=== PATIENT | female | born 1940 | race Caucasian/White ===

== ENCOUNTER → 2018-01-13 15:34 | Outpatient (CLI) | payer MEDICARE, OTHER, SELFPAY ==
[2018-01-13 17:21] LABS: AST(SGOT) 18 U/L (15-37); Alanine Aminotransfer ALT/SGPT 16 U/L (13-56); Alkaline Phosphatase 114 U/L (45-117); BUN 16 mg/dL (7-18); BUN/Creat Ratio 20.4 RATIO (10-20); Bilirubin, Direct 0.08 mg/dL (0.00-0.30); Cholesterol 132 mg/dL (200); Creatinine, Serum 0.78 mg/dL (0.55-1.02); EST Glomerular Filtration Rate 76 mL/min (>60); Est Glom Filt Rate - Afr Amer 92 mL/min (>60); Globulin 4.6 g/dL (2.2-4.2); Glucose 112 mg/dL (74-106); Protein, Total 7.6 g/dL (6.4-8.2); Triglycerides 46 mg/dL
[2018-01-13 17:22] LABS: Anion Gap 6 (5-15); Chloride 98 mmol/L (98-107); High Density Lipoprotein 87 mg/dL; Sodium Level 139 mmol/L (136-145); Very Low Density Lipoprotein 9 mg/dL (5-40)
== END ==
PROVIDERS: Family Provider Family Medicine; PCP Family Medicine; Visit Provider Physician Assistant Medical
DX: I10 Essential (primary) hypertension (principal); E78.5 Hyperlipidemia, unspecified; I48.0 Paroxysmal atrial fibrillation; I63.50 Cerebral infarction due to unspecified occlusion or stenosis of unspecified cerebral artery
CPT/HCPCS: 36415; 80048; 80061; 80076

== ENCOUNTER 2018-05-24 11:35 | Inpatient (IN) | payer MEDICARE, OTHER, SELFPAY ==
[2018-05-24] VITALS (20 sets, daily range): BP systolic 91–121; BP diastolic 56–83; PULSE 72–97; RESP 13–20; TEMP 36.2–37.2; O2SAT 88–100; BMI 25.3; BMI 25.7; BMI 25.8
--- NOTE | 2018-05-24 11:57 | EKG12_ITS ---
Test Reason : Blood Pressure : / mmHG Vent. Rate : 078 BPM Atrial Rate : 090 BPM P-R Int : 000 ms QRS Dur : 112 ms QT Int : 304 ms P-R-T Axes : 000 047 232 degrees QTc Int : 346 ms Atrial fibrillation Nonspecific ST and T wave abnormality Abnormal ECG Confirmed by ONEIL GARDUNO, JUSTUS ([id number]), video editor ANDRADE LEVY ([id number]) on 05/27/2018 2:36:35 PM Referred By: TRINI Confirmed By:JUSTUS RIGGS MD
--- NOTE | 2018-05-24 11:57 | RAD_ITS ---
STUDY: X-RAY CHEST REASON FOR EXAM: Female, 77 years old. Chest pain, confusion TECHNIQUE: Single AP portable view of the chest. COMPARISON: 06/12/2015 FINDINGS: Cardiac monitoring leads overlie the chest. There is elevation of the right hemidiaphragm. There is mild right basilar airspace disease. A small right pleural effusion is seen. There is moderate cardiac enlargement. Normal mediastinum and donna. Normal visualized pulmonary arteries. There is atherosclerotic calcification of the aortic arch with tortuosity. There are diffuse degenerative changes of the visualized thoracic spine. Normal visualized ribs, clavicles, and shoulders. There is no demonstrated abnormality of the visualized soft tissue structures of the upper abdomen. RAD/Chest 1 View (Portable) IMPRESSION: Mild right lower lobe airspace disease and small right pleural effusion. Moderate cardiomegaly. Electronically Signed: Ean Kate DO at 12:57 EDT Tel , Service support ,
--- NOTE | 2018-05-24 11:58 | CT_ITS ---
STUDY: CT BRAIN WITHOUT CONTRAST REASON FOR EXAM: Female, 77 years old. Confusion, anxiety RADIATION DOSAGE (If Supplied By Facility): CTDIvol = ( 44.99 ) mGy, DLP = ( 745.49 ) mGycm TECHNIQUE: Transaxial CT imaging of the brain was performed without administration of intravenous contrast material. Sagittal and coronal reconstructed images are provided and reviewed. Individualized dose optimization techniques were used for this CT. COMPARISON: 06/01/2015 FINDINGS: Vascular calcifications are seen. Normal calvarium. There is mild cerebral atrophy with widening of the extra-axial spaces and ventricular dilatation. There are areas of decreased attenuation within the white matter tracts of the supratentorial brain, consistent with microvascular disease changes. There is a remote infarct within the left occipital lobe. Normal basal ganglia and thalami. Normal brainstem. Normal cerebellum. There is no intracranial hemorrhage. There are no findings of an acute ischemic infarction. Normal visualized paranasal sinuses. CT/Brain/Head without Contrast IMPRESSION: Chronic involutional changes. No acute intracranial abnormality. Electronically Signed: Ean Kate DO at 12:53 EDT Tel , Service support ,
--- NOTE | 2018-05-24 11:59 | ED.VISSUMM ---
- ER Visit Summary Date of Service: 05/24/18 Chief Complaint: [] Confusion intermittently for the last few days, leg swelling for a few weeks History of Present Illness: The patient is a 77 F [] the patient has multiple medical problems including A. fib, fractured sternum, shortness of breath, transverse myelitis, leg swelling, nonspecific shaking spells, who basically is brought in by family because they report for last few day she seemed confused. She apparently recently had spilled some hot liquids to her inner thighs she was seen by her physicians on Friday for evaluation of this she was given some ointments to use the area seem to be healing but complained of bilateral increasing leg swelling from her baseline and she was started on what sounds like Spironolactone she is only taken 2 doses. She lives with family, they report she seems confused and that she cannot remember what the doctor told her about the barber, she usually puts out takes her medications and could not manage that today, in addition the family believes that her chronic shaking spells are getting worse, she seems to be swelling with fluid, and she was brought in for evaluation., The sister believes she had a stroke in the past that caused some issues with speech that has all been stable The patient's had no fever no cough normal bowel bladder habits she has had no trauma, the patient is oriented to herself her name her address her sister and family's names where she lives the [facility] and the president name and appears to be at her mental status baseline now she is moving all 4 extremities she simply complains that her memory is not as sharp as it used to be and again she denies any other symptoms no UTI symptoms no GI symptoms no cardiovascular symptoms Physical Examination: [] ENT exam is generally unremarkable her lungs are diminished her heart tones sound regular the abdomen is soft nontender the inner thighs bilaterally there is small areas of healing burn that are really now just red skin is no evidence of infection is no pain no blistering she does have nonspecific short amplitude tremors of her upper and lower extremities that been going on for over a year she does not seem be able to control these, she has no history of Parkinson's disease or other movement disorders, she does have 3+ edema to her lower extremities that are symmetric and again her feet are well-perfused no signs of ischemia she has no history of DVT or PE, she is resting in the bed basically at baseline with no complaints, neurologically she is awake and alert her mental status is as above, she is moving all 4 extremities, there is no evidence of confusion at this time, her NIH is 0 Test Results: [] Emergency Department Course and Treatment: [] Differential is rather extensive she has multiple chronic medical problems the new issue seem to be this level of intermittent confusion and leg swelling she will undergo evaluation with screening labs head CT The patient's general evaluation testing are unremarkable see those reports except her hemoglobin turns of [address] showed nothing acute, she is on Eliquis for the A. fib she has had no bleeding, rectal exam shows brown stool was sent to lab for formal guaiac but she has had no history of GI bleeding, per sister had prior colonoscopies are unremarkable, at this time she is remained hemodynamically stable given all the above we have typed and crossed her the crossmatch will be completed on inpatient service, spoke with the hospitalist and will be done to see her for admission Treatment Plan: [] Disposition: [] Admit stable Impression: [] Acute blood loss anemia, shortness of breath, A. fib on Eliquis, history of movement disorder, leg edema , CHF This note was generated with [employer] dictation software. It may contain incorrect words, spelling, and punctuation that were not noted in review of the chart prior to signing ED Disposition - Plan for ED Patient: Chief Complaint: Confusion Referrals: Fan Ruiz DO [Primary Care Provider] -
[2018-05-24 12:27] LABS: Absolute Lymphocyte Count 0.56 X10^3/ul (0.83-4.51); Absolute Neutrophil Count 2.4 X10^3/uL (2.0-7.7); Basophil# 0.05 X10^3/uL; Basophil% 1.5 % (0-1); Differential Indicated SCAN CRITERIA MET; Eosinophil# 0.04 X10^3/uL; Eosinophils% 1.2 % (0-5); Hematocrit 17.6 % (37-47); Lymphocyte # 0.56 X10^3/ul (4.0); Lymphocyte % 16.3 % (19-41); Mean Corp Hgb Conc 27.3 g/gl (32-36); Mean Corpuscular Hgb 18.2 pg (27.0-32.0); Mean Corpuscular Volume 66.7 fL (81-99); Monocyte# 0.35 X10^3/uL; Monocyte% 10.2 % (0-10); Neutrophil # 2.43 X10^3/uL (2.7-7.7); Neutrophil % 70.8 % (47-70); POSITIVE COUNT YES; POSITIVE DIFFERENTIAL YES; POSITIVE MORPHOLOGY YES; Platelet Count 109 K/mm3 (150-450); RBC Distribution Width CV 22.8 % (11.6-14.6); RBC Distribution Width SD 54.4 fl (35.1-43.9); Red Blood Count 2.64 M/mm3 (4.2-5.4); White Blood Count 3.4 K/mm3 (4.4-11.0)
[2018-05-24 12:28] LABS: Hemoglobin 4.8 g/dl (12.0-15.0)
--- NOTE | 2018-05-24 12:36 | ED.RN ---
hgb level of 4.8 md and nurse notified.
[2018-05-24 12:44] LABS: Differential Comment SCANNED
[2018-05-24 12:45] LABS: Anisocytosis 2+; Hypochromasia 2+; Microcytosis 2+; Platelet Estimate SLT DEC (ADEQ)
[2018-05-24 12:48] LABS: Anion Gap 6 (5-15); BUN 15 mg/dL (7-18); Calcium,Total 9.1 mg/dL (8.5-10.1); Chloride 99 mmol/L (98-107); Creatinine, Serum 0.83 mg/dL (0.55-1.02); EST Glomerular Filtration Rate 71 mL/min (>60); Est Glom Filt Rate - Afr Amer 86 mL/min (>60); Estimated Creatinine Clearance 44.19 ml/min; Glucose 88 mg/dL (74-106); Magnesium 1.9 mg/dL (1.6-2.6); Potassium 3.2 mmol/L (3.5-5.1); Sodium Level 139 mmol/L (136-145)
[2018-05-24 12:55] LABS: BNP,B-Type NATRIURETIC PEPTIDE 244.2 pg/mL (0-100)
[2018-05-24 13:03] LABS: Mucous, Urine 0 SEEN /hpf (<or=2+); Red Blood Cells-Urine 0 SEEN /hpf (0-5); Squamous Epithelial Cells - UA 0 SEEN /hpf (5-10)
[2018-05-24 13:09] LABS: Color, Urine Yellow (Yellow); Glucose, Dipstick Normal (Normal); Ketone-Dipstick Negative (Negative); Leukocyte Esterase-Dipstick 25 /ul (Negative); Nitrite-Dipstick Negative (Negative); Occult Blood-Urine Negative /ul (Negative); Protein-Dipstick Negative (Negative); Specific Gravity, Urine 1.015 (1.002-1.030); Urine Bilirubin Dipstick Negative (Negative); Urine Clarity Clear (Clear); Urine Urobilinogen Normal (Normal)
[2018-05-24 13:16] LABS: Bacteria 2+ /hpf (None Seen); White Blood Cells 0-5 SEEN /hpf (0-5)
[2018-05-24 15:41] LABS: Ferritin 16 ng/mL (8-252); Iron 39 ug/dL (50-170); Iron Binding Capacity,Total 405 ug/dL (250-450); LDH 233 U/L (84-246); PERCENT IRON SATURATION 9.6 % (15.0-55.0); Thyroid Stim Hormone (TSH) 1.57 uIU/mL (0.358-3.74)
[2018-05-24 15:44] LABS: Immature Platelet Fraction 11.5 % (1.0-7.9); RET-HE 22.8 pg (30-35); Reticulocyte Count 0.98 % (0.5-1.5)
[2018-05-24 15:49] LABS: Erythrocyte Sedimentation Rate 18 mm/hr (0-30)
--- NOTE | 2018-05-24 16:56 | NURSING ---
New admit from Emergency Department (ED). Arrived to floor From ED and had PRBC infusing. This nurse could not find Consent for blood. In patients TAR, it was check marked that consent was indeed signed. This nurse called and spoke with Kavitha in ED whom took care of pt. Kavitha said she had obtained consent but did not know where the paper for consent was at. This nurse waited until now when patients daughter arrived to get consent for blood product which was then placed in chart.
--- NOTE | 2018-05-24 17:54 | PCM.HP.STD ---
History of Present Illness Date of Admission: 05/24/18 Chief Complaint: weakness The patient is a 77 year old F with h/o CHF admitted to the hospital on account of increasing weakness, fatigue, malaise and cognitive decline. In the ED was found to be severely anemic with Hb of 4.8 and started on2 units of PRBCs. patient denies any hematochezia, or hematemesis, denies any melena stools. has issues with constipation because she is on opioids for chronic pain. No change in caliber of stools. 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) Other correction (current) drug therapy (Chronic) Hyperlipidemia (Chronic) Essential (primary) hypertension (Chronic) Paroxysmal atrial fibrillation (Chronic) Chronic pain syndrome (Chronic) Transverse myelitis (Chronic) History of DVT (deep vein thrombosis) (Chronic) Atrial flutter (Chronic) Medical History: Medical History (Last Reviewed 04/21/18 @ 14:36 by Kory Giraldo MD) Hyperlipidemia (Chronic) E78.5 Essential (primary) hypertension (Chronic) I10 Paroxysmal atrial fibrillation (Chronic) I48.0 Atrial flutter (Chronic) I48.92 Allergies morphine Allergy (Verified 05/24/18 11:36) Hives carbamazepine [From Tegretol] Adverse Reaction (Intermediate, Verified 05/24/18 11:36) HALLUCINATIONS procaine HCl [From Novocain] Adverse Reaction (Intermediate, Verified 05/24/18 11:36) HEART RACES,FEELS LIKE WILL PASS OUT Home Medications: Ambulatory Orders Medication Instructions Recorded Docusate Sodium [Dok] 200 mg PO BID 05/26/15 Gabapentin [Neurontin] 600 mg PO 4X/DAY 05/26/15 Methadone HCl 5 mg PO 5X/DAY 05/26/15 Oxycodone [Oxyir] 5 mg PO Q4H PRN 05/26/15 omeprazole 20 mg capsule,delayed 20 mg PO QDAY 12/25/17 release apixaban 5 mg tablet 5 mg PO BID #60 tab 03/09/18 citalopram 20 mg tablet 20 mg PO QDAY 04/21/18 atorvastatin 10 mg tablet 10 mg PO QDAY #90 tab 05/06/18 diltiazem ER (XR/XT) 120 mg 120 mg PO DAILY #90 cap 05/06/18 capsule,extended release 24 hr, controlled isosorbide mononitrate ER 30 mg 30 mg PO QDAY #90 tab 05/06/18 tablet,extended release 24 hr triamterene 37.5 1 cap PO DAILY #90 cap 05/06/18 mg-hydrochlorothiazide 25 mg capsule Apixaban [Eliquis] 5 mg PO BID 05/24/18 Rabeprazole Sodium [Aciphex] 1 tab PO DAILY 05/24/18 Spironolact/Hydrochlorothiazid 1 each PO DAILY 05/24/18 [Aldactazide 25-25 Tablet] Surgical History: Surgical History (Last Reviewed 04/21/18 @ 14:36 by Kory Giraldo MD) H/O: hysterectomy Z90.710 Surgical History: hysterectomy Psychiatric History: Anxiety 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 Smoking Status: Former smoker - *Family History Offspring Family History: Family History (Last Reviewed 04/21/18 @ 14:36 by Kory Giraldo MD) Mother Colon cancer Father Myocardial infarction History Items: - - MS Maternal Family History: Family History (Last Reviewed 04/21/18 @ 14:36 by Kory Giraldo MD) Mother Colon cancer Father Myocardial infarction History Items: No pertinent history Paternal Family History: Family History (Last Reviewed 04/21/18 @ 14:36 by Kory Giraldo MD) Mother Colon cancer Father Myocardial infarction History Items: No pertinent history Review of Systems Constitutional: Reports: Anorexia, Malaise, Weakness, Fatigue HEENT: Reports: Difficulty Hearing Cardiovascular: Reports: Edema. Denies: Chest Pain, Claudication, Chest Pressure Respiratory: Denies: Cough, Pleuritic Pain, Shortness of Breath Gastrointestinal: Reports: Constipation. Denies: Abdominal Pain, Diarrhea, Hematemesis, Hematochezia, Nausea, Melena, Vomiting Genitourinary: Denies: Dysuria Comment: rest of the ROS is negative VTE Information - Inpt Only VTE Present on Admission: No - Physical Exam General: Alert, Oriented x3, Cooperative, Disoriented, Lethargic HEENT: Atraumatic Oral: Dry Mucosa Neck: Supple Lungs: Clear to auscultation Cardiovascular: Regular rate, Regular Rhythm, Normal S1, Normal S2, No murmurs, No Ectopic Activity Abdomen: Soft, Non Tender, Non-Distended, No Hepato-splenomegaly, Obese Extremities: No clubbing Skin: - - pale +++ Musculoskeletal: No Tenderness to Palpation of Joints or Extremities Neurological: Cranial nerves II-XII grossly intact, Neuro grossly intact Psych/Mental Status: Normal Affect, Appropriate, Anxious Vital Signs Temp Pulse Resp BP Pulse Ox 97.8 F 80 16 121/65 H 100 05/24/18 16:38 05/24/18 16:49 05/24/18 16:38 05/24/18 16:38 05/24/18 16:38 Oxygen Flow Rate (L/min) 2 Oxygen Delivery Method Nasal Cannula Weight: 59.874 kg Body Mass Index (BMI) 25.7 Intake and Output for Last 24 Hours 05/22/18 05/23/18 05/24/18 23:59 23:59 23:59 Intake Total 0 / 0 Balance 0 / 0 Laboratory Tests Past 24 Hrs 05/24/18 05/24/18 05/24/18 15:10 15:10 Unknown Immature Plt Fraction 11.5 H ESR 18 Retic Count 0.98 Immature Retic Fraction 17.50 H Retic Hgb Equivalent 22.8 L Iron 39 L TIBC 405 Iron Saturation 9.6 L Ferritin 16 Lactate Dehydrogenase 233 Total Protein (PEP) Pending Albumin (PEP) Pending Globulin (PEP) Pending Albumin/Globulin (PEP) Pending [id number]-[id number] Pending Klitc-1-Jedwonucl Pending Beta Globulins Pending Gamma Globulins Pending M-Kris Pending TSH 1.57 Assessment/Plan All Active Problems (Last Reviewed 04/21/18 @ 14:36 by Kory Giraldo MD) Acute ischemic stroke (Acute) 1. Severe anemia. Appears to be chronic. iron panel suggestive of iron deficiency. Will continue work up Check FOBT. Complete blood transfusion. Consider GI consult 2. Chronic diastolic CHF. Stable 3. Atrial fibrillation. Will hold eliquis for now given possibility of occult GI bleeding 4. H/o transverse myelitis with mild paraparesis Code Visit Inpatient E&M: 33593 Init Hosp L3
[2018-05-24] MEDS: oxyCODONE 5 MG Tablet PO (17:56)
--- NOTE | 2018-05-24 17:58 | HP.PCM_ITS ---
History of Present Illness Date of Admission: 05/24/18 Chief Complaint: weakness The patient is a 77 year old F with h/o CHF admitted to the hospital on account of increasing weakness, fatigue, malaise and cognitive decline. In the ED was found to be severely anemic with Hb of 4.8 and started on2 units of PRBCs. patient denies any hematochezia, or hematemesis, denies any melena stools. has issues with constipation because she is on opioids for chronic pain. No change in caliber of stools. 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) Other chcf (current) drug therapy (Chronic) Hyperlipidemia (Chronic) Essential (primary) hypertension (Chronic) Paroxysmal atrial fibrillation (Chronic) Chronic pain syndrome (Chronic) Transverse myelitis (Chronic) History of DVT (deep vein thrombosis) (Chronic) Atrial flutter (Chronic) Medical History: Medical History (Last Reviewed 04/21/18 @ 14:36 by Kory Giraldo MD) Hyperlipidemia (Chronic) E78.5 Essential (primary) hypertension (Chronic) I10 Paroxysmal atrial fibrillation (Chronic) I48.0 Atrial flutter (Chronic) I48.92 Allergies morphine Allergy (Verified 05/24/18 11:36) Hives carbamazepine [From Tegretol] Adverse Reaction (Intermediate, Verified 05/24/18 11:36) HALLUCINATIONS procaine HCl [From Novocain] Adverse Reaction (Intermediate, Verified 05/24/18 11:36) HEART RACES,FEELS LIKE WILL PASS OUT Home Medications: Ambulatory Orders Medication Instructions Recorded Docusate Sodium [Dok] 200 mg PO BID 05/26/15 Gabapentin [Neurontin] 600 mg PO 4X/DAY 05/26/15 Methadone HCl 5 mg PO 5X/DAY 05/26/15 Oxycodone [Oxyir] 5 mg PO Q4H PRN 05/26/15 omeprazole 20 mg capsule,delayed 20 mg PO QDAY 12/25/17 release apixaban 5 mg tablet 5 mg PO BID #60 tab 03/09/18 citalopram 20 mg tablet 20 mg PO QDAY 04/21/18 atorvastatin 10 mg tablet 10 mg PO QDAY #90 tab 05/06/18 diltiazem ER (XR/XT) 120 mg 120 mg PO DAILY #90 cap 05/06/18 capsule,extended release 24 hr, controlled isosorbide mononitrate ER 30 mg 30 mg PO QDAY #90 tab 05/06/18 tablet,extended release 24 hr triamterene 37.5 1 cap PO DAILY #90 cap 05/06/18 mg-hydrochlorothiazide 25 mg capsule Apixaban [Eliquis] 5 mg PO BID 05/24/18 Rabeprazole Sodium [Aciphex] 1 tab PO DAILY 05/24/18 Spironolact/Hydrochlorothiazid 1 each PO DAILY 05/24/18 [Aldactazide 25-25 Tablet] Surgical History: Surgical History (Last Reviewed 04/21/18 @ 14:36 by Kory Giraldo MD) H/O: hysterectomy Z90.710 Surgical History: hysterectomy Psychiatric History: Anxiety 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 Smoking Status: Former smoker - *Family History Offspring Family History: Family History (Last Reviewed 04/21/18 @ 14:36 by Kory Giraldo MD) Mother Colon cancer Father Myocardial infarction History Items: - - MS Maternal Family History: Family History (Last Reviewed 04/21/18 @ 14:36 by Kory Giraldo MD) Mother Colon cancer Father Myocardial infarction History Items: No pertinent history Paternal Family History: Family History (Last Reviewed 04/21/18 @ 14:36 by Kory Giraldo MD) Mother Colon cancer Father Myocardial infarction History Items: No pertinent history Review of Systems Constitutional: Reports: Anorexia, Malaise, Weakness, Fatigue HEENT: Reports: Difficulty Hearing Cardiovascular: Reports: Edema. Denies: Chest Pain, Claudication, Chest Pressure Respiratory: Denies: Cough, Pleuritic Pain, Shortness of Breath Gastrointestinal: Reports: Constipation. Denies: Abdominal Pain, Diarrhea, Hematemesis, Hematochezia, Nausea, Melena, Vomiting Genitourinary: Denies: Dysuria Comment: rest of the ROS is negative VTE Information - Inpt Only VTE Present on Admission: No - Physical Exam General: Alert, Oriented x3, Cooperative, Disoriented, Lethargic HEENT: Atraumatic Oral: Dry Mucosa Neck: Supple Lungs: Clear to auscultation Cardiovascular: Regular rate, Regular Rhythm, Normal S1, Normal S2, No murmurs, No Ectopic Activity Abdomen: Soft, Non Tender, Non-Distended, No Hepato-splenomegaly, Obese Extremities: No clubbing Skin: - - pale +++ Musculoskeletal: No Tenderness to Palpation of Joints or Extremities Neurological: Cranial nerves II-XII grossly intact, Neuro grossly intact Psych/Mental Status: Normal Affect, Appropriate, Anxious Vital Signs Temp Pulse Resp BP Pulse Ox 97.8 F 80 16 121/65 H 100 05/24/18 16:38 05/24/18 16:49 05/24/18 16:38 05/24/18 16:38 05/24/18 16:38 Oxygen Flow Rate (L/min) 2 Oxygen Delivery Method Nasal Cannula Weight: 59.874 kg Body Mass Index (BMI) 25.7 Intake and Output for Last 24 Hours 05/22/18 05/23/18 05/24/18 23:59 23:59 23:59 Intake Total 0 / 0 Balance 0 / 0 Laboratory Tests Past 24 Hrs 05/24/18 05/24/18 05/24/18 15:10 15:10 Unknown Immature Plt Fraction 11.5 H ESR 18 Retic Count 0.98 Immature Retic Fraction 17.50 H Retic Hgb Equivalent 22.8 L Iron 39 L TIBC 405 Iron Saturation 9.6 L Ferritin 16 Lactate Dehydrogenase 233 Total Protein (PEP) Pending Albumin (PEP) Pending Globulin (PEP) Pending Albumin/Globulin (PEP) Pending Dghtj-[id number] Pending Ibobk-1-Ndsdmpxmv Pending Beta Globulins Pending Gamma Globulins Pending M-Kris Pending TSH 1.57 Assessment/Plan All Active Problems (Last Reviewed 04/21/18 @ 14:36 by Kory Giraldo MD) Acute ischemic stroke (Acute) 1. Severe anemia. Appears to be chronic. iron panel suggestive of iron deficiency. Will continue work up Check FOBT. Complete blood transfusion. Consider GI consult 2. Chronic diastolic CHF. Stable 3. Atrial fibrillation. Will hold eliquis for now given possibility of occult GI bleeding 4. H/o transverse myelitis with mild paraparesis Code Visit Inpatient E&M: 64735 Init Hosp L3
--- NOTE | 2018-05-24 20:21 | NURSING ---
Pt's daughter came out to the desk and told me her mom's IVAC was beeping. I went back to the room and noticed that the IVAC was no longer beeping. When I made a comment about it to the daughter, she said she had silenced it. I advised her not to do so, but she just replied that the alarm was bothering her mother. I asked her if she had used her call light and she said no I came and got you. I told her this was the first time we knew about the alarm and instructed her on how to use the call light. Her comment was are you guys short staffed? the care is not what it was a year ago. I told her we were not short staffed but were changing shifts and the nurses were trying to see their patients kind of all at once and then things should settle down. Lauren MARIN and Anselmo ARVIZU were made aware of the comments.
[2018-05-24] MEDS: Docusate Sodium 100 MG Capsule 200 MG PO (21:41)
[2018-05-24] MEDS: Gabapentin 300 MG Capsule 600 MG PO (22:58)
[2018-05-25] VITALS (25 sets, daily range): BP systolic 90–151; BP diastolic 55–100; PULSE 73–123; RESP 16–22; TEMP 36.4–37.1; O2SAT 89–99
--- NOTE | 2018-05-25 01:40 | NURSING ---
Addendum entered by Lauren Carver 05/25/18 01:55: blood infusion completed at 0050 Original Note: blood infusion completed. pt tolerated well no signs/symptoms of reaction. last set of vitals at 0140. BP 105/57, Pluse 90, Resp 16, SPO2 97% 2L temp 98.8 Oral.
[2018-05-25 07:12] LABS: Absolute Lymphocyte Count 0.93 X10^3/ul (0.83-4.51); Absolute Neutrophil Count 1.9 X10^3/uL (2.0-7.7); Basophil# 0.06 X10^3/uL; Basophil% 1.7 % (0-1); Differential Indicated SCAN CRITERIA MET; Eosinophil# 0.07 X10^3/uL; Hematocrit 21.5 % (37-47); Hemoglobin 6.3 g/dl (12.0-15.0); Lymphocyte # 0.93 X10^3/ul (4.0); Lymphocyte % 26.2 % (19-41); Mean Corp Hgb Conc 29.3 g/gl (32-36); Mean Corpuscular Hgb 21.4 pg (27.0-32.0); Mean Corpuscular Volume 72.9 fL (81-99); Monocyte# 0.54 X10^3/uL; Monocyte% 15.2 % (0-10); Neutrophil # 1.94 X10^3/uL (2.7-7.7); Neutrophil % 54.6 % (47-70); POSITIVE COUNT NO; POSITIVE DIFFERENTIAL NO; POSITIVE MORPHOLOGY YES; Platelet Count 80 K/mm3 (150-450); RBC Distribution Width CV 23.7 % (11.6-14.6); RBC Distribution Width SD 61.6 fl (35.1-43.9); Red Blood Count 2.95 M/mm3 (4.2-5.4); White Blood Count 3.6 K/mm3 (4.4-11.0)
[2018-05-25 07:28] LABS: ALB/GLOB Ratio 0.6 RATIO (0.9-2.4); AST(SGOT) 23 U/L (15-37); Alanine Aminotransfer ALT/SGPT 17 U/L (13-56); Albumin, Serum 2.2 g/dL (3.2-5.0); Alkaline Phosphatase 89 U/L (45-117); Anion Gap 3 (5-15); BUN 14 mg/dL (7-18); BUN/Creat Ratio 18.4 RATIO (10-20); Calcium,Total 8.7 mg/dL (8.5-10.1); Chloride 102 mmol/L (98-107); Creatinine, Serum 0.76 mg/dL (0.55-1.02); EST Glomerular Filtration Rate 79 mL/min (>60); Est Glom Filt Rate - Afr Amer 95 mL/min (>60); Estimated Creatinine Clearance 34.91 ml/min; Globulin 3.9 g/dL (2.2-4.2); Glucose 74 mg/dL (74-106); Potassium 3.9 mmol/L (3.5-5.1); Protein, Total 6.1 g/dL (6.4-8.2); Sodium Level 141 mmol/L (136-145)
[2018-05-25] MEDS: oxyCODONE 5 MG Tablet PO ×2 (08:34→20:31)
[2018-05-25] MEDS: Docusate Sodium 100 MG Capsule 200 MG PO (08:35)
[2018-05-25] MEDS: Gabapentin 300 MG Capsule 600 MG PO ×4 (08:36→20:30)
[2018-05-25] MEDS: dilTIAZem CD 120 MG Capsule PO (08:36)
[2018-05-25] MEDS: Citalopram 20 MG Tablet PO (08:37)
[2018-05-25] MEDS: Isosorbide Mononitrate 30 MG Tablet PO (08:38)
[2018-05-25 09:47] LABS: Vitamin B12 740 pg/mL (211-911)
--- NOTE | 2018-05-25 09:50 | CASEMGMT ---
TOMAS DONG Face to Face with patient for initial transition planning/care coordination assessment. RN LETITIA introduced self and role at [facility]. Patient lying in bed, alert and oriented. Patient willing to participate in assessment and is able to answer all questions appropriately. Care providers, pharmacy, and demographics verified. See link attached. Patient wishes to discharge home and is agreeable to [facility] and has had [facility] in the past. Patient states she has no further needs or concerns at this time. CM to follow for discharge planning needs that may arise. Disposition Plan: Patient to discharge home with HHC, family support, and follow-up plans in place. Will monitor for need for home oxygen with preferred company [employer]. Isabel MURRAY, RN, CM
[2018-05-25] MEDS: Triamterene 37.5MG/Hctz 25MG Capsule 1 CAP PO (10:31)
[2018-05-25] MEDS: Polyethylene Glycol 3350 17 GM PACKET PO (10:31)
--- NOTE | 2018-05-25 12:52 | CON.PCM_ITS ---
- Consult Date of Consult: 05/25/18 - Reason for Consult Chief Complaint: anemia hgb 4.8 History of Present Illness: 77 y/o WF presents with generalized weakness and dementia type symptoms. Found to have Hgb of 4.8. Had colonoscopy > 10 years ago. Mother had colon cancer dx'd in her 60s Denies abdominal pain. Denies melena Denies blood in stools Has chronic constipation, takes suppositories for this Had duodenal ulcer about 20 years ago has acid reflux and heartburn - takes both aciphex and omeprazole for this Past Medical History: transverse myelitis history of CVA hyperlipidemia hypertension chronic pain syndrome history of DVT history of episode of atrial flutter Past Surgical History: hysterectomy Medications: Docusate Sodium [Dok] 200 mg PO BID Gabapentin [Neurontin] 600 mg PO 4X/DAY Methadone HCl 5 mg PO 5X/DAY Oxycodone [Oxyir] 5 mg PO Q4H PRN omeprazole 20 mg capsule,delayed 20 mg PO QDAY apixaban 5 mg tablet 5 mg PO BID #60 tab citalopram 20 mg tablet 20 mg PO QDAY atorvastatin 10 mg tablet 10 mg PO QDAY #90 tab diltiazem ER (XR/XT) 120 mg 120 mg PO DAILY #90 cap capsule,extended release 24 hr, controlled isosorbide mononitrate ER 30 mg 30 mg PO QDAY #90 tab tablet,extended release 24 hr triamterene 37.5 1 cap PO DAILY #90 cap mg-hydrochlorothiazide 25 mg capsule Apixaban [Eliquis] 5 mg PO BID Rabeprazole Sodium [Aciphex] 1 tab PO DAILY Spironolact/Hydrochlorothiazid 1 each PO DAILY Allergies: morphine, carbamazepine, procaine Social history: TOB use denies Review of Systems: General - has increased weakness, denies fevers Cardiovascular denies chest pain Pulmonary denies coughing up blood Gastrointestinal as per HPI, denies blood in stools Neurological denies seizures Genitourinary denies blood in urine Hematological denies spontaneous/prolonged bleeding Skin has wound with dressing of right thigh area Musculoskeletal has pain all over Endocrine denies diabetes Psychological denies hallucinations Physical examination: Vital signs Temp 97.7F HR 82 BP 129/73 RR 18 General WD/WN elderly WF in no apparent distress, alert and oriented, not septic appearing HEENT Normocephalic. EOM intact with sclera clear and no icterus noted. Neck is supple with no jugular venous distention noted. Trachea is midline. Lungs clear to auscultation. normal breath sounds. No rales/rhonchi/ wheezing noted. No labored breathing noted, such as retractions. No cough heard. Heart normal S1 and S2 auscultated. No rubs/clicks/murmurs noted. . Abdomen soft and benign. Normal bowel sounds No abdominal bruits noted. No distention or tympany noted. Extremities no pitting edema noted. Genitourinary/Rectal deferred Skin normal skin integrity. Neurological non focal. Psychological normal affect, patient is calm and appropriate Impression: rule out GI bleed, profound anemia Discussion/Plan: I have discussed the above with the patient. Patient will have to be stabilized with blood transfusions. Has been on solid food diet today, there is apple sauce at her bed side. Will therefore schedule for colonoscopy and EGD for Friday. I have explained the procedure to the patient. I have counseled the patient as to the risks of the procedure, including but not limited to: infection, bleeding, injury to any intraabdominal organs such as liver/spleen, perforation of the GI tract, inability to complete the procedure, etc. - she understands. She agrees to proceed. I have answered all questions to the patient?s satisfaction and the patient has no further questions.
[2018-05-25 14:46] LABS: Pathologist Review Reviewed
[2018-05-25] MEDS: Furosemide 40 MG/4 ML Vial IV ×2 (15:14→20:29)
--- NOTE | 2018-05-25 15:52 | CHAPLAIN ---
Type of Pastoral Visit _x__ Initial Visit ___ Follow-up Visit ___ On-call Visit ___ General Patient Visit ___ Spiritual Assessment ___ Family Conference ___ Bereavement ___ Rapid Response ___ Code Blue ___ Other (describe below) Pastoral Care Referral From _x__ Patient ___ Family ___ Nurse ___ Physician ___ Director Advertising ___ Grinder Machine Knife Setter ___ Other (describe below) Sacrament/Intervention ___ Active listening ___ Anointing ___ Bahai ___ Bereavement ___ Communion ___ Evelin exploration ___ ___ Life review _x__ Prayer ___ Reconciliation ___ Sacrament of Sick _x__ Supportive presence ___ Wedding ___ Other (describe below) Pastoral Comments patient is having a difficult time staying awake so this visit is brief; RN said that pt requested assembler wet wash to pray the Lord's Prayer with her; pt did want this and was given opportunity to pray the Lord's Prayer; [id number] is with pt; pt admits to being somewhat confused and tired
--- NOTE | 2018-05-25 17:26 | PCM.PN.HOSP ---
Subjective: f/u for severe anemia Patient received 2 units of blood yesterday and is currently on 3rd unit Noted to be more dyspneic today and patient does say she is short of breath Vitals/I&O's: Vital Signs Temp Pulse Resp BP Pulse Ox 98.5 F 109 H 20 H 133/94 H 90 05/25/18 15:46 05/25/18 15:46 05/25/18 15:46 05/25/18 15:46 05/25/18 16:13 Oxygen Flow Rate (L/min) 2 Oxygen Delivery Method Nasal Cannula Weight: 62.3 kg Body Mass Index (BMI) 25.7 Intake and Output for Last 24 Hours 05/23/18 05/24/18 05/25/18 23:59 23:59 23:59 Intake Total 600 / 600 2667 / 2667 Balance 600 / 600 2667 / 2667 General: Lethargic - acutely ill looking and in some respiratory distress, restless and lethargic but oriented and cooperative Oral: Dry Mucosa Neck: Supple Lungs: - - fine crackles in the left hemithorax with reduced BS and exp wheezing noted in the right hemithorax strangely, breathing is labored Cardiovascular: Tachycardic Abdomen: Soft, Non Tender, Obese Extremities: Edema - 3+ edema in the LEs Neurological: Cranial nerves II-XII grossly intact Psych/Mental Status: Restless Microbiology Past 72 Hours 05/24/18 Unknown Urine Catheter - Catheter Urine Culture - Preliminary Culture exhibits no growth. Laboratory Results 05/24/18 : Vitamin B12 740 05/25/18 05:58: WBC 3.6 L, RBC 2.95 L, Hgb 6.3 L, Hct 21.5 L, MCV 72.9 L, MCH 21.4 L, MCHC 29.3 L, RDW 23.7 H, RDW Differential 61.6 H, Plt Count 80 L, Immature Gran % (Auto) 0.300, Neut % (Auto) 54.6, Lymph % (Auto) 26.2, [place] % (Auto) 15.2 H, Eos % (Auto) 2.0, Baso % (Auto) 1.7 H, Absolute Neuts (auto) 1.9 L, Absolute Lymphs (auto) 0.93, Total Counted Not Reportable, Differential Comment COMMENT 05/25/18 05:58: Sodium 141, Potassium 3.9, Chloride 102, Carbon Dioxide 36.0 H, Anion Gap 3 L, BUN 14, Creatinine 0.76, Estim Creat Clear Calc 34.91, Est GFR (MDRD) Af Amer 95, Est GFR (MDRD) Non-Af 79, BUN/Creatinine Ratio 18.4, Glucose 74, Calcium 8.7, Total Bilirubin 0.30, AST 23, ALT 17, Alkaline Phosphatase 89, Total Protein 6.1 L, Albumin 2.2 L, Globulin 3.9, Albumin/Globulin Ratio 0.6 L Current Medications Atorvastatin Calcium (Lipitor) 10 mg PO DAILY@2200 [facility] Citalopram Hydrobromide (Celexa) 20 mg PO DAILY [facility] Last Admin: 05/25/18 08:37 Dose: 20 mg Diltiazem HCl (Cardizem Cd) 120 mg PO DAILY [facility] Last Admin: 05/25/18 08:36 Dose: 120 mg Furosemide (Lasix) 40 mg IV Q8 [facility] Stop: 05/27/18 06:01 Last Admin: 05/25/18 15:14 Dose: 40 mg Gabapentin ([facility]urontin) [facility] Last Admin: 05/25/18 12:03 Dose: 600 mg Isosorbide Mononitrate (Imdur) 30 mg PO DAILY [facility] Last Admin: 05/25/18 08:38 Dose: 30 mg Magnesium Hydroxide (Milk Of Magnesia) 30 ml PO DAILY PRN PRN PRN Reason: Constipation Methadone HCl () 2.5 mg PO TID [facility] Nutritional Formula (Lactose Free) (Ensure Enlive) 120 ml PO 4X/DAY [facility] Last Admin: 05/25/18 13:49 Dose: 120 ml Oxycodone HCl (Oxyir) 5 mg PO Q8H PRN PRN Reason: PAIN Pantoprazole Sodium (Protonix) 40 mg PO BID [facility] Polyethylene Glycol (Miralax) 17 gm PO DAILY [facility] Last Admin: 05/25/18 10:31 Dose: 17 gm Potassium Chloride (K-Dur) 40 meq PO DAILY [facility] Stop: 05/28/18 10:01 Senna/Docusate Sodium (Senokot-S, Kellee-Colace) 2 tablet PO BID [facility] Last Admin: 05/25/18 09:53 Dose: Not Given Medical Necessity - Tobacco Use Smoking Status: Former smoker Assessment/Plan All Active Problems (Last Reviewed 04/21/18 @ 14:36 by Kory Giraldo MD) Acute ischemic stroke (Acute) 1. Severe anemia. Appears to be chronic. Iron panel suggestive of iron deficiency and IV iron has been started. Received 2 units of PRBCs yesterday and another 2 being given today. has been seen by gen surgery and input appreciated. patient planned for EGD and colonoscopy. Hopefully respiratory status would have improved significantly enough. If not then may have to be delayed. Not acutely bleeding and so can be reasonably delayed 2. Acute on chronic diastolic CHF with acute pulmonary edema at this time. Precipitated by fluid overload from blood transfusion very likely. IV Lasix 40mg Q8 ordered and will do CXR stat. 3. Acute hypoxic respiratory failure secondary to pulmonary edema from fluid overload. On O2 via NC but may have to place on NIPPV with CPAP until pulmonary edema improves so patient does not tire out. Will check ABGs and reevaluate the patient later 4. Atrial fibrillation. Holding Eliquis for now given possibility of occult GI bleeding. Patient in RVR now at this time secondary to #1, #2 and #3 5. H/o transverse myelitis with mild paraparesis. PT/OT when more stable medically 48 minutes spent in this patient's care and includes face to face bedside evaluation, meeting with family in the room to address concerns, update and answer questions and in reviewing labs and other data. Code Visit Inpatient E&M: [id number] [facility] Hosp L3
--- NOTE | 2018-05-25 17:30 | PN_ITS ---
Subjective: f/u for severe anemia Patient received 2 units of blood yesterday and is currently on 3rd unit Noted to be more dyspneic today and patient does say she is short of breath Vitals/I&O's: Vital Signs Temp Pulse Resp BP Pulse Ox 98.5 F 109 H 20 H 133/94 H 90 05/25/18 15:46 05/25/18 15:46 05/25/18 15:46 05/25/18 15:46 05/25/18 16:13 Oxygen Flow Rate (L/min) 2 Oxygen Delivery Method Nasal Cannula Weight: 62.3 kg Body Mass Index (BMI) 25.7 Intake and Output for Last 24 Hours 05/23/18 05/24/18 05/25/18 23:59 23:59 23:59 Intake Total 600 / 600 2667 / 2667 Balance 600 / 600 2667 / 2667 General: Lethargic - acutely ill looking and in some respiratory distress, restless and lethargic but oriented and cooperative Oral: Dry Mucosa Neck: Supple Lungs: - - fine crackles in the left hemithorax with reduced BS and exp wheezing noted in the right hemithorax strangely, breathing is labored Cardiovascular: Tachycardic Abdomen: Soft, Non Tender, Obese Extremities: Edema - 3+ edema in the LEs Neurological: Cranial nerves II-XII grossly intact Psych/Mental Status: Restless Microbiology Past 72 Hours 05/24/18 Unknown Urine Catheter - Catheter Urine Culture - Preliminary Culture exhibits no growth. Laboratory Results 05/24/18 : Vitamin B12 740 05/25/18 05:58: WBC 3.6 L, RBC 2.95 L, Hgb 6.3 L, Hct 21.5 L, MCV 72.9 L, MCH 21.4 L, MCHC 29.3 L, RDW 23.7 H, RDW Differential 61.6 H, Plt Count 80 L, Immature Gran % (Auto) 0.300, Neut % (Auto) 54.6, Lymph % (Auto) 26.2, [place] % ( Auto) 15.2 H, Eos % (Auto) 2.0, Baso % (Auto) 1.7 H, Absolute Neuts (auto) 1.9 L , Absolute Lymphs (auto) 0.93, Total Counted Not Reportable, Differential Comment COMMENT 05/25/18 05:58: Sodium 141, Potassium 3.9, Chloride 102, Carbon Dioxide 36.0 H, Anion Gap 3 L, BUN 14, Creatinine 0.76, Estim Creat Clear Calc 34.91, Est GFR ( MDRD) Af Amer 95, Est GFR (MDRD) Non-Af 79, BUN/Creatinine Ratio 18.4, Glucose 74, Calcium 8.7, Total Bilirubin 0.30, AST 23, ALT 17, Alkaline Phosphatase 89, Total Protein 6.1 L, Albumin 2.2 L, Globulin 3.9, Albumin/Globulin Ratio 0.6 L Current Medications Atorvastatin Calcium (Lipitor) 10 mg PO DAILY@2200 [facility] Citalopram Hydrobromide (Celexa) 20 mg PO DAILY [facility] Last Admin: 05/25/18 08:37 Dose: 20 mg Diltiazem HCl (Cardizem Cd) 120 mg PO DAILY [facility] Last Admin: 05/25/18 08:36 Dose: 120 mg Furosemide (Lasix) 40 mg IV Q8 [facility] Stop: 05/27/18 06:01 Last Admin: 05/25/18 15:14 Dose: 40 mg Gabapentin (Neurontin) [facility] Last Admin: 05/25/18 12:03 Dose: 600 mg Isosorbide Mononitrate (Imdur) 30 mg PO DAILY [facility] Last Admin: 05/25/18 08:38 Dose: 30 mg Magnesium Hydroxide (Milk Of Magnesia) 30 ml PO DAILY PRN PRN PRN Reason: Constipation Methadone HCl () 2.5 mg PO TID [facility] Nutritional Formula (Lactose Free) (Ensure Enlive) 120 ml PO 4X/DAY [facility] Last Admin: 05/25/18 13:49 Dose: 120 ml Oxycodone HCl (Oxyir) 5 mg PO Q8H PRN PRN Reason: PAIN Pantoprazole Sodium (Protonix) 40 mg PO BID [facility] Polyethylene Glycol (Miralax) 17 gm PO DAILY [facility] Last Admin: 05/25/18 10:31 Dose: 17 gm Potassium Chloride (K-Dur) 40 meq PO DAILY [facility] Stop: 05/28/18 10:01 Senna/Docusate Sodium (Senokot-S, Kellee-Colace) 2 tablet PO BID [facility] Last Admin: 05/25/18 09:53 Dose: Not Given Medical Necessity - Tobacco Use Smoking Status: Former smoker Assessment/Plan All Active Problems (Last Reviewed 04/21/18 @ 14:36 by Kory Giraldo MD) Acute ischemic stroke (Acute) 1. Severe anemia. Appears to be chronic. Iron panel suggestive of iron deficiency and IV iron has been started. Received 2 units of PRBCs yesterday and another 2 being given today. has been seen by gen surgery and input appreciated. patient planned for EGD and colonoscopy. Hopefully respiratory status would have improved significantly enough. If not then may have to be delayed. Not acutely bleeding and so can be reasonably delayed 2. Acute on chronic diastolic CHF with acute pulmonary edema at this time. Precipitated by fluid overload from blood transfusion very likely. IV Lasix 40mg Q8 ordered and will do CXR stat. 3. Acute hypoxic respiratory failure secondary to pulmonary edema from fluid overload. On O2 via NC but may have to place on NIPPV with CPAP until pulmonary edema improves so patient does not tire out. Will check ABGs and reevaluate the patient later 4. Atrial fibrillation. Holding Eliquis for now given possibility of occult GI bleeding. Patient in RVR now at this time secondary to #1, #2 and #3 5. H/o transverse myelitis with mild paraparesis. PT/OT when more stable medically 48 minutes spent in this patient's care and includes face to face bedside evaluation, meeting with family in the room to address concerns, update and answer questions and in reviewing labs and other data. Code Visit Inpatient E&M: [id number] [facility] Hosp L3
--- NOTE | 2018-05-25 17:35 | RAD_ITS ---
STUDY: X-RAY CHEST REASON FOR EXAM: Female, 77 years old. CHF TECHNIQUE: Frontal view of the chest COMPARISON: 05/24/2018 FINDINGS: The heart is enlarged, but stable. There is increasing opacity at the right lung base which likely represents a combination of effusion and infiltrate. There is no left-sided effusion. There is no pneumothorax. The visualized osseous structures are within normal limits. RAD/Chest 1 View (Portable) IMPRESSION: Increasing opacity at the right lung base which is likely due to a combination of effusion and infiltrate. Electronically Signed: Jitendra Franklin, at 18:20 EDT Tel , Service support ,
[2018-05-25 20:06] LABS: Allen Test POS; Base Excess 18 mmol/L (-2 to +2); Bicarbonate 42.4 mmol/L (22-26); Blood Gas Specimen Type ART; O2 Delivery Device Nasal Can; PO2 58 mmHG (75-100); SITE R Radial; SO2 89 % (95-99); Time Given 1950; Total Carbon Dioxide 44 mmol/L; pCO2 68.3 mmHg (35-45)
--- NOTE | 2018-05-25 20:06 | CPS ---
pt refusing cpap at current time
[2018-05-25] MEDS: Atorvastatin Calcium 10 MG Tablet PO (20:29)
[2018-05-25] MEDS: Senna/Docusate Sodium 1 Tablet 2 TABLET PO (20:30)
[2018-05-25] MEDS: Pantoprazole Sodium 40 MG Tablet PO (20:30)
[2018-05-25 22:15] LABS: Hematocrit 35.4 % (37-47); Hemoglobin 10.5 g/dl (12.0-15.0)
--- NOTE | 2018-05-25 23:05 | NURSING ---
Laura from [facility] called for status on patient. On monitor noted to be 95%. She instructed to turn O2 to 5L. I did this. About 5m later the alarm sounded for her O2 to be 87%. This held with a good waveform. I went to room, TOMAS Mancia is at bedside. I notified her of the above, she is to resolve.
[2018-05-26] VITALS (13 sets, daily range): BP systolic 101–115; BP diastolic 66–80; PULSE 78–107; RESP 16–20; TEMP 36.9–37.2; O2SAT 92–95
[2018-05-26] MEDS: Furosemide 40 MG/4 ML Vial IV (05:48)
[2018-05-26] MEDS: oxyCODONE 5 MG Tablet PO ×2 (05:48→18:05)
--- NOTE | 2018-05-26 06:51 | PCM.PN.SRG ---
Subjective: patient denies abdominal pain - Physical Exam Vital Signs Temp Pulse Resp BP Pulse Ox 98.5 F 82 20 H 113/69 92 05/26/18 01:45 05/26/18 01:45 05/26/18 01:45 05/26/18 01:45 05/26/18 01:45 Oxygen Flow Rate (L/min) 4 Oxygen Delivery Method Nasal Cannula Weight: 62.3 kg Body Mass Index (BMI) 25.7 Intake and Output for Last 24 Hours 05/24/18 05/25/18 05/26/18 23:59 23:59 23:59 Intake Total 600 / 600 3303 / 3303 220 / 220 Balance 600 / 600 3303 / 3303 220 / 220 Microbiology Past 72 Hours 05/24/18 Unknown Urine Culture - Preliminary Urine Catheter - Catheter Culture exhibits no growth. Laboratory Tests Past 24 Hrs 05/24/18 05/25/18 05/25/18 Unknown 05:58 05:58 WBC 3.6 L RBC 2.95 L Hgb 6.3 L Hct 21.5 L MCV 72.9 L MCH 21.4 L MCHC 29.3 L RDW 23.7 H RDW Differential 61.6 H Plt Count 80 L Immature Gran % (Auto) 0.300 Neut % (Auto) 54.6 Lymph % (Auto) 26.2 [place] % (Auto) 15.2 H Eos % (Auto) 2.0 Baso % (Auto) 1.7 H Absolute Neuts (auto) 1.9 L Absolute Lymphs (auto) 0.93 Total Counted Not Reportable Differential Comment COMMENT Specimen Type Sample Site pH Bicarbonate Actual POC Total CO2 Base Excess O2 Saturation ABG pCO2 ABG pO2 Shorty Test O2 Delivery Device Liter Flow Blood Gas Notified Whom Blood Gas Notified Time Sodium 141 Potassium 3.9 Chloride 102 Carbon Dioxide 36.0 H Anion Gap 3 L BUN 14 Creatinine 0.76 Estim Creat Clear Calc 34.91 Est GFR (MDRD) Af Amer 95 Est GFR (MDRD) Non-Af 79 BUN/Creatinine Ratio 18.4 Glucose 74 Calcium 8.7 Total Bilirubin 0.30 AST 23 ALT 17 Alkaline Phosphatase 89 Total Protein 6.1 L Albumin 2.2 L Globulin 3.9 Albumin/Globulin Ratio 0.6 L Vitamin B12 740 05/25/18 05/25/18 20:02 21:44 WBC RBC Hgb 10.5 L Hct 35.4 L MCV MCH MCHC RDW RDW Differential Plt Count Immature Gran % (Auto) Neut % (Auto) Lymph % (Auto) [place] % (Auto) Eos % (Auto) Baso % (Auto) Absolute Neuts (auto) Absolute Lymphs (auto) Total Counted Differential Comment Specimen Type ART Sample Site R Radial pH 7.40 Bicarbonate Actual 42.4 H POC Total CO2 44 Base Excess 18 H O2 Saturation 89 L ABG pCO2 68.3 H* ABG pO2 58 L Shorty Test POS O2 Delivery Device Nasal Can Liter Flow 4.0 Blood Gas Notified Whom HOSP Blood Gas Notified Time 1950 Sodium Potassium Chloride Carbon Dioxide Anion Gap BUN Creatinine Estim Creat Clear Calc Est GFR (MDRD) Af Amer Est GFR (MDRD) Non-Af BUN/Creatinine Ratio Glucose Calcium Total Bilirubin AST ALT Alkaline Phosphatase Total Protein Albumin Globulin Albumin/Globulin Ratio Vitamin B12 Medical Necessity - Tobacco Use Smoking Status: Former smoker Assessment/Plan All Active Problems (Last Reviewed 04/21/18 @ 14:36 by Kory Giraldo MD) Acute anemia (Acute) Congestive heart failure (CHF) (Acute) Hypoxia (Acute) Gastritis (Acute) Acute ischemic stroke (Resolved) Impression: profound anemia Plan: upper and lower endoscopy for noon tomorrow Her granddaughter is present and I have explained all of the above to her, I have asked if she has any further questions and she states that she has none plan bowel cleansing preparation today - clear liquid diet then Golytely cleanse
[2018-05-26] MEDS: Gabapentin 300 MG Capsule 600 MG PO ×4 (08:37→21:20)
[2018-05-26] MEDS: Citalopram 20 MG Tablet PO (08:37)
[2018-05-26] MEDS: Isosorbide Mononitrate 30 MG Tablet PO (08:38)
[2018-05-26] MEDS: Senna/Docusate Sodium 1 Tablet 2 TABLET PO (08:38)
[2018-05-26] MEDS: Polyethylene Glycol 3350 17 GM PACKET PO (08:38)
[2018-05-26] MEDS: Pantoprazole Sodium 40 MG Tablet PO ×2 (08:39→21:20)
[2018-05-26] MEDS: dilTIAZem CD 120 MG Capsule PO (08:40)
[2018-05-26] MEDS: Tetracaine/Benzocaine/Butamben 1 APPLIC TOPICAL (14:50)
[2018-05-26] MEDS: LORazepam 2 MG/ML Syringe 0.5 MG IV (15:07)
--- NOTE | 2018-05-26 15:40 | RAD_ITS ---
STUDY: X-RAY - ABDOMEN/PELVIS REASON FOR EXAM: Female, 77 years old. NG tube placement TECHNIQUE: Single AP view of the abdomen / pelvis. COMPARISON: None. FINDINGS: There is an enteric tube noted with its tip in the distal stomach. There is no bowel obstruction. There is air and stool to the level of the rectum. The visualized osseous structures are within normal limits. RAD/Abdomen Single View IMPRESSION: Enteric tube tip in the distal stomach. No bowel obstruction. Electronically Signed: Jitendra Franklin, at 16:14 EDT Tel , Service support ,
--- NOTE | 2018-05-26 16:03 | ECHOD_ITS ---
Reason For Study: DYSPNEA/SOB Procedure This was a 2D Doppler, Color Flow transthoracic echocardiogram. The study was technically difficult. Exam performed portable in patient room. Left Ventricle Normal size and thickness. The estimated ejection fraction is 60 %. Unable to assess diastolic dysfunction due to arrhythmia. No regional wall motion abnormalities noted. Right Ventricle Mildly dilated right ventricle. Normal systolic function. Atria The left atrium is severely enlarged. Normal right atrium. Normal atrial septum. Mitral Valve Mild diffuse mitral valve thickening. Mild-Moderate (1-2+) mitral valve insufficiency. Tricuspid Valve Normal tricuspid valve. Mild to moderate (1-2+) tricuspid valve insufficiency. Right ventricular systolic pressure estimated to be 57 mmHg. Moderate pulmonary hypertension. Aortic Valve Trisinus/trileaflet aortic valve. Mild focal aortic valve calcification. Pulmonic Valve Normal pulmonic valve. Trivial pulmonic valve insufficiency. Great Vessels Normal aortic root. Normal arch. Normal inferior vena cava. Inferior vena cava collapse with sniff. Pericardium/Pleural No pericardial effusion. MMode/2D Measurements & Calculations LVIDd: 4.3 cm IVSd: 1.1 cm Ao root diam: 3.4 cm LVIDs: 2.7 cm LVPWd: 0.94 cm LA dimension: 4.7 cm RVDd: 3.6 cm FS: 36.7 % LAV(MOD-bp): 125.5 ml LA A4 area: 34.8 cm2 RA A4 area: 17.5 cm2 LAV(MOD-bp) Indexed: 79.0 ml/m2 LAV(MOD-sp2): 106.7 ml LAV(MOD-sp4): 143.8 ml Doppler Measurements & Calculations MV E max rain: 94.5 cm/sec Ao V2 max: 117.3 cm/sec LV V1 max: 85.8 cm/sec Ao max P.5 mmHg LV V1 max P.9 mmHg MR max rain: 549.1 cm/sec PA V2 max: 93.2 cm/sec PI end-d rain: 179.4 cm/sec MR max P.8 mmHg MR mean rain: 444.2 cm/sec MR mean P.7 mmHg MR VTI: 171.0 cm TR max rain: 322.0 cm/sec TR max P.5 mmHg Interpretation Summary The estimated ejection fraction is 60 %. Unable to assess diastolic dysfunction due to arrhythmia. Mildly dilated right ventricle. The left atrium is severely enlarged. Mild-Moderate (1-2+) mitral valve insufficiency. Mild to moderate (1-2+) tricuspid valve insufficiency. Right ventricular systolic pressure estimated to be 57 mmHg. Moderate to severe pulmonary hypertension. Compared to echo report dated 05/27/2015, LV function appears the same, and RVSP has increased from 26 to 57 mm Hg. Pt appears to be in atrial fibrillation. Ordering Physician: Robles Herbert Referring Physician: Fan Ruiz M.D. Performed By: Suzanne Wells RDCS, RVT
[2018-05-26 16:09] LABS: PROEL- A/G Ratio 0.8 (0.7-1.7); PROEL- Albumin 2.6 g/dL (2.9-4.4); PROEL- Alpha-1 Globulin 0.2 g/dL (0.0-0.4); PROEL- Alpha-2 Globulin 0.5 g/dL (0.4-1.0); PROEL- Beta Globulin 0.9 g/dL (0.7-1.3); PROEL- Gamma Globulin 1.5 g/dL (0.4-1.8); PROEL- Globulin, Total 3.1 g/dL (2.2-3.9); PROEL- TOTAL PROTEIN 5.7 g/dL (6.0-8.5)
[2018-05-26 17:21] LABS: BNP,B-Type NATRIURETIC PEPTIDE 758.5 pg/mL (0-100)
[2018-05-26] MEDS: Electrolyte Solution/Peg's 4000 ML 2000 ML PO ×3 (17:36→23:13)
--- NOTE | 2018-05-26 18:16 | NURSING ---
[address] Herbert, he read the kub report and said to start the prep via the ng tube.
--- NOTE | 2018-05-26 18:19 | PN_ITS ---
Subjective: Patient was seen and examined today, she was not able to drink her scheduled gall light and I had talked with her about insertion of an NG tube which she agreed to, this was placed this afternoon and she will receive GoLYTELY via a small NG tube. Plan is for the patient have an upper and lower endoscopy tomorrow by general surgery. H&H will be repeated tomorrow - Physical Exam General: Alert, Oriented x3, Cooperative, No apparent distress, Well developed HEENT: Atraumatic, PERRLA, EOMI, Normocephalic Oral: Moist Mucosa Neck: Supple, No Nuchal Rigidity, Trachea Midline, Thyroid Normal Size and Texture Lungs: Clear to auscultation, Normal air movement, No rhonchi, No wheeze Cardiovascular: PMI Normal, Irregular Rate, No rub noted Abdomen: Bowel Sounds Present, Soft, Non Tender, Non-Distended, No hernias noted Extremities: No clubbing, No cyanosis, No edema, Capillary Refill Less than 3 Seconds Skin: No rashes, No breakdown Musculoskeletal: - - Patient has thoracic kyphosis Neurological: Cranial nerves II-XII grossly intact, Neuro grossly intact, Sensory exam intact to light touch and pain, Coordination normal Psych/Mental Status: Appropriate, Flat Affect, Alert and oriented to time, place , person, mood and affect Vital Signs Temp Pulse Resp BP Pulse Ox 99.0 F 89 18 101/69 95 05/26/18 17:29 05/26/18 17:29 05/26/18 17:29 05/26/18 17:29 05/26/18 17:29 Oxygen Flow Rate (L/min) 3 Oxygen Delivery Method Nasal Cannula Weight: 62.3 kg Body Mass Index (BMI) 25.7 Intake and Output for Last 24 Hours 05/24/18 05/25/18 05/26/18 23:59 23:59 23:59 Intake Total 600 / 600 3303 / 3303 220 / 220 Output Total Balance 600 / 600 3303 / 3303 219 / 219 Microbiology Past 72 Hours 05/24/18 Unknown Urine Culture - Final Urine Catheter - Catheter Culture exhibits no growth. Laboratory Tests Past 24 Hrs 05/25/18 05/25/18 05/26/18 20:02 21:44 16:23 Hgb 10.5 L Hct 35.4 L Specimen Type ART Sample Site R Radial pH 7.40 Bicarbonate Actual 42.4 H POC Total CO2 44 Base Excess 18 H O2 Saturation 89 L ABG pCO2 68.3 H* ABG pO2 58 L Shorty Test POS O2 Delivery Device Nasal Can Liter Flow 4.0 Blood Gas Notified Whom HOSP Blood Gas Notified Time 1949 B-Natriuretic Peptide 758.5 H Medical Necessity - Tobacco Use Smoking Status: Former smoker Assessment/Plan All Active Problems (Last Reviewed 04/21/18 @ 14:36 by Kory Giraldo MD) Acute ischemic stroke (Resolved) #1 acute on chronic iron deficiency anemia-H&H will be repeated tomorrow, etiology of the iron deficiency anemia is unknown at this time, patient will have endoscopy tomorrow #2 right lower lobe airspace disease with small right pleural effusion-I think this probably secondary to atelectasis and congestive heart failure, I will order an echocardiogram on the patient and patient's beta natruretic peptide was elevated at 244 on admission, I repeated it today and it is still elevated at 758. 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
[2018-05-26] MEDS: Atorvastatin Calcium 10 MG Tablet PO (21:20)
[2018-05-27] VITALS (13 sets, daily range): BP systolic 118–145; BP diastolic 68–96; PULSE 86–119; RESP 16–20; TEMP 36.4–36.9; O2SAT 91–95; BMI 26.8
--- NOTE | 2018-05-27 | GASB_PTH ---
PATIENT: PARISH AUGUSTINE LOC: MS3 U#:[id number] AGE/SX: 77/F ROOM: [facility] [place] RE05/24/[address]: Dr. Robles Herbert DO : 1940 BED: 1 DIS: 05/29/2018 SPEC #: [id number] RECD: 05/28/18 08:14 STATUS: TREV REQ #: [id number] FELICIA: 05/27/18 00:[address]: Yulia Stokes DEPT: SURGICAL PATHOLOGY RECD BY: Rangel Jarrell ENTERED: 05/28/18 08:14 SP TYPE: Gastric Bx OTHR DR: DO Dr. Ольга Guajardo MD Dr. Linda Wang, MD Dr. Mark Tereletsky, DO Tissues: Gastric mucous membrane Procedures: Surgery Specimen Level IV Comments: @ Ordering doctor for SUIV edited from to DR.LWANG Deleon by CORI at 05/28/18930 @ Submitting doctor edited from to DR.LWANG Deleon by CORI at 05/28/18930 HEADER OPERATION: Colonoscopy (MAC) PRE-OP DIAGNOSIS: Anemia TISSUE SUBMITTED: Antral biopsy for histo and H. pylori MICROSCOPIC DIAGNOSIS Gastric antrum, biopsy: Mild to moderate chronic gastritis. AM:manuel 05/29/18 COMMENT The results of immunohistochemistry for Helicobacter pylori will be reported separately ([id number]). MICROSCOPIC DESCRIPTION Slides are reviewed. GROSS DESCRIPTION Received in fixative is one container labeled with the patient's name and designated biopsy gastric antrum. The specimen consists of one irregular fragment of light monae soft tissue that measures 0.3 x 0.3 x 0.1 cm. The specimen is totally submitted in one cassette. / SJ:manuel 05/28/18 TC:3 CPT: 11320
--- NOTE | 2018-05-27 01:54 | NURSING ---
Patient wants NG tube taken out upon completion of bowel prep. Hospitalist aware.
[2018-05-27] MEDS: oxyCODONE 5 MG Tablet PO ×2 (01:59→17:25)
[2018-05-27] MEDS: Menthol/Lanolin/Calamine/Znox 113 GM Tube 1 APPLIC TOPICAL ×2 (05:50→21:32)
--- NOTE | 2018-05-27 05:55 | RAD_ITS ---
STUDY: X-RAY CHEST REASON FOR EXAM: Female, 77 years old. Shortness of breath. TECHNIQUE: Single AP portable view of the chest. COMPARISON: Comparison is made with prior study dated May 25, 2018. FINDINGS: EKG electrodes are seen. Persistent right pleural effusion. Residual infiltrate and/or atelectasis in the left lower lobe. This is unchanged. There is moderate cardiac enlargement. Normal mediastinum and donna. Normal visualized pulmonary arteries. There is atherosclerotic calcification of the aortic arch with tortuosity. Normal visualized thoracic spine. Normal visualized ribs, clavicles, and shoulders. There is no demonstrated abnormality of the visualized soft tissue structures of the upper abdomen. RAD/Chest 1 View (Portable) IMPRESSION: Stable right pleural effusion. Stable atelectasis and/or infiltrate in the left lower lobe with blunting of the left costophrenic angle. Electronically Signed: Alverto Jay MD at 9:57 EDT Tel [phone], Service support ,
[2018-05-27 08:42] LABS: Hematocrit 36.5 % (37-47)
--- NOTE | 2018-05-27 12:00 | IMM_PTH ---
PATIENT: PARISH AUGUSTINE LOC: MS3 U#:[id number] AGE/SX: 77/F ROOM: [facility] RE05/24/[address]: Dr. Robles Herbert DO : 1940 BED: 1 DIS: 05/29/2018 SPEC #: [id number] RECD: 05/28/18 09:28 STATUS: SOUT REQ #: [id number] FELICIA: 05/27/18 12:[address]: Yulia Stokes DEPT: IMMUNOHISTOCHEMISTRY RECD BY: Anne Bach ENTERED: 05/28/18 09:29 SP TYPE: IMMUNO OTHR DR: DO Dr. Ольга Guajardo MD Dr. Linda Wang, MD Dr. Mark Tereletsky, DO Tissues: Stomach, NOS Procedures: H Pylori (initial) Comments: @ Ordering doctor for H.PYLORI edited from to DR.LWANG Deleon by CORI at 05/28/18929 @ Submitting doctor edited from to DR.LWANG Deleon by CORI at 05/28/18929 PHYSICIAN & INSTITUTION [place] [address] SPECIMEN INFORMATION: Tissue Source: Antral biopsy Clinical Info: Dara Specimen Number: [id number] CPT code: 64951 METHODOLOGY: Deparaffinized sections of prefer/formalin-fixed tissue or PAP/DQ stained slides are incubated with monoclonal/polyclonal antibodies/oligonucleotide probes. Localization is made via biotin free immunoperoxidase method. Appropriate controls are performed and reacted as expected. Results on target cell population are indicated in the following table: RESULTS: ANTIBODY / CLONE RESULT H Pylori (polyclonal) negative These tests were developed and their performance characteristics determined by [facility]. They may not have been cleared or approved by the U.S. Food and Drug Administration. The FDA has determined that such clearance or approval is not necessary. INTERPRETATION: Antral biopsy: Negative for Helicobacter pylori organisms. AM:manuel 05/29/18
--- NOTE | 2018-05-27 12:38 | OP.ENDO_ITS ---
Patient Name: Maricarmen Chatman Procedure Date: 05/27/2018 11:56 AM Date of : 1940 Age: 77 Procedure: Upper GI endoscopy Indications: Iron deficiency anemia Patient Profile: Refer to note in patient chart for documentation of history and physical. Providers: Yulia Stokes Medicines: See the Anesthesia note for documentation of the administered medications Complications: No immediate complications. Procedure: Pre-Anesthesia Assessment: - Prior to the procedure, a History and Physical was performed, and patient medications and allergies were reviewed. The patient's tolerance of previous anesthesia was also reviewed. The risks and benefits of the procedure and the sedation options and risks were discussed with the patient. All questions were answered, and informed consent was obtained. Prior Anticoagulants: The patient has taken no previous anticoagulant or antiplatelet agents. ASA Grade Assessment: III - A patient with severe systemic disease. After reviewing the risks and benefits, the patient was deemed in satisfactory condition to undergo the procedure. After obtaining informed consent, the endoscope was passed under direct vision. Throughout the procedure, the patient's blood pressure, pulse, and oxygen saturations were monitored continuously. The gastroscope was introduced through the mouth, and advanced to the second part of duodenum. The upper GI endoscopy was accomplished without difficulty. The patient tolerated the procedure well. Scope In: 12:07:39 PM Scope Out: 12:10:43 PM Total Procedure Duration Time 0 hours 3 minutes 4 seconds Findings: The first portion of the duodenum and second portion of the duodenum were normal. Localized moderate inflammation was found in the gastric antrum. Biopsies were taken with a cold forceps for histology. Verification of patient identification for the specimen was done by the nurse. Estimated blood loss was minimal. A small hiatal hernia was present. Impression: - Normal first portion of the duodenum and second portion of the duodenum. - Gastritis. Biopsied. - Small hiatal hernia. Recommendation: - The findings and recommendations were discussed with the patient's primary physician. Procedure Code(s): --- Professional --- 56979, Esophagogastroduodenoscopy, flexible, transoral; with biopsy, single or multiple Diagnosis Code(s): --- Professional --- K29.70, Gastritis, unspecified, without bleeding K44.9, Diaphragmatic hernia without obstruction or gangrene D50.9, Iron deficiency anemia, unspecified CPT copyright 2017 [employer]. All rights reserved. The codes documented in this report are preliminary and upon research software engineer review may be revised to meet current compliance requirements. MD Yulia Carias, 05/27/2018 12:33:52 PM This report has been signed electronically. Number of Addenda: 0 Note Initiated On: 05/27/2018 11:56 AM
--- NOTE | 2018-05-27 12:38 | OP.ENDO_ITS ---
Patient Name: Maricarmen Chatman Procedure Date: 05/27/2018 12:12 PM Date of : 1940 Age: 77 Procedure: Colonoscopy Indications: Iron deficiency anemia Patient Profile: Refer to note in patient chart for documentation of history and physical. Last Colonoscopy: more than 10 years ago. Providers: Yulia Stokes Medicines: See the Anesthesia note for documentation of the administered medications Complications: No immediate complications. Procedure: Pre-Anesthesia Assessment: - Prior to the procedure, a History and Physical was performed, and patient medications and allergies were reviewed. The patient's tolerance of previous anesthesia was also reviewed. The risks and benefits of the procedure and the sedation options and risks were discussed with the patient. All questions were answered, and informed consent was obtained. Prior Anticoagulants: The patient has taken no previous anticoagulant or antiplatelet agents. ASA Grade Assessment: III - A patient with severe systemic disease. After reviewing the risks and benefits, the patient was deemed in satisfactory condition to undergo the procedure. After I obtained informed consent, the scope was passed under direct vision. Throughout the procedure, the patient's blood pressure, pulse, and oxygen saturations were monitored continuously. The adult colonoscope was introduced through the anus and advanced to the transverse colon. The colonoscopy was performed without difficulty. The patient tolerated the procedure well. The quality of the bowel preparation was poor. Scope In: 12:14:16 PM Scope Out: 12:27:52 PM Total Procedure Duration Time 0 hours 13 minutes 36 seconds Findings: The perianal and digital rectal examinations were normal. Pertinent negatives include normal sphincter tone. Non-bleeding external and internal hemorrhoids were found. Impression: - Preparation of the colon was poor. - Non-bleeding external and internal hemorrhoids. - No specimens collected. Recommendation: - The findings and recommendations were discussed with the patient's primary physician. - No recommendation at this time regarding repeat colonoscopy. Procedure Code(s): --- Professional --- 02060, 53, Colonoscopy, flexible; diagnostic, including collection of specimen(s) by brushing or washing, when performed (separate procedure) Diagnosis Code(s): --- Professional --- K64.8, Other hemorrhoids D50.9, Iron deficiency anemia, unspecified CPT copyright 2017 [employer]. All rights reserved. The codes documented in this report are preliminary and upon medical coder review may be revised to meet current compliance requirements. MD Yulia Carias, 05/27/2018 12:36:31 PM This report has been signed electronically. Number of Addenda: 0 Note Initiated On: 05/27/2018 12:12 PM
--- NOTE | 2018-05-27 14:05 | RAD_ITS ---
STUDY: BARIUM ENEMA. REASON FOR EXAM: Female, 77 years old. Incomplete barium enema. FLUOROSCOPY TIME (if supplied): (1:11) minutes/seconds. 5 images were obtained. TECHNIQUE: The executive legal secretary film was obtained. Following this, barium was introduced retrograde through the rectum. COMPARISON: None. FINDINGS: Is evidence of small bilateral pleural effusions with underlying infiltration and/or atelectasis. There is redundancy of the sigmoid colon. Scattered residual fecal material is seen throughout the colon. There is no evidence of antegrade or retrograde obstruction to the floor of contrast. RAD/Barium Enema w/Air Contrast IMPRESSION: Redundancy of the sigmoid colon. No obstruction is seen. Scattered residual fecal material limiting evaluation for small polyps. Electronically Signed: Alverto Jay MD at 15:58 EDT Tel [phone], Service support ,
--- NOTE | 2018-05-27 16:44 | OP.PCM_ITS ---
Report of Operation Date of Procedure: 05/27/18 Pre-Operative Diagnosis: profound anemia (Hgb of 4.8) of unknown etiology Post-Operative Diagnosis: same Surgery/Procedure Performed:: esophagogastroduodenoscopy with biopsies. colonoscopy - incomplete - to hepatic flexure Description of Surgical Findings:: sliding hiatal hernia, antral radial streaking, no ulcers or masses, gastric fundic polyps, colon - redundant with poor colon cleansing Type of Anesthesia:: MAC Anesthesiologist: Juaquin Nichole Specimen's removed: antral mucosal biopsies Estimated Blood Loss (mL): minimal Fluids Replaced: see anesthesia note Description of Procedure: After informed consent was given, the patient was brought to the endoscopy suite and placed in the upright sitting position. Appropriate time out protocol was followed. Appropriate cardiac, blood pressure, and pulse oximetry monitoring was placed. After stable vital signs were noted, the patient was given intravenous conscious sedation. The posterior pharynx was sprayed with lidocaine spray times two and a bite block was placed. The patient was then placed in the left lateral decubitis position. The upper endoscope was lubricated and inserted into the patient?s mouth and then carefully placed into the patient?s throat. The patient was asked to swallow and the endoscope was then easily advanced into the patient?s esophagus. The endoscope was further advanced down into the patient?s stomach, then past the pylorus, then past the duodenal bulb and then to the second portion of the duodenum. There were no lesions noted in the duodenum. The endoscope was then retracted back into the stomach. There was antral radial erythematous streaking noted, no ulcers were noted. Mucosal biopsies of the antrum of the stomach were taken with cold grasper forceps. A retroflex view of the stomach revealed no evidence of any masses. Patient was noted to have a small sliding hiatal hernia. No ulcers, no strictures, no suspicious lesions were noted. Patient had benign appearing gastric fundic polyps. The endoscope was retracted into the esophagus. Once again, sliding hiatal hernia was noted. The remainder of the esophagus was normal. The upper endoscope was removed intact. The next procedure was the colonoscopy. The colonoscope was lubricated and carefully inserted into the patient?s anus. It was then advanced into the rectum, then into the sigmoid colon, then into the left descending colon, past the splenic flexure, into the transverse colon, however, the scope could not be advanced beyond the hepatic flexure. Numerous attempts were made such as pressure applied to the patient's left lower quadrant of the abdomen, changing the patient's position, increased sedation, etc. Difficulties were due to tortuous redundant colon and also very poor colon cleansing preparation. What was seen of the colon (as above), no evidence of blood and no masses or ulcers were noted, and also no inflammatory changes. Retroflex view in the rectum revealed hemorrhoidal changes but no masses. The colonoscope was removed intact. Patient tolerated procedure well. Patient will be scheduled for ACBE today. - Complications none noted
[2018-05-27] MEDS: Citalopram 20 MG Tablet PO (17:27)
[2018-05-27] MEDS: dilTIAZem CD 120 MG Capsule PO (17:28)
[2018-05-27] MEDS: Isosorbide Mononitrate 30 MG Tablet PO (17:30)
[2018-05-27] MEDS: Gabapentin 300 MG Capsule 600 MG PO ×2 (17:30→21:32)
--- NOTE | 2018-05-27 19:00 | PCM.PROGNOTE ---
Subjective: Patient was seen and examined today, I talked at length with her sister and [id number] who is in the room. Patient's colonoscopy today was not able be completed completely, transverse colon was entered but there was too much stool to advance the scope further, a barium enema was ordered this afternoon which did not show any gross evidence of colonic narrowing or polyps. Patient's EGD showed some antral gastritis which was not severe. I related the results of the patient's sister and the patient today. I brought up the possibility of the patient going to an extended care facility for rehab to the patient and she was not objectionable to this, the patient's [id number] feels that she may need rehab due to his extreme weakness, we will try to have the patient go to TCU. - Physical Exam General: Alert, Oriented x3, Cooperative, No apparent distress, Well developed HEENT: Atraumatic, PERRLA, EOMI, Normocephalic Oral: Moist Mucosa Neck: Supple, No Nuchal Rigidity, Trachea Midline, Thyroid Normal Size and Texture Lungs: Clear to auscultation, Normal air movement, No rhonchi, No wheeze, No rales Cardiovascular: PMI Normal, Irregular Rate, No rub noted Abdomen: Bowel Sounds Present, Soft, Non Tender, Non-Distended Extremities: No edema, Capillary Refill Less than 3 Seconds Skin: No rashes, No breakdown Musculoskeletal: No Tenderness to Palpation of Joints or Extremities Neurological: Cranial nerves II-XII grossly intact, Neuro grossly intact, Sensory exam intact to light touch and pain, Coordination normal Psych/Mental Status: Normal Affect, Appropriate, Alert and oriented to time, place, person, mood and affect Vital Signs Temp Pulse Resp BP Pulse Ox 98.5 F 86 20 H 137/79 H 95 05/27/18 16:26 05/27/18 16:26 05/27/18 16:26 05/27/18 16:26 05/27/18 16:26 Oxygen Flow Rate (L/min) 2 Oxygen Delivery Method Nasal Cannula Weight: 62.3 kg Body Mass Index (BMI) 26.8 Finger Stick Blood Glucose 130 Intake and Output for Last 24 Hours 05/25/18 05/26/18 05/27/18 23:59 23:59 23:59 Intake Total 3303 / 3303 940 / 940 2800 / 2800 Output Total Balance 3303 / 3303 939 / 939 2800 / 2800 Microbiology Past 72 Hours 05/27/18 02:30 Stool Occult Blood (ELIZABETH) - Final Stool Occult Blood Positive 05/24/18 Unknown Urine Culture - Final Urine Catheter - Catheter Culture exhibits no growth. Laboratory Tests Past 24 Hrs 05/24/18 05/27/18 15:10 08:35 Hgb 11.0 L Hct 36.5 L Total Protein (PEP) 5.7 L Albumin (PEP) 2.6 L Globulin (PEP) 3.1 Albumin/Globulin (PEP) 0.8 Lxjew-1-Wicrnuiiv 0.2 Mxcnj-4-Krqixctgu 0.5 Beta Globulins 0.9 Gamma Globulins 1.5 M-Kris PEP Note Comment PEP Interpretation Comment Medical Necessity - Tobacco Use Smoking Status: Former smoker Assessment/Plan All Active Problems (Last Reviewed 04/21/18 @ 14:36 by Kory Giraldo MD) Acute ischemic stroke (Resolved) #1 acute on chronic iron deficiency anemia-H&H is stable at this time, I will give the patient IV Venofer today #2 right lower lobe airspace disease with small right pleural effusion-I think this probably secondary to atelectasis and congestive heart failure, I will order an echocardiogram tomorrow #3 congestive heart failure-type unknown at this time, patient will have an echocardiogram performed tomorrow #4 cerebrovascular disease #5 essential hypertension #6 atrial fibrillation-chronic, patient is currently off anticoagulation due to her severe anemia, I do not believe the patient should be placed back on anticoagulants at this time until we are able to monitor her blood count over the next 1-2 weeks. 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
--- NOTE | 2018-05-27 19:04 | PN_ITS ---
Subjective: Patient was seen and examined today, I talked at length with her sister and [id number] who is in the room. Patient's colonoscopy today was not able be completed completely, transverse colon was entered but there was too much stool to advance the scope further, a barium enema was ordered this afternoon which did not show any gross evidence of colonic narrowing or polyps. Patient' s EGD showed some antral gastritis which was not severe. I related the results of the patient's sister and the patient today. I brought up the possibility of the patient going to an extended care facility for rehab to the patient and she was not objectionable to this, the patient's [id number] feels that she may need rehab due to his extreme weakness, we will try to have the patient go to TCU. - Physical Exam General: Alert, Oriented x3, Cooperative, No apparent distress, Well developed HEENT: Atraumatic, PERRLA, EOMI, Normocephalic Oral: Moist Mucosa Neck: Supple, No Nuchal Rigidity, Trachea Midline, Thyroid Normal Size and Texture Lungs: Clear to auscultation, Normal air movement, No rhonchi, No wheeze, No rales Cardiovascular: PMI Normal, Irregular Rate, No rub noted Abdomen: Bowel Sounds Present, Soft, Non Tender, Non-Distended Extremities: No edema, Capillary Refill Less than 3 Seconds Skin: No rashes, No breakdown Musculoskeletal: No Tenderness to Palpation of Joints or Extremities Neurological: Cranial nerves II-XII grossly intact, Neuro grossly intact, Sensory exam intact to light touch and pain, Coordination normal Psych/Mental Status: Normal Affect, Appropriate, Alert and oriented to time, place, person, mood and affect Vital Signs Temp Pulse Resp BP Pulse Ox 98.5 F 86 20 H 137/79 H 95 05/27/18 16:26 05/27/18 16:26 05/27/18 16:26 05/27/18 16:26 05/27/18 16:26 Oxygen Flow Rate (L/min) 2 Oxygen Delivery Method Nasal Cannula Weight: 62.3 kg Body Mass Index (BMI) 26.8 Finger Stick Blood Glucose 130 Intake and Output for Last 24 Hours 05/25/18 05/26/18 05/27/18 23:59 23:59 23:59 Intake Total 3303 / 3303 940 / 940 2800 / 2800 Output Total Balance 3303 / 3303 939 / 939 2800 / 2800 Microbiology Past 72 Hours 05/27/18 02:30 Stool Occult Blood (ELIZABETH) - Final Stool Occult Blood Positive 05/24/18 Unknown Urine Culture - Final Urine Catheter - Catheter Culture exhibits no growth. Laboratory Tests Past 24 Hrs 05/24/18 05/27/18 15:10 08:35 Hgb 11.0 L Hct 36.5 L Total Protein (PEP) 5.7 L Albumin (PEP) 2.6 L Globulin (PEP) 3.1 Albumin/Globulin (PEP) 0.8 Ntnqx-2-Iqeqtwpzx 0.2 Pvozw-8-Yebuwwwqx 0.5 Beta Globulins 0.9 Gamma Globulins 1.5 M-Kris PEP Note Comment PEP Interpretation Comment Medical Necessity - Tobacco Use Smoking Status: Former smoker Assessment/Plan All Active Problems (Last Reviewed 04/21/18 @ 14:36 by Kory Giraldo MD) Acute ischemic stroke (Resolved) #1 acute on chronic iron deficiency anemia-H&H is stable at this time, I will give the patient IV Venofer today #2 right lower lobe airspace disease with small right pleural effusion-I think this probably secondary to atelectasis and congestive heart failure, I will order an echocardiogram tomorrow #3 congestive heart failure-type unknown at this time, patient will have an echocardiogram performed tomorrow #4 cerebrovascular disease #5 essential hypertension #6 atrial fibrillation-chronic, patient is currently off anticoagulation due to her severe anemia, I do not believe the patient should be placed back on anticoagulants at this time until we are able to monitor her blood count over the next 1-2 weeks. 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
[2018-05-27] MEDS: Atorvastatin Calcium 10 MG Tablet PO (21:32)
[2018-05-27] MEDS: Pantoprazole Sodium 40 MG Tablet PO (21:33)
[2018-05-28] VITALS (10 sets, daily range): BP systolic 119–137; BP diastolic 76–90; PULSE 89–124; RESP 16–20; TEMP 36.4–36.8; O2SAT 78–96
[2018-05-28] MEDS: oxyCODONE 5 MG Tablet PO ×3 (01:31→17:45)
[2018-05-28] MEDS: Menthol/Lanolin/Calamine/Znox 113 GM Tube 1 APPLIC TOPICAL ×3 (05:15→22:39)
[2018-05-28] MEDS: Acetaminophen 325 MG Tablet 650 MG PO (07:48)
[2018-05-28] MEDS: Gabapentin 300 MG Capsule 600 MG PO ×4 (07:49→22:38)
[2018-05-28] MEDS: Citalopram 20 MG Tablet PO (09:35)
[2018-05-28] MEDS: dilTIAZem CD 120 MG Capsule PO (09:36)
[2018-05-28] MEDS: Pantoprazole Sodium 40 MG Tablet PO ×2 (09:36→22:38)
[2018-05-28] MEDS: Isosorbide Mononitrate 30 MG Tablet PO (09:36)
[2018-05-28] MEDS: Polyethylene Glycol 3350 17 GM PACKET PO (09:37)
--- NOTE | 2018-05-28 13:08 | CASEMGMT ---
Addendum entered by Isabel Jasso 05/28/18 13:29: SW received call from Edelmira Lurdes, pt's daughter in law, that states she and pt's sister won't be able to visit SNF until tomorrow. SW provided verbal list of SNF in [place], [place] and per Edelmira request SNF in [place], [place]. SW explained that this worker can't recommend one [facility] over the other but encouraged Edelmira to review Medicare ratings online and to [facility]. Edelmira states understanding. SW explained that this worker hasn't heard when pt will be discharged but it is important to have a SNF in line for pt so when she is ready to d/c she has a SNF set up. Edelmira states understanding. Original Note: Social Work Note Per progress notes, pt is now agreeable to referral being sent to TCU. SW in to meet with pt to confirm discharge plans. Pt agreeable to referral being sent to TCU. SW gave this worker permission to call her daughter in law who was also present when physician was discussing SNF. SW placed a call to pt's daughter in law Edelmira who confirms that the plan is now for pt to go to TCU. SW explained referral process and this worker will need to check on bed availability. Edelmira states understanding. SW placed referral on referral line. [facility] states she has no beds available at this time. SW placed a call to pt's daughter in law Edelmira and updated her on this. Per Edelmira she will need to talk to pt's sister to discuss other [facility] options. Edelmira states she will call this worker back. SW waiting for call back. Plan: SNF pending acceptance Isabel Jasso TRUCK TECHNICIAN, FRAME STYLIST
--- NOTE | 2018-05-28 18:14 | PCA ---
Sister Mya Brown asked before she left if she isnt in there when the hospitalist rounds she would like called at . She wants to talk to the doctor that is taking care of her and hear what he has to say.
--- NOTE | 2018-05-28 18:53 | PCM.PROGNOTE ---
Subjective: Patient seen and examined today, her family was present in the room, patient inquired whether her pain medications could be increased, I told her that I would review her medications and we could probably decrease the interval for her OxyIR. I have decided to decrease it to 1 every 6 hours as needed pain, I also talked with her about her gabapentin usage but I feel uncomfortable increasing the gabapentin she is currently taking 2400 mg a day. I have decided to try a small dose of Xanax at night to see if this helps with her leg pain, I have placed her on 0.25 mg nightly starting tonight. I gave her another infusion of Venofer today for her iron deficiency anemia, I will repeat this tomorrow, we are currently awaiting approval for transfer to care home facility. - Physical Exam General: Alert, Oriented x3, Cooperative, No apparent distress, Well developed HEENT: Atraumatic, PERRLA, EOMI, Normocephalic Oral: Moist Mucosa Neck: Supple, No Nuchal Rigidity, Trachea Midline Lungs: Clear to auscultation, No rhonchi, No wheeze, No rales, Diminished Cardiovascular: No murmurs, PMI Normal, Irregular Rate, No rub noted Abdomen: Bowel Sounds Present, Soft, Non Tender, Non-Distended Extremities: No clubbing, No cyanosis, No edema, Capillary Refill Less than 3 Seconds Skin: No rashes, No breakdown Neurological: Cranial nerves II-XII grossly intact, Neuro grossly intact, Muscle tone normal, Sensory exam intact to light touch and pain Psych/Mental Status: Normal Affect, Appropriate, Alert and oriented to time, place, person, mood and affect Vital Signs Temp Pulse Resp BP Pulse Ox 97.6 F L 102 H 20 H 119/76 94 05/28/18 14:00 05/28/18 15:29 05/28/18 14:00 05/28/18 14:00 05/28/18 14:00 Oxygen Flow Rate (L/min) 2 Oxygen Delivery Method Nasal Cannula Weight: 62.3 kg Body Mass Index (BMI) 26.8 Finger Stick Blood Glucose 130 Intake and Output for Last 24 Hours 05/26/18 05/27/18 05/28/18 23:59 23:59 23:59 Intake Total 940 / 940 2800 / 2800 611 / 611 Output Total 1 / 1 Balance 939 / 939 2800 / 2800 611 / 611 Microbiology Past 72 Hours 05/27/18 02:30 Stool Occult Blood (ELIZABETH) - Final Stool Occult Blood Positive 05/24/18 Unknown Urine Culture - Final Urine Catheter - Catheter Culture exhibits no growth. Medical Necessity - Tobacco Use Smoking Status: Former smoker Assessment/Plan All Active Problems (Last Reviewed 04/21/18 @ 14:36 by Kory Giraldo MD) Acute ischemic stroke (Resolved) #1 acute on chronic iron deficiency anemia-H&H is stable at this time, I will give the patient IV Venofer today #2 right lower lobe airspace disease with small right pleural effusion-I think this probably secondary to atelectasis and congestive heart failure #3 congestive heart failure-type unknown at this time, patient will have an echocardiogram performed tomorrow #4 cerebrovascular disease #5 essential hypertension #6 atrial fibrillation-chronic, patient is currently off anticoagulation due to her severe anemia, I do not believe the patient should be placed back on anticoagulants at this time until we are able to monitor her blood count over the next 1-2 weeks. 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 I will also add Xanax 0.25 mg at at bedtime to see if this helps her rest at night. #8 debility secondary to history of transverse myelitis and old stroke-PT and OT will continue to see the patient, patient is agreed to go to a care home facility short-term for rehab #9 intermittent confusion at home-possibly secondary to pain medications and/or underlying dementia from cerebrovascular disease-continue to monitor patient, patient appears alert and appropriate today #10 moderate pulmonary hypertension-patient's echocardiogram today showed moderate pulmonary hypertension along with a preserved ejection fraction. Code Visit Inpatient E&M: 31613 Subs Hosp L2
--- NOTE | 2018-05-28 18:57 | PN_ITS ---
Subjective: Patient seen and examined today, her family was present in the room, patient inquired whether her pain medications could be increased, I told her that I would review her medications and we could probably decrease the interval for her OxyIR. I have decided to decrease it to 1 every 6 hours as needed pain, I also talked with her about her gabapentin usage but I feel uncomfortable increasing the gabapentin she is currently taking 2400 mg a day. I have decided to try a small dose of Xanax at night to see if this helps with her leg pain, I have placed her on 0.25 mg nightly starting tonight. I gave her another infusion of Venofer today for her iron deficiency anemia, I will repeat this tomorrow, we are currently awaiting approval for transfer to [facility] facility. - Physical Exam General: Alert, Oriented x3, Cooperative, No apparent distress, Well developed HEENT: Atraumatic, PERRLA, EOMI, Normocephalic Oral: Moist Mucosa Neck: Supple, No Nuchal Rigidity, Trachea Midline Lungs: Clear to auscultation, No rhonchi, No wheeze, No rales, Diminished Cardiovascular: No murmurs, PMI Normal, Irregular Rate, No rub noted Abdomen: Bowel Sounds Present, Soft, Non Tender, Non-Distended Extremities: No clubbing, No cyanosis, No edema, Capillary Refill Less than 3 Seconds Skin: No rashes, No breakdown Neurological: Cranial nerves II-XII grossly intact, Neuro grossly intact, Muscle tone normal, Sensory exam intact to light touch and pain Psych/Mental Status: Normal Affect, Appropriate, Alert and oriented to time, place, person, mood and affect Vital Signs Temp Pulse Resp BP Pulse Ox 97.6 F L 102 H 20 H 119/76 94 05/28/18 14:00 05/28/18 15:29 05/28/18 14:00 05/28/18 14:00 05/28/18 14:00 Oxygen Flow Rate (L/min) 2 Oxygen Delivery Method Nasal Cannula Weight: 62.3 kg Body Mass Index (BMI) 26.8 Finger Stick Blood Glucose 130 Intake and Output for Last 24 Hours 05/26/18 05/27/18 05/28/18 23:59 23:59 23:59 Intake Total 940 / 940 2800 / 2800 611 / 611 Output Total 1 / 1 Balance 939 / 939 2800 / 2800 611 / 611 Microbiology Past 72 Hours 05/27/18 02:30 Stool Occult Blood (ELIZABETH) - Final Stool Occult Blood Positive 05/24/18 Unknown Urine Culture - Final Urine Catheter - Catheter Culture exhibits no growth. Medical Necessity - Tobacco Use Smoking Status: Former smoker Assessment/Plan All Active Problems (Last Reviewed 04/21/18 @ 14:36 by Kory Giraldo MD) Acute ischemic stroke (Resolved) #1 acute on chronic iron deficiency anemia-H&H is stable at this time, I will give the patient IV Venofer today #2 right lower lobe airspace disease with small right pleural effusion-I think this probably secondary to atelectasis and congestive heart failure #3 congestive heart failure-type unknown at this time, patient will have an echocardiogram performed tomorrow #4 cerebrovascular disease #5 essential hypertension #6 atrial fibrillation-chronic, patient is currently off anticoagulation due to her severe anemia, I do not believe the patient should be placed back on anticoagulants at this time until we are able to monitor her blood count over the next 1-2 weeks. 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 I will also add Xanax 0.25 mg at at bedtime to see if this helps her rest at night. #8 debility secondary to history of transverse myelitis and old stroke-PT and OT will continue to see the patient, patient is agreed to go to a [facility] facility short-term for rehab #9 intermittent confusion at home-possibly secondary to pain medications and/or underlying dementia from cerebrovascular disease-continue to monitor patient, patient appears alert and appropriate today #10 moderate pulmonary hypertension-patient's echocardiogram today showed moderate pulmonary hypertension along with a preserved ejection fraction. Code Visit Inpatient E&M: 09967 Subs Hosp L2
[2018-05-28] MEDS: Atorvastatin Calcium 10 MG Tablet PO (22:38)
[2018-05-28] MEDS: ALPRAZolam 0.25 MG Tablet PO (22:38)
[2018-05-29] VITALS (8 sets, daily range): BP systolic 124–132; BP diastolic 73–82; PULSE 91–102; RESP 18–20; TEMP 36.5–36.7; O2SAT 94–96
[2018-05-29] MEDS: Acetaminophen 325 MG Tablet 650 MG PO ×2 (02:58→10:07)
[2018-05-29] MEDS: oxyCODONE 5 MG Tablet PO ×2 (04:39→10:41)
[2018-05-29] MEDS: Menthol/Lanolin/Calamine/Znox 113 GM Tube 1 APPLIC TOPICAL ×2 (06:29→13:48)
[2018-05-29] MEDS: Gabapentin 300 MG Capsule 600 MG PO ×2 (08:32→12:09)
[2018-05-29] MEDS: Senna/Docusate Sodium 1 Tablet 2 TABLET PO (08:34)
[2018-05-29] MEDS: Polyethylene Glycol 3350 17 GM PACKET PO (08:34)
[2018-05-29] MEDS: Pantoprazole Sodium 40 MG Tablet PO (08:34)
[2018-05-29] MEDS: Citalopram 20 MG Tablet PO (08:36)
[2018-05-29] MEDS: dilTIAZem CD 120 MG Capsule PO (10:08)
[2018-05-29] MEDS: Isosorbide Mononitrate 30 MG Tablet PO (10:08)
--- NOTE | 2018-05-29 15:00 | CASEMGMT ---
Social Work Note Pt's daughter in law Edelmira and daughter Edelmira requesting to speak to this worker. ROBERT met with pt, pt's daughter in law and daughter. Daughter in Law and Daughter state that would like a referral sent to [facility] as first choice and then second choice is [facility]. ROBERT explained referral process and Medicare guidelines for SNF. Pt already has three midnights and will be ready for discharge once pt is accepted into facility. Daughter in Law Edelmira and Daughter Edelmira state understanding. ROBERT faxed referral to [facility]. [facility] is able to accept pt today. ROBERT updated physician of this. ROBERT faxed completed discharge paperwork to Mya at [facility] including transfer to extended care facility, signed medication list and any scripts. Original in SNF folder and copy on pt's chart. ROBERT set up transportation through [facility] via cot for 5:00pm. ROBERT placed a call to daughter in law Edelmira and to Mya at [facility] to update on transportation time. ROBERT updated TOMAS Kay of transportation time. Transportation time on SNF folder and copy on pt's chart. HENS completed. Original in SNF folder and copy on pt's chart. Plan: Discharge to [facility] at 5:00pm with [facility] transporting via cot Isabel Jasso MSW, EVIDENCE CUSTODIAN
--- NOTE | 2018-05-29 15:15 | PCM.TXEXTCAR ---
- Diet 05/27/18 16:57 Diet: Regular Diet Is pt able to select menu?: yes - Routine Orders/Code Status O2 Liters per Minute: 2 O2 Frequency: Continuous Routine Lab Work: CBC - in one week Code Status: Full Code - Wound(s) RIGHT THIGH Wound Type: Burn Dressing Change: Adaptic LEFT THIGH Wound Type: Burn Dressing Change: Adaptic right queen Wound Type: Abrasion - Therapies Weight Bearing: Weight bearing as tolerated Physical Therapy: Eval and Treat Occupational Therapy: Eval and Treat - Problem/Diagnosis (1) Acute anemia Status: Acute Comment: acute on chronic iron def anemia Current Visit: Yes (2) Essential (primary) hypertension Status: Chronic Current Visit: No (3) Chronic pain syndrome Status: Chronic Current Visit: No (4) Transverse myelitis Status: Chronic Current Visit: No (5) Atrial flutter Status: Chronic Current Visit: No (6) Congestive heart failure (CHF) Status: Acute Comment: diastolic Current Visit: Yes (7) Hypoxia Status: Acute Comment: secondary to diastolic CHF Current Visit: Yes (8) Anxiety Status: Chronic Current Visit: Yes (9) Gastritis Status: Acute Comment: mild antral gastritis Current Visit: Yes (10) Hiatal hernia Status: Chronic Current Visit: Yes - Allergies/Procedures Done in Hospital Allergies/Adverse Reactions: Allergies morphine Allergy (Verified 05/24/18 11:36) Hives carbamazepine [From Tegretol] Adverse Reaction (Intermediate, Verified 05/24/18 11:36) HALLUCINATIONS procaine HCl [From Novocain] Adverse Reaction (Intermediate, Verified 05/24/18 11:36) HEART RACES,FEELS LIKE WILL PASS OUT Procedures: 2-D Echocardiogram, Blood transfusion, Colonoscopy, EGD, - - blood transfusion - Type of Care/Length of Stay Estimated LOS: Convalescent Care Less Than 30 days Type of Care Needed: Skilled Rehab Potential: Good Prognosis: Good - Additional Orders/Day of Discharge H&P will serve as current which was dated: 05/24/18 Day of Discharge: 05/29/18 - Follow Up Care Primary Care Physician: Fan Ruiz DO [Primary Care Provider] -
[2018-05-29] MEDS: ALPRAZolam 0.25 MG Tablet 0.125 MG PO (16:36)
--- NOTE | 2018-05-29 17:17 | NURSING ---
Report given to [facility].
--- NOTE | 2018-05-31 12:35 | PCM.DC.SUM ---
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- #8 debility secondary to history of transverse myelitis, degenerative joint disease, and old stroke #9 intermittent confusion at home-possibly secondary to pain medications #10 moderate pulmonary hypertension #11 mild antral gastritis - Secondary Discharge Diagnosis Chronic Problems (Last Reviewed 04/21/18 @ 14:36 by Kory Giraldo MD) Anxiety (Chronic) Hiatal hernia (Chronic) 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) Other long-term (current) drug therapy (Chronic) Hyperlipidemia (Chronic) Essential (primary) hypertension (Chronic) Paroxysmal atrial fibrillation (Chronic) Chronic pain syndrome (Chronic) Transverse myelitis (Chronic) History of DVT (deep vein thrombosis) (Chronic) Atrial flutter (Chronic) Hospital Course and Treatment Operations: None Procedures: 2-D Echocardiogram, Blood transfusion, Colonoscopy, EGD Summary of Care Provided: The patient is a 77 year old F who was seen in the emergency room at [facility] with confusion at home. Workup in the emergency room revealed the patient to be oriented to herself, her address, and her sister and family's names. Workup in the emergency room included labs which showed a hemoglobin of 4.8, platelet count was slightly low at 109,000, white blood cell count was slightly low at 3.4. Blood chemistry was abnormal for a potassium of 3.2, chest x-ray report showed a right lower lobe airspace disease and a small right pleural effusion with moderate cardiomegaly. Brain CT showed chronic involutional changes but no acute intracranial abnormality. Patient was admitted to [place] [id number] for severe anemia, she underwent blood transfusion, she was felt to have chronic congestive heart failure which was stable, her Eliquis was held due to her anemia and her pain medications were reduced. Patient required oxygen during her hospitalization and it was at first felt that the hypoxia was secondary to pain medication but then it appeared it could be secondary to congestive heart failure. Patient was seen by PT and OT, general surgery saw the patient for an upper and lower endoscopy. Upper endoscopy showed mild antral gastritis but no overt bleeding or ulcerations, small hiatal hernia was noted to be present. Colonoscopy was attempted and the colonoscope could not be advanced further than the transverse colon, no pathology was noted and the patient underwent a barium enema which showed no evidence of mass or obvious polyps. Iron studies showed that the patient was iron deficient. Patient was given IV Venofer during her hospitalization. Echocardiogram was obtained which showed a preserved ejection fraction and pulmonary hypertension. It was felt that the patient could benefit from short-term placement in a residential facility, on 05/29/18, patient was seen and examined, she was felt stable for discharge to a local extended care facility, she required oxygen at the time of discharge to maintain her pulse ox above 88%-she required 2 L via nasal cannula. Home Medications: Medications to take at Discharge Docusate Sodium [Dok] 200 mg PO BID 05/26/15 Gabapentin [Neurontin] 600 mg PO 4X/DAY 05/26/15 citalopram 20 mg tablet 20 mg PO QDAY 04/21/18 atorvastatin 10 mg tablet 10 mg PO QDAY #90 tab 05/06/18 diltiazem ER (XR/XT) 120 mg capsule,extended release 24 hr, controlled 120 mg PO DAILY #90 cap 05/06/18 isosorbide mononitrate ER 30 mg tablet,extended release 24 hr 30 mg PO QDAY #90 tab 05/06/18 ALPRAZolam [Xanax] 0.25 mg PO QHS #20 tab 05/29/18 Acetaminophen [Tylenol Tablet] 650 mg PO Q6H PRN PRN tablet 05/29/18 Ensure Enlive 120 ml PO 4X/DAY liquid 05/29/18 Furosemide [Lasix] 40 mg PO DAILY #1 tablet 05/29/18 Iron Polysaccharide Complex [Ferrex 150] 150 mg PO DAILYCM #1 capsule 05/29/18 Menthol/Lanolin/Calamine/Znox [Calmoseptine Ointment] 1 applic TOPICAL TID tube 05/29/18 Methadone HCl 2.5 mg PO TID 14 Days #21 tab 05/29/18 Oxycodone [Oxyir] 5 mg PO Q4H PRN 5 Days #30 tab 05/29/18 Pantoprazole Sodium [Protonix] 40 mg PO BID tablet 05/29/18 Polyethylene Glycol 3350 [Miralax] 17 gm PO DAILY packet 05/29/18 Potassium Chloride 20 meq PO DAILY #1 tablet.er 05/29/18 Following Prescrptions Were Given to Patient: ALPRAZolam [Xanax] 0.25 mg PO QHS #20 tab Furosemide [Lasix] 40 mg PO DAILY #1 tablet Iron Polysaccharide Complex [Ferrex 150] 150 mg PO DAILYCM #1 capsule Oxycodone [Oxyir] 5 mg PO Q4H PRN 5 Days #30 tab PRN Reason: Pain Potassium Chloride 20 meq PO DAILY #1 tablet.er Methadone HCl 2.5 mg PO TID 14 Days #21 tab Primary Care Physician: Fan Ruiz DO [Primary Care Provider] - Disposition: [facility] facility Minutes spent on discharge:: 32 Patient Condition:: Stable Medical Necessity - Tobacco Use Smoking Status: Former smoker Meaningful Use Info Meaningful Use Diagnoses (Choose all that apply): CHF - CHF JULIA/ARB ordered at discharge?: No Reason JULIA/ARB not ordered?: Allergy - Not indicated due to preserved ejection fraction Documented LVEF (%): 60 Code Visit Inpatient E&M: 78686 Disch Hosp
== END 2018-05-29 17:00 | disposition skilled nursing facility (03) | DRG 811 ==
LOC: ED 14:56 → MS3 15:18
PROVIDERS: Family Medicine; Internal Medicine; Surgery; Admitting Provider Internal Medicine; Emergency Provider Emergency Medicine; Family Provider Family Medicine; PCP Family Medicine; Visit Provider Internal Medicine
PROC: 0DJD8ZZ Inspection of Lower Intestinal Tract, Via Natural or Artificial Opening Endoscopic (ICD-10-PCS; CPT 45378; principal; 2018-05-27 11:55)
DX: D50.9 Iron deficiency anemia, unspecified (principal); I50.33 Acute on chronic diastolic (congestive) heart failure; G82.20 Paraplegia, unspecified; J91.8 Pleural effusion in other conditions classified elsewhere; J98.11 Atelectasis; Q43.8 Other specified congenital malformations of intestine; I11.0 Hypertensive heart disease with heart failure; I48.2 Chronic atrial fibrillation; R53.81 Other malaise; Z86.69 Personal history of other diseases of the nervous system and sense organs; K29.60 Other gastritis without bleeding; E78.5 Hyperlipidemia, unspecified; M47.896 Other spondylosis, lumbar region; R41.0 Disorientation, unspecified; T50.995A Adverse effect of other drugs, medicaments and biological substances, initial encounter; K44.9 Diaphragmatic hernia without obstruction or gangrene; I27.20 Pulmonary hypertension, unspecified; K31.7 Polyp of stomach and duodenum; Z87.891 Personal history of nicotine dependence; K64.9 Unspecified hemorrhoids
CPT/HCPCS: 36415; 36600; 70450; 71045; 74018; 74280; 80048; 80053; 81001; 82274; 82607; 82728; 82803; 83540; 83550; 83615; 83735; 83880; 84165; 84443; 84484; 85014; 85018; 85025; 85045; 85652; 86850; 86900; 86920; 86922; 87086; 88305; 88342; 93005; 93306; 97110; 97162; 97166; 97530; 97802; 99283; J1756; J7030; J7040; J7050; P9016; Q9957; A4216; J1940

== ENCOUNTER 2018-08-26 21:41 | Inpatient (IN) | payer MEDICARE, OTHER, SELFPAY ==
[2018-08-26 21:42] VITALS: BP 158/91; PULSE 94; RESP 16; TEMP 36.2; O2SAT 94; BMI 25.4
--- NOTE | 2018-08-26 21:58 | EKG12_ITS ---
Test Reason : Blood Pressure : / mmHG Vent. Rate : 099 BPM Atrial Rate : 107 BPM P-R Int : 000 ms QRS Dur : 074 ms QT Int : 376 ms P-R-T Axes : 000 031 018 degrees QTc Int : 482 ms Atrial fibrillation Abnormal ECG Confirmed by JOYCELYN KELLY MD ([id number]), newspaper photo editor ANDRADE LEVY ([id number]) on 08/28/2018 2:03:51 PM Referred By: Jenny Cuellar Confirmed By:JOYCELYN KELLY MD
--- NOTE | 2018-08-26 21:58 | RAD_ITS ---
STUDY: X-RAY CHEST REASON FOR EXAM: Female, 77 years old. Cough. Shortness of breath TECHNIQUE: Single AP portable view of the chest. COMPARISON: May 27, 2018 FINDINGS: Lower lung groundglass opacities. Small bilateral pleural effusions. There is mild cardiac enlargement. Normal mediastinum and donna. Normal visualized pulmonary arteries. There is atherosclerotic calcification of the aortic arch with tortuosity. There is demineralization of the osseous structures. Normal visualized ribs, clavicles, and shoulders. There is no demonstrated abnormality of the visualized soft tissue structures of the upper abdomen. RAD/Chest 1 View (Portable) IMPRESSION: Bilateral effusions with lower lung infiltrates or edema. Electronically Signed: Jim Phillips MD at 22:45 EST , Service support ,
[2018-08-26] MEDS: Ipratropium/Albuterol Sulfate 3 ML AMPUL.NEB INHALATION (22:22)
[2018-08-26 22:29] VITALS: PULSE 111; RESP 23; O2SAT 93
[2018-08-26 22:36] VITALS: PULSE 92; RESP 20; TEMP 36.7; O2SAT 93
[2018-08-26 22:43] VITALS: O2SAT 93
[2018-08-26 23:05] VITALS: BP 151/95; PULSE 106; RESP 18; TEMP 36.7; O2SAT 95
[2018-08-26 23:19] LABS: Absolute Lymphocyte Count 0.68 X10^3/ul (0.83-4.51); Absolute Neutrophil Count 4.3 X10^3/uL (2.0-7.7); Basophil# 0.03 X10^3/uL; Basophil% 0.5 % (0-1); Eosinophil# 0.09 X10^3/uL; Eosinophils% 1.6 % (0-5); Hematocrit 34.3 % (37-47); Hemoglobin 10.9 g/dl (12.0-15.0); Lymphocyte # 0.68 X10^3/ul (4.0); Lymphocyte % 11.9 % (19-41); Mean Corp Hgb Conc 31.8 g/gl (32-36); Mean Corpuscular Hgb 30.1 pg (27.0-32.0); Mean Corpuscular Volume 94.8 fL (81-99); Mean Platelet Vol. 9.6 fl (6.2-12.0); Monocyte# 0.64 X10^3/uL; Monocyte% 11.2 % (0-10); Neutrophil # 4.26 X10^3/uL (2.7-7.7); Neutrophil % 74.6 % (47-70); Platelet Count 179 K/mm3 (150-450); RBC Distribution Width CV 16.3 % (11.6-14.6); RBC Distribution Width SD 53.2 fl (35.1-43.9); Red Blood Count 3.62 M/mm3 (4.2-5.4); White Blood Count 5.7 K/mm3 (4.4-11.0)
[2018-08-26 23:20] LABS: POSITIVE COUNT NO; POSITIVE DIFFERENTIAL NO; POSITIVE MORPHOLOGY NO
--- NOTE | 2018-08-26 23:23 | ED.VISSUMM ---
- ER Visit Summary Date of Service: 08/26/18 Chief Complaint: [] Shortness of breath despite home oxygen use just discharged from nursing center leg edema History of Present Illness: The patient is a 77 F [] patient has history of CHF anemia unspecified she was worked up extensively at the hospital with upper GI and partial call colonoscopy that did not reveal source of anemia she was sent to rehab center where she has been and discharged yesterday per the daughter when she returned home she had marked leg edema and shortness of breath to the point that it could not be controlled with increasing use of home O2. The patient also has exertional dyspnea when she tries to ambulate no fever no cough normal bowel bladder habits no blood Physical Examination: [] 158/80 her pulse ox on 2 L is about 91% afebrile General, no distress resting comfortably there is no cardiopulmonary distress she is speaking in full sentences HEENT is generally unremarkable The neck is supple no adenopathy Cardiovascular, regular rate and rhythm Lungs, there are some rales and diffuse rhonchi throughout Abdomen, soft nontender Extremities, marked 4+ edema bilaterally the daughter states is quite unusual for the patient and only occurs when she starts to retain fluid Neurologic, awake alert answering questions appropriately moving all 4 extremities Test Results: [] Emergency Department Course and Treatment: [] EKG shows a afib rhythm nothing acute, old EKG shows same, her CBC is unremarkable, her chemistry panel is pending, her chest x-ray shows bilateral pleural effusions cannot rule out infiltrates per radiology see those reports, This time we have start IV antibiotics gentle Lasix diuresis, I spoke with the hospitalist will arrange for admission they will check the remaining screening labs she remains very stable here in the department Treatment Plan: [] Disposition: [] Admit stable Impression: [] Acute congestive heart failure, leg edema, atrial fibrillation, failed outpatient therapy This note was generated with [employer] dictation software. It may contain incorrect words, spelling, and punctuation that were not noted in review of the chart prior to signing ED Disposition - Plan for ED Patient: Chief Complaint: Shortness of Breath Referrals: Fan Ruiz DO [Primary Care Provider] -
[2018-08-26 23:35] LABS: Anion Gap 7 (5-15); BUN 17 mg/dL (7-18); Calcium,Total 9.4 mg/dL (8.5-10.1); Chloride 98 mmol/L (98-107); Creatinine, Serum 0.66 mg/dL (0.55-1.02); EST Glomerular Filtration Rate 93 mL/min (>60); Est Glom Filt Rate - Afr Amer 113 mL/min (>60); Estimated Creatinine Clearance 34.91 ml/min; Glucose 89 mg/dL (74-106); Potassium 3.6 mmol/L (3.5-5.1); Sodium Level 138 mmol/L (136-145)
[2018-08-26] MEDS: Furosemide 20 MG/2 ML VIAL IV (23:43)
[2018-08-26 23:45] LABS: BNP,B-Type NATRIURETIC PEPTIDE 591.3 pg/mL (0-100)
[2018-08-27] VITALS (15 sets, daily range): BP systolic 101–149; BP diastolic 50–91; PULSE 75–100; RESP 16–24; TEMP 36.4–37.2; O2SAT 95–100; BMI 26.9; BMI 27.0
--- NOTE | 2018-08-27 00:35 | PCM.HP.STD ---
History of Present Illness Date of Admission: 08/27/18 Chief Complaint: Shortness of breath and lower extremity swelling. The patient is a 77 year old F with past medical history as listed below including CHF and anemia. She was admitted through the ED on with a complaint of worsening shortness of breath and lower extremity swelling. She had been in a rehab facility after she was admitted in the hospital and worked up for anemia with upper and lower GI colonoscopy which did not reveal any source. She was discharged from the rehab facility yesterday. She went home and noticed that her lower extremities were very swollen and she was getting very short of breath. She had associated orthopnea and PND, as well as exertional dyspnea. She denied any fever, chills, cough, chest pain, abdominal pain, diarrhea or vomiting. Review of systems was otherwise negative. Labs showed RR of 20 and otherwise unremarkable.CBC showed no leucocytosis, with Hb of 10.9, and BMP was unremarkable. Chest x-ray showed bilateral pleural effusions. BNP was 591. She is been admitted to be managed for CHF exacerbation. 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) Other chcf (current) drug therapy (Chronic) Hyperlipidemia (Chronic) Essential (primary) hypertension (Chronic) Paroxysmal atrial fibrillation (Chronic) Chronic pain syndrome (Chronic) Transverse myelitis (Chronic) History of DVT (deep vein thrombosis) (Chronic) Atrial flutter (Chronic) Medical History: Medical History (Last Reviewed 04/21/18 @ 14:36 by Kory Giraldo MD) Hyperlipidemia (Chronic) E78.5 Essential (primary) hypertension (Chronic) I10 Paroxysmal atrial fibrillation (Chronic) I48.0 Atrial flutter (Chronic) I48.92 H/O: hysterectomy Z90.710 Allergies morphine Allergy (Verified 08/26/18 21:42) Hives carbamazepine [From Tegretol] Adverse Reaction (Intermediate, Verified 08/26/18 21:42) HALLUCINATIONS procaine HCl [From Novocain] Adverse Reaction (Intermediate, Verified 08/26/18 21:42) HEART RACES,FEELS LIKE WILL PASS OUT Home Medications: Ambulatory Orders Medication Instructions Recorded Docusate Sodium [Dok] 200 mg PO BID 05/26/15 Gabapentin [Neurontin] 600 mg PO 4X/DAY 05/26/15 citalopram 20 mg tablet 20 mg PO QDAY 04/21/18 Acetaminophen [Tylenol Tablet] 650 mg PO Q6H PRN PRN tablet 05/29/18 Oxycodone [Oxyir] 5 mg PO Q4H PRN 5 Days #30 tab 05/29/18 ALPRAZolam [Xanax] 0.25 mg PO QHS 08/27/18 Apixaban [Eliquis] 5 mg PO BID 08/27/18 Atorvastatin Calcium 10 mg PO QDAY 08/27/18 Bisacodyl 10 mg RC DAILY PRN PRN 08/27/18 Diltiazem HCl [Diltiazem ER] 120 mg PO DAILY 08/27/18 Furosemide [Lasix] 40 mg PO DAILY 08/27/18 Hydrochlorothiazide 12.5 mg PO DAILY 08/27/18 Iron Polysaccharide Complex 150 mg PO DAILYCM 08/27/18 [Ferrex 150] Isosorbide Mononitrate [Isosorbide 30 mg PO QDAY 08/27/18 Mononitrate ER] Magnesium Hydroxide [Milk Of 30 ml PO DAILY PRN PRN 08/27/18 Magnesia] Methadone HCl [(None)] 5 mg PO TID 08/27/18 Mineral Oil 1 bottle RC DAILY PRN 08/27/18 Nystatin Powder [Mycostatin Powder] 1 applic TOPICAL TID 08/27/18 Omeprazole 20 mg PO DAILY 08/27/18 Polyethylene Glycol 3350 [Miralax] 17 gm PO DAILY 08/27/18 Potassium Chloride 20 meq PO DAILY 08/27/18 Rabeprazole Sodium 20 mg PO DAILY 08/27/18 Surgical History: hysterectomy Psychiatric History: Anxiety 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 history Smoking Status: Former smoker - *Family History Offspring Family History: Family History (Last Reviewed 04/21/18 @ 14:36 by Kory Giraldo MD) Mother Colon cancer Father Myocardial infarction History Items: - - MS Maternal Family History: Family History (Last Reviewed 04/21/18 @ 14:36 by Kory Giraldo MD) Mother Colon cancer Father Myocardial infarction History Items: No pertinent history Paternal Family History: Family History (Last Reviewed 04/21/18 @ 14:36 by Kory Giraldo MD) Mother Colon cancer Father Myocardial infarction History Items: No pertinent history Review of Systems Constitutional: Denies: Chills, Fever, Weight Change HEENT: Denies: Head Aches, Sinus Congestion, Sinus Drainage Cardiovascular: Reports: Edema, Orthopnea. Denies: Chest Pain, Chest Tightness, Heaviness, Palpitations Respiratory: Reports: Shortness of Breath, Shortness of breath at rest, Shortness of breath upon exertion. Denies: Cough, Sputum production Gastrointestinal: Denies: Abdominal Pain, Nausea, Vomiting Genitourinary: Denies: Dysuria Musculoskeletal: Denies: Joint Pain, Joint Tenderness Skin: Denies: Rash, Wounds Neurological: Denies: Numbness, Tingling, Focal weakness Psychiatric: Denies: Anxiety, Depression, Homicidal Ideations, Suicidal Ideations Hematologic/ Lymphatic: Denies: Easy Bruising, Easy Bleeding VTE Information - Inpt Only VTE Present on Admission: No VTE Pharm Prophylaxis ordered?: Yes - Physical Exam General: Alert, Oriented x3, Cooperative, No apparent distress HEENT: Atraumatic, PERRLA, EOMI, Normocephalic Oral: Moist Mucosa Neck: Supple, No JVD, Negative Carotid Bruits Lungs: - - decreased breath sounds bibasally with fine crackles bibasally Cardiovascular: Regular rate, Regular Rhythm, Normal S1, Normal S2, No murmurs Abdomen: Bowel Sounds Present, Soft, Non Tender, Non-Distended, No Hepato-splenomegaly Extremities: No clubbing, No cyanosis, Capillary Refill Less than 3 Seconds, Edema - bilateral LE pitting pedal edema Skin: No rashes, No breakdown Musculoskeletal: No Tenderness to Palpation of Joints or Extremities Lymphatic: No Cervical, Supraclavicular, or Inguinal Adenopathy Neurological: Cranial nerves II-XII grossly intact, Neuro grossly intact, Motor Exam 5/5 strength throughout Psych/Mental Status: Normal Affect, Appropriate, Alert and oriented to time, place, person, mood and affect Vital Signs Temp Pulse Resp BP Pulse Ox 98.1 F 96 20 H 137/91 H 97 08/27/18 00:23 08/27/18 00:23 08/27/18 00:23 08/27/18 00:23 08/27/18 00:23 Oxygen Flow Rate (L/min) 2 Oxygen Delivery Method Room Air Weight: 130 lb Body Mass Index (BMI) 25.4 Finger Stick Blood Glucose 130 Laboratory Tests Past 24 Hrs 08/26/18 08/26/18 08/26/18 23:08 23:08 23:08 WBC 5.7 RBC 3.62 L Hgb 10.9 L Hct 34.3 L MCV 94.8 MCH 30.1 MCHC 31.8 L RDW 16.3 H RDW Differential 53.2 H Plt Count 179 MPV 9.6 Immature Gran % (Auto) 0.200 Neut % (Auto) 74.6 H Lymph % (Auto) 11.9 L [place] % (Auto) 11.2 H Eos % (Auto) 1.6 Baso % (Auto) 0.5 Absolute Neuts (auto) 4.3 Absolute Lymphs (auto) 0.68 L Total Counted Not Reportable Sodium 138 Potassium 3.6 Chloride 98 Carbon Dioxide 33.0 H Anion Gap 7 BUN 17 Creatinine 0.66 Estim Creat Clear Calc 34.91 Est GFR (MDRD) Af Amer 113 Est GFR (MDRD) Non-Af 93 BUN/Creatinine Ratio 26.0 H Glucose 89 Calcium 9.4 Troponin I < 0.015 B-Natriuretic Peptide 591.3 H Diagnostic Data Chest X-Ray 08/26/18 21:58 IMPRESSION: Bilateral effusions with lower lung infiltrates or edema. Electronically Signed: Jim Phillips MD at 22:45 EST , Service support , Assessment/Plan All Active Problems (Last Reviewed 04/21/18 @ 14:36 by Kory Giraldo MD) Acute anemia (Acute) Congestive heart failure (CHF) (Acute) Hypoxia (Acute) Gastritis (Acute) Acute ischemic stroke (Resolved) 77-year-old female presenting with a complaint of worsening shortness of breath and edema. 1. Acute diastolic CHF exacerbation BNP is 591 and CXR showed bilateral pleural effusions. Admit to PCU with telemetry. IV Lasix 40 mg twice daily. Fluid restriction to 1500 cc daily. Strict intake and output. last echo(05/26): EF of 60%, with normla LV size and thickness. RVSP of 57mmHg. Left atrium severely enlarged. 2. Afib: rate controlled. On cardizem and eliquis 3. CAD: on statin, aspirin and imdur 4. Depression and anxiety: On citalopram and Xanax. 5. History of anemia: stable. hb is 10. Will monitor DVT prophylaxis: on eliquis GI prophylaxis; on PPI CODE STATUS: Full code Patient counseled extensively about different types of CODE STATUS including full code, DNR CCA and DNR CCA. Patient elects to be full code. Total [id number] time 17 minutes. Code Visit Inpatient E&M: 48915 Init Hosp L3 Procedures: 65162 Advncd Care Plan 30 Min
--- NOTE | 2018-08-27 00:39 | HP.PCM_ITS ---
History of Present Illness Date of Admission: 08/27/18 Chief Complaint: Shortness of breath and lower extremity swelling. The patient is a 77 year old F with past medical history as listed below including CHF and anemia. She was admitted through the ED on with a complaint of worsening shortness of breath and lower extremity swelling. She had been in a rehab facility after she was admitted in the hospital and worked up for anemia with upper and lower GI colonoscopy which did not reveal any source. She was discharged from the rehab facility yesterday. She went home and noticed that her lower extremities were very swollen and she was getting very short of breath. She had associated orthopnea and PND, as well as exertional dyspnea. She denied any fever, chills, cough, chest pain, abdominal pain, diarrhea or vomiting. Review of systems was otherwise negative. Labs showed RR of 20 and otherwise unremarkable.CBC showed no leucocytosis, with Hb of 10.9, and BMP was unremarkable. Chest x-ray showed bilateral pleural effusions. BNP was 591. She is been admitted to be managed for CHF exacerbation. 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) Other custodial (current) drug therapy (Chronic) Hyperlipidemia (Chronic) Essential (primary) hypertension (Chronic) Paroxysmal atrial fibrillation (Chronic) Chronic pain syndrome (Chronic) Transverse myelitis (Chronic) History of DVT (deep vein thrombosis) (Chronic) Atrial flutter (Chronic) Medical History: Medical History (Last Reviewed 04/21/18 @ 14:36 by Kory Giraldo MD) Hyperlipidemia (Chronic) E78.5 Essential (primary) hypertension (Chronic) I10 Paroxysmal atrial fibrillation (Chronic) I48.0 Atrial flutter (Chronic) I48.92 H/O: hysterectomy Z90.710 Allergies morphine Allergy (Verified 08/26/18 21:42) Hives carbamazepine [From Tegretol] Adverse Reaction (Intermediate, Verified 08/26/18 21:42) HALLUCINATIONS procaine HCl [From Novocain] Adverse Reaction (Intermediate, Verified 08/26/18 21:42) HEART RACES,FEELS LIKE WILL PASS OUT Home Medications: Ambulatory Orders Medication Instructions Recorded Docusate Sodium [Dok] 200 mg PO BID 05/26/15 Gabapentin [Neurontin] 600 mg PO 4X/DAY 05/26/15 citalopram 20 mg tablet 20 mg PO QDAY 04/21/18 Acetaminophen [Tylenol Tablet] 650 mg PO Q6H PRN PRN tablet 05/29/18 Oxycodone [Oxyir] 5 mg PO Q4H PRN 5 Days #30 tab 05/29/18 ALPRAZolam [Xanax] 0.25 mg PO QHS 08/27/18 Apixaban [Eliquis] 5 mg PO BID 08/27/18 Atorvastatin Calcium 10 mg PO QDAY 08/27/18 Bisacodyl 10 mg RC DAILY PRN PRN 08/27/18 Diltiazem HCl [Diltiazem ER] 120 mg PO DAILY 08/27/18 Furosemide [Lasix] 40 mg PO DAILY 08/27/18 Hydrochlorothiazide 12.5 mg PO DAILY 08/27/18 Iron Polysaccharide Complex 150 mg PO DAILYCM 08/27/18 [Ferrex 150] Isosorbide Mononitrate [Isosorbide 30 mg PO QDAY 08/27/18 Mononitrate ER] Magnesium Hydroxide [Milk Of 30 ml PO DAILY PRN PRN 08/27/18 Magnesia] Methadone HCl [(None)] 5 mg PO TID 08/27/18 Mineral Oil 1 bottle RC DAILY PRN 08/27/18 Nystatin Powder [Mycostatin Powder] 1 applic TOPICAL TID 08/27/18 Omeprazole 20 mg PO DAILY 08/27/18 Polyethylene Glycol 3350 [Miralax] 17 gm PO DAILY 08/27/18 Potassium Chloride 20 meq PO DAILY 08/27/18 Rabeprazole Sodium 20 mg PO DAILY 08/27/18 Surgical History: hysterectomy Psychiatric History: Anxiety 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 Smoking Status: Former smoker - *Family History Offspring Family History: Family History (Last Reviewed 04/21/18 @ 14:36 by Kory Giraldo MD) Mother Colon cancer Father Myocardial infarction History Items: - - MS Maternal Family History: Family History (Last Reviewed 04/21/18 @ 14:36 by Kory Giraldo MD) Mother Colon cancer Father Myocardial infarction History Items: No pertinent history Paternal Family History: Family History (Last Reviewed 04/21/18 @ 14:36 by Kory Giraldo MD) Mother Colon cancer Father Myocardial infarction History Items: No pertinent history Review of Systems Constitutional: Denies: Chills, Fever, Weight Change HEENT: Denies: Head Aches, Sinus Congestion, Sinus Drainage Cardiovascular: Reports: Edema, Orthopnea. Denies: Chest Pain, Chest Tightness, Heaviness, Palpitations Respiratory: Reports: Shortness of Breath, Shortness of breath at rest, Shortness of breath upon exertion. Denies: Cough, Sputum production Gastrointestinal: Denies: Abdominal Pain, Nausea, Vomiting Genitourinary: Denies: Dysuria Musculoskeletal: Denies: Joint Pain, Joint Tenderness Skin: Denies: Rash, Wounds Neurological: Denies: Numbness, Tingling, Focal weakness Psychiatric: Denies: Anxiety, Depression, Homicidal Ideations, Suicidal Ideations Hematologic/ Lymphatic: Denies: Easy Bruising, Easy Bleeding VTE Information - Inpt Only VTE Present on Admission: No VTE Pharm Prophylaxis ordered?: Yes - Physical Exam General: Alert, Oriented x3, Cooperative, No apparent distress HEENT: Atraumatic, PERRLA, EOMI, Normocephalic Oral: Moist Mucosa Neck: Supple, No JVD, Negative Carotid Bruits Lungs: - - decreased breath sounds bibasally with fine crackles bibasally Cardiovascular: Regular rate, Regular Rhythm, Normal S1, Normal S2, No murmurs Abdomen: Bowel Sounds Present, Soft, Non Tender, Non-Distended, No Hepato- splenomegaly Extremities: No clubbing, No cyanosis, Capillary Refill Less than 3 Seconds, Edema - bilateral LE pitting pedal edema Skin: No rashes, No breakdown Musculoskeletal: No Tenderness to Palpation of Joints or Extremities Lymphatic: No Cervical, Supraclavicular, or Inguinal Adenopathy Neurological: Cranial nerves II-XII grossly intact, Neuro grossly intact, Motor Exam 5/5 strength throughout Psych/Mental Status: Normal Affect, Appropriate, Alert and oriented to time, place, person, mood and affect Vital Signs Temp Pulse Resp BP Pulse Ox 98.1 F 96 20 H 137/91 H 97 08/27/18 00:23 08/27/18 00:23 08/27/18 00:23 08/27/18 00:23 08/27/18 00:23 Oxygen Flow Rate (L/min) 2 Oxygen Delivery Method Room Air Weight: 130 lb Body Mass Index (BMI) 25.4 Finger Stick Blood Glucose 130 Laboratory Tests Past 24 Hrs 08/26/18 08/26/18 08/26/18 23:08 23:08 23:08 WBC 5.7 RBC 3.62 L Hgb 10.9 L Hct 34.3 L MCV 94.8 MCH 30.1 MCHC 31.8 L RDW 16.3 H RDW Differential 53.2 H Plt Count 179 MPV 9.6 Immature Gran % (Auto) 0.200 Neut % (Auto) 74.6 H Lymph % (Auto) 11.9 L [place] % (Auto) 11.2 H Eos % (Auto) 1.6 Baso % (Auto) 0.5 Absolute Neuts (auto) 4.3 Absolute Lymphs (auto) 0.68 L Total Counted Not Reportable Sodium 138 Potassium 3.6 Chloride 98 Carbon Dioxide 33.0 H Anion Gap 7 BUN 17 Creatinine 0.66 Estim Creat Clear Calc 34.91 Est GFR (MDRD) Af Amer 113 Est GFR (MDRD) Non-Af 93 BUN/Creatinine Ratio 26.0 H Glucose 89 Calcium 9.4 Troponin I < 0.015 B-Natriuretic Peptide 591.3 H Diagnostic Data Chest X-Ray 08/26/18 21:58 IMPRESSION: Bilateral effusions with lower lung infiltrates or edema. Electronically Signed: Jim Phillips MD at 22:45 EST , Service support , Assessment/Plan All Active Problems (Last Reviewed 04/21/18 @ 14:36 by Kory Giraldo MD) Acute anemia (Acute) Congestive heart failure (CHF) (Acute) Hypoxia (Acute) Gastritis (Acute) Acute ischemic stroke (Resolved) 77-year-old female presenting with a complaint of worsening shortness of breath and edema. 1. Acute diastolic CHF exacerbation * BNP is 591 and CXR showed bilateral pleural effusions. * Admit to PCU with telemetry. * IV Lasix 40 mg twice daily. * Fluid restriction to 1500 cc daily. Strict intake and output. * last echo(05/26): EF of 60%, with normla LV size and thickness. RVSP of 57mmHg. Left atrium severely enlarged. * * 2. Afib: rate controlled. On cardizem and eliquis 3. CAD: on statin, aspirin and imdur 4. Depression and anxiety: On citalopram and Xanax. 5. History of anemia: stable. hb is 10. Will monitor DVT prophylaxis: on eliquis GI prophylaxis; on PPI CODE STATUS: Full code * Patient counseled extensively about different types of CODE STATUS including full code, DNR CCA and DNR CCA. Patient elects to be full code. Total [id number] time 17 minutes. Code Visit Inpatient E&M: 63616 Init Hosp L3 Procedures: 24113 Advncd Care Plan 30 Min
[2018-08-27] MEDS: Gabapentin 300 MG Capsule 600 MG PO ×5 (03:26→21:04)
[2018-08-27] MEDS: ALPRAZolam 0.25 MG Tablet PO ×2 (04:15→21:08)
[2018-08-27 06:54] LABS: Anion Gap 6 (5-15); BUN 15 mg/dL (7-18); BUN/Creat Ratio 21.5 RATIO (10-20); Chloride 97 mmol/L (98-107); EST Glomerular Filtration Rate 87 mL/min (>60); Est Glom Filt Rate - Afr Amer 105 mL/min (>60); Estimated Creatinine Clearance 34.91 ml/min; Glucose 79 mg/dL (74-106); Potassium 3.1 mmol/L (3.5-5.1); Sodium Level 139 mmol/L (136-145)
[2018-08-27 06:57] LABS: Absolute Lymphocyte Count 0.55 X10^3/ul (0.83-4.51); Basophil# 0.02 X10^3/uL; Basophil% 0.5 % (0-1); Eosinophil# 0.04 X10^3/uL; Hematocrit 31.2 % (37-47); Hemoglobin 9.7 g/dl (12.0-15.0); Lymphocyte # 0.55 X10^3/ul (4.0); Lymphocyte % 13.4 % (19-41); Mean Corp Hgb Conc 31.1 g/gl (32-36); Mean Corpuscular Volume 96.6 fL (81-99); Mean Platelet Vol. 10.5 fl (6.2-12.0); Monocyte# 0.53 X10^3/uL; Monocyte% 12.9 % (0-10); Neutrophil # 2.96 X10^3/uL (2.7-7.7); Neutrophil % 72.2 % (47-70); Platelet Count 173 K/mm3 (150-450); RBC Distribution Width CV 16.4 % (11.6-14.6); RBC Distribution Width SD 51.7 fl (35.1-43.9); Red Blood Count 3.23 M/mm3 (4.2-5.4); White Blood Count 4.1 K/mm3 (4.4-11.0)
[2018-08-27 06:59] LABS: Differential Indicated SCAN CRITERIA MET; POSITIVE COUNT NO; POSITIVE DIFFERENTIAL YES; POSITIVE MORPHOLOGY NO
[2018-08-27] MEDS: Iron Polysaccharide Complex 150 MG CAPSULE PO (08:48)
--- NOTE | 2018-08-27 09:07 | PCM.PN.HOSP ---
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 She was discharged from [facility] over posterior a day before yesterday. Bilateral lower extremities are swollen although she claims her legs were Pawan wrapped in a custodial. BNP 591. Chest x-ray shows bilateral pleural effusion and underlying atelectasis. Vitals/I&O's: Vital Signs Temp Pulse Resp BP Pulse Ox 97.9 F 88 19 H 149/81 H 100 08/27/18 08:42 08/27/18 08:42 08/27/18 08:42 08/27/18 08:42 08/27/18 08:42 Oxygen Flow Rate (L/min) 3 Oxygen Delivery Method Nasal Cannula Weight: 138 lb 0.15 oz Body Mass Index (BMI) 26.9 Finger Stick Blood Glucose 130 Intake and Output for Last 24 Hours 08/25/18 08/26/18 08/27/18 23:59 23:59 23:59 Output Total 850 / 850 Balance -850 / -850 General: Alert, Oriented x3, Cooperative HEENT: Atraumatic, PERRLA, EOMI, Normocephalic Neck: Supple, No JVD, Negative Carotid Bruits Lungs: Diminished, Rhonchi, Short of Breath, Wheezes Cardiovascular: Normal S1, Normal S2, Irregular Rate, Murmur - Systolic murmur present Over left sternal border. Abdomen: Bowel Sounds Present, Soft, Non Tender, Non-Distended Extremities: Capillary Refill Less than 3 Seconds, Edema - 3+ lower extremity bilateral edema Skin: No rashes, No breakdown Musculoskeletal: No Tenderness to Palpation of Joints or Extremities, Arthritic Changes, Muscle Wasting Lymphatic: No Cervical, Supraclavicular, or Inguinal Adenopathy Neurological: Cranial nerves II-XII grossly intact, Deep Tendon Reflexes 2+/4 and Symmetrical, Neuro grossly intact Psych/Mental Status: Normal Affect, Appropriate Laboratory Results 08/26/18 23:08: WBC 5.7, RBC 3.62 L, Hgb 10.9 L, Hct 34.3 L, MCV 94.8, MCH 30.1, MCHC 31.8 L, RDW 16.3 H, RDW Differential 53.2 H, Plt Count 179, MPV 9.6, Immature Gran % (Auto) 0.200, Neut % (Auto) 74.6 H, Lymph % (Auto) 11.9 L, [place] % (Auto) 11.2 H, Eos % (Auto) 1.6, Baso % (Auto) 0.5, Absolute Neuts (auto) 4.3, Absolute Lymphs (auto) 0.68 L, Total Counted Not Reportable 08/26/18 23:08: Sodium 138, Potassium 3.6, Chloride 98, Carbon Dioxide 33.0 H, Anion Gap 7, BUN 17, Creatinine 0.66, Estim Creat Clear Calc 34.91, Est GFR (MDRD) Af Amer 113, Est GFR (MDRD) Non-Af 93, BUN/Creatinine Ratio 26.0 H, Glucose 89, Calcium 9.4, Troponin I < 0.015 08/26/18 23:08: B-Natriuretic Peptide 591.3 H 08/27/18 06:00: WBC 4.1 L, RBC 3.23 L, Hgb 9.7 L, Hct 31.2 L, MCV 96.6, MCH 30.0, MCHC 31.1 L, RDW 16.4 H, RDW Differential 51.7 H, Plt Count 173, MPV 10.5, Immature Gran % (Auto) 0.000, Neut % (Auto) 72.2 H, Lymph % (Auto) 13.4 L, [place] % (Auto) 12.9 H, Eos % (Auto) 1.0, Baso % (Auto) 0.5, Absolute Neuts (auto) 3.0, Absolute Lymphs (auto) 0.55 L, Total Counted Not Reportable 08/27/18 06:00: Sodium 139, Potassium 3.1 L, Chloride 97 L, Carbon Dioxide 36.0 H, Anion Gap 6, BUN 15, Creatinine 0.70, Estim Creat Clear Calc 34.91, Est GFR (MDRD) Af Amer 105, Est GFR (MDRD) Non-Af 87, BUN/Creatinine Ratio 21.5 H, Glucose 79, Calcium 9.0 Current Medications Acetaminophen (Tylenol) 650 mg PO Q6H PRN PRN PRN Reason: PAIN Alprazolam (Xanax) 0.25 mg PO QHS [facility] Last Admin: 08/27/18 04:15 Dose: 0.25 mg Atorvastatin Calcium (Lipitor) 10 mg PO QHS [facility] Bisacodyl (Dulcolax) 10 mg RECTAL DAILY PRN PRN PRN Reason: Constipation Calamine/Phenol (Calmoseptine Ointment) 1 applic TOPICAL BID [facility]; Protocol Citalopram Hydrobromide (Celexa) 20 mg PO DAILY [facility] Diltiazem HCl (Cardizem Cd) 120 mg PO DAILY [facility] Docusate Sodium (Colace) 200 mg PO BID [facility] Enoxaparin Sodium (Lovenox) 40 mg SC DAILY@1000 [facility] Furosemide (Lasix) 40 mg IV BID@1000,1800 [facility] Gabapentin (Neurontin) 600 mg PO 4X/DAY [facility] Last Admin: 08/27/18 03:26 Dose: 600 mg Sodium Chloride () 250 mls @ 15 mls/hr IV .[id number] PRN PRN Reason: SALINE FLUSH Isosorbide Mononitrate (Imdur) 30 mg PO DAILY [facility] Magnesium Hydroxide (Milk Of Magnesia) 30 ml PO DAILY PRN PRN PRN Reason: Constipation Magnesium Hydroxide (Milk Of Magnesia) 30 ml PO DAILY PRN PRN PRN Reason: Constipation Methadone HCl () 5 mg PO TID [facility] Last Admin: 08/27/18 03:26 Dose: 5 mg Mineral Oil (Mineral Oil) 1 bottle RECTAL DAILY PRN PRN PRN Reason: Constipation Oxycodone HCl (Oxyir) 5 mg PO Q4H PRN PRN Reason: PAIN Pantoprazole Sodium (Protonix) 20 mg PO DAILY [facility] Polyethylene Glycol (Miralax) 17 gm PO DAILY [facility] Polysaccharide Iron Complex (Ferrex 150) [facility] Last Admin: 08/27/18 08:48 Dose: 150 mg Potassium Chloride (K-Dur) [facility]q [facility] Last Admin: 08/27/18 08:49 Dose: 40 meq Sodium Chloride () 5 - 15 ml IV UD PRN PRN Reason: SALINE FLUSH Medical Necessity - Tobacco Use Smoking Status: Former smoker Assessment/Plan All Active Problems (Last Reviewed 04/21/18 @ 14:36 by Kory Giraldo MD) Acute anemia (Acute) Congestive heart failure (CHF) (Acute) Hypoxia (Acute) Gastritis (Acute) Acute ischemic stroke (Resolved) This is a 77-year-old female with history of CHF, chronic anemia with recent upper and lower endoscopy was negative for source of anemia was admitted with a complaint of worsening shortness of breath and edema, orthopnea, exertional dyspnea and PND consistent with CHF exacerbation. Patient was tachypneic. 1. Acute diastolic CHF exacerbation Patient was admitted in PCU. BNP is 591 and CXR showed bilateral pleural effusions. IV Lasix 40 mg twice daily. Fluid restriction to 1500 cc daily. Strict intake and output. last echo(05/2018): EF of 60%, with normal LV size and thickness. Mild to moderate TR, RVSP of 57mmHg, moderate pulmonary hypertension. Left atrium severely enlarged. 2. Afib: rate controlled. On cardizem and eliquis 3. CAD: on statin, aspirin and imdur 4. Depression and anxiety: On citalopram and Xanax. 5. History of anemia: stable. hb is 10. Monitor CBC daily DVT prophylaxis: on eliquis GI prophylaxis; on PPI
--- NOTE | 2018-08-27 09:12 | PN_ITS ---
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 She was discharged from [place] over posterior a day before yesterday. Bilateral lower extremities are swollen although she claims her legs were [place]awan wrapped in a penitentiary. BNP 591. Chest x-ray shows bilateral pleural effusion and underlying atelectasis. Vitals/I&O's: Vital Signs Temp Pulse Resp BP Pulse Ox 97.9 F 88 19 H 149/81 H 100 08/27/18 08:42 08/27/18 08:42 08/27/18 08:42 08/27/18 08:42 08/27/18 08:42 Oxygen Flow Rate (L/min) 3 Oxygen Delivery Method Nasal Cannula Weight: 138 lb 0.15 oz Body Mass Index (BMI) 26.9 Finger Stick Blood Glucose 130 Intake and Output for Last 24 Hours 08/25/18 08/26/18 08/27/18 23:59 23:59 23:59 Output Total 850 / 850 Balance -850 / -850 General: Alert, Oriented x3, Cooperative HEENT: Atraumatic, PERRLA, EOMI, Normocephalic Neck: Supple, No JVD, Negative Carotid Bruits Lungs: Diminished, Rhonchi, Short of Breath, Wheezes Cardiovascular: Normal S1, Normal S2, Irregular Rate, Murmur - Systolic murmur present Over left sternal border. Abdomen: Bowel Sounds Present, Soft, Non Tender, Non-Distended Extremities: Capillary Refill Less than 3 Seconds, Edema - 3+ lower extremity bilateral edema Skin: No rashes, No breakdown Musculoskeletal: No Tenderness to Palpation of Joints or Extremities, Arthritic Changes, Muscle Wasting Lymphatic: No Cervical, Supraclavicular, or Inguinal Adenopathy Neurological: Cranial nerves II-XII grossly intact, Deep Tendon Reflexes 2+/4 and Symmetrical, Neuro grossly intact Psych/Mental Status: Normal Affect, Appropriate Laboratory Results 08/26/18 23:08: WBC 5.7, RBC 3.62 L, Hgb 10.9 L, Hct 34.3 L, MCV 94.8, MCH 30.1, MCHC 31.8 L, RDW 16.3 H, RDW Differential 53.2 H, Plt Count 179, MPV 9.6, Immature Gran % (Auto) 0.200, Neut % (Auto) 74.6 H, Lymph % (Auto) 11.9 L, [place] % (Auto) 11.2 H, Eos % (Auto) 1.6, Baso % (Auto) 0.5, Absolute Neuts (auto) 4.3, Absolute Lymphs (auto) 0.68 L, Total Counted Not Reportable 08/26/18 23:08: Sodium 138, Potassium 3.6, Chloride 98, Carbon Dioxide 33.0 H, Anion Gap 7, BUN 17, Creatinine 0.66, Estim Creat Clear Calc 34.91, Est GFR (MDRD) Af Amer 113, Est GFR (MDRD) Non-Af 93, BUN/Creatinine Ratio 26.0 H, Glucose 89, Calcium 9.4, Troponin I < 0.015 08/26/18 23:08: B-Natriuretic Peptide 591.3 H 08/27/18 06:00: WBC 4.1 L, RBC 3.23 L, Hgb 9.7 L, Hct 31.2 L, MCV 96.6, MCH 30.0, MCHC 31.1 L, RDW 16.4 H, RDW Differential 51.7 H, Plt Count 173, MPV 10.5, Immature Gran % (Auto) 0.000, Neut % (Auto) 72.2 H, Lymph % (Auto) 13.4 L, [place] % (Auto) 12.9 H, Eos % (Auto) 1.0, Baso % (Auto) 0.5, Absolute Neuts (auto) 3.0, Absolute Lymphs (auto) 0.55 L, Total Counted Not Reportable 08/27/18 06:00: Sodium 139, Potassium 3.1 L, Chloride 97 L, Carbon Dioxide 36.0 H, Anion Gap 6, BUN 15, Creatinine 0.70, Estim Creat Clear Calc 34.91, Est GFR (MDRD) Af Amer 105, Est GFR (MDRD) Non-Af 87, BUN/Creatinine Ratio 21.5 H, Glucose 79, Calcium 9.0 Current Medications Acetaminophen (Tylenol) 650 mg PO Q6H PRN PRN PRN Reason: PAIN Alprazolam (Xanax) 0.25 mg PO QHS [facility] Last Admin: 08/27/18 04:15 Dose: 0.25 mg Atorvastatin Calcium (Lipitor) 10 mg PO QHS [facility] Bisacodyl (Dulcolax) 10 mg RECTAL DAILY PRN PRN PRN Reason: Constipation Calamine/Phenol (Calmoseptine Ointment) 1 applic TOPICAL BID [facility]; Protocol Citalopram Hydrobromide (Celexa) 20 mg PO DAILY [facility] Diltiazem HCl (Cardizem Cd) 120 mg PO DAILY [facility] Docusate Sodium (Colace) 200 mg PO BID [facility] Enoxaparin Sodium (Lovenox) 40 mg SC DAILY@1000 [facility] Furosemide (Lasix) 40 mg IV BID@1000,1800 [facility] Gabapentin (Neurontin) 600 mg PO 4X/DAY [facility] Last Admin: 08/27/18 03:26 Dose: 600 mg Sodium Chloride () 250 mls @ 15 mls/hr IV .[id number] PRN PRN Reason: SALINE FLUSH Isosorbide Mononitrate (Imdur) 30 mg PO DAILY [facility] Magnesium Hydroxide (Milk Of Magnesia) 30 ml PO DAILY PRN PRN PRN Reason: Constipation Magnesium Hydroxide (Milk Of Magnesia) 30 ml PO DAILY PRN PRN PRN Reason: Constipation Methadone HCl () 5 mg PO TID [facility] Last Admin: 08/27/18 03:26 Dose: 5 mg Mineral Oil (Mineral Oil) 1 bottle RECTAL DAILY PRN PRN PRN Reason: Constipation Oxycodone HCl (Oxyir) 5 mg PO Q4H PRN PRN Reason: PAIN Pantoprazole Sodium (Protonix) 20 mg PO DAILY [facility] Polyethylene Glycol (Miralax) 17 gm PO DAILY [facility] Polysaccharide Iron Complex (Ferrex 150) [facility] Last Admin: 08/27/18 08:48 Dose: 150 mg Potassium Chloride (K-Dur) [facility]q [facility] Last Admin: 08/27/18 08:49 Dose: 40 meq Sodium Chloride () 5 - 15 ml IV UD PRN PRN Reason: SALINE FLUSH Medical Necessity - Tobacco Use Smoking Status: Former smoker Assessment/Plan All Active Problems (Last Reviewed 04/21/18 @ 14:36 by Kory Giraldo MD) Acute anemia (Acute) Congestive heart failure (CHF) (Acute) Hypoxia (Acute) Gastritis (Acute) Acute ischemic stroke (Resolved) This is a 77-year-old female with history of CHF, chronic anemia with recent upper and lower endoscopy was negative for source of anemia was admitted with a complaint of worsening shortness of breath and edema, orthopnea, exertional dyspnea and PND consistent with CHF exacerbation. Patient was tachypneic. 1. Acute diastolic CHF exacerbation Patient was admitted in PCU. * BNP is 591 and CXR showed bilateral pleural effusions. * IV Lasix 40 mg twice daily. * Fluid restriction to 1500 cc daily. Strict intake and output. * last echo(05/2018): EF of 60%, with normal LV size and thickness. Mild to moderate TR, RVSP of 57mmHg, moderate pulmonary hypertension. Left atrium severely enlarged. 2. Afib: rate controlled. On cardizem and eliquis 3. CAD: on statin, aspirin and imdur 4. Depression and anxiety: On citalopram and Xanax. 5. History of anemia: stable. hb is 10. Monitor CBC daily DVT prophylaxis: on eliquis GI prophylaxis; on PPI
[2018-08-27] MEDS: Isosorbide Mononitrate 30 MG Tablet PO (10:24)
[2018-08-27] MEDS: Citalopram 20 MG Tablet PO (10:24)
[2018-08-27] MEDS: Docusate Sodium 100 MG Capsule 200 MG PO ×2 (10:24→21:03)
[2018-08-27] MEDS: dilTIAZem CD 120 MG Capsule PO (10:25)
[2018-08-27] MEDS: Furosemide 40 MG/4 ML Vial IV ×2 (10:25→18:19)
[2018-08-27] MEDS: 0.9% NaCl Peripheral Flush Adult/Peds IV (10:25)
[2018-08-27] MEDS: Polyethylene Glycol 3350 17 GM PACKET PO (10:26)
[2018-08-27] MEDS: Enoxaparin 40 MG/0.4 ML Syringe SC (10:27)
[2018-08-27] MEDS: Pantoprazole Sodium 20 MG Tablet PO (10:29)
[2018-08-27] MEDS: Menthol/Lanolin/Calamine/Znox 113 GM Tube 1 APPLIC TOPICAL ×2 (10:30→21:03)
[2018-08-27] MEDS: oxyCODONE 5 MG Tablet PO ×2 (12:09→18:27)
--- NOTE | 2018-08-27 13:25 | CASEMGMT ---
TOMAS DONG ASSESSMENT Face to Face with patient for initial transition planning/care coordination assessment. TOMAS DONG introduced self and role at [facility]. Pt voices understanding and consents to assessment at this time. Pt resting in bed in no distress at this time. Pt is A/O at this time and answers all questions appropriately. Care providers, pharmacy, and demographics verified/updated at this time. PCP: Joseph Specialists: Neurologist: Dr Lisa, Dr Giraldo Preferred Pharmacy: [facility]. Insurance: [facility], [facility] Prescription Benefit: Yes Living Will/HPOA: Has both LW and HCPOA, who is her sister, Mya. Living Arrangements: Pt was just discharged from [facility] on 08/25. Lives with her son and DIL. States her DIL helps to take care of her--states she can dress herself but that her DIL assists her with her shower and medications. She states her DIL also prepares the meals and home mgmt tasks. Pt states her sister takes care of financial matters. She states the home is a 2-story home but that she has 1st floor set up. States 2 steps to enter into the home. Transportation: Pt does not drive. States her son, DIL, or sister assist with transportation. DME: States has the following DME: shower chair, BSC, hand held shower, walker, W/C. She states she wears O2 @ 2L/M continuously and that she gets this through [facility]. Pt states no need for further DME at this time. HHC/SNF: Pt ws just discharged from [facility] on 08/25. She states she does not want to return there and wants to return home. Pt states that [facility] was supposed to be seeing her to start care but that they had not contacted her yet. Call placed to SAMY Pizano, @ [facility]. She states they did not receive a referral from [facility]. She states they are able to accept pt. Will notify Jerica when have tentative discharge date. Pt wishes to return home. Pt states does not smoke or drink ETOH. CM to follow for home oxygen needs and any further discharge planning/needs. Pt voices no further concerns/needs at this time. Advised pt to ask for CM if any further questions/concerns/needs arise. Voices understanding. Plan: Home with [facility]. Rocky MURRAY RN, CM
--- NOTE | 2018-08-27 18:37 | NURSING ---
resumed care of patient at 1800 received report from Jamal MARIN
--- NOTE | 2018-08-27 20:00 | NURSING ---
Purewick changed at 20:00. Hooked to suction and draining well.
[2018-08-27] MEDS: Atorvastatin Calcium 10 MG Tablet PO (21:04)
[2018-08-28] VITALS (11 sets, daily range): BP systolic 98–120; BP diastolic 61–75; PULSE 75–97; RESP 15–18; TEMP 36.7–37.2; O2SAT 87–100
[2018-08-28] MEDS: oxyCODONE 5 MG Tablet PO ×4 (03:57→21:24)
[2018-08-28] MEDS: 0.9% NaCl Peripheral Flush Adult/Peds IV (05:06)
[2018-08-28 05:17] LABS: Absolute Lymphocyte Count 0.91 X10^3/ul (0.83-4.51); Absolute Neutrophil Count 2.2 X10^3/uL (2.0-7.7); Basophil# 0.04 X10^3/uL; Eosinophil# 0.08 X10^3/uL; Eosinophils% 2.1 % (0-5); Hematocrit 33.9 % (37-47); Hemoglobin 10.6 g/dl (12.0-15.0); Lymphocyte # 0.91 X10^3/ul (4.0); Lymphocyte % 23.6 % (19-41); Mean Corp Hgb Conc 31.3 g/gl (32-36); Mean Corpuscular Hgb 30.4 pg (27.0-32.0); Mean Corpuscular Volume 97.1 fL (81-99); Monocyte# 0.67 X10^3/uL; Monocyte% 17.4 % (0-10); Neutrophil # 2.16 X10^3/uL (2.7-7.7); Neutrophil % 55.9 % (47-70); Platelet Count 168 K/mm3 (150-450); RBC Distribution Width CV 16.5 % (11.6-14.6); RBC Distribution Width SD 52.4 fl (35.1-43.9); Red Blood Count 3.49 M/mm3 (4.2-5.4); White Blood Count 3.9 K/mm3 (4.4-11.0)
[2018-08-28 05:20] LABS: POSITIVE COUNT NO; POSITIVE DIFFERENTIAL NO; POSITIVE MORPHOLOGY NO
[2018-08-28 05:28] LABS: Anion Gap 6 (5-15); BUN 16 mg/dL (7-18); BUN/Creat Ratio 20.1 RATIO (10-20); Calcium,Total 9.2 mg/dL (8.5-10.1); Chloride 95 mmol/L (98-107); EST Glomerular Filtration Rate 75 mL/min (>60); Est Glom Filt Rate - Afr Amer 90 mL/min (>60); Estimated Creatinine Clearance 43.64 ml/min; Glucose 87 mg/dL (74-106); Magnesium 1.7 mg/dL (1.6-2.6); Potassium 3.3 mmol/L (3.5-5.1); Sodium Level 143 mmol/L (136-145)
--- NOTE | 2018-08-28 07:35 | PCM.PN.HOSP ---
Subjective: The patient shortness of breath is much better. Currently on 1 L of oxygen. Lower extremity swellings have improved. She is concerned of urgency and increased frequency of urination and fall because of diuretic. Patient wants to go home after she gets better. She just completed rehab in [facility] Vitals/I&O's: Vital Signs Temp Pulse Resp BP Pulse Ox 98.9 F 75 16 109/62 100 08/28/18 02:00 08/28/18 04:00 08/28/18 02:00 08/28/18 02:00 08/28/18 02:00 Oxygen Flow Rate (L/min) 1 Oxygen Delivery Method Nasal Cannula Weight: 138 lb 0.15 oz Body Mass Index (BMI) 26.9 Finger Stick Blood Glucose 130 Intake and Output for Last 24 Hours 08/26/18 08/27/18 08/28/18 23:59 23:59 23:59 Intake Total 560 / 560 Output Total 3350 / 3350 200 / 200 Balance -2790 / -2790 -200 / -200 General: Alert, Oriented x3, Cooperative HEENT: Atraumatic, PERRLA, EOMI, Normocephalic Neck: Supple, No JVD, Negative Carotid Bruits Lungs: Diminished - Air entry diminished in bilateral lung bases., Rales - Fine rales present Cardiovascular: Normal S1, Normal S2, Irregular Rate, Murmur Abdomen: Bowel Sounds Present, Soft, Non Tender, Non-Distended Extremities: Capillary Refill Less than 3 Seconds, Edema - Lower extremity edema is improved Skin: No rashes, No breakdown Musculoskeletal: No Tenderness to Palpation of Joints or Extremities, Arthritic Changes, Muscle Wasting Neurological: Cranial nerves II-XII grossly intact, Deep Tendon Reflexes 2+/4 and Symmetrical, Neuro grossly intact Psych/Mental Status: Normal Affect, Appropriate Laboratory Results 08/28/18 05:05: WBC 3.9 L, RBC 3.49 L, Hgb 10.6 L, Hct 33.9 L, MCV 97.1, MCH 30.4, MCHC 31.3 L, RDW 16.5 H, RDW Differential 52.4 H, Plt Count 168, MPV 10.0, Immature Gran % (Auto) 0.000, Neut % (Auto) 55.9, Lymph % (Auto) 23.6, [place] % (Auto) 17.4 H, Eos % (Auto) 2.1, Baso % (Auto) 1.0, Absolute Neuts (auto) 2.2, Absolute Lymphs (auto) 0.91, Total Counted Not Reportable 08/28/18 05:05: Sodium 143, Potassium 3.3 L, Chloride 95 L, Carbon Dioxide 42.0 H, Anion Gap 6, BUN 16, Creatinine 0.80, Estim Creat Clear Calc 43.64, Est GFR (MDRD) Af Amer 90, Est GFR (MDRD) Non-Af 75, BUN/Creatinine Ratio 20.1 H, Glucose 87, Calcium 9.2, Magnesium 1.7 Current Medications Acetaminophen (Tylenol) 650 mg PO Q6H PRN PRN PRN Reason: PAIN Alprazolam (Xanax) 0.25 mg PO QHS [facility] Last Admin: 08/27/18 21:08 Dose: 0.25 mg Atorvastatin Calcium (Lipitor) 10 mg PO QHS [facility] Last Admin: 08/27/18 21:04 Dose: 10 mg Bisacodyl (Dulcolax) 10 mg RECTAL DAILY PRN PRN PRN Reason: Constipation Calamine/Phenol (Calmoseptine Ointment) 1 applic TOPICAL BID [facility]; Protocol Last Admin: 08/27/18 21:03 Dose: 1 applicatio Citalopram Hydrobromide (Celexa) 20 mg PO DAILY [facility] Last Admin: 08/27/18 10:24 Dose: 20 mg Diltiazem HCl (Cardizem Cd) 120 mg PO DAILY [facility] Last Admin: 08/27/18 10:25 Dose: 120 mg Docusate Sodium (Colace) 200 mg PO BID [facility] Last Admin: 08/27/18 21:03 Dose: 200 mg Enoxaparin Sodium (Lovenox) 40 mg SC DAILY@1000 [facility] Last Admin: 08/27/18 10:27 Dose: 40 mg Furosemide (Lasix) 40 mg IV BID@1000,1800 [facility] Last Admin: 08/27/18 18:19 Dose: 40 mg Gabapentin (Neurontin) 600 mg PO 4X/DAY [facility] Last Admin: 08/27/18 21:04 Dose: 600 mg Sodium Chloride () 250 mls @ 15 mls/hr IV .[id number] PRN PRN Reason: SALINE FLUSH Isosorbide Mononitrate (Imdur) 30 mg PO DAILY [facility] Last Admin: 08/27/18 10:24 Dose: 30 mg Magnesium Hydroxide (Milk Of Magnesia) 30 ml PO DAILY PRN PRN PRN Reason: Constipation Magnesium Hydroxide (Milk Of Magnesia) 30 ml PO DAILY PRN PRN PRN Reason: Constipation Methadone HCl () 5 mg PO TID [facility] Last Admin: 08/28/18 06:10 Dose: 5 mg Mineral Oil (Mineral Oil) 1 bottle RECTAL DAILY PRN PRN PRN Reason: Constipation Nutritional Formula (Lactose Free) (Ensure Enlive) 120 ml PO 4X/DAY [facility] Last Admin: 08/27/18 21:04 Dose: 120 ml Oxycodone HCl (Oxyir) 5 mg PO Q4H PRN PRN Reason: PAIN Last Admin: 08/28/18 03:57 Dose: 5 mg Pantoprazole Sodium (Protonix) 20 mg PO DAILY [facility] Last Admin: 08/27/18 10:29 Dose: 20 mg Polyethylene Glycol (Miralax) 17 gm PO DAILY [facility] Last Admin: 08/27/18 10:26 Dose: 17 gm Polysaccharide Iron Complex (Ferrex 150) [facility] Last Admin: 08/27/18 08:48 Dose: 150 mg Potassium Chloride (K-Dur) [facility]q [facility] Last Admin: 08/27/18 08:49 Dose: 40 meq Sodium Chloride () 5 - 15 ml IV UD PRN PRN Reason: SALINE FLUSH Last Admin: 08/28/18 05:06 Dose: 10 ml Medical Necessity - Tobacco Use Smoking Status: Former smoker Assessment/Plan All Active Problems (Last Reviewed 04/21/18 @ 14:36 by Kory Giraldo MD) Acute anemia (Acute) Congestive heart failure (CHF) (Acute) Hypoxia (Acute) Gastritis (Acute) Acute ischemic stroke (Resolved) This is a 77-year-old female with history of CHF, chronic anemia with recent upper and lower endoscopy was negative for source of anemia was admitted with a complaint of worsening shortness of breath and edema, orthopnea, exertional dyspnea and PND consistent with CHF exacerbation. Patient was tachypneic. 1. Acute diastolic CHF exacerbation Patient was admitted in PCU. BNP is 591 and CXR showed bilateral pleural effusions. IV Lasix 40 mg twice daily. Labs Shows increase in bicarb due to metabolic alkalosis suggesting of adequate diuresis Fluid restriction to 1500 cc daily. Strict intake and output. last echo(05/2018): EF of 60%, with normal LV size and thickness. Mild to moderate TR, RVSP of 57mmHg, moderate pulmonary hypertension. Left atrium severely enlarged. Hypokalemia: Potassium replacement 2. Afib: rate controlled. On cardizem and eliquis 3. CAD: on statin, aspirin and imdur 4. Depression and anxiety: On citalopram and Xanax. 5. History of anemia: stable. hb is 10. monitor CBC daily DVT prophylaxis: on eliquis GI prophylaxis; on PPI Laboratory Results 08/28/18 05:05: WBC 3.9 L, RBC 3.49 L, Hgb 10.6 L, Hct 33.9 L, MCV 97.1, MCH 30.4, MCHC 31.3 L, RDW 16.5 H, RDW Differential 52.4 H, Plt Count 168, MPV 10.0, Immature Gran % (Auto) 0.000, Neut % (Auto) 55.9, Lymph % (Auto) 23.6, [place] % (Auto) 17.4 H, Eos % (Auto) 2.1, Baso % (Auto) 1.0, Absolute Neuts (auto) 2.2, Absolute Lymphs (auto) 0.91, Total Counted Not Reportable 08/28/18 05:05: Sodium 143, Potassium 3.3 L, Chloride 95 L, Carbon Dioxide 42.0 H, Anion Gap 6, BUN 16, Creatinine 0.80, Estim Creat Clear Calc 43.64, Est GFR (MDRD) Af Amer 90, Est GFR (MDRD) Non-Af 75, BUN/Creatinine Ratio 20.1 H, Glucose 87, Calcium 9.2, Magnesium 1.7 Clinical Impression(s) from Imaging Studies Chest X-Ray 08/26/18 21:58 IMPRESSION: Bilateral effusions with lower lung infiltrates or edema. Code Visit Inpatient E&M: 66873 Subs Hosp L3
[2018-08-28] MEDS: Iron Polysaccharide Complex 150 MG CAPSULE PO (09:03)
[2018-08-28] MEDS: Menthol/Lanolin/Calamine/Znox 113 GM Tube 1 APPLIC TOPICAL ×2 (09:03→21:37)
[2018-08-28] MEDS: Citalopram 20 MG Tablet PO (09:04)
[2018-08-28] MEDS: Gabapentin 300 MG Capsule 600 MG PO ×4 (09:04→21:23)
[2018-08-28] MEDS: Isosorbide Mononitrate 30 MG Tablet PO (09:04)
[2018-08-28] MEDS: dilTIAZem CD 120 MG Capsule PO (09:05)
[2018-08-28] MEDS: Furosemide 40 MG/4 ML Vial IV ×2 (09:05→18:02)
[2018-08-28] MEDS: Polyethylene Glycol 3350 17 GM PACKET PO (09:05)
[2018-08-28] MEDS: Enoxaparin 40 MG/0.4 ML Syringe SC (09:05)
[2018-08-28] MEDS: Pantoprazole Sodium 20 MG Tablet PO (09:13)
[2018-08-28] MEDS: Docusate Sodium 100 MG Capsule 200 MG PO ×2 (10:12→21:23)
--- NOTE | 2018-08-28 13:40 | CASEMGMT ---
Social Work Met with pt daughter in law in [place]. She states [facility] and d/c home with son and dil on Friday evening and was admitted to hospital on Friday evening. DIL concerned that pt did not do well while at home and may need more SNF time and is requesting TCU. ROBERT met with pt and DIL in room. Pt hesitant to go to TCU but agreeable but adamant that she does not want to go to an outside SNF. ROBERT explained that Medicare covers 100 days and that since pt has already used 88 days, Medicare will only cover TCU for 12 days and at that time she must d/c or become responsible for payment. Pt and DIL express understanding of this. Therapy to see pt today to help pt determine if continued SNF stay would be appropriate. Phone call to Leda in TCU and they do have beds available and after review Leda states pt can be admitted to TCU tomorrow. Met with pt after therapy and reviewed therapy notes. Pt states she feels she would benefit from TCU stay. ROBERT notified physician and he is agreeable with plan and d/c planned for Friday08/29/18. ROBERT informed Leda in TCU of d/c plan. ROBERT asked pt if ROBERT could notify family and pt denies stating she wants to call them and inform them of plan. Pt emotional during conversation and states feeling down about current situation. ROBERT sat with pt and provided emotional support. Plan: TCU on Friday [facility]
[2018-08-28] MEDS: ALPRAZolam 0.25 MG Tablet PO (20:03)
[2018-08-28] MEDS: Atorvastatin Calcium 10 MG Tablet PO (21:23)
[2018-08-29 03:00] VITALS: PULSE 74
[2018-08-29 04:47] VITALS: BP 106/61; PULSE 84; RESP 15; TEMP 36.6; O2SAT 93
[2018-08-29 05:45] VITALS: PULSE 80; RESP 15; O2SAT 94
[2018-08-29 06:26] LABS: Absolute Lymphocyte Count 1.06 X10^3/ul (0.83-4.51); Absolute Neutrophil Count 2.3 X10^3/uL (2.0-7.7); Basophil# 0.03 X10^3/uL; Basophil% 0.7 % (0-1); Eosinophil# 0.12 X10^3/uL; Eosinophils% 2.8 % (0-5); Hematocrit 34.2 % (37-47); Hemoglobin 10.6 g/dl (12.0-15.0); Lymphocyte # 1.06 X10^3/ul (4.0); Lymphocyte % 24.7 % (19-41); Mean Corpuscular Hgb 30.2 pg (27.0-32.0); Mean Corpuscular Volume 97.4 fL (81-99); Mean Platelet Vol. 10.3 fl (6.2-12.0); Monocyte# 0.74 X10^3/uL; Monocyte% 17.2 % (0-10); Neutrophil # 2.34 X10^3/uL (2.7-7.7); Neutrophil % 54.4 % (47-70); Platelet Count 173 K/mm3 (150-450); RBC Distribution Width CV 16.1 % (11.6-14.6); RBC Distribution Width SD 52.3 fl (35.1-43.9); Red Blood Count 3.51 M/mm3 (4.2-5.4); White Blood Count 4.3 K/mm3 (4.4-11.0)
[2018-08-29 06:32] LABS: POSITIVE COUNT NO; POSITIVE DIFFERENTIAL NO; POSITIVE MORPHOLOGY NO
[2018-08-29 06:50] LABS: Anion Gap 6 (5-15); BUN 23 mg/dL (7-18); BUN/Creat Ratio 25.1 RATIO (10-20); Calcium,Total 9.4 mg/dL (8.5-10.1); Chloride 96 mmol/L (98-107); Creatinine, Serum 0.92 mg/dL (0.55-1.02); EST Glomerular Filtration Rate 63 mL/min (>60); Est Glom Filt Rate - Afr Amer 77 mL/min (>60); Estimated Creatinine Clearance 37.95 ml/min; Glucose 94 mg/dL (74-106); Potassium 3.5 mmol/L (3.5-5.1); Sodium Level 142 mmol/L (136-145)
[2018-08-29 07:15] VITALS: PULSE 72
[2018-08-29 07:37] VITALS: O2SAT 93
[2018-08-29] MEDS: Iron Polysaccharide Complex 150 MG CAPSULE PO (10:16)
[2018-08-29] MEDS: Menthol/Lanolin/Calamine/Znox 113 GM Tube 1 APPLIC TOPICAL (10:16)
[2018-08-29] MEDS: oxyCODONE 5 MG Tablet PO (10:17)
[2018-08-29] MEDS: dilTIAZem CD 120 MG Capsule PO (10:19)
[2018-08-29] MEDS: Isosorbide Mononitrate 30 MG Tablet PO (10:19)
[2018-08-29] MEDS: Citalopram 20 MG Tablet PO (10:19)
[2018-08-29] MEDS: Docusate Sodium 100 MG Capsule 200 MG PO (10:19)
[2018-08-29] MEDS: Enoxaparin 40 MG/0.4 ML Syringe SC (10:20)
[2018-08-29] MEDS: Furosemide 40 MG/4 ML Vial IV (10:20)
[2018-08-29] MEDS: Polyethylene Glycol 3350 17 GM PACKET PO (10:20)
[2018-08-29] MEDS: Pantoprazole Sodium 20 MG Tablet PO (10:20)
[2018-08-29] MEDS: Gabapentin 300 MG Capsule 600 MG PO (10:20)
--- NOTE | 2018-08-29 10:31 | PCM.TXEXTCAR ---
- Diet 08/27/18 02:27 Diet: Cardiac/Low Cholesterol Food consistency:: Mechanical Soft/Ground Liquid Consistency:: Regular/Thin - Routine Orders/Code Status Suppository Type: Dulcolax 10mg Suppository Frequency: Daily PRN Routine Lab Work: CBC - On 08/31/2018 repeat weekly, BMP - On 08/31/2018 repeat weekly as patient is on diuretic - Wound(s) right fa Wound Type: Skin Tear left fa Wound Type: Skin Tear right buttock Wound Type: Pressure Injury - Therapies Weight Bearing: Weight bearing as tolerated Extremity Affected:: Bilateral Lower Physical Therapy: Eval and Treat Occupational Therapy: Eval and Treat Speech Therapy: Eval and Treat - Allergies/Procedures Done in Hospital Allergies/Adverse Reactions: Allergies morphine Allergy (Verified 08/26/18 21:42) Hives carbamazepine [From Tegretol] Adverse Reaction (Intermediate, Verified 08/26/18 21:42) HALLUCINATIONS procaine HCl [From Novocain] Adverse Reaction (Intermediate, Verified 08/26/18 21:42) HEART RACES,FEELS LIKE WILL PASS OUT - Type of Care/Length of Stay Estimated LOS: Convalescent Care Less Than 30 days Type of Care Needed: Skilled Rehab Potential: Good Prognosis: Good - Additional Orders/Day of Discharge Day of Discharge: 08/29/18 - Dietary and Speech Recommendations Dietitian Recommendations/Changes: Rec cardiac/low cholesterol, low sodium diet w/ fluid restriction as indicated. Will provide Ensure Enlive 4x/day d/t poor oral intake. May benefit from AIRLINE SECURITY REPRESENTATIVE consult for continuation of speech therapy. - Follow Up Care Primary Care Physician: Fan Ruiz DO [Primary Care Provider] - Please follow up with your Primary Care Physician in: in 2 weeks Please Follow Up With: Kory Giraldo MD When: in 2-4 weeks for HF
--- NOTE | 2018-08-29 10:33 | DS.PCM_ITS ---
Discharge Date and Diagnosis - Problem List Patient Problems: Active and Suspected Problems (Last Reviewed 04/21/18 @ 14:36 by Kory Giraldo MD) Shortness of breath (Acute) Edema (Acute) Acute on chronic diastolic heart failure (Acute) Date of Admission: 08/27/18 Date of Discharge: 08/29/18 - Secondary Discharge Diagnosis Chronic Problems (Last Reviewed 04/21/18 @ 14:36 by Kory Giraldo MD) Anxiety (Chronic) Hiatal hernia (Chronic) 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) Other [facility] (current) drug therapy (Chronic) Hyperlipidemia (Chronic) Essential (primary) hypertension (Chronic) Paroxysmal atrial fibrillation (Chronic) Chronic pain syndrome (Chronic) Transverse myelitis (Chronic) History of DVT (deep vein thrombosis) (Chronic) Atrial flutter (Chronic) Hospital Course and Treatment Operations: None Summary of Care Provided: [] This is a 77-year-old female with history of CHF, chronic anemia with recent upper and lower endoscopy was negative for source of anemia was admitted with a complaint of worsening shortness of breath and edema, orthopnea, exertional dyspnea and PND consistent with CHF exacerbation. Patient was tachypneic. 1. Acute diastolic CHF exacerbation Patient was admitted in PCU. * BNP is 591 and CXR showed bilateral pleural effusions. * Was started on IV Lasix 40 mg twice daily. Continue Lasix twice daily for 1 or 2 more days and then may be decreased to 40 mg once daily. * Labs Shows increase in bicarb due to metabolic alkalosis suggesting of adequate diuresis * Fluid restriction to 1500 cc daily. Strict intake and output. * last echo(05/2018): EF of 60%, with normal LV size and thickness. Mild to moderate TR, RVSP of 57mmHg, moderate pulmonary hypertension. Left atrium severely enlarged. Hypokalemia: Potassium replacement Acute hypoxic respiratory failure secondary to acute diastolic heart failure/CHF exacerbation: Was admitted on 2 L of oxygen and gradually weaned to 1 L/min 2. Afib: rate controlled. On cardizem and eliquis 3. CAD: on statin, aspirin and imdur 4. Depression and anxiety: On citalopram and Xanax. 5. History of anemia: stable. hb is 10. Hemoglobin is stable about 10.6 g%. DVT prophylaxis: on eliquis GI prophylaxis; on PPI Patient to follow-up with PCP in 1-2 weeks. Follow-up electrolytes, BMP on 08/31/2018. Lasix to be tapered down as per volume status. Patient is discharged to TCU Discharge medication reconciliation done. Discharge follow-up instructions completed. Discharge process discussed with the patient. Total time spent, exact 35 minutes on discharge meds reconciliation, examination, review of imaging and blood test and discussion with the patient on follow-up instructions. Patient Problems: Active and Suspected Problems (Last Reviewed 04/21/18 @ 14:36 by Kory Giraldo MD) Shortness of breath (Acute) Edema (Acute) Acute on chronic diastolic heart failure (Acute) Subjective: Seen and examined. Patient clinical diagnosis, exam findings and labs discussed with the patient No tachypnea or tachycardia. Patient on 93% on 1 L of oxygen. Objective: General: Alert, Oriented x3, Cooperative HEENT: Atraumatic, PERRLA, EOMI, Normocephalic Neck: Supple, No JVD, Negative Carotid Bruits Lungs: Air entry diminished in bilateral lung bases. Occasional rales present Cardiovascular: Normal S1, Normal S2, Irregular Rate, Murmur Abdomen: Bowel Sounds Present, Soft, Non Tender, Non-Distended Extremities: Capillary Refill Less than 3 Seconds, Edema - Lower extremity edema is improved Skin: No rashes, No breakdown Musculoskeletal: No Tenderness to Palpation of Joints or Extremities, Arthritic Changes, Muscle Wasting Neurological: Cranial nerves II-XII grossly intact, Deep Tendon Reflexes 2+/4 and Symmetrical, Neuro grossly intact Psych/Mental Status: Normal Affect, Appropriate - Physical Exam Vital Signs Temp Pulse Resp BP Pulse Ox 97.9 F 72 15 106/61 93 08/29/18 04:47 08/29/18 07:15 08/29/18 05:45 08/29/18 04:47 08/29/18 07:37 Oxygen Flow Rate (L/min) 1 Oxygen Delivery Method Nasal Cannula Weight: 138 lb 0.15 oz Body Mass Index (BMI) 26.9 Finger Stick Blood Glucose 130 Intake and Output for Last 24 Hours 08/27/18 08/28/18 08/29/18 23:59 23:59 23:59 Intake Total 560 / 560 880 / 880 150 / 150 Output Total 3350 / 3350 2600 / 2600 200 / 200 Balance -2790 / -2790 -1720 / -1720 -50 / -50 Laboratory Tests Past 24 Hrs 08/29/18 08/29/18 05:46 05:46 WBC 4.3 L RBC 3.51 L Hgb 10.6 L Hct 34.2 L MCV 97.4 MCH 30.2 MCHC 31.0 L RDW 16.1 H RDW Differential 52.3 H Plt Count 173 MPV 10.3 Immature Gran % (Auto) 0.200 Neut % (Auto) 54.4 Lymph % (Auto) 24.7 Cotton % (Auto) 17.2 H Eos % (Auto) 2.8 Baso % (Auto) 0.7 Absolute Neuts (auto) 2.3 Absolute Lymphs (auto) 1.06 Total Counted Not Reportable Sodium 142 Potassium 3.5 Chloride 96 L Carbon Dioxide 40.0 H Anion Gap 6 BUN 23 H Creatinine 0.92 Estim Creat Clear Calc 37.95 Est GFR (MDRD) Af Amer 77 Est GFR (MDRD) Non-Af 63 BUN/Creatinine Ratio 25.1 H Glucose 94 Calcium 9.4 Home Medications: Medications to take at Discharge Docusate Sodium [Dok] 200 mg PO BID 05/26/15 Gabapentin [Neurontin] 600 mg PO 4X/DAY 05/26/15 citalopram 20 mg tablet 20 mg PO QDAY 04/21/18 Acetaminophen [Tylenol Tablet] 650 mg PO Q6H PRN PRN tablet 05/29/18 ALPRAZolam [Xanax] 0.25 mg PO QHS 08/27/18 Apixaban [Eliquis] 5 mg PO BID 08/27/18 Atorvastatin Calcium 10 mg PO QDAY 08/27/18 Bisacodyl 10 mg RC DAILY PRN PRN 08/27/18 Diltiazem HCl [Diltiazem ER] 120 mg PO DAILY 08/27/18 Iron Polysaccharide Complex [Ferrex 150] 150 mg PO DAILYCM 08/27/18 Isosorbide Mononitrate [Isosorbide Mononitrate ER] 30 mg PO QDAY 08/27/18 Magnesium Hydroxide [Milk Of Magnesia] 30 ml PO DAILY PRN PRN 08/27/18 Methadone HCl [(None)] 5 mg PO TID 08/27/18 Mineral Oil 1 bottle RC DAILY PRN 08/27/18 Nystatin Powder [Mycostatin Powder] 1 applic TOPICAL TID 08/27/18 Omeprazole 20 mg PO DAILY 08/27/18 Polyethylene Glycol 3350 [Miralax] 17 gm PO DAILY 08/27/18 Furosemide [Lasix] 40 mg PO BID #0 08/29/18 Potassium Chloride [K-Dur] 40 meq PO DAILY 08/29/18 Primary Care Physician: Fan Ruiz DO [Primary Care Provider] - Please follow up with your Primary Care Physician in: in 2 weeks Please Follow Up With: Kory Giraldo MD When: in 2-4 weeks for HF Medical Necessity - Tobacco Use Smoking Status: Former smoker Meaningful Use Info Meaningful Use Diagnoses (Choose all that apply): None applicable Code Visit Inpatient E&M: 49646 Disch Hosp
== END 2018-08-29 12:13 | disposition skilled nursing facility (03) | DRG 291 ==
LOC: ED 22:22 → ICU 08-27 00:20 → PCU 08-28 13:57
PROVIDERS: Admitting Provider Student in an Organized Health Care Education/Training Program; Emergency Provider Emergency Medicine; Family Provider Family Medicine; PCP Family Medicine; Referring Provider Student in an Organized Health Care Education/Training Program; Visit Provider Internal Medicine
DX: I11.0 Hypertensive heart disease with heart failure (principal); J96.01 Acute respiratory failure with hypoxia; I50.33 Acute on chronic diastolic (congestive) heart failure; F41.9 Anxiety disorder, unspecified; K44.9 Diaphragmatic hernia without obstruction or gangrene; E78.5 Hyperlipidemia, unspecified; I48.0 Paroxysmal atrial fibrillation; G89.4 Chronic pain syndrome; D64.9 Anemia, unspecified; Z99.81 Dependence on supplemental oxygen; I25.10 Atherosclerotic heart disease of native coronary artery without angina pectoris; E87.6 Hypokalemia; Z79.899 Other long term (current) drug therapy; Z87.891 Personal history of nicotine dependence; Z86.718 Personal history of other venous thrombosis and embolism; Z79.01 Long term (current) use of anticoagulants
CPT/HCPCS: 36415; 71045; 80048; 83735; 83880; 84484; 85025; 93005; 94640; 97162; 97165; 97802; 99285; J7050; A4216; J1940

== ENCOUNTER 2018-08-29 12:20 | Inpatient (IN) | payer MEDICARE, OTHER, SELFPAY ==
[2018-08-27 02:28] VITALS: BMI 26.9
--- NOTE | 2018-08-29 13:01 | NURSING ---
Pt admitted to room 8 from PCU via wheelchair. Oriented to room and call light system explained.
[2018-08-29 13:21] VITALS: BMI 24.3
[2018-08-29 13:22] VITALS: BP 100/68; PULSE 98; RESP 18; TEMP 36.7; O2SAT 95
[2018-08-29 13:23] VITALS: BMI 24.3
--- NOTE | 2018-08-29 14:21 | PCM.HP.STD ---
Problem List (1) Shortness of breath Status: Acute (2) Edema Status: Acute (3) Atrial fibrillation Status: Chronic (4) Acute on chronic diastolic heart failure Status: Acute (5) Anemia Status: Chronic (6) Stroke Status: Chronic (7) Hypertension Status: Chronic (8) Chronic pain Status: Chronic (9) DVT (deep venous thrombosis) Status: Chronic (10) Neuropathic pain Status: Chronic (11) Depression Status: Chronic (12) Opioid dependence Status: Chronic (13) GERD (gastroesophageal reflux disease) Status: Chronic (14) Hypokalemia Status: Chronic (15) Anxiety Status: Chronic (16) Hiatal hernia Status: Chronic (17) Hyperlipidemia Status: Chronic Qualifiers: (18) Transverse myelitis Status: Chronic History of Present Illness Date of Admission: 08/29/18 Chief Complaint: Here for rehabilitation, strengthening, prior to discharge home with family. The patient is a 77 year old Female with below past medical history presented to [facility] Emergency Department 08/26/2018 with shortness of breath despite home oxygen. 08/26/2018 Chest X-ray showed bilateral effusions with lower lung infiltrate or edema. 08/26/2018 EKG atrial fibrillation. CBCD okay, BMP okay. IV Antibiotics, Lasix given. 08/27/2018 Admit to Hospital. Shortness of breath, bilateral lower extremity swelling. BNP 591. Acute diastolic congestive heart failure, EF 60%. IV Lasix 40MG BID. 08/28/2018 Hypokalemia repleted with potassium chloride. 08/29/2018 Admit to TCU with debility, here for rehabilitation, strengthening, prior to discharge home with family. Past Medical History Past Medical History (Chronic Problems): Chronic Problems (Last Reviewed 04/21/18 @ 14:36 by Kory Giraldo MD) Anxiety (Chronic) Hiatal hernia (Chronic) Atrial fibrillation (Chronic) Anemia (Chronic) Stroke (Chronic) Hypertension (Chronic) Chronic pain (Chronic) DVT (deep venous thrombosis) (Chronic) Neuropathic pain (Chronic) Depression (Chronic) Opioid dependence (Chronic) GERD (gastroesophageal reflux disease) (Chronic) Hypokalemia (Chronic) 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) Other usp (current) drug therapy (Chronic) Hyperlipidemia (Chronic) Essential (primary) hypertension (Chronic) Paroxysmal atrial fibrillation (Chronic) Chronic pain syndrome (Chronic) Transverse myelitis (Chronic) History of DVT (deep vein thrombosis) (Chronic) Atrial flutter (Chronic) Medical History: Medical History (Last Reviewed 04/21/18 @ 14:36 by Kory Giraldo MD) Hyperlipidemia (Chronic) E78.5 Essential (primary) hypertension (Chronic) I10 Paroxysmal atrial fibrillation (Chronic) I48.0 Atrial flutter (Chronic) I48.92 H/O: hysterectomy Z90.710 Allergies morphine Allergy (Verified 08/26/18 21:42) Hives carbamazepine [From Tegretol] Adverse Reaction (Intermediate, Verified 08/26/18 21:42) HALLUCINATIONS procaine HCl [From Novocain] Adverse Reaction (Intermediate, Verified 08/26/18 21:42) HEART RACES,FEELS LIKE WILL PASS OUT Home Medications: Ambulatory Orders Medication Instructions Recorded Docusate Sodium [Dok] 200 mg PO BID 05/26/15 Gabapentin [Neurontin] 600 mg PO 4X/DAY 05/26/15 citalopram 20 mg tablet 20 mg PO QDAY 04/21/18 Acetaminophen [Tylenol Tablet] 650 mg PO Q6H PRN PRN tablet 05/29/18 ALPRAZolam [Xanax] 0.25 mg PO QHS 08/27/18 Apixaban [Eliquis] 5 mg PO BID 08/27/18 Atorvastatin Calcium 10 mg PO QDAY 08/27/18 Bisacodyl 10 mg RC DAILY PRN PRN 08/27/18 Diltiazem HCl [Diltiazem ER] 120 mg PO DAILY 08/27/18 Iron Polysaccharide Complex 150 mg PO DAILYCM 08/27/18 [Ferrex 150] Isosorbide Mononitrate [Isosorbide 30 mg PO QDAY 08/27/18 Mononitrate ER] Magnesium Hydroxide [Milk Of 30 ml PO DAILY PRN PRN 08/27/18 Magnesia] Methadone HCl [(None)] 5 mg PO TID 08/27/18 Mineral Oil 1 bottle RC DAILY PRN 08/27/18 Nystatin Powder [Mycostatin Powder] 1 applic TOPICAL TID 08/27/18 Omeprazole 20 mg PO DAILY 08/27/18 Polyethylene Glycol 3350 [Miralax] 17 gm PO DAILY 08/27/18 Furosemide [Lasix] 40 mg PO BID #0 08/29/18 Potassium Chloride [K-Dur] 40 meq PO DAILY 08/29/18 Surgical History: hysterectomy Psychiatric History: Anxiety, Depression 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 Lives: With Family Smoking Status: Former smoker Tobacco Use: Non-smoker Alcohol: None Drugs: None - *Family History Offspring Family History: Family History (Last Reviewed 04/21/18 @ 14:36 by Kory Giraldo MD) Mother Colon cancer Father Myocardial infarction History Items: - - MS Maternal Family History: Family History (Last Reviewed 04/21/18 @ 14:36 by Kory Giraldo MD) Mother Colon cancer Father Myocardial infarction History Items: No pertinent history Paternal Family History: Family History (Last Reviewed 04/21/18 @ 14:36 by Kory Giraldo MD) Mother Colon cancer Father Myocardial infarction History Items: No pertinent history Review of Systems Constitutional: Denies: Chills, Fever, Weight Change HEENT: Denies: Head Aches, Sinus Congestion, Sinus Drainage Cardiovascular: Denies: Chest Pain, Palpitations Respiratory: Denies: Cough, Shortness of breath at rest, Sputum production Gastrointestinal: Denies: Abdominal Pain, Nausea, Vomiting Genitourinary: Denies: Dysuria Musculoskeletal: Denies: Joint Pain, Joint Tenderness Skin: Denies: Rash, Wounds Neurological: Denies: Numbness, Tingling, Focal weakness Psychiatric: Denies: Anxiety, Depression, Homicidal Ideations, Suicidal Ideations Hematologic/ Lymphatic: Denies: Easy Bruising, Easy Bleeding VTE Information - Inpt Only VTE Present on Admission: No VTE Mechan Device Prophylaxis: Knee High CHRISTINA Hose VTE Pharm Prophylaxis ordered?: No Reason prophylaxis not ordered:: Treatment Not Indicated Patient Problems: Active and Suspected Problems (Last Reviewed 04/21/18 @ 14:36 by Kory Giraldo MD) Shortness of breath (Acute) Edema (Acute) Acute on chronic diastolic heart failure (Acute) - Physical Exam General: Alert, Oriented x3, Cooperative HEENT: Atraumatic, PERRLA, EOMI, Normocephalic Neck: Supple, No JVD, Negative Carotid Bruits Lungs: Clear to auscultation, Normal air movement Cardiovascular: Regular rate, No murmurs Abdomen: Bowel Sounds Present, Soft, Non Tender, - - Suction urinary catheter. Extremities: No edema, Capillary Refill Less than 3 Seconds Skin: No rashes, No breakdown Musculoskeletal: No Tenderness to Palpation of Joints or Extremities Neurological: Cranial nerves II-XII grossly intact Psych/Mental Status: Normal Affect, Appropriate Vital Signs Temp Pulse Resp BP Pulse Ox 98.1 F 98 18 100/68 95 08/29/18 13:22 08/29/18 13:22 08/29/18 13:22 08/29/18 13:22 08/29/18 13:22 Oxygen Flow Rate (L/min) 1 Oxygen Delivery Method Nasal Cannula Weight: 56.4 kg Body Mass Index (BMI) 24.3 Finger Stick Blood Glucose 130 Assessment/Plan All Active Problems (Last Reviewed 04/21/18 @ 14:36 by Kory Giraldo MD) Acute anemia (Acute) Congestive heart failure (CHF) (Acute) Hypoxia (Acute) Gastritis (Acute) Shortness of breath (Acute) Edema (Acute) Acute on chronic diastolic heart failure (Acute) Acute ischemic stroke (Resolved) 77 year old female with below past medical history hospitalized for acute diastolic congestive heart failure, complicated by hypokalemia, admitted to TCU with debility, here for rehabilitation, strengthening, prior to discharge home with family. Debility - PT/OT. Pain - Methadone 5MG TID, Tylenol 1000MG Q6H PRN mild pain. Bowel - Miralax 17GM daily, Senna/colace 2 tablets BID, Dulcolax 10MG DC daily PRN, Mineral Oil 1 bottle DC daily PRN. Pneumonia vaccination - Administer Prevnar 13 and/or Pneumovax 23 as necessary. DVT prophylaxis - Not necessary, already on Eliquis. Insomnia - Xanax 0.25MG QHS, resident doing well with chronic usp use, GDR clinically contraindicated. Atrial Fibrillation - Diltiazem 120MG daily, Eliquis 5MG BID. Hyperlipidemia - Atorvastatin 10MG QHS, consider high intensity 40MG QHS with history of stroke, coronary artery disease. 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 Nutrition - Ensure 120ML 4x/day. Acute on chronic diastolic heart failure - Isosorbide [place] 30MG daily, Lasix 40MG BID. Neuropathic pain - Gabapentin 600MG 4x/day. Iron deficiency anemia - Ferrex 150MG daily. Tinea Corporis - Nystatin topical TID groin, abdominal fold, under breasts. GERD - Pantoprazole 20MG daily.
--- NOTE | 2018-08-29 14:27 | HP.PCM_ITS ---
Problem List (1) Shortness of breath Status: Acute (2) Edema Status: Acute (3) Atrial fibrillation Status: Chronic (4) Acute on chronic diastolic heart failure Status: Acute (5) Anemia Status: Chronic (6) Stroke Status: Chronic (7) Hypertension Status: Chronic (8) Chronic pain Status: Chronic (9) DVT (deep venous thrombosis) Status: Chronic (10) Neuropathic pain Status: Chronic (11) Depression Status: Chronic (12) Opioid dependence Status: Chronic (13) GERD (gastroesophageal reflux disease) Status: Chronic (14) Hypokalemia Status: Chronic (15) Anxiety Status: Chronic (16) Hiatal hernia Status: Chronic (17) Hyperlipidemia Status: Chronic Qualifiers: (18) Transverse myelitis Status: Chronic History of Present Illness Date of Admission: 08/29/18 Chief Complaint: Here for rehabilitation, strengthening, prior to discharge home with family. The patient is a 77 year old Female with below past medical history presented to [facility] Emergency Department 08/26/2018 with shortness of breath despite home oxygen. 08/26/2018 Chest X-ray showed bilateral effusions with lower lung infiltrate or edema. 08/26/2018 EKG atrial fibrillation. CBCD okay, BMP okay. IV Antibiotics, Lasix given. 08/27/2018 Admit to Hospital. Shortness of breath, bilateral lower extremity swelling. BNP 591. Acute diastolic congestive heart failure, EF 60%. IV Lasix 40MG BID. 08/28/2018 Hypokalemia repleted with potassium chloride. 08/29/2018 Admit to TCU with debility, here for rehabilitation, strengthening, prior to discharge home with family. Past Medical History Past Medical History (Chronic Problems): Chronic Problems (Last Reviewed 04/21/18 @ 14:36 by Kory Giraldo MD) Anxiety (Chronic) Hiatal hernia (Chronic) Atrial fibrillation (Chronic) Anemia (Chronic) Stroke (Chronic) Hypertension (Chronic) Chronic pain (Chronic) DVT (deep venous thrombosis) (Chronic) Neuropathic pain (Chronic) Depression (Chronic) Opioid dependence (Chronic) GERD (gastroesophageal reflux disease) (Chronic) Hypokalemia (Chronic) 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) Other senior living (current) drug therapy (Chronic) Hyperlipidemia (Chronic) Essential (primary) hypertension (Chronic) Paroxysmal atrial fibrillation (Chronic) Chronic pain syndrome (Chronic) Transverse myelitis (Chronic) History of DVT (deep vein thrombosis) (Chronic) Atrial flutter (Chronic) Medical History: Medical History (Last Reviewed 04/21/18 @ 14:36 by Kory Giraldo MD) Hyperlipidemia (Chronic) E78.5 Essential (primary) hypertension (Chronic) I10 Paroxysmal atrial fibrillation (Chronic) I48.0 Atrial flutter (Chronic) I48.92 H/O: hysterectomy Z90.710 Allergies morphine Allergy (Verified 08/26/18 21:42) Hives carbamazepine [From Tegretol] Adverse Reaction (Intermediate, Verified 08/26/18 21:42) HALLUCINATIONS procaine HCl [From Novocain] Adverse Reaction (Intermediate, Verified 08/26/18 21:42) HEART RACES,FEELS LIKE WILL PASS OUT Home Medications: Ambulatory Orders Medication Instructions Recorded Docusate Sodium [Dok] 200 mg PO BID 05/26/15 Gabapentin [Neurontin] 600 mg PO 4X/DAY 05/26/15 citalopram 20 mg tablet 20 mg PO QDAY 04/21/18 Acetaminophen [Tylenol Tablet] 650 mg PO Q6H PRN PRN tablet 05/29/18 ALPRAZolam [Xanax] 0.25 mg PO QHS 08/27/18 Apixaban [Eliquis] 5 mg PO BID 08/27/18 Atorvastatin Calcium 10 mg PO QDAY 08/27/18 Bisacodyl 10 mg RC DAILY PRN PRN 08/27/18 Diltiazem HCl [Diltiazem ER] 120 mg PO DAILY 08/27/18 Iron Polysaccharide Complex 150 mg PO DAILYCM 08/27/18 [Ferrex 150] Isosorbide Mononitrate [Isosorbide 30 mg PO QDAY 08/27/18 Mononitrate ER] Magnesium Hydroxide [Milk Of 30 ml PO DAILY PRN PRN 08/27/18 Magnesia] Methadone HCl [(None)] 5 mg PO TID 08/27/18 Mineral Oil 1 bottle RC DAILY PRN 08/27/18 Nystatin Powder [Mycostatin Powder] 1 applic TOPICAL TID 08/27/18 Omeprazole 20 mg PO DAILY 08/27/18 Polyethylene Glycol 3350 [Miralax] 17 gm PO DAILY 08/27/18 Furosemide [Lasix] 40 mg PO BID #0 08/29/18 Potassium Chloride [K-Dur] 40 meq PO DAILY 08/29/18 Surgical History: hysterectomy Psychiatric History: Anxiety, Depression 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 Lives: With Family Smoking Status: Former smoker Tobacco Use: Non-smoker Alcohol: None Drugs: None - *Family History Offspring Family History: Family History (Last Reviewed 04/21/18 @ 14:36 by Kory Giraldo MD) Mother Colon cancer Father Myocardial infarction History Items: - - MS Maternal Family History: Family History (Last Reviewed 04/21/18 @ 14:36 by Kory Giraldo MD) Mother Colon cancer Father Myocardial infarction History Items: No pertinent history Paternal Family History: Family History (Last Reviewed 04/21/18 @ 14:36 by Kory Giraldo MD) Mother Colon cancer Father Myocardial infarction History Items: No pertinent history Review of Systems Constitutional: Denies: Chills, Fever, Weight Change HEENT: Denies: Head Aches, Sinus Congestion, Sinus Drainage Cardiovascular: Denies: Chest Pain, Palpitations Respiratory: Denies: Cough, Shortness of breath at rest, Sputum production Gastrointestinal: Denies: Abdominal Pain, Nausea, Vomiting Genitourinary: Denies: Dysuria Musculoskeletal: Denies: Joint Pain, Joint Tenderness Skin: Denies: Rash, Wounds Neurological: Denies: Numbness, Tingling, Focal weakness Psychiatric: Denies: Anxiety, Depression, Homicidal Ideations, Suicidal Ideations Hematologic/ Lymphatic: Denies: Easy Bruising, Easy Bleeding VTE Information - Inpt Only VTE Present on Admission: No VTE Mechan Device Prophylaxis: Knee High CHRISTINA Hose VTE Pharm Prophylaxis ordered?: No Reason prophylaxis not ordered:: Treatment Not Indicated Patient Problems: Active and Suspected Problems (Last Reviewed 04/21/18 @ 14:36 by Kory Giraldo MD) Shortness of breath (Acute) Edema (Acute) Acute on chronic diastolic heart failure (Acute) - Physical Exam General: Alert, Oriented x3, Cooperative HEENT: Atraumatic, PERRLA, EOMI, Normocephalic Neck: Supple, No JVD, Negative Carotid Bruits Lungs: Clear to auscultation, Normal air movement Cardiovascular: Regular rate, No murmurs Abdomen: Bowel Sounds Present, Soft, Non Tender, - - Suction urinary catheter. Extremities: No edema, Capillary Refill Less than 3 Seconds Skin: No rashes, No breakdown Musculoskeletal: No Tenderness to Palpation of Joints or Extremities Neurological: Cranial nerves II-XII grossly intact Psych/Mental Status: Normal Affect, Appropriate Vital Signs Temp Pulse Resp BP Pulse Ox 98.1 F 98 18 100/68 95 08/29/18 13:22 08/29/18 13:22 08/29/18 13:22 08/29/18 13:22 08/29/18 13:22 Oxygen Flow Rate (L/min) 1 Oxygen Delivery Method Nasal Cannula Weight: 56.4 kg Body Mass Index (BMI) 24.3 Finger Stick Blood Glucose 130 Assessment/Plan All Active Problems (Last Reviewed 04/21/18 @ 14:36 by Kory Giraldo MD) Acute anemia (Acute) Congestive heart failure (CHF) (Acute) Hypoxia (Acute) Gastritis (Acute) Shortness of breath (Acute) Edema (Acute) Acute on chronic diastolic heart failure (Acute) Acute ischemic stroke (Resolved) 77 year old female with below past medical history hospitalized for acute diasto lic congestive heart failure, complicated by hypokalemia, admitted to TCU with debility, here for rehabilitation, strengthening, prior to discharge home with family. * Debility - PT/OT. * Pain - Methadone 5MG TID, Tylenol 1000MG Q6H PRN mild pain. * Bowel - Miralax 17GM daily, Senna/colace 2 tablets BID, Dulcolax 10MG IA daily PRN, Mineral Oil 1 bottle IA daily PRN. * Pneumonia vaccination - Administer Prevnar 13 and/or Pneumovax 23 as necessary. * DVT prophylaxis - Not necessary, already on Eliquis. 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 * Atrial Fibrillation - Diltiazem 120MG daily, Eliquis 5MG BID. * Hyperlipidemia - Atorvastatin 10MG QHS, consider high intensity 40MG QHS with history of stroke, coronary artery disease. * Depression - Citalopram 20MG daily, resident doing well with chronic senior living use, GDR clinically contraindicated. * Nutrition - Ensure 120ML 4x/day. * Acute on chronic diastolic heart failure - Isosorbide MN 30MG daily, Lasix 40MG BID. * Neuropathic pain - Gabapentin 600MG 4x/day. * Iron deficiency anemia - Ferrex 150MG daily. * Tinea Corporis - Nystatin topical TID groin, abdominal fold, under breasts. * GERD - Pantoprazole 20MG daily.
[2018-08-29 15:49] VITALS: BP 109/73; PULSE 105; RESP 20; TEMP 37.2; O2SAT 95
--- NOTE | 2018-08-29 18:04 | NURSING ---
Pt has c/o back pain, requesting oxyir, has been taking it for [address] Cardona updated. NO for oxyir 5mg PO [id number] PRN.
[2018-08-29] MEDS: oxyCODONE 5 MG Tablet PO (18:14)
[2018-08-29] MEDS: Senna/Docusate Sodium 1 Tablet 2 TABLET PO (18:15)
[2018-08-29] MEDS: Gabapentin 600 MG Tablet PO ×2 (18:16→21:53)
[2018-08-29] MEDS: APIXABAN 5 MG TABLET PO (18:16)
[2018-08-29] MEDS: Furosemide 40 MG Tablet PO (18:17)
[2018-08-29] MEDS: Atorvastatin Calcium 10 MG Tablet PO (21:52)
[2018-08-29] MEDS: ALPRAZolam 0.25 MG Tablet PO ×2 (21:52)
--- NOTE | 2018-08-29 21:52 | PCA ---
pt refused to keep heel boots on.
[2018-08-29] MEDS: Nystatin Powder 15gm Bottle 1 APPLIC TOPICAL (21:53)
--- NOTE | 2018-08-29 22:01 | NURSING ---
It was reported to this nurse pt was very upset, becoming agitated regarding meds she believed were very late. This nurse went into room and explained scheduled meds, particularly scheduled methadone which she takes TID, and explained how it needs to be given as scheduled, and not early. Pt then stated she is used to having xanax available whenever she needs it, did not want it changed to PRN but said she 'always' takes it between 8-9pm. Explained to pt as it was only once daily xanax could be given slightly earlier than 10p scheduled time. Pt pleased with this. Pt prefers strawberry ensure and asked to have 'a full glass' instead of the 120 pre measured amounts used on unit. Pt is comparing all care to [facility] Assured pt this information would be passed along to other staff and promised pt a 'smoother night' tomorrow, with med administration as well as ensure. Pt very pleased with this and was not upset with this nurse at all. Once exited the room, pt daughter who has been present all evening gave several compliments to how staff handled her this evening stating 'she was about to get violent that went perfectly' and expressed gratitude several times. RN aware. No issues or complaints noted to this nurse. Continuing to monitor, anticipate needs.
[2018-08-30] MEDS: oxyCODONE 5 MG Tablet PO ×4 (02:21→23:20)
[2018-08-30] MEDS: Furosemide 40 MG Tablet PO ×2 (06:25→17:50)
[2018-08-30] MEDS: Pantoprazole Sodium 20 MG Tablet PO (06:26)
[2018-08-30] MEDS: Nystatin Powder 15gm Bottle 1 APPLIC TOPICAL (06:31)
--- NOTE | 2018-08-30 06:44 | NURSING ---
Pt accepting only lasix, methadone, protonix and ensure this morning, asking that all other meds changed to with/after breakfast d/t upsetting her stomach. Genevieve RN aware and communication sent to pharmacy with this request.
[2018-08-30 07:08] LABS: Absolute Lymphocyte Count 0.96 X10^3/ul (0.83-4.51); Absolute Neutrophil Count 2.6 X10^3/uL (2.0-7.7); Basophil# 0.04 X10^3/uL; Basophil% 0.9 % (0-1); Eosinophil# 0.16 X10^3/uL; Eosinophils% 3.5 % (0-5); Hematocrit 34.8 % (37-47); Hemoglobin 10.7 g/dl (12.0-15.0); Lymphocyte # 0.96 X10^3/ul (4.0); Lymphocyte % 21.2 % (19-41); Mean Corp Hgb Conc 30.7 g/gl (32-36); Mean Corpuscular Hgb 29.5 pg (27.0-32.0); Mean Corpuscular Volume 95.9 fL (81-99); Mean Platelet Vol. 9.6 fl (6.2-12.0); Monocyte# 0.71 X10^3/uL; Monocyte% 15.7 % (0-10); Neutrophil # 2.64 X10^3/uL (2.7-7.7); Neutrophil % 58.5 % (47-70); Platelet Count 178 K/mm3 (150-450); RBC Distribution Width CV 16.1 % (11.6-14.6); RBC Distribution Width SD 53.8 fl (35.1-43.9); Red Blood Count 3.63 M/mm3 (4.2-5.4); White Blood Count 4.5 K/mm3 (4.4-11.0)
[2018-08-30 07:13] LABS: POSITIVE COUNT NO; POSITIVE DIFFERENTIAL NO; POSITIVE MORPHOLOGY NO
[2018-08-30 07:31] LABS: Anion Gap 5 (5-15); BUN 30 mg/dL (7-18); BUN/Creat Ratio 32.4 RATIO (10-20); Calcium,Total 9.5 mg/dL (8.5-10.1); Chloride 96 mmol/L (98-107); Creatinine, Serum 0.93 mg/dL (0.55-1.02); EST Glomerular Filtration Rate 63 mL/min (>60); Est Glom Filt Rate - Afr Amer 76 mL/min (>60); Estimated Creatinine Clearance 37.54 ml/min; Glucose 83 mg/dL (74-106); Potassium 3.2 mmol/L (3.5-5.1); Sodium Level 142 mmol/L (136-145)
[2018-08-30] MEDS: Senna/Docusate Sodium 1 Tablet 2 TABLET PO ×2 (08:26→17:50)
[2018-08-30] MEDS: Isosorbide Mononitrate 30 MG Tablet PO (08:27)
[2018-08-30] MEDS: Gabapentin 600 MG Tablet PO ×4 (08:27→20:38)
[2018-08-30] MEDS: Iron Polysaccharide Complex 150 MG CAPSULE PO (08:27)
[2018-08-30] MEDS: APIXABAN 5 MG TABLET PO ×2 (08:27→17:50)
[2018-08-30] MEDS: dilTIAZem CD 120 MG Capsule PO (08:27)
[2018-08-30] MEDS: Citalopram 20 MG Tablet PO (08:28)
[2018-08-30] MEDS: Polyethylene Glycol 3350 17 GM PACKET PO (08:38)
--- NOTE | 2018-08-30 08:44 | NURSING ---
Dr. Cardona reviewed labs, NO for KCL 40 BID and recheck BMP in AM
[2018-08-30 09:56] VITALS: PULSE 96; O2SAT 91
[2018-08-30] MEDS: Tuberculin,Purif.prot.deriv. 50 TU/ML Vial 5 ML ID (12:26)
[2018-08-30 15:50] VITALS: BP 94/66; PULSE 96; RESP 20; TEMP 37.4; O2SAT 94
[2018-08-30] MEDS: Atorvastatin Calcium 10 MG Tablet PO (20:34)
[2018-08-30] MEDS: ALPRAZolam 0.25 MG Tablet PO (20:35)
--- NOTE | 2018-08-30 21:50 | NURSING ---
Purewick catheter changed at 2129. No complaints or discomfort. Pt pleasant, alert.
[2018-08-31] MEDS: Furosemide 40 MG Tablet PO ×2 (05:34→17:37)
[2018-08-31] MEDS: Nystatin Powder 15gm Bottle 1 APPLIC TOPICAL ×3 (05:34→20:36)
[2018-08-31] MEDS: Pantoprazole Sodium 20 MG Tablet PO (05:35)
[2018-08-31 06:32] LABS: Anion Gap 3 (5-15); BUN 41 mg/dL (7-18); BUN/Creat Ratio 43.6 RATIO (10-20); Calcium,Total 9.8 mg/dL (8.5-10.1); Chloride 97 mmol/L (98-107); Creatinine, Serum 0.94 mg/dL (0.55-1.02); EST Glomerular Filtration Rate 62 mL/min (>60); Est Glom Filt Rate - Afr Amer 74 mL/min (>60); Estimated Creatinine Clearance 37.14 ml/min; Glucose 86 mg/dL (74-106); Potassium 4.6 mmol/L (3.5-5.1); Sodium Level 139 mmol/L (136-145)
[2018-08-31] MEDS: oxyCODONE 5 MG Tablet PO ×4 (06:36→20:33)
[2018-08-31 07:14] VITALS: O2SAT 92
[2018-08-31] MEDS: Polyethylene Glycol 3350 17 GM PACKET PO (08:16)
[2018-08-31] MEDS: Iron Polysaccharide Complex 150 MG CAPSULE PO (08:16)
[2018-08-31] MEDS: Citalopram 20 MG Tablet PO (08:16)
[2018-08-31] MEDS: APIXABAN 5 MG TABLET PO ×2 (08:16→17:37)
[2018-08-31] MEDS: Isosorbide Mononitrate 30 MG Tablet PO (08:16)
[2018-08-31] MEDS: Gabapentin 600 MG Tablet PO (08:16)
[2018-08-31] MEDS: dilTIAZem CD 120 MG Capsule PO (08:17)
[2018-08-31] MEDS: Senna/Docusate Sodium 1 Tablet 2 TABLET PO ×2 (08:18→17:37)
[2018-08-31 08:37] VITALS: BP 118/73; PULSE 97; O2SAT 97
[2018-08-31] MEDS: Gabapentin 300 MG Capsule 600 MG PO ×3 (11:33→20:32)
--- NOTE | 2018-08-31 11:39 | NURSING ---
PERIWICK CHANGED AT 10AM. PT TOLERATED WELL. NO COMPLAINTS OR CONCERNS AT THIS TIME.
--- NOTE | 2018-08-31 14:09 | NURSING ---
wound photo: right inner buttock
[2018-08-31 15:27] VITALS: BP 96/69; PULSE 97; RESP 18; TEMP 36.4; O2SAT 97
[2018-08-31 18:37] VITALS: BP 106/69; PULSE 91; O2SAT 96
[2018-08-31 20:12] VITALS: PULSE 102; RESP 16; O2SAT 95
[2018-08-31] MEDS: Atorvastatin Calcium 10 MG Tablet PO (20:30)
[2018-08-31] MEDS: ALPRAZolam 0.25 MG Tablet PO (20:34)
[2018-09-01] MEDS: Furosemide 40 MG Tablet PO ×2 (05:57→17:15)
[2018-09-01] MEDS: Pantoprazole Sodium 20 MG Tablet PO (05:57)
[2018-09-01] MEDS: Nystatin Powder 15gm Bottle 1 APPLIC TOPICAL ×3 (06:06→21:08)
[2018-09-01] MEDS: Gabapentin 300 MG Capsule 600 MG PO ×4 (06:07→21:15)
[2018-09-01] MEDS: Citalopram 20 MG Tablet PO (08:09)
[2018-09-01] MEDS: Isosorbide Mononitrate 30 MG Tablet PO (08:09)
[2018-09-01] MEDS: Senna/Docusate Sodium 1 Tablet 2 TABLET PO ×2 (08:09→17:15)
[2018-09-01] MEDS: oxyCODONE 5 MG Tablet PO ×4 (08:09→21:20)
[2018-09-01] MEDS: Polyethylene Glycol 3350 17 GM PACKET PO (08:09)
[2018-09-01] MEDS: APIXABAN 5 MG TABLET PO ×2 (08:10→17:14)
[2018-09-01] MEDS: Iron Polysaccharide Complex 150 MG CAPSULE PO (08:10)
[2018-09-01] MEDS: dilTIAZem CD 120 MG Capsule PO (08:10)
--- NOTE | 2018-09-01 09:54 | NURSING ---
Pure wick catheter changed per protocol. continuos suction at 140. Patient tolerated well. Kellee care completed by this andreae at this time.
[2018-09-01 11:10] VITALS: O2SAT 93
[2018-09-01 15:11] VITALS: BP 111/54; PULSE 80; RESP 18; TEMP 37; O2SAT 90
[2018-09-01] MEDS: ALPRAZolam 0.25 MG Tablet PO (21:07)
[2018-09-01] MEDS: Atorvastatin Calcium 10 MG Tablet PO (21:09)
[2018-09-02] MEDS: oxyCODONE 5 MG Tablet PO ×4 (03:56→20:39)
--- NOTE | 2018-09-02 04:00 | NURSING ---
EXTERNAL FEMALE CATH CHANGED PER ORDER. SUCTION IN PLACE. MEDICATED FOR PAIN PRIOR. WILL CONT TO MONITOR. NURSES DAVINA,RN AND JAGDISH, RN. AWARE OF SAME.
--- NOTE | 2018-09-02 04:42 | NURSING ---
Pt calling out to be repositioned. This nurse into room and pt repositioned to comfort. Pt A&Ox3. Code status was discussed in thorough detail with pt. Pt questioning this nurse why this was not addressed when she was admitted. Pt stating That is a serious question that no one has asked me since being in this hospital and why is that?. This nurse explained in thorough detail to be present now and would like to answer any questions that pt may have. Pt expressing concern to be a full code at this time.
[2018-09-02] MEDS: Pantoprazole Sodium 20 MG Tablet PO (06:12)
[2018-09-02] MEDS: Nystatin Powder 15gm Bottle 1 APPLIC TOPICAL ×3 (06:12→20:41)
[2018-09-02] MEDS: Menthol/Lanolin/Calamine/Znox 113 GM Tube 1 APPLIC TOPICAL ×2 (06:12→20:40)
[2018-09-02] MEDS: Furosemide 40 MG Tablet PO ×2 (06:12→17:00)
[2018-09-02 06:26] VITALS: O2SAT 95
[2018-09-02] MEDS: Polyethylene Glycol 3350 17 GM PACKET PO (09:17)
[2018-09-02] MEDS: Senna/Docusate Sodium 1 Tablet 2 TABLET PO ×2 (09:22→16:59)
[2018-09-02] MEDS: Iron Polysaccharide Complex 150 MG CAPSULE PO (09:23)
[2018-09-02] MEDS: Isosorbide Mononitrate 30 MG Tablet PO (09:23)
[2018-09-02] MEDS: APIXABAN 5 MG TABLET PO ×2 (09:23→16:59)
[2018-09-02] MEDS: dilTIAZem CD 120 MG Capsule PO (09:23)
[2018-09-02] MEDS: Citalopram 20 MG Tablet PO (09:23)
[2018-09-02] MEDS: Gabapentin 300 MG Capsule 600 MG PO ×4 (09:27→20:52)
[2018-09-02 09:31] VITALS: BP 103/71; PULSE 93
--- NOTE | 2018-09-02 09:40 | NURSING ---
PT ASKING FOR THIS NURSE, FOUND PT CRYING. ASKED PT WHAT WAS WRONG,PT STATED THAT SHE WAS UPSET ABOUT BEING ASKED A CODE SATIS AT 4:45 IN THE MORNING AND ASKED FOR THAT NURSE NOT TO COME BACK. TALKED TO PT 1 TILL SHE FELT A LITTLE BETTER AND TOLD PT IF SHE NEEDED ANYTHING TO LET US KNOW. PT ASKED IF THERE WAS A RN ON NOW AND WOULD LIKE TO TALK TO THEM. STATED TO PT THAT I WOULD LET TOMAS SULLIVAN KNOW. YENNIFER ALSO STATED TO THIS NURSE ABOUT WHAT HAPPENED. REPORTED TO TOMAS SULILVAN
--- NOTE | 2018-09-02 10:30 | NURSING ---
In to reassess the open area to the inner buttocks. peeled dressing back to assess wound. appears to be improved. reapplied the Mepilex dressing. plan to change the Mepilex tomorrow of Friday. there is a small amount of calmoseptine on the distal edge of the dressing. pt is currently working with therapy.
[2018-09-02 11:00] VITALS: PULSE 100; RESP 16
--- NOTE | 2018-09-02 11:37 | NURSING ---
PT REQUESTING THAT THE FALL RISK BRACELET BE REMOVED DUE TO IT BOTHERING HER. THIS NURSE REMOVED BRACELET AND ASKED PT IF I COULD APPLY A NEW ONE ON THE OTHER WRIST. PT STATED NO. FRAN BURLESON AND TOMAS SULLIVAN AWARE.
--- NOTE | 2018-09-02 13:59 | CASEMGMT ---
Plan of care meeting held. Resident present as well as resident [id number]. Resident aware that Medicare benefit will be exhausted on 09/10/18. Resident aware of private pay option in either this facility or another. Resident reporting the plan will be for resident to transition back to home with son and [id number]. Team communicating to resident that current recommendation would be for resident to have 24hr care at time of discharge. Resident [id number] voicing to not be able to provide 24hr care within the home at this time, but to be interested in private duty aides. This mental health social worker providing resident [id number] with list of private duty aides. Support given. Proposed discharge date: 09/10/18 PLAN: Discharge to home with family. ALEXA Vidal, MARBLE CUTTER
[2018-09-02 15:23] VITALS: BP 99/57; PULSE 94; RESP 18; TEMP 36.4; O2SAT 96
--- NOTE | 2018-09-02 15:35 | CHAPLAIN ---
Type of Pastoral Visit _x__ Initial Visit ___ Follow-up Visit ___ On-call Visit ___ General Patient Visit ___ Spiritual Assessment ___ Family Conference ___ Bereavement ___ Rapid Response ___ Code Blue ___ Other (describe below) Pastoral Care Referral From _x__ Patient ___ Family _x__ Nurse ___ Physician ___ Asbestos Siding Installer ___ Mortgage Loan Processing Clerk ___ Other (describe below) Sacrament/Intervention _x__ Active listening ___ Anointing ___ Protestant ___ Bereavement ___ Communion _x__ Evelin exploration ___ _x__ Life review _x__ Prayer ___ Reconciliation ___ Sacrament of Sick _x__ Supportive presence ___ Wedding ___ Other (describe below) Pastoral Comments
--- NOTE | 2018-09-02 18:32 | NURSING ---
RAYO D/C PER DR. NOLEN. LAURIERN AWARE
[2018-09-02] MEDS: ALPRAZolam 0.25 MG Tablet PO (20:39)
[2018-09-02] MEDS: Atorvastatin Calcium 10 MG Tablet PO (20:44)
[2018-09-03] MEDS: oxyCODONE 5 MG Tablet PO ×4 (04:20→21:46)
[2018-09-03] MEDS: Menthol/Lanolin/Calamine/Znox 113 GM Tube 1 APPLIC TOPICAL ×2 (04:21→19:56)
[2018-09-03] MEDS: Nystatin Powder 15gm Bottle 1 APPLIC TOPICAL ×3 (04:21→19:56)
[2018-09-03] MEDS: Furosemide 40 MG Tablet PO (06:23)
[2018-09-03] MEDS: Pantoprazole Sodium 20 MG Tablet PO (06:23)
[2018-09-03 07:21] VITALS: O2SAT 98
[2018-09-03] MEDS: Gabapentin 300 MG Capsule 600 MG PO ×4 (08:21→19:58)
[2018-09-03] MEDS: dilTIAZem CD 120 MG Capsule PO (08:21)
[2018-09-03] MEDS: Citalopram 20 MG Tablet PO (08:22)
[2018-09-03] MEDS: Isosorbide Mononitrate 30 MG Tablet PO (08:22)
[2018-09-03] MEDS: Iron Polysaccharide Complex 150 MG CAPSULE PO (08:22)
[2018-09-03] MEDS: Senna/Docusate Sodium 1 Tablet 2 TABLET PO ×2 (08:22→17:39)
[2018-09-03] MEDS: APIXABAN 5 MG TABLET PO ×2 (08:22→17:40)
[2018-09-03] MEDS: Polyethylene Glycol 3350 17 GM PACKET PO (08:23)
[2018-09-03 09:32] VITALS: PULSE 72; RESP 18; O2SAT 94
[2018-09-03 10:45] VITALS: O2SAT 94
--- NOTE | 2018-09-03 12:11 | PCM.PN.RX ---
<AngelitaYan jose - Last Filed: 09/03/18 12:11> Progress Note - Pharmacy Subjective: TCU Admission Objective: Allergies morphine Allergy (Verified 08/26/18 21:42) Hives carbamazepine [From Tegretol] Adverse Reaction (Intermediate, Verified 08/26/18 21:42) HALLUCINATIONS procaine HCl [From Novocain] Adverse Reaction (Intermediate, Verified 08/26/18 21:42) HEART RACES,FEELS LIKE WILL PASS OUT Current Medications Generic Name Dose Route Start Last Admin Trade Name Freq PRN Reason Stop Dose Admin Acetaminophen 1,000 mg 08/29/18 14:38 Tylenol PO Q6H PRN PRN MILD PAIN (1-310) Alprazolam 0.25 mg 08/29/18 22:00 09/02/18 20:39 Xanax PO 0.25 mg QHS MAURA Administration Apixaban 5 mg 08/30/18 08:00 09/03/18 08:22 Eliquis PO 5 mg BIDCM MAURA Administration Atorvastatin Calcium 10 mg 08/29/18 22:00 09/02/18 20:44 Lipitor PO 10 mg QHS MAURA Administration Bisacodyl 10 mg 08/29/18 13:14 Dulcolax RECTAL DAILY PRN PRN Constipation Calamine/Phenol 1 applic 09/02/18 06:00 09/03/18 04:21 Calmoseptine Ointment TOPICAL 1 applicatio 0600,2200 MAURA Administration Protocol Citalopram Hydrobromide 20 mg 08/30/18 08:00 09/03/18 08:22 Celexa PO 20 mg DAILY@0800 MAURA Administration Diltiazem HCl 120 mg 08/30/18 08:00 09/03/18 08:21 Cardizem Cd PO 120 mg DAILY@0800 MAURA Administration Furosemide 40 mg 09/03/18 06:00 09/03/18 06:23 Lasix PO 40 mg DAILY MAURA Administration Gabapentin 600 mg 08/31/18 12:45 09/03/18 11:55 Neurontin PO 600 mg TIDCM MAURA Administration Gabapentin 600 mg 08/31/18 22:00 09/02/18 20:52 Neurontin PO 600 mg QHS MAURA Administration Isosorbide Mononitrate 30 mg 08/30/18 08:00 09/03/18 08:22 Imdur PO 30 mg DAILY@0800 MAURA Administration Methadone HCl 5 mg 08/29/18 14:00 09/03/18 06:22 PO 5 mg TID MAURA Administration Mineral Oil 1 bottle 08/29/18 13:14 Mineral Oil RECTAL DAILY PRN Constipation Nutritional Formula (Lactose Free) 120 ml 08/29/18 17:00 09/03/18 11:56 Ensure Enlive PO 120 ml 4X/DAY MAURA Administration Nystatin 1 applic 08/29/18 14:00 09/03/18 04:21 Mycostatin Powder TOPICAL 1 applicatio TID [facility] Administration Protocol Oxycodone HCl 5 mg 08/29/18 18:03 09/03/18 11:55 Oxyir PO 5 mg Q4H PRN PRN Administration SEVERE PAIN (6-10) Pantoprazole Sodium 20 mg 08/30/18 06:00 09/03/18 06:23 Protonix PO 20 mg DAILY MAURA Administration Polyethylene Glycol 17 gm 08/30/18 08:00 09/03/18 08:23 Miralax PO 17 gm DAILY@0800 [facility] Administration Polysaccharide Iron Complex 150 mg 08/30/18 08:00 09/03/18 08:22 Ferrex 150 PO 150 mg DAILYCM [facility] Administration Potassium Chloride 20 meq 08/31/18 17:00 09/03/18 08:27 K-Dur PO 20 meq BIDCM [facility] Administration Senna/Docusate Sodium 2 tablet 08/30/18 08:00 09/03/18 08:22 Senokot-S, Kellee-Colace PO 2 tablet BIDCM MAURA Administration Tuberculin PPD 5 tu 09/06/18 10:00 Tubersol, Aplisol, Ppd ID 09/06/18 10:01 X1 ONE Problem List (Last Reviewed 04/21/18 @ 14:36 by Kory Giraldo MD) Shortness of breath (Acute) Edema (Acute) Atrial fibrillation (Chronic) Acute on chronic diastolic heart failure (Acute) Anemia (Chronic) Stroke (Chronic) Hypertension (Chronic) Chronic pain (Chronic) DVT (deep venous thrombosis) (Chronic) Neuropathic pain (Chronic) Depression (Chronic) Opioid dependence (Chronic) GERD (gastroesophageal reflux disease) (Chronic) Hypokalemia (Chronic) Vital Signs Temp Pulse Resp BP Pulse Ox 97.5 F L 72 18 99/57 L 94 09/02/18 15:23 09/03/18 09:32 09/03/18 09:32 09/02/18 15:23 09/03/18 10:45 Oxygen Flow Rate (L/min) 2 Oxygen Delivery Method Nasal Cannula Weight: 57.266 kg Body Mass Index (BMI) 24.3 Finger Stick Blood Glucose 130 Sodium 139 mmol/L (136-145) 08/31/18 05:20 Potassium 4.6 mmol/L (3.5-5.1) 08/31/18 05:20 Chloride 97 mmol/L (98-107) L 08/31/18 05:20 Carbon Dioxide 39.0 mmol/L (21.0-32.0) H 08/31/18 05:20 Anion Gap 3 (5-15) L 08/31/18 05:20 BUN 41 mg/dL (7-18) H 08/31/18 05:20 Creatinine 0.94 mg/dL (0.55-1.02) 08/31/18 05:20 Est GFR (MDRD) Af Amer 74 mL/min (>60) 08/31/18 05:20 Est GFR (MDRD) Non-Af 62 mL/min (>60) 08/31/18 05:20 BUN/Creatinine Ratio 43.6 RATIO (10-20) H 08/31/18 05:20 Glucose 86 mg/dL (74-106) 08/31/18 05:20 Assessment/Plan: 1) Pain APAP for mild pain, oxycodone for severe pain, methadone, gabapentin. Continue to monitor prn medication use, daily pain scores. 2) Afib/CAD/CHF Apixaban, diltiazem, atorvastatin, furosemide/KCl, isosorbide. Continue to monitor BP/HR, renal function, electrolytes, lipids, for chest pain, for bleeding. 3) GI Pantoprazole. Continue to monitor s/s GI distress. Psychotropic Medications: 4) Depression/Insomnia Citalopram, alprazolam at HS. Continue to monitor for depression. GDR addressed by attending physician. Unnecessary Medications: None Bowel Regimen: 5) Senna/s, PEG, prn bisacodyl. Continue to monitor prn medication use, for constipation/diarrhea. Date of Note:: 09/03/18 - Provider Comments Provider responsibility: Provider responsible to enter orders to implement recommendations <Brendan,Nimesh Chi - Last Filed: 09/03/18 17:37> Progress Note - Pharmacy Subjective: [] Objective: Allergies morphine Allergy (Verified 08/26/18 21:42) Hives carbamazepine [From Tegretol] Adverse Reaction (Intermediate, Verified 08/26/18 21:42) HALLUCINATIONS procaine HCl [From Novocain] Adverse Reaction (Intermediate, Verified 08/26/18 21:42) HEART RACES,FEELS LIKE WILL PASS OUT Current Medications Generic Name Dose Route Start Last Admin Trade Name Freq PRN Reason Stop Dose Admin Acetaminophen 1,000 mg 08/29/18 14:38 Tylenol PO Q6H PRN PRN MILD PAIN (1-10) Alprazolam 0.25 mg 08/29/18 22:00 09/02/18 20:39 Xanax PO 0.25 mg QHS MAURA Administration Apixaban 5 mg 08/30/18 08:00 09/03/18 08:22 Eliquis PO 5 mg BIDCM MAURA Administration Atorvastatin Calcium 10 mg 08/29/18 22:00 09/02/18 20:44 Lipitor PO 10 mg QHS MAURA Administration Bisacodyl 10 mg 08/29/18 13:14 Dulcolax RECTAL DAILY PRN PRN Constipation Calamine/Phenol 1 applic 09/02/18 06:00 09/03/18 04:21 Calmoseptine Ointment TOPICAL 1 applicatio 0600,2200 [facility] Administration Protocol Citalopram Hydrobromide 20 mg 08/30/18 08:00 09/03/18 08:22 Celexa PO 20 mg DAILY@0800 MAURA Administration Diltiazem HCl 120 mg 08/30/18 08:00 09/03/18 08:21 Cardizem Cd PO 120 mg DAILY@0800 MAURA Administration Furosemide 40 mg 09/03/18 06:00 09/03/18 06:23 Lasix PO 40 mg DAILY MAURA Administration Gabapentin 600 mg 08/31/18 12:45 09/03/18 11:55 Neurontin PO 600 mg TIDCM MAURA Administration Gabapentin 600 mg 08/31/18 22:00 09/02/18 20:52 Neurontin PO 600 mg QHS MAURA Administration Isosorbide Mononitrate 30 mg 08/30/18 08:00 09/03/18 08:22 Imdur PO 30 mg DAILY@0800 MAURA Administration Methadone HCl 5 mg 08/29/18 14:00 09/03/18 14:44 PO 5 mg TID MAURA Administration Mineral Oil 1 bottle 08/29/18 13:14 Mineral Oil RECTAL DAILY PRN Constipation Nutritional Formula (Lactose Free) 120 ml 08/29/18 17:00 09/03/18 11:56 Ensure Enlive PO 120 ml 4X/DAY MAURA Administration Nystatin 1 applic 08/29/18 14:00 09/03/18 14:46 Mycostatin Powder TOPICAL 1 applicatio TID MAURA Administration Protocol Oxycodone HCl 5 mg 08/29/18 18:03 09/03/18 11:55 Oxyir PO 5 mg Q4H PRN PRN Administration SEVERE PAIN (6-06/17) Pantoprazole Sodium 20 mg 08/30/18 06:00 09/03/18 06:23 Protonix PO 20 mg DAILY MAURA Administration Polyethylene Glycol 17 gm 08/30/18 08:00 09/03/18 08:23 Miralax PO 17 gm DAILY@0800 [facility] Administration Polysaccharide Iron Complex 150 mg 08/30/18 08:00 09/03/18 08:22 Ferrex 150 PO 150 mg DAILYCM [facility] Administration Potassium Chloride 20 meq 08/31/18 17:00 09/03/18 08:27 K-Dur PO 20 meq BIDCM [facility] Administration Senna/Docusate Sodium 2 tablet 08/30/18 08:00 09/03/18 08:22 Senokot-S, Kellee-Colace PO 2 tablet BIDCM MAURA Administration Tuberculin PPD 5 tu 09/06/18 10:00 Tubersol, Aplisol, Ppd ID 09/06/18 10:01 X1 ONE Problem List (Last Reviewed 04/21/18 @ 14:36 by Kory Giraldo MD) Shortness of breath (Acute) Edema (Acute) Atrial fibrillation (Chronic) Acute on chronic diastolic heart failure (Acute) Anemia (Chronic) Stroke (Chronic) Hypertension (Chronic) Chronic pain (Chronic) DVT (deep venous thrombosis) (Chronic) Neuropathic pain (Chronic) Depression (Chronic) Opioid dependence (Chronic) GERD (gastroesophageal reflux disease) (Chronic) Hypokalemia (Chronic) Vital Signs Temp Pulse Resp BP Pulse Ox 96.7 F L 88 18 110/78 90 09/03/18 15:42 09/03/18 15:42 09/03/18 15:42 09/03/18 15:42 09/03/18 15:42 Oxygen Flow Rate (L/min) 1 Oxygen Delivery Method Room Air Weight: 56.897 kg Body Mass Index (BMI) 24.3 Finger Stick Blood Glucose 130 Sodium 139 mmol/L (136-145) 08/31/18 05:20 Potassium 4.6 mmol/L (3.5-5.1) 08/31/18 05:20 Chloride 97 mmol/L (98-107) L 08/31/18 05:20 Carbon Dioxide 39.0 mmol/L (21.0-32.0) H 08/31/18 05:20 Anion Gap 3 (5-15) L 08/31/18 05:20 BUN 41 mg/dL (7-18) H 08/31/18 05:20 Creatinine 0.94 mg/dL (0.55-1.02) 08/31/18 05:20 Est GFR (MDRD) Af Amer 74 mL/min (>60) 08/31/18 05:20 Est GFR (MDRD) Non-Af 62 mL/min (>60) 08/31/18 05:20 BUN/Creatinine Ratio 43.6 RATIO (10-20) H 08/31/18 05:20 Glucose 86 mg/dL (74-106) 08/31/18 05:20 Assessment/Plan: Psychotropic Medications: Unnecessary Medications: Bowel Regimen: - Provider Comments Provider responsibility: Provider responsible to enter orders to implement recommendations Provider Comments to Recommendations by Pharmacy: Agree
--- NOTE | 2018-09-03 12:41 | PHA.CONS_ITS ---
<AngelitaYan jose - Last Filed: 09/03/18 12:11> Progress Note - Pharmacy Subjective: TCU Admission Objective: Allergies morphine Allergy (Verified 08/26/18 21:42) Hives carbamazepine [From Tegretol] Adverse Reaction (Intermediate, Verified 08/26/18 21:42) HALLUCINATIONS procaine HCl [From Novocain] Adverse Reaction (Intermediate, Verified 08/26/18 21:42) HEART RACES,FEELS LIKE WILL PASS OUT Current Medications Generic Name Dose Route Start Last Admin Trade Name Freq PRN Reason Stop Dose Admin Acetaminophen 1,000 mg 08/29/18 14:38 Tylenol PO Q6H PRN PRN MILD PAIN (1-310) Alprazolam 0.25 mg 08/29/18 22:00 09/02/18 20:39 Xanax PO 0.25 mg QHS MAURA Administration Apixaban 5 mg 08/30/18 08:00 09/03/18 08:22 Eliquis PO 5 mg BIDCM MAURA Administration Atorvastatin Calcium 10 mg 08/29/18 22:00 09/02/18 20:44 Lipitor PO 10 mg QHS MAURA Administration Bisacodyl 10 mg 08/29/18 13:14 Dulcolax RECTAL DAILY PRN PRN Constipation Calamine/Phenol 1 applic 09/02/18 06:00 09/03/18 04:21 Calmoseptine Ointment TOPICAL 1 applicatio 0600,2200 MAURA Administration Protocol Citalopram Hydrobromide 20 mg 08/30/18 08:00 09/03/18 08:22 Celexa PO 20 mg DAILY@0800 MAURA Administration Diltiazem HCl 120 mg 08/30/18 08:00 09/03/18 08:21 Cardizem Cd PO 120 mg DAILY@0800 MAURA Administration Furosemide 40 mg 09/03/18 06:00 09/03/18 06:23 Lasix PO 40 mg DAILY MAURA Administration Gabapentin 600 mg 08/31/18 12:45 09/03/18 11:55 Neurontin PO 600 mg TIDCM MAURA Administration Gabapentin 600 mg 08/31/18 22:00 09/02/18 20:52 Neurontin PO 600 mg QHS MAURA Administration Isosorbide Mononitrate 30 mg 08/30/18 08:00 09/03/18 08:22 Imdur PO 30 mg DAILY@0800 MAURA Administration Methadone HCl 5 mg 08/29/18 14:00 09/03/18 06:22 PO 5 mg TID MAURA Administration Mineral Oil 1 bottle 08/29/18 13:14 Mineral Oil RECTAL DAILY PRN Constipation Nutritional Formula (Lactose Free) 120 ml 08/29/18 17:00 09/03/18 11:56 Ensure Enlive PO 120 ml 4X/DAY MAURA Administration Nystatin 1 applic 08/29/18 14:00 09/03/18 04:21 Mycostatin Powder TOPICAL 1 applicatio TID [facility] Administration Protocol Oxycodone HCl 5 mg 08/29/18 18:03 09/03/18 11:55 Oxyir PO 5 mg Q4H PRN PRN Administration SEVERE PAIN (6-10) Pantoprazole Sodium 20 mg 08/30/18 06:00 09/03/18 06:23 Protonix PO 20 mg DAILY MAURA Administration Polyethylene Glycol 17 gm 08/30/18 08:00 09/03/18 08:23 Miralax PO 17 gm DAILY@0800 [facility] Administration Polysaccharide Iron Complex 150 mg 08/30/18 08:00 09/03/18 08:22 Ferrex 150 PO 150 mg DAILYCM [facility] Administration Potassium Chloride 20 meq 08/31/18 17:00 09/03/18 08:27 K-Dur PO 20 meq BIDCM [facility] Administration Senna/Docusate Sodium 2 tablet 08/30/18 08:00 09/03/18 08:22 Senokot-S, Kellee-Colace PO 2 tablet BIDCM MAURA Administration Tuberculin PPD 5 tu 09/06/18 10:00 Tubersol, Aplisol, Ppd ID 09/06/18 10:01 X1 ONE Problem List (Last Reviewed 04/21/18 @ 14:36 by Kory Giraldo MD) Shortness of breath (Acute) Edema (Acute) Atrial fibrillation (Chronic) Acute on chronic diastolic heart failure (Acute) Anemia (Chronic) Stroke (Chronic) Hypertension (Chronic) Chronic pain (Chronic) DVT (deep venous thrombosis) (Chronic) Neuropathic pain (Chronic) Depression (Chronic) Opioid dependence (Chronic) GERD (gastroesophageal reflux disease) (Chronic) Hypokalemia (Chronic) Vital Signs Temp Pulse Resp BP Pulse Ox 97.5 F L 72 18 99/57 L 94 09/02/18 15:23 09/03/18 09:32 09/03/18 09:32 09/02/18 15:23 09/03/18 10:45 Oxygen Flow Rate (L/min) 2 Oxygen Delivery Method Nasal Cannula Weight: 57.266 kg Body Mass Index (BMI) 24.3 Finger Stick Blood Glucose 130 Sodium 139 mmol/L (136-145) 08/31/18 05:20 Potassium 4.6 mmol/L (3.5-5.1) 08/31/18 05:20 Chloride 97 mmol/L (98-107) L 08/31/18 05:20 Carbon Dioxide 39.0 mmol/L (21.0-32.0) H 08/31/18 05:20 Anion Gap 3 (5-15) L 08/31/18 05:20 BUN 41 mg/dL (7-18) H 08/31/18 05:20 Creatinine 0.94 mg/dL (0.55-1.02) 08/31/18 05:20 Est GFR (MDRD) Af Amer 74 mL/min (>60) 08/31/18 05:20 Est GFR (MDRD) Non-Af 62 mL/min (>60) 08/31/18 05:20 BUN/Creatinine Ratio 43.6 RATIO (10-20) H 08/31/18 05:20 Glucose 86 mg/dL (74-106) 08/31/18 05:20 Assessment/Plan: 1) Pain APAP for mild pain, oxycodone for severe pain, methadone, gabapentin. Continue to monitor prn medication use, daily pain scores. 2) Afib/CAD/CHF Apixaban, diltiazem, atorvastatin, furosemide/KCl, isosorbide. Continue to monitor BP/HR, renal function, electrolytes, lipids, for chest pain, for bleeding. 3) GI Pantoprazole. Continue to monitor s/s GI distress. Psychotropic Medications: 4) Depression/Insomnia Citalopram, alprazolam at HS. Continue to monitor for depression. GDR addressed by attending physician. Unnecessary Medications: None Bowel Regimen: 5) Senna/s, PEG, prn bisacodyl. Continue to monitor prn medication use, for constipation/diarrhea. Date of Note:: 09/03/18 - Provider Comments Provider responsibility: Provider responsible to enter orders to implement recommendations <Brendan,Nimesh Chi - Last Filed: 09/03/18 17:37> Progress Note - Pharmacy Subjective: [] Objective: Allergies morphine Allergy (Verified 08/26/18 21:42) Hives carbamazepine [From Tegretol] Adverse Reaction (Intermediate, Verified 08/26/18 21:42) HALLUCINATIONS procaine HCl [From Novocain] Adverse Reaction (Intermediate, Verified 08/26/18 21:42) HEART RACES,FEELS LIKE WILL PASS OUT Current Medications Generic Name Dose Route Start Last Admin Trade Name Freq PRN Reason Stop Dose Admin Acetaminophen 1,000 mg 08/29/18 14:38 Tylenol PO Q6H PRN PRN MILD PAIN (1-10) Alprazolam 0.25 mg 08/29/18 22:00 09/02/18 20:39 Xanax PO 0.25 mg QHS MAURA Administration Apixaban 5 mg 08/30/18 08:00 09/03/18 08:22 Eliquis PO 5 mg BIDCM MAURA Administration Atorvastatin Calcium 10 mg 08/29/18 22:00 09/02/18 20:44 Lipitor PO 10 mg QHS MAURA Administration Bisacodyl 10 mg 08/29/18 13:14 Dulcolax RECTAL DAILY PRN PRN Constipation Calamine/Phenol 1 applic 09/02/18 06:00 09/03/18 04:21 Calmoseptine Ointment TOPICAL 1 applicatio 0600,2200 [facility] Administration Protocol Citalopram Hydrobromide 20 mg 08/30/18 08:00 09/03/18 08:22 Celexa PO 20 mg DAILY@0800 MAURA Administration Diltiazem HCl 120 mg 08/30/18 08:00 09/03/18 08:21 Cardizem Cd PO 120 mg DAILY@0800 MAURA Administration Furosemide 40 mg 09/03/18 06:00 09/03/18 06:23 Lasix PO 40 mg DAILY MAURA Administration Gabapentin 600 mg 08/31/18 12:45 09/03/18 11:55 Neurontin PO 600 mg TIDCM MAURA Administration Gabapentin 600 mg 08/31/18 22:00 09/02/18 20:52 Neurontin PO 600 mg QHS MAURA Administration Isosorbide Mononitrate 30 mg 08/30/18 08:00 09/03/18 08:22 Imdur PO 30 mg DAILY@0800 MAURA Administration Methadone HCl 5 mg 08/29/18 14:00 09/03/18 14:44 PO 5 mg TID MAURA Administration Mineral Oil 1 bottle 08/29/18 13:14 Mineral Oil RECTAL DAILY PRN Constipation Nutritional Formula (Lactose Free) 120 ml 08/29/18 17:00 09/03/18 11:56 Ensure Enlive PO 120 ml 4X/DAY MAURA Administration Nystatin 1 applic 08/29/18 14:00 09/03/18 14:46 Mycostatin Powder TOPICAL 1 applicatio TID [facility] Administration Protocol Oxycodone HCl 5 mg 08/29/18 18:03 09/03/18 11:55 Oxyir PO 5 mg Q4H PRN PRN Administration SEVERE PAIN (6-06/17) Pantoprazole Sodium 20 mg 08/30/18 06:00 09/03/18 06:23 Protonix PO 20 mg DAILY MAURA Administration Polyethylene Glycol 17 gm 08/30/18 08:00 09/03/18 08:23 Miralax PO 17 gm DAILY@0800 [facility] Administration Polysaccharide Iron Complex 150 mg 08/30/18 08:00 09/03/18 08:22 Ferrex 150 PO 150 mg DAILYCM [facility] Administration Potassium Chloride 20 meq 08/31/18 17:00 09/03/18 08:27 K-Dur PO 20 meq BIDCM [facility] Administration Senna/Docusate Sodium 2 tablet 08/30/18 08:00 09/03/18 08:22 Senokot-S, Kellee-Colace PO 2 tablet BIDCM [facility] Administration Tuberculin PPD 5 tu 09/06/18 10:00 Tubersol, Aplisol, Ppd ID 09/06/18 10:01 X1 ONE Problem List (Last Reviewed 04/21/18 @ 14:36 by Kory Giraldo MD) Shortness of breath (Acute) Edema (Acute) Atrial fibrillation (Chronic) Acute on chronic diastolic heart failure (Acute) Anemia (Chronic) Stroke (Chronic) Hypertension (Chronic) Chronic pain (Chronic) DVT (deep venous thrombosis) (Chronic) Neuropathic pain (Chronic) Depression (Chronic) Opioid dependence (Chronic) GERD (gastroesophageal reflux disease) (Chronic) Hypokalemia (Chronic) Vital Signs Temp Pulse Resp BP Pulse Ox 96.7 F L 88 18 110/78 90 09/03/18 15:42 09/03/18 15:42 09/03/18 15:42 09/03/18 15:42 09/03/18 15:42 Oxygen Flow Rate (L/min) 1 Oxygen Delivery Method Room Air Weight: 56.897 kg Body Mass Index (BMI) 24.3 Finger Stick Blood Glucose 130 Sodium 139 mmol/L (136-145) 08/31/18 05:20 Potassium 4.6 mmol/L (3.5-5.1) 08/31/18 05:20 Chloride 97 mmol/L (98-107) L 08/31/18 05:20 Carbon Dioxide 39.0 mmol/L (21.0-32.0) H 08/31/18 05:20 Anion Gap 3 (5-15) L 08/31/18 05:20 BUN 41 mg/dL (7-18) H 08/31/18 05:20 Creatinine 0.94 mg/dL (0.55-1.02) 08/31/18 05:20 Est GFR (MDRD) Af Amer 74 mL/min (>60) 08/31/18 05:20 Est GFR (MDRD) Non-Af 62 mL/min (>60) 08/31/18 05:20 BUN/Creatinine Ratio 43.6 RATIO (10-20) H 08/31/18 05:20 Glucose 86 mg/dL (74-106) 08/31/18 05:20 Assessment/Plan: Psychotropic Medications: Unnecessary Medications: Bowel Regimen: - Provider Comments Provider responsibility: Provider responsible to enter orders to implement recommendations Provider Comments to Recommendations by Pharmacy: Agree
[2018-09-03 14:45] VITALS: O2SAT 94
[2018-09-03 15:42] VITALS: BP 110/78; PULSE 88; RESP 18; TEMP 35.9; O2SAT 90
--- NOTE | 2018-09-03 16:45 | CASEMGMT ---
Brief interview for mental status (BIMS) and resident mood interview (PHQ-9) completed on this day. BIMS score 1515. PHQ-9 score 04/03. ALEXA Vidal, WINTER SPORTS MANAGER
[2018-09-03] MEDS: Atorvastatin Calcium 10 MG Tablet PO (19:58)
[2018-09-03] MEDS: ALPRAZolam 0.25 MG Tablet PO (20:04)
[2018-09-04] MEDS: Furosemide 40 MG Tablet PO (05:41)
[2018-09-04] MEDS: Pantoprazole Sodium 20 MG Tablet PO (05:41)
[2018-09-04] MEDS: Menthol/Lanolin/Calamine/Znox 113 GM Tube 1 APPLIC TOPICAL ×2 (05:46→20:47)
[2018-09-04] MEDS: Nystatin Powder 15gm Bottle 1 APPLIC TOPICAL ×3 (05:48→20:52)
[2018-09-04 06:29] VITALS: O2SAT 98
[2018-09-04] MEDS: oxyCODONE 5 MG Tablet PO ×3 (08:50→20:49)
[2018-09-04] MEDS: Isosorbide Mononitrate 30 MG Tablet PO (08:51)
[2018-09-04] MEDS: Gabapentin 300 MG Capsule 600 MG PO ×5 (08:51→20:50)
[2018-09-04] MEDS: Senna/Docusate Sodium 1 Tablet 2 TABLET PO ×2 (08:52→16:37)
[2018-09-04] MEDS: APIXABAN 5 MG TABLET PO ×2 (08:52→16:37)
[2018-09-04] MEDS: Citalopram 20 MG Tablet PO (08:53)
[2018-09-04] MEDS: Polyethylene Glycol 3350 17 GM PACKET PO (08:53)
[2018-09-04] MEDS: dilTIAZem CD 120 MG Capsule PO (08:53)
[2018-09-04] MEDS: Iron Polysaccharide Complex 150 MG CAPSULE PO (08:53)
--- NOTE | 2018-09-04 10:18 | NURSING ---
THIS NURSE CHANGED PT MEPILEX TO PT BOTTOM THAT WAS WET. REPORTED TO TOMAS NOE 09/04/18
[2018-09-04 10:50] VITALS: O2SAT 94
--- NOTE | 2018-09-04 13:10 | MDS.RN ---
Pain interview for josie 09/05/18 completed.
--- NOTE | 2018-09-04 15:31 | CASEMGMT ---
Social Work Spoke with resident and resident family. Plan is for resident to return home with family on 09/10/18. Physical and occupational therapy as well as nursing home are recommending for resident to have continued services within the home. Resident is agreeable to recommendation. Resident reporting to have home oxygen already set up within the home. Will continue to follow to set up home health care. Support given. Proposed discharge date: 09/10/18. PLAN: Discharge to home with family and home health care. ALEXA Vidal, HEALTH CARE SANITARY TECHNICIAN
[2018-09-04 15:42] VITALS: BP 99/63; PULSE 86; RESP 16; TEMP 36.8; O2SAT 96
[2018-09-04] MEDS: ALPRAZolam 0.25 MG Tablet PO (20:49)
[2018-09-04] MEDS: Atorvastatin Calcium 10 MG Tablet PO (20:52)
[2018-09-04 21:44] VITALS: PULSE 72; RESP 17; O2SAT 95
[2018-09-05] MEDS: oxyCODONE 5 MG Tablet PO ×4 (01:32→20:47)
[2018-09-05] MEDS: Menthol/Lanolin/Calamine/Znox 113 GM Tube 1 APPLIC TOPICAL ×2 (05:31→20:51)
[2018-09-05] MEDS: Nystatin Powder 15gm Bottle 1 APPLIC TOPICAL ×3 (05:31→20:54)
[2018-09-05] MEDS: Pantoprazole Sodium 20 MG Tablet PO (05:32)
[2018-09-05] MEDS: Furosemide 40 MG Tablet PO (06:27)
[2018-09-05 06:56] VITALS: O2SAT 95
[2018-09-05] MEDS: Senna/Docusate Sodium 1 Tablet 2 TABLET PO ×2 (08:33→17:57)
[2018-09-05] MEDS: APIXABAN 5 MG TABLET PO ×2 (08:33→17:57)
[2018-09-05] MEDS: Citalopram 20 MG Tablet PO (08:33)
[2018-09-05] MEDS: dilTIAZem CD 120 MG Capsule PO (08:33)
[2018-09-05] MEDS: Polyethylene Glycol 3350 17 GM PACKET PO (08:34)
[2018-09-05] MEDS: Isosorbide Mononitrate 30 MG Tablet PO (08:34)
[2018-09-05] MEDS: Iron Polysaccharide Complex 150 MG CAPSULE PO (08:35)
[2018-09-05 10:00] VITALS: PULSE 104; RESP 18; O2SAT 95
[2018-09-05] MEDS: Gabapentin 300 MG Capsule 600 MG PO ×3 (11:27→20:53)
[2018-09-05 15:25] VITALS: BP 92/63; PULSE 91; RESP 20; TEMP 36.8; O2SAT 96
--- NOTE | 2018-09-05 19:44 | NURSING ---
Pt requesting valuables be secured. Pt personal valuables placed in pt valuables envelope and patient valuable record complete. Witnessed by two nurses and pt. Personal valuables taken to forming roll operator, hospital policy followed.
[2018-09-05] MEDS: ALPRAZolam 0.25 MG Tablet PO (20:47)
[2018-09-05] MEDS: Atorvastatin Calcium 10 MG Tablet PO (20:47)
[2018-09-06] MEDS: Pantoprazole Sodium 20 MG Tablet PO (05:51)
[2018-09-06] MEDS: Nystatin Powder 15gm Bottle 1 APPLIC TOPICAL ×3 (05:53→20:51)
[2018-09-06] MEDS: Menthol/Lanolin/Calamine/Znox 113 GM Tube 1 APPLIC TOPICAL ×2 (05:53→20:51)
[2018-09-06 06:07] LABS: Absolute Lymphocyte Count 1.07 X10^3/ul (0.83-4.51); Absolute Neutrophil Count 1.8 X10^3/uL (2.0-7.7); Basophil# 0.04 X10^3/uL; Basophil% 1.1 % (0-1); Eosinophil# 0.18 X10^3/uL; Hematocrit 32.4 % (37-47); Lymphocyte # 1.07 X10^3/ul (4.0); Lymphocyte % 29.6 % (19-41); Mean Corp Hgb Conc 30.9 g/gl (32-36); Mean Corpuscular Hgb 30.6 pg (27.0-32.0); Mean Corpuscular Volume 99.1 fL (81-99); Mean Platelet Vol. 11.5 fl (6.2-12.0); Monocyte# 0.49 X10^3/uL; Monocyte% 13.5 % (0-10); Neutrophil # 1.83 X10^3/uL (2.7-7.7); Neutrophil % 50.5 % (47-70); Platelet Count 167 K/mm3 (150-450); RBC Distribution Width CV 14.6 % (11.6-14.6); RBC Distribution Width SD 50.2 fl (35.1-43.9); Red Blood Count 3.27 M/mm3 (4.2-5.4); White Blood Count 3.6 K/mm3 (4.4-11.0)
[2018-09-06 06:18] LABS: POSITIVE COUNT NO; POSITIVE DIFFERENTIAL NO; POSITIVE MORPHOLOGY NO
[2018-09-06 06:29] LABS: Anion Gap 7 (5-15); BUN 33 mg/dL (7-18); BUN/Creat Ratio 36.7 RATIO (10-20); Calcium,Total 9.6 mg/dL (8.5-10.1); Chloride 94 mmol/L (98-107); EST Glomerular Filtration Rate 65 mL/min (>60); Est Glom Filt Rate - Afr Amer 78 mL/min (>60); Estimated Creatinine Clearance 38.79 ml/min; Glucose 80 mg/dL (74-106); Potassium 2.9 mmol/L (3.5-5.1); Sodium Level 142 mmol/L (136-145)
[2018-09-06 07:33] VITALS: O2SAT 94
[2018-09-06] MEDS: Isosorbide Mononitrate 30 MG Tablet PO (08:39)
[2018-09-06] MEDS: Citalopram 20 MG Tablet PO (08:39)
[2018-09-06] MEDS: Senna/Docusate Sodium 1 Tablet 2 TABLET PO ×2 (08:39→17:07)
[2018-09-06] MEDS: Gabapentin 300 MG Capsule 600 MG PO ×4 (08:40→20:48)
[2018-09-06] MEDS: Iron Polysaccharide Complex 150 MG CAPSULE PO (08:40)
[2018-09-06] MEDS: APIXABAN 5 MG TABLET PO ×2 (08:40→17:06)
[2018-09-06] MEDS: dilTIAZem CD 120 MG Capsule PO (08:41)
[2018-09-06] MEDS: Polyethylene Glycol 3350 17 GM PACKET PO (08:46)
--- NOTE | 2018-09-06 09:06 | NURSING ---
Dr Cardona updated on labs, potassium 2.9 this am, new orders entered. recheck labs on
[2018-09-06] MEDS: oxyCODONE 5 MG Tablet PO ×3 (09:11→20:48)
[2018-09-06] MEDS: Furosemide 40 MG Tablet PO (11:49)
[2018-09-06] MEDS: Tuberculin,Purif.prot.deriv. 50 TU/ML Vial 5 ML ID (13:14)
[2018-09-06 15:04] VITALS: BP 95/50; PULSE 85; RESP 16; TEMP 36.8; O2SAT 98
[2018-09-06] MEDS: Atorvastatin Calcium 10 MG Tablet PO (20:48)
[2018-09-06] MEDS: ALPRAZolam 0.25 MG Tablet PO (20:48)
[2018-09-06 20:58] VITALS: PULSE 91; O2SAT 96
[2018-09-07] MEDS: oxyCODONE 5 MG Tablet PO ×4 (03:52→20:50)
[2018-09-07] MEDS: Menthol/Lanolin/Calamine/Znox 113 GM Tube 1 APPLIC TOPICAL ×2 (03:54→20:51)
[2018-09-07] MEDS: Nystatin Powder 15gm Bottle 1 APPLIC TOPICAL ×3 (03:55→20:52)
[2018-09-07] MEDS: Pantoprazole Sodium 20 MG Tablet PO (06:39)
--- NOTE | 2018-09-07 08:41 | DCINST_ITS ---
- Discharge Diagnoses Current Active Problems: Current Active and Chronic Problems (Last Reviewed 04/21/18 @ 14:36 by Kory Giraldo MD) Shortness of breath (Acute) Edema (Acute) Atrial fibrillation (Chronic) Acute on chronic diastolic heart failure (Acute) Anemia (Chronic) Stroke (Chronic) Hypertension (Chronic) Chronic pain (Chronic) DVT (deep venous thrombosis) (Chronic) Neuropathic pain (Chronic) Depression (Chronic) Opioid dependence (Chronic) GERD (gastroesophageal reflux disease) (Chronic) Hypokalemia (Chronic) You will use the following diet at home:: No restrictions, Regular Your food should be the consistency of: Regular Your liquids should be the consistency of: Regular/Thin Discharge Activity: Return to Normal Activity, May Shower, Use Walker Weight Bearing Status: Weight bearing as tolerated Call your doctor if you observe: Fever of 101 or Higher, Inability to urinate, Inability to have a bowel movement, Shortness of breath, Chest pain, Uncontrolled pain Allergies/Adverse Reactions: Allergies morphine Allergy (Verified 08/26/18 21:42) Hives carbamazepine [From Tegretol] Adverse Reaction (Intermediate, Verified 08/26/18 21:42) HALLUCINATIONS procaine HCl [From Novocain] Adverse Reaction (Intermediate, Verified 08/26/18 21:42) HEART RACES,FEELS LIKE WILL PASS OUT Medications to take at Discharge Gabapentin [Neurontin] 600 mg PO 4X/DAY 05/26/15 citalopram 20 mg tablet 20 mg PO QDAY 04/21/18 ALPRAZolam [Xanax] 0.25 mg PO QHS 08/27/18 Apixaban [Eliquis] 5 mg PO BID 08/27/18 Atorvastatin Calcium 10 mg PO QDAY 08/27/18 Bisacodyl 10 mg RC DAILY PRN PRN 08/27/18 Diltiazem HCl [Diltiazem ER] 120 mg PO DAILY 08/27/18 Iron Polysaccharide Complex [Ferrex 150] 150 mg PO DAILYCM 08/27/18 Isosorbide Mononitrate [Isosorbide Mononitrate ER] 30 mg PO QDAY 08/27/18 Methadone HCl [(None)] 5 mg PO TID 08/27/18 Mineral Oil 1 bottle RC DAILY PRN 08/27/18 Nystatin Powder [Mycostatin Powder] 1 applic TOPICAL TID 08/27/18 Omeprazole 20 mg PO DAILY 08/27/18 Polyethylene Glycol 3350 [Miralax] 17 gm PO DAILY 08/27/18 Acetaminophen [Tylenol] 1,000 mg PO Q6H PRN PRN tablet 09/07/18 Furosemide [Lasix] 40 mg PO DAILY@1000 #30 tablet 09/07/18 Menthol/Lanolin/Calamine/Znox [Calmoseptine Ointment] 1 applic TOPICAL 0600,2200 tube 09/07/18 Oxycodone [Oxyir] 5 mg PO Q4H PRN PRN #10 tablet 09/07/18 Potassium Chloride [K-Dur] 40 meq PO BIDCM #120 tablet 09/07/18 Senna/Docusate Sodium [Senokot-S] 2 tablet PO BIDCM #120 tablet 09/07/18 The following prescriptions were given: Furosemide [Lasix] 40 mg PO DAILY@1000 #30 tablet Potassium Chloride [K-Dur] 40 meq PO BIDCM #120 tablet Senna/Docusate Sodium [Senokot-S] 2 tablet PO BIDCM #120 tablet Primary Care Physician: Fan Ruiz DO [Primary Care Provider] - Please follow up with your Primary Care Physician in: 1 week. Test Results: Test results from this visit will be discussed in further detail at your follow- up appointment, if applicable. Please Follow Up With: Fan Ruiz DO When: 1-2 weeks after discharge Please Follow Up With: Jerica KHANNA When: 1 week. Please Follow Up With: Kory Giraldo MD When: 1 week. Proposed Discharge Date: 09/10/18
--- NOTE | 2018-09-07 08:41 | PCM.DC.SUM ---
Discharge Date and Diagnosis - Problem List Patient Problems: Active and Suspected Problems (Last Reviewed 04/21/18 @ 14:36 by Kory Giraldo MD) Shortness of breath (Acute) Edema (Acute) Acute on chronic diastolic heart failure (Acute) Date of Admission: 08/29/18 Date of Discharge: 09/10/18 - Primary Discharge Diagnosis Active and Suspected Problems (Last Reviewed 04/21/18 @ 14:36 by Kory Giraldo MD) Shortness of breath (Acute) Edema (Acute) Acute on chronic diastolic heart failure (Acute) - Secondary Discharge Diagnosis Chronic Problems (Last Reviewed 04/21/18 @ 14:36 by Kory Giraldo MD) Anxiety (Chronic) Hiatal hernia (Chronic) Atrial fibrillation (Chronic) Anemia (Chronic) Stroke (Chronic) Hypertension (Chronic) Chronic pain (Chronic) DVT (deep venous thrombosis) (Chronic) Neuropathic pain (Chronic) Depression (Chronic) Opioid dependence (Chronic) GERD (gastroesophageal reflux disease) (Chronic) Hypokalemia (Chronic) 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) Other longterm (current) drug therapy (Chronic) Hyperlipidemia (Chronic) Essential (primary) hypertension (Chronic) Paroxysmal atrial fibrillation (Chronic) Chronic pain syndrome (Chronic) Transverse myelitis (Chronic) History of DVT (deep vein thrombosis) (Chronic) Atrial flutter (Chronic) Hospital Course and Treatment Imaging Results: 08/29/18 13:20 Diet: Cardiac/Low Cholesterol Dietary Modifications:: Mechanical Soft Diet Is pt able to select menu?: Yes Diet Comments: low sodium, Labs (Last 48 Hours) 09/06/18 09/06/18 05:15 05:15 WBC 3.6 L RBC 3.27 L Hgb 10.0 L Hct 32.4 L MCV 99.1 H MCH 30.6 MCHC 30.9 L RDW 14.6 RDW Differential 50.2 H Plt Count 167 MPV 11.5 Immature Gran % (Auto) 0.300 Neut % (Auto) 50.5 Lymph % (Auto) 29.6 [place] % (Auto) 13.5 H Eos % (Auto) 5.0 Baso % (Auto) 1.1 H Absolute Neuts (auto) 1.8 L Absolute Lymphs (auto) 1.07 Total Counted Not Reportable Sodium 142 Potassium 2.9 L Chloride 94 L Carbon Dioxide 41.0 H Anion Gap 7 BUN 33 H Creatinine 0.90 Estim Creat Clear Calc 38.79 Est GFR (MDRD) Af Amer 78 Est GFR (MDRD) Non-Af 65 BUN/Creatinine Ratio 36.7 H Glucose 80 Calcium 9.6 Consultations 08/29/18 13:22 Consult: Onc/Wound/bioinformatician Routine Comment: pressure injury to right buttock Operations: None Procedures: None Summary of Care Provided: The patient is a 77 year old Female with below past medical history hospitalized for acute diastolic congestive heart failure, complicated by hypokalemia, admitted to TCU with debility, here for rehabilitation, strengthening, prior to discharge home with family. Discharge home with family, Home Health Care. Patient Problems: Active and Suspected Problems (Last Reviewed 04/21/18 @ 14:36 by Kory Giraldo MD) Shortness of breath (Acute) Edema (Acute) Acute on chronic diastolic heart failure (Acute) - Physical Exam Vital Signs Temp Pulse Resp BP Pulse Ox 98.3 F 91 16 95/50 L 96 09/06/18 15:04 09/06/18 20:58 09/06/18 15:04 09/06/18 15:04 09/06/18 20:58 Oxygen Flow Rate (L/min) 1 Oxygen Delivery Method Room Air Weight: 57.266 kg Body Mass Index (BMI) 24.3 Finger Stick Blood Glucose 130 Intake and Output for Last 24 Hours 09/05/18 09/06/18 09/07/18 23:59 23:59 23:59 Intake Total 600 / 600 720 / 720 Balance 600 / 600 720 / 720 Discharge Diet: No Restrictions Discharge Activity: Return to Normal Activity, May Shower, Use Walker Weight Bearing Status: Weight bearing as tolerated Call your doctor if you observe: Fever of 101 or Higher, Inability to urinate, Inability to have a bowel movement, Shortness of breath, Chest pain, Uncontrolled pain Home Medications: Medications to take at Discharge Gabapentin [Neurontin] 600 mg PO 4X/DAY 05/26/15 citalopram 20 mg tablet 20 mg PO QDAY 04/21/18 ALPRAZolam [Xanax] 0.25 mg PO QHS 08/27/18 Apixaban [Eliquis] 5 mg PO BID 08/27/18 Atorvastatin Calcium 10 mg PO QDAY 08/27/18 Bisacodyl 10 mg RC DAILY PRN PRN 08/27/18 Diltiazem HCl [Diltiazem ER] 120 mg PO DAILY 08/27/18 Iron Polysaccharide Complex [Ferrex 150] 150 mg PO DAILYCM 08/27/18 Isosorbide Mononitrate [Isosorbide Mononitrate ER] 30 mg PO QDAY 08/27/18 Methadone HCl [(None)] 5 mg PO TID 08/27/18 Mineral Oil 1 bottle RC DAILY PRN 08/27/18 Nystatin Powder [Mycostatin Powder] 1 applic TOPICAL TID 08/27/18 Omeprazole 20 mg PO DAILY 08/27/18 Polyethylene Glycol 3350 [Miralax] 17 gm PO DAILY 08/27/18 Acetaminophen [Tylenol] 1,000 mg PO Q6H PRN PRN tablet 09/07/18 Furosemide [Lasix] 40 mg PO DAILY@1000 #30 tablet 09/07/18 Menthol/Lanolin/Calamine/Znox [Calmoseptine Ointment] 1 applic TOPICAL 0600,2200 tube 09/07/18 Oxycodone [Oxyir] 5 mg PO Q4H PRN PRN #10 tablet 09/07/18 Potassium Chloride [K-Dur] 40 meq PO BIDCM #120 tablet 09/07/18 Senna/Docusate Sodium [Senokot-S] 2 tablet PO BIDCM #120 tablet 09/07/18 Following Prescrptions Were Given to Patient: Furosemide [Lasix] 40 mg PO DAILY@1000 #30 tablet Potassium Chloride [K-Dur] 40 meq PO BIDCM #120 tablet Senna/Docusate Sodium [Senokot-S] 2 tablet PO BIDCM #120 tablet Primary Care Physician: Fan Ruiz DO [Primary Care Provider] - Please follow up with your Primary Care Physician in: 1 week. Please Follow Up With: Fan Ruiz DO When: 1-2 weeks after discharge Please Follow Up With: Jerica KHANNA When: 1 week. Please Follow Up With: Kory Giraldo MD When: 1 week. Disposition: Home with Home Health Minutes spent on discharge:: 35 Patient Condition:: Stable Medical Necessity - Tobacco Use Smoking Status: Former smoker Tobacco Use: Non-smoker Meaningful Use Info Meaningful Use Diagnoses (Choose all that apply): None applicable
--- NOTE | 2018-09-07 08:43 | HHNOTE_ITS ---
Home Health Note - Plan Overview of reason of hospitalization: The patient is a 77 year old Female with below past medical history hospitalized for acute diastolic congestive heart failure, complicated by hypokalemia, admitted to TCU with debility, here for rehabilitation, strengthening, prior to discharge home with family. Discharge home with family, Home Health Care. Problems: Patient was seen for (Last Reviewed 04/21/18 @ 14:36 by Kory Giraldo MD) Shortness of breath (Acute) Edema (Acute) Atrial fibrillation (Chronic) Acute on chronic diastolic heart failure (Acute) Anemia (Chronic) Stroke (Chronic) Hypertension (Chronic) Chronic pain (Chronic) DVT (deep venous thrombosis) (Chronic) Neuropathic pain (Chronic) Depression (Chronic) Opioid dependence (Chronic) GERD (gastroesophageal reflux disease) (Chronic) Hypokalemia (Chronic) Complete List of Medical Problems (Last Reviewed 04/21/18 @ 14:36 by Kory Giraldo MD) Acute anemia (Acute) Congestive heart failure (CHF) (Acute) Hypoxia (Acute) Anxiety (Chronic) Gastritis (Acute) Hiatal hernia (Chronic) Shortness of breath (Acute) Edema (Acute) Atrial fibrillation (Chronic) Acute on chronic diastolic heart failure (Acute) Anemia (Chronic) Stroke (Chronic) Hypertension (Chronic) Chronic pain (Chronic) DVT (deep venous thrombosis) (Chronic) Neuropathic pain (Chronic) Depression (Chronic) Opioid dependence (Chronic) GERD (gastroesophageal reflux disease) (Chronic) Hypokalemia (Chronic) 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) Other regional intermodal truck driver (current) drug therapy (Chronic) Hyperlipidemia (Chronic) Essential (primary) hypertension (Chronic) Paroxysmal atrial fibrillation (Chronic) Chronic pain syndrome (Chronic) Transverse myelitis (Chronic) History of DVT (deep vein thrombosis) (Chronic) Atrial flutter (Chronic) - Requirements and Reasons Disciplines Needed/Ordered: Care Home, Physical Therapy Reason for Disciplines: Disease Specific Monitoring/education, Medication Management/Knowledge Deficit, Observation Assessment, Gait Training, Stair Training, Fall Prevention, Home Safety/Equipment Instruction, Balance and/or Posture Training, Transfer Training Related To: Limited/Poor Endurance, Shortness of Breath with Activity, Physical Impairments, Unsteady Gait/Balance, Fall Risk Patient is unable to leave the home: Without Aid of Supportive Devices (crutches, cane, wheelchair, walker), Without the assistance of another person - Additional Disciplines Additional Disciplines Needed/Ordered: Occupational Therapy, Home Health Aide
[2018-09-07] MEDS: Gabapentin 300 MG Capsule 600 MG PO ×4 (08:48→20:50)
[2018-09-07] MEDS: Isosorbide Mononitrate 30 MG Tablet PO (08:49)
[2018-09-07] MEDS: APIXABAN 5 MG TABLET PO ×2 (08:49→17:58)
[2018-09-07] MEDS: dilTIAZem CD 120 MG Capsule PO (08:49)
[2018-09-07] MEDS: Citalopram 20 MG Tablet PO (08:49)
[2018-09-07] MEDS: Iron Polysaccharide Complex 150 MG CAPSULE PO (08:49)
[2018-09-07] MEDS: Senna/Docusate Sodium 1 Tablet 2 TABLET PO ×2 (08:52→17:56)
[2018-09-07] MEDS: Polyethylene Glycol 3350 17 GM PACKET PO (08:53)
[2018-09-07 10:00] VITALS: PULSE 90; O2SAT 96
[2018-09-07] MEDS: Furosemide 40 MG Tablet PO (11:37)
--- NOTE | 2018-09-07 14:43 | CASEMGMT ---
Social Work Met with pt in room and confirmed pt plans to d/c home with her son and daughter in law on 09/10/18. Pt is agreeable to home health and would like to use [facility]. Pt has needed DME included home O2 which is provided by [facility]. Referral made to Jerica at [facility] for home health RN, PT, OT and CITY PLANNING TEACHER. [facility] are able to accept pt. VM left with pt dgt Edelmira to confirm d/c plan. No further SW needs at this time. Plan: Home with family on 09/10/18 with Home SN, PT, OT, CITY PLANNING TEACHER ALEXA Riddle
[2018-09-07 15:08] VITALS: BP 108/64; PULSE 94; RESP 18; TEMP 37.2; O2SAT 92
[2018-09-07 16:30] VITALS: O2SAT 96
[2018-09-07] MEDS: ALPRAZolam 0.25 MG Tablet PO (20:50)
[2018-09-07] MEDS: Atorvastatin Calcium 10 MG Tablet PO (20:50)
[2018-09-08] MEDS: oxyCODONE 5 MG Tablet PO ×3 (03:10→20:50)
[2018-09-08] MEDS: Pantoprazole Sodium 20 MG Tablet PO (05:41)
[2018-09-08] MEDS: Menthol/Lanolin/Calamine/Znox 113 GM Tube 1 APPLIC TOPICAL ×2 (05:41→20:45)
[2018-09-08] MEDS: Nystatin Powder 15gm Bottle 1 APPLIC TOPICAL ×3 (05:41→20:47)
[2018-09-08 06:54] LABS: Anion Gap 6 (5-15); BUN 30 mg/dL (7-18); BUN/Creat Ratio 33.8 RATIO (10-20); Calcium,Total 9.4 mg/dL (8.5-10.1); Chloride 98 mmol/L (98-107); Creatinine, Serum 0.89 mg/dL (0.55-1.02); EST Glomerular Filtration Rate 66 mL/min (>60); Est Glom Filt Rate - Afr Amer 80 mL/min (>60); Estimated Creatinine Clearance 39.23 ml/min; Glucose 81 mg/dL (74-106); Potassium 4.2 mmol/L (3.5-5.1); Sodium Level 140 mmol/L (136-145)
[2018-09-08 08:36] VITALS: BP 126/60; PULSE 87; O2SAT 97
[2018-09-08] MEDS: Polyethylene Glycol 3350 17 GM PACKET PO (08:40)
[2018-09-08] MEDS: Iron Polysaccharide Complex 150 MG CAPSULE PO (08:43)
[2018-09-08] MEDS: Citalopram 20 MG Tablet PO (08:43)
[2018-09-08] MEDS: Isosorbide Mononitrate 30 MG Tablet PO (08:43)
[2018-09-08] MEDS: APIXABAN 5 MG TABLET PO ×2 (08:43→17:48)
[2018-09-08] MEDS: Gabapentin 300 MG Capsule 600 MG PO ×4 (08:43→20:48)
[2018-09-08] MEDS: Senna/Docusate Sodium 1 Tablet 2 TABLET PO ×2 (08:43→17:48)
[2018-09-08] MEDS: dilTIAZem CD 120 MG Capsule PO (08:43)
[2018-09-08] MEDS: Furosemide 40 MG Tablet PO (08:56)
[2018-09-08 11:30] VITALS: PULSE 89; RESP 18; O2SAT 95
[2018-09-08 16:00] VITALS: BP 91/60; PULSE 91; RESP 20; TEMP 36.3; O2SAT 99
[2018-09-08] MEDS: Atorvastatin Calcium 10 MG Tablet PO (20:47)
[2018-09-08] MEDS: ALPRAZolam 0.25 MG Tablet PO (20:49)
[2018-09-09] MEDS: oxyCODONE 5 MG Tablet PO ×4 (00:50→20:52)
[2018-09-09] MEDS: Menthol/Lanolin/Calamine/Znox 113 GM Tube 1 APPLIC TOPICAL ×2 (05:33→20:50)
[2018-09-09] MEDS: Nystatin Powder 15gm Bottle 1 APPLIC TOPICAL ×3 (05:34→20:51)
[2018-09-09] MEDS: Pantoprazole Sodium 20 MG Tablet PO (05:35)
[2018-09-09 07:00] VITALS: O2SAT 94
[2018-09-09] MEDS: Furosemide 40 MG Tablet PO (09:09)
[2018-09-09] MEDS: Senna/Docusate Sodium 1 Tablet 2 TABLET PO ×2 (09:09→18:02)
[2018-09-09] MEDS: Citalopram 20 MG Tablet PO (09:09)
[2018-09-09] MEDS: Polyethylene Glycol 3350 17 GM PACKET PO (09:10)
[2018-09-09] MEDS: APIXABAN 5 MG TABLET PO ×2 (09:11→18:02)
[2018-09-09] MEDS: dilTIAZem CD 120 MG Capsule PO (09:11)
[2018-09-09] MEDS: Isosorbide Mononitrate 30 MG Tablet PO (09:11)
[2018-09-09] MEDS: Iron Polysaccharide Complex 150 MG CAPSULE PO (09:11)
[2018-09-09] MEDS: Gabapentin 300 MG Capsule 600 MG PO ×4 (09:11→20:51)
[2018-09-09 10:00] VITALS: PULSE 103; RESP 18; O2SAT 96
--- NOTE | 2018-09-09 12:23 | NURSING ---
wound photo: right inner buttock
[2018-09-09 15:40] VITALS: BP 102/49; PULSE 77; RESP 17; TEMP 37; O2SAT 96
[2018-09-09] MEDS: ALPRAZolam 0.25 MG Tablet PO (20:51)
[2018-09-09] MEDS: Atorvastatin Calcium 10 MG Tablet PO (20:51)
[2018-09-10] MEDS: Menthol/Lanolin/Calamine/Znox 113 GM Tube 1 APPLIC TOPICAL (05:56)
[2018-09-10] MEDS: Pantoprazole Sodium 20 MG Tablet PO (05:57)
[2018-09-10] MEDS: Nystatin Powder 15gm Bottle 1 APPLIC TOPICAL (05:57)
[2018-09-10 07:41] VITALS: O2SAT 92
[2018-09-10 08:00] VITALS: BP 124/50; PULSE 80; RESP 18; TEMP 36.1; O2SAT 98
[2018-09-10 08:30] VITALS: BP 103/65; PULSE 95
[2018-09-10] MEDS: Isosorbide Mononitrate 30 MG Tablet PO (08:43)
[2018-09-10] MEDS: Senna/Docusate Sodium 1 Tablet 2 TABLET PO (08:43)
[2018-09-10] MEDS: Citalopram 20 MG Tablet PO (08:43)
[2018-09-10] MEDS: Gabapentin 300 MG Capsule 600 MG PO ×2 (08:44→11:50)
[2018-09-10] MEDS: dilTIAZem CD 120 MG Capsule PO (08:44)
[2018-09-10] MEDS: APIXABAN 5 MG TABLET PO (08:44)
[2018-09-10] MEDS: Iron Polysaccharide Complex 150 MG CAPSULE PO (08:44)
[2018-09-10] MEDS: Polyethylene Glycol 3350 17 GM PACKET PO (08:45)
[2018-09-10] MEDS: oxyCODONE 5 MG Tablet PO (10:15)
[2018-09-10] MEDS: Furosemide 40 MG Tablet PO (10:16)
--- NOTE | 2018-09-10 10:22 | NURSING ---
PT REFUSED THE PREVNOR PCV-13. EDUCATED PT, PT STATED SHE WILL ASK HER DOCTOR FIRST. REPORTED TO TOMAS SANDERS
[2018-09-10 10:42] VITALS: PULSE 95; RESP 18; O2SAT 96
--- NOTE | 2018-09-11 06:53 | MDS.RN ---
Information for the mds was obtained from review of the clinical record, interview of resident, staff, and direct observation of resident's care.
== END 2018-09-10 13:40 | disposition home health service (06) | DRG 948 ==
PROVIDERS: Admitting Provider Family Medicine Geriatric Medicine; Family Provider Family Medicine; PCP Family Medicine; Visit Provider Family Medicine Geriatric Medicine
DX: R53.81 Other malaise (principal); F11.20 Opioid dependence, uncomplicated; G37.3 Acute transverse myelitis in demyelinating disease of central nervous system; I50.32 Chronic diastolic (congestive) heart failure; E78.5 Hyperlipidemia, unspecified; I25.10 Atherosclerotic heart disease of native coronary artery without angina pectoris; I11.0 Hypertensive heart disease with heart failure; I48.0 Paroxysmal atrial fibrillation; Z86.73 Personal history of transient ischemic attack (TIA), and cerebral infarction without residual deficits; Z86.718 Personal history of other venous thrombosis and embolism; G89.4 Chronic pain syndrome; F32.9 Major depressive disorder, single episode, unspecified; F41.9 Anxiety disorder, unspecified; K21.9 Gastro-esophageal reflux disease without esophagitis; E87.6 Hypokalemia; K44.9 Diaphragmatic hernia without obstruction or gangrene; B35.4 Tinea corporis; D50.9 Iron deficiency anemia, unspecified; L89.312 Pressure ulcer of right buttock, stage 2
CPT/HCPCS: 36415; 80048; 85025; 97110; 97116; 97162; 97166; 97530; 97535; 97802

== ENCOUNTER → 2019-03-08 | Outpatient (CLI) | payer MEDICARE, OTHER, SELFPAY ==
[2019-03-08 14:40] VITALS: BMI 28.8
[2019-03-09 11:05] LABS: Color, Urine Yellow (Yellow); Glucose, Dipstick Normal (Normal); Ketone-Dipstick Negative (Negative); Leukocyte Esterase-Dipstick 500 /ul (Negative); Nitrite-Dipstick Negative (Negative); Occult Blood-Urine 50 /ul (Negative); Protein-Dipstick 30 mg/dl (Negative); Specific Gravity, Urine 1.015 (1.002-1.030); Urine Bilirubin Dipstick Negative (Negative); Urine Clarity Cloudy (Clear); Urine Urobilinogen Normal (Normal); Urine pH 6.5 (5.0 - 8.0)
[2019-03-09 11:13] LABS: Bacteria 1+ /hpf (None Seen); Mucous, Urine RARE /hpf (<or=2+); Red Blood Cells-Urine 0-5 SEEN /hpf (0-5); Squamous Epithelial Cells - UA 0-5 SEEN /hpf (5-10); White Blood Cells >100 SEEN /hpf (0-5)
[2019-03-09 11:14] LABS: Calcium Oxalate Crystals Ur RARE /hpf (<or=2+)
== END | disposition home or self-care (01) ==
LOC: BIMLAB 03-09 10:21
PROVIDERS: Family Provider Family Medicine; PCP Internal Medicine; Visit Provider Internal Medicine
DX: R30.0 Dysuria (principal)
CPT/HCPCS: 81001; 87086; 87088; 87186

== ENCOUNTER → 2019-04-06 | Outpatient (CLI) | payer MEDICARE, OTHER, SELFPAY ==
[2019-04-06 10:58] VITALS: BMI 28.8
[2019-04-06 12:22] LABS: Absolute Neutrophil Count 2.6 X10^3/uL (2.0-7.7); Basophil# 0.05 X10^3/uL; Basophil% 1.3 % (0-1); Eosinophils% 2.6 % (0-5); Hematocrit 39.1 % (37-47); Hemoglobin 12.5 g/dL (12.0-15.0); Lymphocyte % 18.1 % (19-41); Mean Corpuscular Hgb 30.2 pg (27.0-32.0); Mean Corpuscular Volume 94.4 fL (81-99); Mean Platelet Vol. 10.8 fl (6.2-12.0); Monocyte# 0.39 X10^3/uL; Monocyte% 10.1 % (0-10); NRBC Flagged by Analyzer 0 % (0-5); Neutrophil # 2.61 X10^3/uL (2.7-7.7); Neutrophil % 67.6 % (47-70); Platelet Count 164 K/mm3 (150-450); RBC Distribution Width CV 13.1 % (11.6-14.6); RBC Distribution Width SD 45.1 fl (35.1-43.9); Red Blood Count 4.14 M/mm3 (4.2-5.4); White Blood Count 3.9 K/mm3 (4.4-11.0)
[2019-04-06 13:07] LABS: Vitamin D,25 Hydroxy 26.5 ng/mL (29.95-100.01)
[2019-04-06 13:10] LABS: Anion Gap 5 (5-15); BUN 23 mg/dL (7-18); BUN/Creat Ratio 29.3 RATIO (10-20); Calcium,Total 9.3 mg/dL (8.5-10.1); Chloride 101 mmol/L (98-107); Creatinine, Serum 0.78 mg/dL (0.55-1.02); EST Glomerular Filtration Rate 76 mL/min (>60); Est Glom Filt Rate - Afr Amer 92 mL/min (>60); Glucose 81 mg/dL (74-106); Magnesium 2.1 mg/dL (1.6-2.6); Phosphorus 3.3 mg/dL (2.5-4.9); Sodium Level 139 mmol/L (136-145)
== END | disposition home or self-care (01) ==
LOC: BIMLAB 11:51
PROVIDERS: Family Provider Family Medicine; PCP Internal Medicine; Visit Provider Internal Medicine
DX: E87.6 Hypokalemia (principal); D64.9 Anemia, unspecified; E55.9 Vitamin D deficiency, unspecified; I10 Essential (primary) hypertension
CPT/HCPCS: 36415; 80048; 82306; 83735; 84100; 85025

== ENCOUNTER → 2019-05-11 | Outpatient (CLI) | payer MEDICARE, OTHER, SELFPAY ==
[2019-04-06 10:58] VITALS: BMI 28.8
[2019-05-12 08:55] LABS: Mucous, Urine 0 SEEN /hpf (<or=2+)
[2019-05-12 12:50] LABS: Color, Urine Yellow (Yellow); Glucose, Dipstick Normal (Normal); Ketone-Dipstick Negative (Negative); Leukocyte Esterase-Dipstick 500 /ul (Negative); Nitrite-Dipstick Negative (Negative); Occult Blood-Urine 10 /ul (Negative); Protein-Dipstick 30 mg/dl (Negative); Specific Gravity, Urine 1.015 (1.002-1.030); Urine Bilirubin Dipstick Negative (Negative); Urine Clarity Sl. Cloudy (Clear); Urine Urobilinogen Normal (Normal)
[2019-05-12 12:59] LABS: Bacteria 1+ /hpf (None Seen); Red Blood Cells-Urine 0-5 SEEN /hpf (0-5); Squamous Epithelial Cells - UA 0-5 SEEN /hpf (5-10); White Blood Cells 25-50 SEEN /hpf (0-5)
== END | disposition home or self-care (01) ==
LOC: BIMLAB 05-12 08:54
PROVIDERS: Family Provider Family Medicine; PCP Internal Medicine; Visit Provider Internal Medicine
DX: N39.0 Urinary tract infection, site not specified (principal)
CPT/HCPCS: 81001; 87077; 87086; 87088; 87186

== ENCOUNTER → 2019-06-08 13:48 | Outpatient (CLI) | payer MEDICARE, OTHER, SELFPAY ==
[2019-04-06 10:58] VITALS: BMI 28.8
--- NOTE | 2019-06-08 13:51 | US_ITS ---
STUDY: RENAL ULTRASOUND - COMPLETE REASON FOR EXAM: Female, 78 years old. Chronic UTIs. TECHNIQUE: Ultrasound evaluation of the kidneys was performed with real-time and static fischer-scale imaging. Imaging was limited by patient condition. COMPARISON: Portable AP supine view of the abdomen and pelvis May 26, 2018. FINDINGS: RIGHT KIDNEY: Normal location of the right kidney, which is normal in size. The right kidney measures 9.2 x 4.2 x 3.3 cm. There is a normal cortex of the right kidney. The renal cortex measures 0.9 cm. There is no right renal mass or cyst. There are no right renal calculi. There is no right hydronephrosis. DISTAL RIGHT URETER: There is non-visualization of the distal right ureter. There is no demonstrated right ureterovesical junction calculus. There is no demonstrated right ureteral jet. LEFT KIDNEY: Normal location of the left kidney, which is normal in size. The left kidney measures 8.7 x 3.8 x 3.8 cm. There is a normal cortex of the left kidney. The renal cortex measures 1.0 cm. There is no left renal mass or cyst. There are no left renal calculi. There is no left hydronephrosis. DISTAL LEFT URETER: There is non-visualization of the distal left ureter. There is no demonstrated left ureterovesical junction calculus. There is a visualized left ureteral jet. BLADDER: The urinary bladder has a volume of 153 mL at the time of scanning. There is a 3.6 elevated wall thickness of the distended urinary bladder. There is no demonstrated mass within the urinary bladder. There are no demonstrated bladder calculi. US/Kidney and Bladder IMPRESSION: Normal ultrasound of the kidneys and urinary bladder. Electronically Signed: Devin Bernardo MD at 19:51 EDT , Service support ,
== END ==
PROVIDERS: Family Provider Internal Medicine; PCP Internal Medicine; Referring Provider Urology; Visit Provider Urology
DX: N39.0 Urinary tract infection, site not specified (principal)
CPT/HCPCS: 76770

== ENCOUNTER 2019-09-10 13:17 | Emergency (ER) | payer MEDICARE, OTHER, SELFPAY ==
[2019-07-26 11:30] VITALS: BMI 30.2
[2019-09-10 13:19] VITALS: BP 141/99; PULSE 100; RESP 16; TEMP 36.9; O2SAT 91; BMI 24.9
--- NOTE | 2019-09-10 13:41 | RAD_ITS ---
STUDY: X-RAY CHEST REASON FOR EXAM: Female, 78 years old. HEART RACING AND DISCOMFORT -- HX AFIB, CHF AND COPD TECHNIQUE: Single AP portable view of the chest. COMPARISON: August 26, 2018 FINDINGS: There are chronic bibasilar interstitial fibrotic changes of the lungs. There is no demonstrated pleural abnormality. Normal size heart. The remaining visualized structures are stable. Multiple healed right-sided rib fractures reidentified. RAD/Chest 1 View (Portable) IMPRESSION: No acute process Electronically Signed: Martínez Patel MD at 14:04 EST , Service support ,
--- NOTE | 2019-09-10 13:42 | EKG12_ITS ---
Test Reason : AFIB Blood Pressure : / mmHG Vent. Rate : 097 BPM Atrial Rate : 127 BPM P-R Int : 000 ms QRS Dur : 086 ms QT Int : 372 ms P-R-T Axes : 000 024 019 degrees QTc Int : 472 ms Atrial fibrillation Nonspecific T wave abnormality Prolonged QT Abnormal ECG Confirmed by JOYCELYN KELLY MD ([id number]), newspaper photo editor ABRIL STARKS ([id number]) on 09/13/2019 12:59:44 PM Referred By: ARMIDA
[2019-09-10] MEDS: 0.9% Normal Saline 1,000 ML 75 ML IV (13:50)
[2019-09-10 13:59] LABS: Absolute Lymphocyte Count 0.68 X10^3/uL (0.83-4.51); Absolute Neutrophil Count 3.8 X10^3/uL (2.0-7.7); Basophil# 0.04 X10^3/uL; Basophil% 0.8 % (0-1); Eosinophil# 0.02 X10^3/uL; Eosinophils% 0.4 % (0-5); Hematocrit 42.1 % (37-47); Hemoglobin 13.4 g/dL (12.0-15.0); Lymphocyte # 0.68 X10^3/ul (4.0); Lymphocyte % 13.7 % (19-41); Mean Corp Hgb Conc 31.8 g/dL (32-36); Mean Corpuscular Hgb 29.7 pg (27.0-32.0); Mean Corpuscular Volume 93.3 fL (81-99); Mean Platelet Vol. 11.1 fl (6.2-12.0); Monocyte# 0.43 X10^3/uL; Monocyte% 8.7 % (0-10); NRBC Flagged by Analyzer 0 % (0-5); Neutrophil # 3.77 X10^3/uL (2.7-7.7); Neutrophil % 76.2 % (47-70); Platelet Count 177 K/mm3 (150-450); RBC Distribution Width CV 13.4 % (11.6-14.6); RBC Distribution Width SD 45.4 fl (35.1-43.9); Red Blood Count 4.51 M/mm3 (4.2-5.4)
[2019-09-10 14:06] LABS: Anion Gap 4 (5-15); BUN 21 mg/dL (7-18); BUN/Creat Ratio 24.2 RATIO (10-20); Calcium,Total 9.8 mg/dL (8.5-10.1); Chloride 103 mmol/L (98-107); Creatinine, Serum 0.87 mg/dL (0.55-1.02); EST Glomerular Filtration Rate 67 mL/min (>60); Est Glom Filt Rate - Afr Amer 81 mL/min (>60); Glucose 98 mg/dL (74-106); Potassium 3.9 mmol/L (3.5-5.1); Sodium Level 139 mmol/L (136-145)
[2019-09-10 14:42] VITALS: BP 144/97; PULSE 89; RESP 15; O2SAT 98
[2019-09-10 15:02] VITALS: RESP 18
--- NOTE | 2019-09-10 16:01 | ED.DCSUM_ITS ---
History of Present Illness Chief Complaint: Palpitations Informant: Patient, Family Onset: Days Timing: Waxes and wanes Current Severity: Mild Maximum Severity: Moderate Narrative: Patient presents secondary to palpitations for the past couple of days. She does have a history of atrial fibrillation. She states she has had heart rates up into the 1 teens. She has some mild chest heaviness. She is currently on diltiazem 120 mg extended release and Eliquis. - Past Medical History (1) Anxiety and depression Status: Chronic (2) Atrial flutter Status: Chronic (3) Cerebral artery occlusion with cerebral infarction Status: Chronic (4) Chronic pain Status: Chronic (5) Congestive heart failure (CHF) Status: Chronic Comment: diastolic (6) Essential (primary) hypertension Status: Chronic (7) GERD (gastroesophageal reflux disease) Status: Chronic (8) Hiatal hernia Status: Chronic (9) History of DVT (deep vein thrombosis) Status: Chronic (10) Hyperlipidemia Status: Chronic (11) Neuropathic pain Status: Chronic (12) Opioid dependence Status: Chronic (13) Other ferry terminal agent (current) drug therapy Status: Chronic (14) Paroxysmal atrial fibrillation Status: Chronic (15) Stroke Status: Chronic (16) Transverse myelitis Status: Chronic (17) Acute ischemic stroke Status: Resolved Past Medical History - Allergies and Home Meds Allergies/Adverse Reactions: Allergies morphine Allergy (Verified 07/26/19 11:30) Hives carbamazepine [From Tegretol] Adverse Reaction (Intermediate, Verified 07/26/19 11:30) HALLUCINATIONS procaine HCl [From Novocain] Adverse Reaction (Intermediate, Verified 07/26/19 11:30) HEART RACES,FEELS LIKE WILL PASS OUT Primary Care Physician: Ольга Riggins MD [Primary Care Provider] - Doctors: Dr. Giraldo Prior records reviewed: Yes Surgical History: hysterectomy Smoking Status: Former smoker - Family History Offspring Family History: Family History (Last Reviewed 07/28/19 @ 10:23 by JEY Leblanc) Mother Colon cancer Father Myocardial infarction Uncle Asthma Family History: Reports: - - MS Maternal Family History: Family History (Last Reviewed 07/28/19 @ 10:23 by JEY Leblanc) Mother Colon cancer Father Myocardial infarction Uncle Asthma Family History: Reports: No pertinent history Paternal Family History: Family History (Last Reviewed 07/28/19 @ 10:23 by JEY Leblanc) Mother Colon cancer Father Myocardial infarction Uncle Asthma Family History: Reports: No pertinent history Review of Systems General: Denies: Chills, Fever Eyes: Denies: Visual changes - bilaterally ENT: Denies: Bilateral ear pain Cardiovascular: Reports: Chest pain, Palpitations, Heart racing Respiratory: Denies: Dyspnea, Cough Gastrointestinal: Denies: Abdominal pain, Nausea, Vomiting, Diarrhea Musculoskeletal: Denies: Swelling, Extremity Pain Skin: Denies: Rash Neurological: Denies: Headache Allergy: Denies: Uticaria Physical Exam Vital Signs/Narrative: Vital Signs Temp Pulse Resp BP Pulse Ox 09/10/19 15:02 18 09/10/19 14:42 89 15 144/97 H 98 09/10/19 13:19 98.4 F 100 16 141/99 H 91 Inital Vital Signs reviewed: Yes General: Well nourished, Well developed Head: Normocephalic ENT: Moist mucous membranes Neck: Supple Cardiovascular: Irregular Respiratory: No distress, CTA bilaterally Abdomen: Soft, Nontender Skin: Normal color Neurological: Alert, Oriented x3 Psychological: Normal affect Diagnostic/Tx/Re-eval Impressions Chest X-Ray 09/10/19 13:41 IMPRESSION: No acute process Electronically Signed: Martínez Patel MD at 14:04 EST , Service support , 09/10/19 13:41 Chest 1 View (Portable) [RAD] Stat Laboratory Results 09/10/19 09/10/19 13:24 13:24 WBC 5.0 RBC 4.51 Hgb 13.4 Hct 42.1 MCV 93.3 MCH 29.7 MCHC 31.8 L RDW Std Deviation 45.4 H RDW Coeff of Jus 13.4 Plt Count 177 MPV 11.1 Immature Gran % (Auto) 0.200 Neut % (Auto) 76.2 H Lymph % (Auto) 13.7 L Saline % (Auto) 8.7 Eos % (Auto) 0.4 Baso % (Auto) 0.8 Absolute Neuts (auto) 3.8 Absolute Lymphs (auto) 0.68 L Nucleated RBC % 0 Sodium 139 Potassium 3.9 Chloride 103 Carbon Dioxide 32.0 Anion Gap 4 L BUN 21 H Creatinine 0.87 Estim Creat Clear Calc 47.50 Est GFR (MDRD) Af Amer 81 Est GFR (MDRD) Non-Af 67 BUN/Creatinine Ratio 24.2 H Glucose 98 Calcium 9.8 Troponin I < 0.015 - EKG Initial EKG Interpretation: Atrial Fibrillation - A. fib at 97 with no acute ischemia. - Medical Decision Making Patient's heart rate has been in the 80s and 90s here. Systolic blood pressures in the 140s. I spoke with patient's brick and block mason, Dr. Giraldo. Patient will be given a dose of IV Cardizem here. We will switch her diltiazem to 120 mg twice daily. I will send a new prescription for her. ED Disposition - Plan for ED Patient: Disposition: Home or Assisted Living Diagnosis: Atrial fibrillation Instructions: Atrial Fibrillation Prescriptions: Diltiazem HCl [Diltiazem 24Hr ER] 120 mg PO BID #[id number] cap.sa.24h Transmission Status: Pending to [address] Referrals: Ольга Riggins MD [Primary Care Provider] - Kory Giraldo MD [STAFF PHYSICIAN] - 1-2 Weeks
[2019-09-10] MEDS: dilTIAZem 25 MG/5 ML Vial 10 MG IV BOLUS (16:10)
[2019-09-10 16:27] VITALS: BP 140/86; PULSE 86; PULSE 88; RESP 14; RESP 17; O2SAT 97; O2SAT 98
== END 2019-09-10 16:39 | disposition home or self-care (01) ==
PROVIDERS: Emergency Provider Emergency Medicine; Family Provider Internal Medicine; PCP Internal Medicine
DX: I48.0 Paroxysmal atrial fibrillation (principal); F41.9 Anxiety disorder, unspecified; F32.9 Major depressive disorder, single episode, unspecified; I11.0 Hypertensive heart disease with heart failure; I50.9 Heart failure, unspecified; K21.9 Gastro-esophageal reflux disease without esophagitis; K44.9 Diaphragmatic hernia without obstruction or gangrene; E78.5 Hyperlipidemia, unspecified; G37.3 Acute transverse myelitis in demyelinating disease of central nervous system; Z86.73 Personal history of transient ischemic attack (TIA), and cerebral infarction without residual deficits; Z86.718 Personal history of other venous thrombosis and embolism; Z79.01 Long term (current) use of anticoagulants; Z79.899 Other long term (current) drug therapy; Z87.891 Personal history of nicotine dependence
CPT/HCPCS: 71045; 80048; 84484; 85025; 93005; 96361; 96374; 99284; J7030; A4216

== ENCOUNTER → 2019-11-19 15:24 | Outpatient (CLI) | payer MEDICARE, OTHER, SELFPAY ==
[2019-11-19 14:47] VITALS: BMI 24.9
[2019-11-19 17:24] LABS: ALB/GLOB Ratio 0.5 RATIO (0.9-2.4); AST(SGOT) 21 U/L (15-37); Alanine Aminotransfer ALT/SGPT 17 U/L (13-56); Albumin, Serum 2.9 g/dL (3.2-5.0); Alkaline Phosphatase 129 U/L (45-117); Anion Gap 1 (5-15); BUN 24 mg/dL (7-18); Calcium,Total 9.9 mg/dL (8.5-10.1); Chloride 102 mmol/L (98-107); Creatinine, Serum 1.09 mg/dL (0.55-1.02); EST Glomerular Filtration Rate 52 mL/min (>60); Est Glom Filt Rate - Afr Amer 63 mL/min (>60); Globulin 5.5 g/dL (2.2-4.2); Glucose 85 mg/dL (74-106); Potassium 4.4 mmol/L (3.5-5.1); Protein, Total 8.4 g/dL (6.4-8.2); Sodium Level 139 mmol/L (136-145); T4 Free Direct 0.87 ng/dL (0.76-1.46); Thyroid Stim Hormone (TSH) 1.68 uIU/mL (0.358-3.74)
== END ==
PROVIDERS: PCP Internal Medicine; Referring Provider Internal Medicine; Visit Provider Internal Medicine
DX: I10 Essential (primary) hypertension (principal); R68.89 Other general symptoms and signs
CPT/HCPCS: 36415; 80053; 84439; 84443

== ENCOUNTER → 2020-01-24 | Outpatient (CLI) | payer MEDICARE, OTHER, SELFPAY ==
[2020-01-03 16:12] VITALS: BMI 24.9
[2020-01-24 12:09] LABS: Anion Gap 3 (5-15); BUN 26 mg/dL (7-18); BUN/Creat Ratio 26.2 RATIO (10-20); Calcium,Total 9.8 mg/dL (8.5-10.1); Chloride 104 mmol/L (98-107); Creatinine, Serum 0.99 mg/dL (0.55-1.02); EST Glomerular Filtration Rate 58 mL/min (>60); Est Glom Filt Rate - Afr Amer 70 mL/min (>60); Glucose 82 mg/dL (74-106); Potassium 4.2 mmol/L (3.5-5.1); Sodium Level 142 mmol/L (136-145)
== END | disposition home or self-care (01) ==
LOC: LABSPEC 10:08
PROVIDERS: PCP Internal Medicine; Visit Provider Internal Medicine Cardiovascular Disease
DX: I48.19 Other persistent atrial fibrillation (principal); I11.0 Hypertensive heart disease with heart failure; I50.32 Chronic diastolic (congestive) heart failure; E78.5 Hyperlipidemia, unspecified; Z86.73 Personal history of transient ischemic attack (TIA), and cerebral infarction without residual deficits
CPT/HCPCS: 36415; 80048

== ENCOUNTER → 2020-10-10 14:53 | Outpatient (CLI) | payer MEDICARE, OTHER, SELFPAY ==
[2020-03-24 13:28] VITALS: BMI 24.9
--- NOTE | 2020-10-10 15:35 | RAD_ITS ---
STUDY: X-RAY - RIGHT SHOULDER REASON FOR EXAM: Female, 79 years old. Right shoulder pain TECHNIQUE: 4 view(s) of the shoulder. COMPARISON: None. FINDINGS: There is moderate degenerative arthrosis of the glenohumeral articulation. Normal acromioclavicular joint. Normal acromion. Normal humeral head and visualized proximal humerus. The soft tissue structures are unremarkable. Increased markings in the visualized portion of the right upper lobe suggestive of scarring. Healed right rib fractures. RAD/Shoulder min 2 Views IMPRESSION: Degenerative changes of the shoulder joint. Electronically Signed: Alverto Jay MD at 15:49 EST , Service support ,
[2020-10-10 16:49] LABS: Absolute Lymphocyte Count 0.99 X10^3/uL (0.83-4.51); Absolute Neutrophil Count 2.5 X10^3/uL (2.0-7.7); Basophil# 0.04 X10^3/uL; Eosinophil# 0.11 X10^3/uL; Eosinophils% 2.7 % (0-5); Hematocrit 42.6 % (37-47); Hemoglobin 13.4 g/dL (12.0-15.0); Lymphocyte # 0.99 X10^3/ul (4.0); Lymphocyte % 24.2 % (19-41); Mean Corp Hgb Conc 31.5 g/dL (32-36); Mean Corpuscular Hgb 29.7 pg (27.0-32.0); Mean Corpuscular Volume 94.5 fL (81-99); Mean Platelet Vol. 11.9 fl (6.2-12.0); Monocyte# 0.45 X10^3/uL; NRBC Flagged by Analyzer 0 % (0-5); Neutrophil # 2.49 X10^3/uL (2.7-7.7); Neutrophil % 60.9 % (47-70); Platelet Count 196 K/mm3 (150-450); RBC Distribution Width CV 12.6 % (11.6-14.6); RBC Distribution Width SD 43.8 fl (35.1-43.9); Red Blood Count 4.51 M/mm3 (4.2-5.4); White Blood Count 4.1 K/mm3 (4.4-11.0)
[2020-10-10 17:06] LABS: ALB/GLOB Ratio 0.6 RATIO (0.9-2.4); AST(SGOT) 25 U/L (15-37); Alanine Aminotransfer ALT/SGPT 28 U/L (13-56); Albumin, Serum 3.2 g/dL (3.2-5.0); Alkaline Phosphatase 139 U/L (45-117); Anion Gap 1 (5-15); BUN 27 mg/dL (7-18); BUN/Creat Ratio 27.2 RATIO (10-20); Calcium,Total 10.2 mg/dL (8.5-10.1); Chloride 97 mmol/L (98-107); Cholesterol 150 mg/dL (200); Creatinine, Serum 0.99 mg/dL (0.55-1.02); EST Glomerular Filtration Rate 57 mL/min (>60); Est Glom Filt Rate - Afr Amer 69 mL/min (>60); Globulin 5.7 g/dL (2.2-4.2); Glucose 95 mg/dL (74-106); High Density Lipoprotein 80 mg/dL; Potassium 3.9 mmol/L (3.5-5.1); Protein, Total 8.9 g/dL (6.4-8.2); Sodium Level 138 mmol/L (136-145); Triglycerides 103 mg/dL; Very Low Density Lipoprotein 21 mg/dL (5-40)
[2020-10-10 17:59] LABS: Vitamin D,25 Hydroxy 32.8 ng/mL
== END ==
PROVIDERS: PCP Internal Medicine; Referring Provider Internal Medicine; Visit Provider Internal Medicine
DX: M25.511 Pain in right shoulder (principal); E78.5 Hyperlipidemia, unspecified; I10 Essential (primary) hypertension; E55.9 Vitamin D deficiency, unspecified
CPT/HCPCS: 36415; 73030; 80053; 80061; 82306; 85025

== ENCOUNTER → 2021-03-28 13:33 | Outpatient (CLI) | payer MEDICARE, OTHER, SELFPAY ==
[2021-03-28 13:07] VITALS: BMI 30.7
[2021-03-28 15:13] LABS: Absolute Lymphocyte Count 1.01 X10^3/uL (0.83-4.51); Absolute Neutrophil Count 2.9 X10^3/uL (2.0-7.7); Basophil# 0.03 X10^3/uL; Basophil% 0.7 % (0-1); Eosinophils% 2.2 % (0-5); Hematocrit 41.1 % (37-47); Hemoglobin 13.2 g/dL (12.0-15.0); Lymphocyte # 1.01 X10^3/ul (0.83-4.51); Lymphocyte % 22.6 % (19-41); Mean Corp Hgb Conc 32.1 g/dL (32-36); Mean Corpuscular Hgb 30.7 pg (27.0-32.0); Mean Corpuscular Volume 95.6 fL (81-99); Mean Platelet Vol. 11.3 fl (6.2-12.0); Monocyte# 0.42 X10^3/uL; Monocyte% 9.4 % (0-10); NRBC Flagged by Analyzer 0 % (0-5); Neutrophil # 2.89 X10^3/uL (2.7-7.7); Neutrophil % 64.7 % (47-70); Platelet Count 216 K/mm3 (150-450); RBC Distribution Width SD 41.9 fl (35.1-43.9); White Blood Count 4.5 K/mm3 (4.4-11.0)
[2021-03-28 15:28] LABS: BUN 22 mg/dL (7-18); Creatinine, Serum 0.84 mg/dL (0.55-1.02); Glucose 73 mg/dL (74-106)
[2021-03-28 15:29] LABS: Anion Gap 1 (5-15); Calcium,Total 9.8 mg/dL (8.5-10.1); Chloride 96 mmol/L (98-107); EST Glomerular Filtration Rate 69 mL/min (>60); Est Glom Filt Rate - Afr Amer 84 mL/min (>60); Potassium 3.4 mmol/L (3.5-5.1); Sodium Level 139 mmol/L (136-145)
== END ==
PROVIDERS: PCP Internal Medicine; Referring Provider Internal Medicine; Visit Provider Internal Medicine
DX: I10 Essential (primary) hypertension (principal)
CPT/HCPCS: 36415; 80048; 85025

== ENCOUNTER → 2021-04-05 14:11 | Outpatient (CLI) | payer MEDICARE, OTHER, SELFPAY ==
[2021-03-28 13:07] VITALS: BMI 30.7
[2021-04-05 15:37] LABS: Anion Gap 1 (5-15); BUN 18 mg/dL (7-18); BUN/Creat Ratio 23.3 RATIO (10-20); Calcium,Total 9.6 mg/dL (8.5-10.1); Chloride 101 mmol/L (98-107); Creatinine, Serum 0.77 mg/dL (0.55-1.02); EST Glomerular Filtration Rate 77 mL/min (>60); Est Glom Filt Rate - Afr Amer 93 mL/min (>60); Glucose 87 mg/dL (74-106); Potassium 4.3 mmol/L (3.5-5.1); Sodium Level 138 mmol/L (136-145)
== END ==
PROVIDERS: PCP Internal Medicine; Referring Provider Internal Medicine; Visit Provider Internal Medicine
DX: E87.6 Hypokalemia (principal)
CPT/HCPCS: 36415; 80048

== ENCOUNTER → 2021-04-27 13:18 | Outpatient (CLI) | payer MEDICARE, OTHER, SELFPAY ==
[2021-04-27 14:59] LABS: Anion Gap 3 (5-15); BUN 23 mg/dL (7-18); BUN/Creat Ratio 27.2 RATIO (10-20); Chloride 101 mmol/L (98-107); Creatinine, Serum 0.85 mg/dL (0.55-1.02); EST Glomerular Filtration Rate 69 mL/min (>60); Est Glom Filt Rate - Afr Amer 84 mL/min (>60); Glucose 105 mg/dL (74-106); Potassium 3.2 mmol/L (3.5-5.1); Sodium Level 140 mmol/L (136-145)
== END ==
PROVIDERS: PCP Internal Medicine; Referring Provider Internal Medicine; Visit Provider Internal Medicine
DX: I10 Essential (primary) hypertension (principal); E87.6 Hypokalemia
CPT/HCPCS: 36415; 80048

== ENCOUNTER → 2021-05-25 13:30 | Outpatient (CLI) | payer MEDICARE, OTHER, SELFPAY ==
[2021-05-25 15:24] LABS: Anion Gap 2 (5-15); BUN 23 mg/dL (7-18); BUN/Creat Ratio 26.3 RATIO (10-20); Calcium,Total 9.7 mg/dL (8.5-10.1); Chloride 99 mmol/L (98-107); Creatinine, Serum 0.87 mg/dL (0.55-1.02); EST Glomerular Filtration Rate 67 mL/min (>60); Est Glom Filt Rate - Afr Amer 81 mL/min (>60); Glucose 100 mg/dL (74-106); Potassium 3.7 mmol/L (3.5-5.1); Sodium Level 140 mmol/L (136-145)
== END ==
PROVIDERS: PCP Internal Medicine; Referring Provider Nurse Practitioner Family; Visit Provider Nurse Practitioner Family
DX: E87.6 Hypokalemia (principal)
CPT/HCPCS: 36415; 80048

== ENCOUNTER 2021-06-15 12:30 | Outpatient (RCR) | payer MEDICARE, OTHER, SELFPAY ==
[2020-11-30 14:57] VITALS: BMI 31.1
[2020-12-27 14:02] VITALS: BMI 31.1
--- NOTE | 2020-12-28 12:44 | HP.PTEVAL_ITS ---
Patient's Visit Information PARISH AUGUSTINE is a 80 year old F referred to Physical Therapy by Dr. Ayanna Hurd DO with a diagnosis of R shoulder adhesive capsulitis. Date of Evaluation: 12/28/20 Physical Therapist: Chirag Bernabe DPT - Visit Plan Frequency: 1-2x /Week Duration: 4-6 Weeks Plan: Start with R passive ROM of R shoulder, US to decrease symptoms as needed. May add in some light isometrics as well. She has marked weakness in her core and legs and therefore she has to rely UEs for a lot of stability with walking. - Subjective Pt. is here today for her initial evaluation with diagnosis of R shoulder adhesive capsulitis. Pt. reports having pain for ~2 years and believes that her symptoms might have started when she was doing OT and felt a pop in her R arm. She reports not being able to use it well since. She denies N/T in her arm. She reports being able to use her arm at the elbow, but no functional use of her shoulder. PMH: Pt. was diagnosed with transverse myolitis ~20 years ago has been in wheel chair since with walking in home for short distances. Pt. did just finish HH PT which they were working on ROM as well. Increases pain: any movement, lying down, any lifting and stretching. Decreases pain: nothing. Pt. does have a friend who comes at helps out with a lot of activities in the home. The patient reprots she does do the dishes, light cooking, and some ADLs at home. Pt. is hopeful to reduce symptoms in order to get back to all ADLs without limitations. - Pain R shoulder Pain Intensity (Out of 10): 8 Pain Intensity Range: 6, 10 - Objective POSTURE: Pt. has very poor posture. Pt. spends most of her time in a Wheel chair. Pt. has anterior shoulder positioning bilaterally. Difficulty correcting with TCing. Maintained anterior shoulder, rounded posture. PALPATION: Pt. has high pain with palpation of subacromial space and biceps tendon. She also reports pain throughout scapulea on R side. NEURO: Pt. has normal sensation of BUEs, normal biceps and triceps DTR bilateral. ROM: R shoulder active: flexion 15deg, abd 10deg, functional ER mandable, functional IR ASIS. PROM: R shoulder: flexion: 50deg, abd 30deg, ER 20deg, IR 30deg at neutral. MMT: 2-/5 throughout shoulder; elbow- flexion 4/5, ext 4/5, IR 3/5 increase NW, ER 3/5 increase NW. shuolder shrug 4/5. L shoulder- flexion: 3+/5, abd 3+/5, ext 4+/5, ER 4/5, IR 4/5 - Goals Goal 1:: LTG: Pt. to be I with HEP. Goal Time Frame: 4-6 Weeks Goal 2:: STG: Pt. to sleep throughout the night without increase in symptoms. Goal Time Frame: 2-4 Weeks Goal 3:: LTG: Pt. to have increased active ROM of R shoulder to atleast 90deg in flexion and abduction. Goal Time Frame: 4-6 Weeks Goal 4:: STG: Pt. to have increased passive ROM of R shoulder to atleast 90deg of abd and flexion Goal Time Frame: 2-4 Weeks Goal 5:: LTG: Pt. to have decreased pain with all ADLs to 3/10 pain in R shoulder allowing for increased tolerance to all home activities. Goal Time Frame: 4-6 Weeks Goal 6:: LTG: Pt. to have increased core strength increased to fair reducing stress on R shoulder with all functional mobility. Goal Time Frame: 4-6 Weeks - Rehabilitation Potential Physical Therapy Diagnosis: Pt. has signs and symptoms consistent with R shoulder adhesive capsulitis. Pt. has extreme loss of active and passive ROM secondary to pain. I was unable to feel any end range of motion secondary to pain. Pt. was painful with all passive and active moblity, worse with active motion. Pt. did achieve improved passive compared to active. Pt. has very limited strength as well. Pt. would benefit from PT to address he ROM, pain and potentially to progress strength. Rehabilitation Potential: Fair - Anticipated Interventions Patient/Client Instruction: Educate patient on: Condition, Plan of Care, Risk Factors, Benefits of Fitness Program For the Purpose of:: To facilitate caregiver knowledge, To improve self management, To prevent re-injury, To improve ability to perform tasks related to life management, To improve tolerance to ADL's Therapeutic Exercise to Include: Strength training, Power training, Endurance training, Postural training, Flexibilty training, Passive ROM, Active ROM, Dynamic Lumbar Stabilization, Scapular Strength/Stabilization For the Purpose of:: To decrease pain, To decrease swelling/inflammation, To increase ROM, To improve nutrient delivery to tissue, To increase oxygenation perfusion, To improve muscle performance and motor function, To improve health of tissue, To decrease soft tissue restriction, To increase flexibility/ROM Manual Therapy Techniques to Include: Mobilization, Passive ROM, Soft tissue mobilization For the Purpose of:: To decrease pain, To decrease swelling/inflammation, To increase ROM, To improve nutrient delivery to tissue, To improve health of t issue, To decrease soft tissue restriction, To increase flexibility/ROM, To improve endurance Ultrasound (thermal/non thermal): Yes For the Purpose of:: To decrease pain, To decrease swelling/inflammation, To increase ROM, To improve nutrient delivery to tissue Thank you for the opportunity to evaluate your patient. For Medicare and Medicare HMO plans, please review the plan of care and approve it. It will need to be FAXED BACK to us at [phone] for Medicare purposes. For Medicare only, by signing this I certify the plan of care. Please let me know if there are questions or concerns regarding this plan of care. Physician Signature: Date:
--- NOTE | 2021-02-08 08:00 | HP.PTREVAL_ITS ---
Dr. Ayanna Hurd, DO, It has been my pleasure to treat PARISH AUGUSTINE over the last 5 visits for R shoulder adhesive capsulitis. Please see the progress note below for an update on the physical therapy plan of care! Subjective: Pt. states that she feels she has been getting better and it is getting easier to move her right shoulder. She hasn't been coming to therapy the past two weeks due to other appointments. Objective/Function: The pt. has improved her shoulder AROM into flexion and abduction. She can reach about 90-100degrees of active flexion and about 70- 90degrees of active abduction before feeling pain in her shoulder joint. We were able to get more motion with PROM, but she is still limited due to an empty end feel and the pt. experiencing pain. The pt. would like to continue therapy for once a week for a couple more weeks to try to improve her shoulder mobility. She does find ultrasound helpful and would like to continue this before exercise. Adding AAROM with a cane went well today and is something that the pt. will try to do on her home each day, she needed proper cueing on how to hold the cane. Plan Plan: Continue to decrease the pts. shoulder pain and increase her tolerance to moving the R shoulder and working on ROM. Incorporate general neck and shoulder strengthening exercises that do not increase her shoulder pain. Goals Goal 1:: LTG: Pt. to be I with HEP. Goal Time Frame: 4-6 Weeks Goal Progress: Progressing Goal 2:: STG: Pt. to sleep throughout the night without increase in symptoms. Goal Time Frame: 2-4 Weeks Goal Progress: Progressing Goal 3:: LTG: Pt. to have increased active ROM of R shoulder to atleast 90deg in flexion and abduction. Goal Time Frame: 4-6 Weeks Goal Progress: Progressing Goal 4:: STG: Pt. to have increased passive ROM of R shoulder to atleast 90deg o f abd and flexion Goal Time Frame: 2-4 Weeks Goal Progress: Progressing Goal 5:: LTG: Pt. to have decreased pain with all ADLs to 3/10 pain in R shoulder allowing for increased tolerance to all home activities. Goal Time Frame: 2-4 Weeks Goal Progress: Progressing Goal 6:: LTG: Pt. to have increased core strength increased to fair reducing stress on R shoulder with all functional mobility. Goal Time Frame: 4-6 Weeks Goal Progress: Progressing Anticipated Interventions Patient/Client Instruction: Educate patient on: Condition, Plan of Care, Risk Factors, Benefits of Fitness Program For the Purpose of:: To facilitate caregiver knowledge, To improve self management, To prevent re-injury, To improve ability to perform tasks related to life management, To improve tolerance to ADL's Therapeutic Exercise to Include: Strength training, Power training, Endurance training, Postural training, Flexibilty training, Passive ROM, Active ROM, Dynamic Lumbar Stabilization, Scapular Strength/Stabilization For the Purpose of:: To decrease pain, To decrease swelling/inflammation, To increase ROM, To improve nutrient delivery to tissue, To increase oxygenation perfusion, To improve muscle performance and motor function, To improve health of tissue, To decrease soft tissue restriction, To increase flexibility/ROM Manual Therapy Techniques to Include: Mobilization, Passive ROM, Soft tissue mobilization For the Purpose of:: To decrease pain, To decrease swelling/inflammation, To increase ROM, To improve nutrient delivery to tissue, To improve health of tissue, To decrease soft tissue restriction, To increase flexibility/ROM, To im prove endurance Ultrasound (thermal/non thermal): Yes For the Purpose of:: To decrease pain, To decrease swelling/inflammation, To increase ROM, To improve nutrient delivery to tissue Please do not hesitate to contact me at [phone] by phone or if you have questions or concerns regarding this new plan of care! Sincerely, Chirag Bernabe DPT
--- NOTE | 2021-05-09 09:44 | HP.PTREVAL_ITS ---
Dr. Ayanna Hurd, DO, It has been my pleasure to treat PARISH AUGUSTINE over the last 10 visits for R shoulder adhesive capsulitis. Please see the progress note below for an update on the physical therapy plan of care! Subjective: Pt. is here today for a follow up. She reports not being here for a while as she was fearful with COVID, but reports realizing that she needs to be here. Pt. reports overall improving, but not fully better yet. She is having some pain at the base of her C/T junctional region. as well as B shoulders and increased pain with shoulder elevation Objective/Function: ROM: R shoulder PROM: flexion 110deg, abd 90deg, ER at side 30deg, IR not tested. AROM flexion 90deg, abd 50deg, ER at side 30deg. CERVICAL SPINE: flexion nil loss NE, ext max loss increase NW, rotation R mod loss increase NW, rotation L mod loss increase NW,. Pt. has generalized flexed posture through thoracic spine and CT junction. MMT: LUE: wrist and elbow 5/5 throughout; shoulder 4/5 throughout. RUE: wrist and elbow 4+/5 throughout; shoulder- flexion 3+/5 abd 3+/4, ext 4/5, ER 3+/5, IR 4+/5. Pt. reports doing better overall. She has increased AROM of her shoulder has improved, but still is painful with end ranges of overhead motions. She continues to believe that she is improving. I am also seeing improvement. Plan Plan: I would recommend continued PT with use of US for pain control, cervical ROM, R shoulder AROM, AAROM, PROM. Look to add in postural strengthening exerci ses as tolerated. Cont. to progress HEP and consistency with HEP. Pt. is planning to follow up with spinal surgeon as well. Balance/Gait/Functional tests - Balance/Special Test Scores Quick DASH Score: 31.8175 Goals Goal 1:: LTG: Pt. to be I with HEP. Goal Time Frame: 4-6 Weeks Goal Progress: Progressing Goal 2:: STG: Pt. to sleep throughout the night without increase in symptoms. Goal Time Frame: 2-4 Weeks Goal Progress: Progressing Goal 3:: LTG: Pt. to have increased active ROM of R shoulder to atleast 90deg in flexion and abduction. Goal Time Frame: 4-6 Weeks Goal Progress: Progressing Goal 4:: STG: Pt. to have increased passive ROM of R shoulder to atleast 90deg of abd and flexion Goal Time Frame: 2-4 Weeks Goal Progress: Progressing Goal 5:: LTG: Pt. to have decreased pain with all ADLs to 3/10 pain in R shoulder allowing for increased tolerance to all home activities. Goal Time Frame: 2-4 Weeks Goal Progress: Progressing Goal 6:: LTG: Pt. to have increased core strength increased to fair reducing stress on R shoulder with all functional mobility. Goal Time Frame: 4-6 Weeks Goal Progress: Progressing Anticipated Interventions Patient/Client Instruction: Educate patient on: Condition, Plan of Care, Risk F actors, Benefits of Fitness Program For the Purpose of:: To facilitate caregiver knowledge, To improve self management, To prevent re-injury, To improve ability to perform tasks related to life management, To improve tolerance to ADL's Therapeutic Exercise to Include: Strength training, Power training, Endurance training, Postural training, Flexibilty training, Passive ROM, Active ROM, Dynamic Lumbar Stabilization, Scapular Strength/Stabilization For the Purpose of:: To decrease pain, To decrease swelling/inflammation, To increase ROM, To improve nutrient delivery to tissue, To increase oxygenation perfusion, To improve muscle performance and motor function, To improve health of tissue, To decrease soft tissue restriction, To increase flexibility/ROM Manual Therapy Techniques to Include: Mobilization, Passive ROM, Soft tissue mobilization For the Purpose of:: To decrease pain, To decrease swelling/inflammation, To increase ROM, To improve nutrient delivery to tissue, To improve health of tissue, To decrease soft tissue restriction, To increase flexibility/ROM, To improve endurance Ultrasound (thermal/non thermal): Yes For the Purpose of:: To decrease pain, To decrease swelling/inflammation, To increase ROM, To improve nutrient delivery to tissue Please do not hesitate to contact me at [phone] by phone or if you have questions or concerns regarding this new plan of care! Sincerely, Chirag Bernabe DPT
== END 2021-06-15 19:00 | disposition home or self-care (01) ==
LOC: PT 12:30
PROVIDERS: PCP Internal Medicine; Referring Provider Orthopaedic Surgery; Visit Provider Orthopaedic Surgery
DX: M75.01 Adhesive capsulitis of right shoulder (principal)
CPT/HCPCS: 97035; 97110; 97140; 97161; 97164

== ENCOUNTER → 2021-07-06 12:19 | Outpatient (CLI) | payer MEDICARE, OTHER, SELFPAY ==
[2021-07-06 15:19] LABS: Anion Gap 3 (5-15); BUN 22 mg/dL (7-18); BUN/Creat Ratio 26.4 RATIO (10-20); Calcium,Total 9.6 mg/dL (8.5-10.1); Chloride 98 mmol/L (98-107); Creatinine, Serum 0.83 mg/dL (0.55-1.02); EST Glomerular Filtration Rate 70 mL/min (>60); Est Glom Filt Rate - Afr Amer 85 mL/min (>60); Glucose 64 mg/dL (74-106); Potassium 3.9 mmol/L (3.5-5.1); Sodium Level 139 mmol/L (136-145)
== END ==
PROVIDERS: PCP Internal Medicine; Referring Provider Internal Medicine; Visit Provider Internal Medicine
DX: E87.6 Hypokalemia (principal)
CPT/HCPCS: 36415; 80048

== ENCOUNTER 2021-07-18 12:30 | Outpatient (RCR) | payer MEDICARE, OTHER, SELFPAY ==
--- NOTE | 2021-07-18 15:55 | HP.PTREVAL ---
Dr. Ayanna Hurd, DO, It has been my pleasure to treat PARISH AUGUSTINE over the last 17 visits for R shoulder adhesive capsulitis. Please see the progress note below for an update on the physical therapy plan of care! Subjective: Pt. reports overall still having pain. PT. reports 7/10 pain currently in R shoulder which does elevate to 8/10 at worst. Pt. still believes her posture in her WC has something to do with her symptoms. She does report having reduced pain in shoulder to 4/10 pain with manual and modalities of her R shoulder for ~10-14days after PT. Pt. denies N/T in either UE. Pt. reports defuse pain in her R shoulder and scapula. Objective/Function: R shoulder ROM: AROM: flexion 90deg and 45deg, ER 0deg at side, functional Er- level of ear, functional IR- greater trochanter. PROM: flexion 100deg, abd 60deg, ER- 10deg at side, IR not tested. MMT: flexion 4-/5, abd 4-/5, ext 4/5, ER 4-/5, IR 4/5. Pt. has marked amount of crepitus with flexion and ER passive motions. Pt. reports increased pain limiting all of her motions. She has poor posture with increased C/T junction flexion, FH posture, and anterior B shoulders. Pt. has limited cervical ROM as well, but does not seem to cause her increased shoulder/scapular pain. Plan Plan: Pt. to see spinal surgeon later this date. I am asking physician, PCP for another script is she feels appropriate for PT for her shoulder. Pt. is concerned with inclimate weather approaching and possible need for home health. I would like her to continue with US to R shoulder, active scapular strengthening, AROM/PROM of R shoulder. Progress HEP. Balance/Gait/Functional tests - Balance/Special Test Scores DASH Disability /Symptom Score: 76.6650 Quick DASH Score: 54.5450 Goals Goal 1:: LTG: pt to have increased PROM of R shoulder to 130deg of flexion, abd 90deg, ER 20deg. Goal Time Frame: 4-6 Weeks Goal 2:: LTG: Pt. to have increased AROM of R shoulder to 110deg flexion, 80deg of abd, 10deg ER. Goal Time Frame: 4-6 Weeks Goal 3:: LTG: Pt. to have decreased R shoulder pain to 0-3/10 at rest Goal Time Frame: 4-6 Weeks Goal 4:: LTG: Pt. to sleep throughout the night with 0-3/10 R shoulder pain, Anticipated Interventions Patient/Client Instruction: Educate patient on: Condition, Plan of Care, Risk Factors, Benefits of Fitness Program For the Purpose of:: To improve decision making, To facilitate caregiver knowledge, To improve self management, To prevent re-injury, To improve ability to perform tasks related to life management, To improve tolerance to ADL's Therapeutic Exercise to Include: Strength training, Power training, Body mechanics, Postural training, Flexibilty training, Active ROM For the Purpose of:: To decrease pain, To increase ROM, To improve nutrient delivery to tissue, To increase oxygenation perfusion, To improve muscle performance and motor function, To improve ability to perform ADL's, To increase tolerance to activity/condition/position, To decrease soft tissue restriction Manual Therapy Techniques to Include: Mobilization, Passive ROM, Soft tissue mobilization For the Purpose of:: To decrease pain, To increase ROM, To improve nutrient delivery to tissue, To increase oxygenation perfusion, To improve muscle performance and motor function, To improve ability to perform ADL's, To increase flexibility/ROM Ultrasound (thermal/non thermal): Yes For the Purpose of:: To decrease pain, To decrease swelling/inflammation, To increase ROM, To improve nutrient delivery to tissue, To increase oxygenation perfusion, To improve muscle performance and motor function Please do not hesitate to contact me at [phone] by phone or if you have questions or concerns regarding this new plan of care! Sincerely, Chirag Bernabe DPT
--- NOTE | 2021-08-22 10:41 | HP.PTDCNRP_ITS ---
PARISH AUGUSTINE was seen in my office for initial evaluation on . The following Plan of Care was established for this patient: Patient/Client Instruction: Educate patient on: Condition, Plan of Care, Risk Factors, Benefits of Fitness Program For the Purpose of:: To improve decision making, To facilitate caregiver knowledge, To improve self management, To prevent re-injury, To improve ability to perform tasks related to life management, To improve tolerance to ADL's Therapeutic Exercise to Include: Strength training, Power training, Body mechanics, Postural training, Flexibilty training, Active ROM For the Purpose of:: To decrease pain, To increase ROM, To improve nutrient de livery to tissue, To increase oxygenation perfusion, To improve muscle performance and motor function, To improve ability to perform ADL's, To increase tolerance to activity/condition/position, To decrease soft tissue restriction Manual Therapy Techniques to Include: Mobilization, Passive ROM, Soft tissue mobilization For the Purpose of:: To decrease pain, To increase ROM, To improve nutrient delivery to tissue, To increase oxygenation perfusion, To improve muscle performance and motor function, To improve ability to perform ADL's, To increase flexibility/ROM Ultrasound (thermal/non thermal): Yes For the Purpose of:: To decrease pain, To decrease swelling/inflammation, To increase ROM, To improve nutrient delivery to tissue, To increase oxygenation perfusion, To improve muscle performance and motor function This patient was last seen in our office 07/31/21. Pertinent comments regarding their Physical therapy will appear below: Pt. called today to say she is going to cancel the rest of her appointments due to cold weather and might start back up next year. Pt. will be DC from PT at this point in time. At this point I will be discontinuing this patient from physical therapy. I would be happy to see this patient again in the future if found appropriate by the physician. Thank you! Chirag Bernabe, DPT Balance/Gait/Functional tests - Balance/Special Test Scores DASH Disability /Symptom Score: 76.6650 Quick DASH Score: 54.5450
== END 2021-09-18 08:28 | disposition home or self-care (01) ==
LOC: PT 12:30
PROVIDERS: PCP Internal Medicine; Referring Provider Orthopaedic Surgery; Visit Provider Orthopaedic Surgery
DX: M75.01 Adhesive capsulitis of right shoulder (principal)
CPT/HCPCS: 97035; 97140; 97164

== ENCOUNTER 2021-09-12 10:10 | Outpatient (CLI) | payer MEDICARE, OTHER, SELFPAY ==
[2021-09-12 10:32] VITALS: BP 151/60; PULSE 103; RESP 16; TEMP 37.1; O2SAT 96; BMI 26.9
[2021-09-12 10:58] VITALS: BP 139/85; PULSE 85; RESP 18; TEMP 37.1; O2SAT 95
[2021-09-12 11:58] VITALS: BP 144/98; PULSE 83; RESP 18; TEMP 37.1; O2SAT 93
== END 2021-09-12 23:59 | disposition home or self-care (01) ==
LOC: MS3OUT 10:13 → MS3 10:13
PROVIDERS: PCP Internal Medicine; Referring Provider Nurse Practitioner Adult Health; Visit Provider Nurse Practitioner Adult Health
DX: Z23 Encounter for immunization (principal); U07.1 COVID-19
CPT/HCPCS: J7050; M0243; Q0240

== ENCOUNTER 2021-11-06 13:55 | Outpatient (CLI) | payer MEDICARE, OTHER, SELFPAY ==
--- NOTE | 2021-11-06 14:03 | BD_ITS ---
STUDY: DUAL ENERGY X-RAY ABSORPTIOMETRY / DXA REASON FOR EXAM: Female, 81 years old. Post menopausal TECHNIQUE: Bone Mineral Density (BMD) measurements of lumbar spine and bilateral hips were obtained. COMPARISON: None. FINDINGS: Lumbar Spine (L1-L4): g/cm2 (0.598) / T-score (-4.6) / Z-score (-1.8) Findings are suggestive of osteoporosis with a high fracture risk. Left Femur Total: g/cm2 (0.391) / T-score (-4.5) / Z-score (-2.5) Left Femoral Neck: g/cm2 (0.290) / T-score (-5.0) / Z-score (-2.8) Right Femur Total: g/cm2 (0.436) / T-score (-4.1) / Z-score (-2.1) Right Femoral Neck: g/cm2 (0.316) / T-score (-4.8) / Z-score (-2.5) BD/Dexa Bone Density Study IMPRESSION: The patient is considered osteoporotic as outlined below according to World Marcel Organization (WHO) criteria with a high fracture risk. Reference Information: The T-score is the number of standard deviations above or below the standard which is normal for young adults at their peak bone mineral density. The World Health Organization (WHO) interprets the T-scores as follows: Above -1 Normal bone density Between -1 and -2.5 Osteopenia Equal to / or below -2.5 Osteoporosis As a practical clinical guideline, osteopenia may be graded as follows: Mild -1 through -1.5 Moderate -1.6 through -2.0 Severe -2.1 through -2.4 The Z-score is the number of standard deviations above or below age-matched controls. A Z-score of less than -1.5 would be considered abnormal. References: 1. NIH Osteoporosis and Related Bone Diseases www osteo.org 2. International Society for Clinical Densitometry www iscd.org 3. National Osteoporosis Foundation www nof.org Electronically Signed: Alverto Jay MD at 14:29 EST ,
[2021-11-06 17:22] LABS: Anion Gap 2 (5-15); BUN 22 mg/dL (7-18); BUN/Creat Ratio 25.8 RATIO (10-20); Calcium,Total 10.4 mg/dL (8.5-10.1); Chloride 98 mmol/L (98-107); Creatinine, Serum 0.85 mg/dL (0.55-1.02); EST Glomerular Filtration Rate 68 mL/min (>60); Est Glom Filt Rate - Afr Amer 83 mL/min (>60); Glucose 86 mg/dL (74-106); Potassium 3.8 mmol/L (3.5-5.1); Sodium Level 139 mmol/L (136-145)
[2021-11-06 19:04] LABS: AST(SGOT) 26 U/L (15-37); Alanine Aminotransfer ALT/SGPT 23 U/L (13-56); Albumin, Serum 3.1 g/dL (3.2-5.0); Alkaline Phosphatase 98 U/L (45-117); Bilirubin, Direct 0.14 mg/dL (0.00-0.30); Cholesterol 155 mg/dL (200); High Density Lipoprotein 94 mg/dL; Protein, Total 8.1 g/dL (6.4-8.2); Triglycerides 62 mg/dL; Very Low Density Lipoprotein 12 mg/dL (5-40)
== END 2021-11-06 23:59 | disposition home or self-care (01) ==
PROVIDERS: Nurse Practitioner Gerontology; PCP Internal Medicine; Referring Provider Internal Medicine; Visit Provider Internal Medicine
DX: E87.6 Hypokalemia (principal); I10 Essential (primary) hypertension; Z78.0 Asymptomatic menopausal state
CPT/HCPCS: 36415; 77080; 80048; 80061; 80076

== ENCOUNTER 2021-12-04 12:44 | Outpatient (CLI) | payer MEDICARE, OTHER, SELFPAY ==
--- NOTE | 2021-12-04 12:51 | ECHOCS_ITS ---
Reason For Study: Mitral Valve Insuff. Procedure This was a 2D Doppler, Color Flow transthoracic echocardiogram. Technically difficult study, contrast injection performed. Patient was unable to lay in left lateral position or supine due to SOB. Images obtained with patiet sitting upright in bed. Exam performed in department. Left Ventricle Normal LV size. Left ventricular systolic function is normal. The estimated ejection fraction is 55 %. No regional wall motion abnormalities noted. Right Ventricle Normal RV size. Normal systolic function. Atria The left atrium is severely enlarged. The right atrium is mildly enlarged. Mitral Valve Bileaflet diffuse mitral valve thickening. Mild-Moderate (1-2+) eccentric mitral valve insufficiency. Tricuspid Valve Normal tricuspid valve. Mild (1+) tricuspid valve insufficiency. Pulmonary artery systolic pressure is 30 mmHg. Aortic Valve Trisinus/trileaflet aortic valve. Mild focal aortic valve calcification. Pulmonic Valve Normal pulmonic valve. Great Vessels Normal aortic root. The pulmonary artery is normal size. Normal inferior vena cava. Pericardium/Pleural No pericardial effusion. Medication 22 gauge I.V. with prn adaptor inserted into right arm. Diluted definity 3ml given slow IV push to enhance endocardial definition. MMode/2D Measurements & Calculations LVIDd: 3.8 cm IVSd: 0.97 cm Ao root diam: 3.5 cm LVIDs: 2.7 cm LVPWd: 1.1 cm LA dimension: 4.0 cm RVDd: 4.0 cm FS: 29.9 % LAV(MOD-sp4): 144.4 ml LA A4 area: 37.6 cm2 RA A4 area: 24.0 cm2 Doppler Measurements & Calculations MV E max rain: 87.2 cm/sec Ao V2 max: 94.5 cm/sec LV V1 max: 67.7 cm/sec Ao max P.6 mmHg LV V1 max P.8 mmHg PA V2 max: 44.0 cm/sec TR max rain: 251.6 cm/sec TR max P.4 mmHg ECHO/Echo Complete W/ Contrast Interpretation Summary Normal LV size. Left ventricular systolic function is normal. The estimated ejection fraction is 55 %. The left atrium is severely enlarged. Mild-Moderate (1-2+) eccentric mitral valve insufficiency. Contrast injection was performed. Ordering Physician: Adriana Ty Referring Physician: Ольга Riggins Performed By: Aron Napoles RCS
== END 2021-12-04 23:59 | disposition home or self-care (01) ==
PROVIDERS: PCP Internal Medicine; Referring Provider Nurse Practitioner Gerontology; Visit Provider Nurse Practitioner Gerontology
DX: I34.0 Nonrheumatic mitral (valve) insufficiency (principal)
CPT/HCPCS: 93306; Q9957; A4216; C8929

== ENCOUNTER → 2022-01-15 | Outpatient (CLI) | payer MEDICARE, OTHER, SELFPAY ==
[2022-01-15 17:10] LABS: Calcium,Total 10.5 mg/dL (8.5-10.1)
[2022-01-15 17:20] LABS: Vitamin D,25 Hydroxy 50.5 ng/mL
== END | disposition home or self-care (01) ==
LOC: BIMLAB 15:29
PROVIDERS: PCP Internal Medicine; Referring Provider Internal Medicine Endocrinology, Diabetes & Metabolism; Visit Provider Internal Medicine Endocrinology, Diabetes & Metabolism
DX: E83.52 Hypercalcemia (principal)
CPT/HCPCS: 36415; 82306; 82310; 83970

== ENCOUNTER → 2022-02-18 | Outpatient (CLI) | payer MEDICARE, OTHER, SELFPAY ==
[2022-02-18 16:41] LABS: Absolute Lymphocyte Count 1.16 X10^3/uL (0.83-4.51); Absolute Neutrophil Count 1.7 X10^3/uL (2.0-7.7); Basophil# 0.03 X10^3/uL; Basophil% 0.9 % (0-1); Eosinophil# 0.11 X10^3/uL; Eosinophils% 3.2 % (0-5); Hematocrit 40.8 % (37-47); Hemoglobin 13.3 g/dL (12.0-15.0); Lymphocyte # 1.16 X10^3/ul (0.83-4.51); Lymphocyte % 33.5 % (19-41); Mean Corp Hgb Conc 32.6 g/dL (32-36); Mean Corpuscular Hgb 31.6 pg (27.0-32.0); Mean Corpuscular Volume 96.9 fL (81-99); Mean Platelet Vol. 11.6 fl (6.2-12.0); Monocyte# 0.48 X10^3/uL; Monocyte% 13.9 % (0-10); NRBC Flagged by Analyzer 0 % (0-5); Neutrophil # 1.67 X10^3/uL (2.7-7.7); Neutrophil % 48.2 % (47-70); Platelet Count 185 K/mm3 (150-450); RBC Distribution Width CV 12.2 % (11.6-14.6); RBC Distribution Width SD 43.7 fl (35.1-43.9); Red Blood Count 4.21 M/mm3 (4.2-5.4); White Blood Count 3.5 K/mm3 (4.4-11.0)
[2022-02-18 16:50] LABS: ALB/GLOB Ratio 0.6 RATIO (0.9-2.4); AST(SGOT) 59 U/L (15-37); Alanine Aminotransfer ALT/SGPT 93 U/L (13-56); Albumin, Serum 3.2 g/dL (3.2-5.0); Alkaline Phosphatase 196 U/L (45-117); Anion Gap 2 (5-15); BUN 24 mg/dL (7-18); BUN/Creat Ratio 28.5 RATIO (10-20); Calcium,Total 10.3 mg/dL (8.5-10.1); Chloride 98 mmol/L (98-107); Creatinine, Serum 0.84 mg/dL (0.55-1.02); EST Glomerular Filtration Rate 69 mL/min (>60); Est Glom Filt Rate - Afr Amer 84 mL/min (>60); Globulin 5.2 g/dL (2.2-4.2); Glucose 79 mg/dL (74-106); Potassium 3.8 mmol/L (3.5-5.1); Protein, Total 8.4 g/dL (6.4-8.2); Sodium Level 138 mmol/L (136-145)
== END | disposition home or self-care (01) ==
LOC: BIMLAB 15:39
PROVIDERS: PCP Internal Medicine; Referring Provider Internal Medicine; Visit Provider Internal Medicine
DX: I10 Essential (primary) hypertension (principal)
CPT/HCPCS: 36415; 80053; 85025

== ENCOUNTER → 2022-03-19 | Outpatient (CLI) | payer MEDICARE, OTHER, SELFPAY ==
[2022-03-19 13:42] LABS: ALB/GLOB Ratio 0.6 RATIO (0.9-2.4); AST(SGOT) 22 U/L (15-37); Alanine Aminotransfer ALT/SGPT 21 U/L (13-56); Albumin, Serum 3.1 g/dL (3.2-5.0); Alkaline Phosphatase 129 U/L (45-117); Anion Gap 2 (5-15); BUN 24 mg/dL (7-18); BUN/Creat Ratio 30.5 RATIO (10-20); Calcium,Total 10.1 mg/dL (8.5-10.1); Chloride 98 mmol/L (98-107); Creatinine, Serum 0.79 mg/dL (0.55-1.02); EST Glomerular Filtration Rate 75 mL/min (>60); Est Glom Filt Rate - Afr Amer 91 mL/min (>60); GGTP 32 U/L (5-55); Globulin 5.2 g/dL (2.2-4.2); Glucose 67 mg/dL (74-106); Potassium 3.9 mmol/L (3.5-5.1); Protein, Total 8.3 g/dL (6.4-8.2); Sodium Level 139 mmol/L (136-145)
== END | disposition home or self-care (01) ==
PROVIDERS: PCP Internal Medicine; Referring Provider Internal Medicine; Visit Provider Internal Medicine
DX: R74.8 Abnormal levels of other serum enzymes (principal)
CPT/HCPCS: 36415; 80053; 82977

== ENCOUNTER → 2022-04-22 | Outpatient (CLI) | payer MEDICARE, OTHER, SELFPAY ==
--- NOTE | 2022-04-22 12:47 | CDU_ITS ---
Reason For Study: head pressure Rt. Velocities/BP Lt. Velocities/BP Prox CCA 55.4/16.6 cm/sec. Prox CCA 81.3/17.5 cm/sec. Dist CCA 45.5/12.7 cm/sec. Mid CCA 56.4/13.3 cm/sec. Prox ICA 43.6/8.8 cm/sec. Dist CCA 59.1/16.1 cm/sec. Mid ICA 58.6/17.3 cm/sec. Prox ICA 35.8/6.5 cm/sec. Dist ICA 50.0/11.6 cm/sec. Mid ICA 68.9/16.9 cm/sec. Rt. ICA/CCA = 58.6/55.4=1.1. Dist ICA 45.4/13.5 cm/sec. Prox ECA 63.6/9.5 cm/sec. Lt. ICA/CCA = 68.9/56.4=1.2. Rt. Vert. 24.3/0.0 cm/sec. Prox ECA 77.2/7.8 cm/sec. Lt. Vert. 34.5/9.2 cm/sec. Right Extracranial There is homogeneous, smooth atherosclerotic plaque noted in the right common carotid artery. There is homogeneous, smooth atherosclerotic plaque noted in the right internal carotid artery. There is intimal thickening but no significant atherosclerotic plaque noted in the right external carotid artery. Antegrade flow is noted in the right vertebral artery. Left Extracranial There is homogeneous, smooth atherosclerotic plaque noted in the left common carotid artery. There is intimal thickening but no significant atherosclerotic plaque noted in the left internal carotid artery. The left internal carotid artery is very tortuous. There is intimal thickening but no significant atherosclerotic plaque noted in the left external carotid artery. Antegrade flow is noted in the left vertebral artery. Procedure Carotid Duplex 10507. The study was technically difficult. Due to body habitus, frozen shoulder and unable to position patient's neck. Exam performed in department. VL/Carotid Duplex Ultrasound Interpretation Summary Smooth plaque at the proximal right internal carotid artery with less than 50% stenosis. Less than 50% stenosis right external carotid artery Intimal thickening at the proximal left internal carotid artery with hairpin ki nking though with less than 50% stenosis. Less than 50% stenosis left external carotid artery Patent antegrade vertebrals bilaterally The examination was noted to be technically difficult Ordering Physician: Adriana Ty Referring Physician: Ольга Riggins Performed By: Suzanne Wells, LUKAS, RVT
== END | disposition home or self-care (01) ==
LOC: CVS 12:46
PROVIDERS: PCP Internal Medicine; Referring Provider Nurse Practitioner Gerontology; Visit Provider Nurse Practitioner Gerontology
DX: R51.9 Headache, unspecified (principal); Z86.73 Personal history of transient ischemic attack (TIA), and cerebral infarction without residual deficits
CPT/HCPCS: 93880

== ENCOUNTER → 2022-04-22 | Outpatient (CLI) | payer MEDICARE, OTHER, SELFPAY ==
[2022-04-22 13:55] VITALS: BP 134/83; PULSE 82; RESP 18; TEMP 36.4; O2SAT 93; BMI 30.9
[2022-04-22] MEDS: DENOSUMAB 60 MG/ML SC (14:01)
== END | disposition home or self-care (01) ==
PROVIDERS: PCP Internal Medicine; Referring Provider Internal Medicine Endocrinology, Diabetes & Metabolism; Visit Provider Internal Medicine Endocrinology, Diabetes & Metabolism
DX: M81.0 Age-related osteoporosis without current pathological fracture (principal); R51.9 Headache, unspecified; Z86.73 Personal history of transient ischemic attack (TIA), and cerebral infarction without residual deficits
CPT/HCPCS: 93880; 96372; J0897

== ENCOUNTER → 2022-06-25 | Outpatient (CLI) | payer MEDICARE, OTHER, SELFPAY ==
[2022-06-25 15:29] LABS: AST(SGOT) 655 U/L (15-37); Alanine Aminotransfer ALT/SGPT 388 U/L (13-56); Albumin, Serum 3.2 g/dL (3.2-5.0); Alkaline Phosphatase 242 U/L (45-117); Bilirubin, Direct 0.23 mg/dL (0.00-0.30); Cholesterol 150 mg/dL (200); Globulin 5.3 g/dL (2.2-4.2); High Density Lipoprotein 103 mg/dL; Protein, Total 8.5 g/dL (6.4-8.2); Triglycerides 55 mg/dL; Very Low Density Lipoprotein 11 mg/dL (5-40)
[2022-06-25 16:35] LABS: Anion Gap 5 (5-15); BUN 27 mg/dL (7-18); BUN/Creat Ratio 28.8 RATIO (10-20); Chloride 100 mmol/L (98-107); Creatinine, Serum 0.94 mg/dL (0.55-1.02); EST Glomerular Filtration Rate 61 mL/min (>60); Est Glom Filt Rate - Afr Amer 74 mL/min (>60); Glucose 64 mg/dL (74-106); Sodium Level 139 mmol/L (136-145)
== END | disposition home or self-care (01) ==
PROVIDERS: Internal Medicine Cardiovascular Disease; PCP Internal Medicine; Referring Provider Internal Medicine; Visit Provider Internal Medicine
DX: E87.6 Hypokalemia (principal); E78.5 Hyperlipidemia, unspecified
CPT/HCPCS: 36415; 80048; 80061; 80076

== ENCOUNTER → 2022-07-08 | Outpatient (CLI) | payer MEDICARE, OTHER, SELFPAY ==
[2022-07-08 16:03] LABS: ALB/GLOB Ratio 0.6 RATIO (0.9-2.4); AST(SGOT) 19 U/L (15-37); Alanine Aminotransfer ALT/SGPT 31 U/L (13-56); Albumin, Serum 3.1 g/dL (3.2-5.0); Alkaline Phosphatase 133 U/L (45-117); Anion Gap 2 (5-15); BUN 25 mg/dL (7-18); BUN/Creat Ratio 28.1 RATIO (10-20); Calcium,Total 9.9 mg/dL (8.5-10.1); Chloride 98 mmol/L (98-107); Creatinine, Serum 0.89 mg/dL (0.55-1.02); EST Glomerular Filtration Rate 65 mL/min (>60); Est Glom Filt Rate - Afr Amer 79 mL/min (>60); Globulin 5.1 g/dL (2.2-4.2); Glucose 80 mg/dL (74-106); Potassium 3.7 mmol/L (3.5-5.1); Protein, Total 8.2 g/dL (6.4-8.2); Sodium Level 137 mmol/L (136-145)
== END | disposition home or self-care (01) ==
LOC: BIMLAB 14:16
PROVIDERS: PCP Internal Medicine; Referring Provider Physician Assistant Medical; Visit Provider Physician Assistant Medical
DX: R74.8 Abnormal levels of other serum enzymes (principal)
CPT/HCPCS: 36415; 80053

== ENCOUNTER → 2022-09-16 | Outpatient (CLI) | payer MEDICARE, OTHER, SELFPAY ==
[2022-09-16 10:45] LABS: AST(SGOT) 22 U/L (15-37); Alanine Aminotransfer ALT/SGPT 21 U/L (13-56); Albumin, Serum 3.3 g/dL (3.2-5.0); Alkaline Phosphatase 105 U/L (45-117); Bilirubin, Direct 0.12 mg/dL (0.00-0.30); Cholesterol 198 mg/dL (200); Globulin 5.6 g/dL (2.2-4.2); High Density Lipoprotein 106 mg/dL; Protein, Total 8.9 g/dL (6.4-8.2); Triglycerides 82 mg/dL; Very Low Density Lipoprotein 16 mg/dL (5-40)
== END | disposition home or self-care (01) ==
LOC: LAB 03:48
PROVIDERS: PCP Internal Medicine; Referring Provider Internal Medicine Cardiovascular Disease; Visit Provider Internal Medicine Cardiovascular Disease
DX: R74.8 Abnormal levels of other serum enzymes (principal); E78.5 Hyperlipidemia, unspecified
CPT/HCPCS: 36415; 80061; 80076

== ENCOUNTER → 2022-10-14 | Outpatient (CLI) | payer MEDICARE, OTHER, SELFPAY ==
[2022-10-14 12:22] VITALS: BP 124/70; PULSE 78; RESP 16; O2SAT 94; BMI 31.4
[2022-10-14] MEDS: DENOSUMAB 60 MG/ML SC (12:25)
== END | disposition home or self-care (01) ==
LOC: MEDOUTP 12:02
PROVIDERS: PCP Internal Medicine; Referring Provider Internal Medicine Endocrinology, Diabetes & Metabolism; Visit Provider Internal Medicine Endocrinology, Diabetes & Metabolism
DX: M81.0 Age-related osteoporosis without current pathological fracture (principal)
CPT/HCPCS: 96372; J0897

== ENCOUNTER 2023-04-07 12:29 | Outpatient (CLI) | payer MEDICARE, OTHER, SELFPAY ==
[2023-04-07 12:40] VITALS: BP 124/81; PULSE 75; RESP 16; TEMP 36.4; O2SAT 94; BMI 30.7
[2023-04-07] MEDS: DENOSUMAB 60 MG/ML SC (12:56)
== END 2023-04-07 12:30 | disposition home or self-care (01) ==
PROVIDERS: PCP Internal Medicine; Referring Provider Internal Medicine Endocrinology, Diabetes & Metabolism; Visit Provider Internal Medicine Endocrinology, Diabetes & Metabolism
DX: M81.0 Age-related osteoporosis without current pathological fracture (principal)
CPT/HCPCS: 96372; J0897

== ENCOUNTER → 2023-04-28 | Outpatient (CLI) | payer MEDICARE, OTHER, SELFPAY ==
[2023-04-28 15:26] LABS: Mucous, Urine 0 SEEN /hpf (<or=2+); Red Blood Cells-Urine 0 SEEN /hpf (0-5)
[2023-04-28 16:24] LABS: Absolute Lymphocyte Count 1.23 X10^3/uL (0.83-4.51); Absolute Neutrophil Count 2.4 X10^3/uL (2.0-7.7); Basophil# 0.05 X10^3/uL; Basophil% 1.2 % (0-1); Eosinophil# 0.11 X10^3/uL; Eosinophils% 2.6 % (0-5); Hematocrit 40.3 % (37-47); Hemoglobin 13.6 g/dL (12.0-15.0); Lymphocyte # 1.23 X10^3/ul (0.83-4.51); Lymphocyte % 29.1 % (19-41); Mean Corp Hgb Conc 33.7 g/dL (32-36); Mean Corpuscular Hgb 32.5 pg (27.0-32.0); Mean Corpuscular Volume 96.2 fL (81-99); Mean Platelet Vol. 11.6 fl (6.2-12.0); Monocyte# 0.43 X10^3/uL; Monocyte% 10.2 % (0-10); NRBC Flagged by Analyzer 0 % (0-5); Neutrophil # 2.39 X10^3/uL (2.7-7.7); Neutrophil % 56.7 % (47-70); Platelet Count 194 K/mm3 (150-450); RBC Distribution Width CV 11.9 % (11.6-14.6); RBC Distribution Width SD 41.9 fl (35.1-43.9); Red Blood Count 4.19 M/mm3 (4.2-5.4); White Blood Count 4.2 K/mm3 (4.4-11.0)
[2023-04-28 16:29] LABS: Color, Urine Yellow (Yellow); Glucose, Dipstick Normal (Normal); Ketone-Dipstick Negative (Negative); Leukocyte Esterase-Dipstick 500 /ul (Negative); Nitrite-Dipstick Negative (Negative); Occult Blood-Urine Negative /ul (Negative); Protein-Dipstick 15 mg/dl (Negative); Specific Gravity, Urine 1.015 (1.002-1.030); Urine Bilirubin Dipstick Negative (Negative); Urine Clarity Sl. Cloudy (Clear); Urine Urobilinogen Normal (Normal); Urine pH 6.5 (5.0 - 8.0)
[2023-04-28 16:50] LABS: Bacteria 3+ /hpf (None Seen); Squamous Epithelial Cells - UA 0-5 SEEN /hpf (5-10); White Blood Cells 10-25 SEEN /hpf (0-5)
[2023-04-28 17:04] LABS: ALB/GLOB Ratio 0.6 RATIO (0.9-2.4); AST(SGOT) 19 U/L (15-37); Alanine Aminotransfer ALT/SGPT 20 U/L (13-56); Albumin, Serum 3.2 g/dL (3.2-5.0); Alkaline Phosphatase 90 U/L (45-117); Anion Gap 1 (5-15); BUN 22 mg/dL (7-18); BUN/Creat Ratio 25.3 RATIO (10-20); Calcium,Total 9.7 mg/dL (8.5-10.1); Chloride 100 mmol/L (98-107); Creatinine, Serum 0.87 mg/dL (0.55-1.02); EST Glomerular Filtration Rate 67 mL/min (>60); Est Glom Filt Rate - Afr Amer 81 mL/min (>60); Glucose 92 mg/dL (74-106); Potassium 3.8 mmol/L (3.5-5.1); Protein, Total 8.2 g/dL (6.4-8.2); Sodium Level 137 mmol/L (136-145); T4 Free Direct 0.97 ng/dL (0.76-1.46); Thyroid Stim Hormone (TSH) 0.46 uIU/mL (0.358-3.74)
[2023-04-28 20:52] LABS: Vitamin D,25 Hydroxy 67.6 ng/mL
== END | disposition home or self-care (01) ==
LOC: BIMLAB 15:24
PROVIDERS: Internal Medicine Endocrinology, Diabetes & Metabolism; PCP Internal Medicine; Referring Provider Internal Medicine; Visit Provider Internal Medicine
DX: R35.0 Frequency of micturition (principal); I50.32 Chronic diastolic (congestive) heart failure; I11.0 Hypertensive heart disease with heart failure; E55.9 Vitamin D deficiency, unspecified; Z13.29 Encounter for screening for other suspected endocrine disorder; K21.9 Gastro-esophageal reflux disease without esophagitis
CPT/HCPCS: 36415; 80053; 81001; 82306; 84439; 84443; 85025; 87077; 87086; 87088

== ENCOUNTER → 2023-08-04 | Outpatient (CLI) | payer MEDICARE, OTHER, SELFPAY ==
[2023-08-04 15:16] LABS: Absolute Lymphocyte Count 1.16 X10^3/uL (0.83-4.51); Absolute Neutrophil Count 1.9 X10^3/uL (2.0-7.7); Basophil# 0.04 X10^3/uL; Basophil% 1.1 % (0-1); Eosinophil# 0.08 X10^3/uL; Eosinophils% 2.2 % (0-5); Hematocrit 41.2 % (37-47); Lymphocyte # 1.16 X10^3/ul (0.83-4.51); Lymphocyte % 32.3 % (19-41); Mean Corp Hgb Conc 31.6 g/dL (32-36); Mean Corpuscular Volume 98.1 fL (81-99); Mean Platelet Vol. 11.1 fl (6.2-12.0); Monocyte% 11.1 % (0-10); NRBC Flagged by Analyzer 0 % (0-5); Neutrophil # 1.91 X10^3/uL (2.7-7.7); Neutrophil % 53.3 % (47-70); Platelet Count 169 K/mm3 (150-450); RBC Distribution Width CV 12.5 % (11.6-14.6); RBC Distribution Width SD 44.8 fl (35.1-43.9); White Blood Count 3.6 K/mm3 (4.4-11.0)
[2023-08-04 15:48] LABS: ALB/GLOB Ratio 0.7 RATIO (0.9-2.4); AST(SGOT) 22 U/L (15-37); Alanine Aminotransfer ALT/SGPT 15 U/L (13-56); Albumin, Serum 3.5 g/dL (3.2-5.0); Alkaline Phosphatase 84 U/L (45-117); Anion Gap 4 (5-15); BUN 19 mg/dL (7-18); BUN/Creat Ratio 25.9 RATIO (10-20); Calcium,Total 9.8 mg/dL (8.5-10.1); Chloride 97 mmol/L (98-107); Creatinine, Serum 0.73 mg/dL (0.55-1.02); EST Glomerular Filtration Rate 81 mL/min (>60); Est Glom Filt Rate - Afr Amer 98 mL/min (>60); Globulin 4.9 g/dL (2.2-4.2); Glucose 111 mg/dL (74-106); Potassium 3.9 mmol/L (3.5-5.1); Protein, Total 8.4 g/dL (6.4-8.2); Sodium Level 138 mmol/L (136-145)
[2023-08-06 14:09] LABS: PROEL- A/G Ratio 0.9 (0.7-1.7); PROEL- Albumin 3.5 g/dL (2.9-4.4); PROEL- Alpha-1 Globulin 0.3 g/dL (0.0-0.4); PROEL- Alpha-2 Globulin 0.7 g/dL (0.4-1.0); PROEL- Beta Globulin 1.2 g/dL (0.7-1.3); PROEL- Globulin, Total 4.1 g/dL (2.2-3.9); PROEL- TOTAL PROTEIN 7.6 g/dL (6.0-8.5); PROEL-M-Spike Not Observed g/dL (Not Observed)
== END | disposition home or self-care (01) ==
PROVIDERS: PCP Internal Medicine; Referring Provider Physician Assistant; Visit Provider Physician Assistant
DX: L29.8 Other pruritus (principal); L82.1 Other seborrheic keratosis; L57.0 Actinic keratosis; X32.XXXA Exposure to sunlight, initial encounter; L21.8 Other seborrheic dermatitis; Z08 Encounter for follow-up examination after completed treatment for malignant neoplasm; Z85.828 Personal history of other malignant neoplasm of skin; L57.8 Other skin changes due to chronic exposure to nonionizing radiation; L30.8 Other specified dermatitis; D48.5 Neoplasm of uncertain behavior of skin
CPT/HCPCS: 36415; 80053; 84165; 85025

== ENCOUNTER → 2023-11-05 | Outpatient (CLI) | payer MEDICARE, OTHER, SELFPAY ==
[2023-11-05 16:17] LABS: Anion Gap 0 (5-15); BUN 23 mg/dL (7-18); BUN/Creat Ratio 29.5 RATIO (10-20); Calcium,Total 10.2 mg/dL (8.5-10.1); Chloride 98 mmol/L (98-107); Creatinine, Serum 0.78 mg/dL (0.55-1.02); EST Glomerular Filtration Rate 75 mL/min (>60); Est Glom Filt Rate - Afr Amer 91 mL/min (>60); Glucose 87 mg/dL (74-106); Potassium 3.9 mmol/L (3.5-5.1); Sodium Level 137 mmol/L (136-145)
[2023-11-05 16:24] LABS: AST(SGOT) 21 U/L (15-37); Alanine Aminotransfer ALT/SGPT 16 U/L (13-56); Albumin, Serum 3.6 g/dL (3.2-5.0); Alkaline Phosphatase 93 U/L (45-117); Bilirubin, Direct 0.17 mg/dL (0.00-0.30); Cholesterol 191 mg/dL (200); Globulin 4.6 g/dL (2.2-4.2); High Density Lipoprotein 114 mg/dL; Protein, Total 8.2 g/dL (6.4-8.2); Triglycerides 63 mg/dL; Very Low Density Lipoprotein 13 mg/dL (5-40)
== END | disposition home or self-care (01) ==
LOC: BIMLAB 14:03
PROVIDERS: Physician Assistant Medical; PCP Internal Medicine; Visit Provider Internal Medicine
DX: E78.00 Pure hypercholesterolemia, unspecified (principal); I48.11 Longstanding persistent atrial fibrillation; I10 Essential (primary) hypertension
CPT/HCPCS: 36415; 80048; 80061; 80076

== ENCOUNTER → 2024-01-28 | Outpatient (CLI) | payer MEDICARE, OTHER, SELFPAY ==
[2024-01-28 15:11] LABS: Absolute Lymphocyte Count 1.03 X10^3/uL (0.83-4.51); Absolute Neutrophil Count 1.6 X10^3/uL (2.0-7.7); Basophil# 0.04 X10^3/uL; Basophil% 1.3 % (0-1); Eosinophil# 0.11 X10^3/uL; Eosinophils% 3.4 % (0-5); Hematocrit 40.6 % (37-47); Lymphocyte # 1.03 X10^3/ul (0.83-4.51); Lymphocyte % 32.2 % (19-41); Mean Corpuscular Hgb 30.6 pg (27.0-32.0); Mean Corpuscular Volume 95.5 fL (81-99); Mean Platelet Vol. 10.6 fl (6.2-12.0); Monocyte# 0.38 X10^3/uL; Monocyte% 11.9 % (0-10); NRBC Flagged by Analyzer 0 % (0-5); Neutrophil # 1.63 X10^3/uL (2.7-7.7); Neutrophil % 50.9 % (47-70); Platelet Count 170 K/mm3 (150-450); RBC Distribution Width CV 12.4 % (11.6-14.6); RBC Distribution Width SD 43.6 fl (35.1-43.9); Red Blood Count 4.25 M/mm3 (4.2-5.4); White Blood Count 3.2 K/mm3 (4.4-11.0)
[2024-01-28 16:38] LABS: ALB/GLOB Ratio 0.7 RATIO (0.9-2.4); AST(SGOT) 22 U/L (15-37); Alanine Aminotransfer ALT/SGPT 15 U/L (13-56); Albumin, Serum 3.3 g/dL (3.2-5.0); Alkaline Phosphatase 89 U/L (45-117); Anion Gap 5 (5-15); BUN 21 mg/dL (7-18); BUN/Creat Ratio 26.1 RATIO (10-20); Chloride 98 mmol/L (98-107); EST Glomerular Filtration Rate 73 mL/min (>60); Est Glom Filt Rate - Afr Amer 88 mL/min (>60); Globulin 4.8 g/dL (2.2-4.2); Glucose 91 mg/dL (74-106); Potassium 3.9 mmol/L (3.5-5.1); Protein, Total 8.1 g/dL (6.4-8.2); Sodium Level 138 mmol/L (136-145)
== END | disposition home or self-care (01) ==
LOC: BIMLAB 14:20
PROVIDERS: PCP Internal Medicine; Visit Provider Internal Medicine
DX: F41.9 Anxiety disorder, unspecified (principal); F32.A Depression, unspecified; I10 Essential (primary) hypertension
CPT/HCPCS: 36415; 80053; 85025

== ENCOUNTER 2024-05-02 14:43 | Inpatient (IN) | payer MEDICARE, OTHER, SELFPAY ==
[2024-05-02] VITALS (8 sets, daily range): BP systolic 104–134; BP diastolic 56–90; PULSE 80–106; RESP 16–21; TEMP 36.8–37.6; O2SAT 94–98; BMI 26.7; BMI 29.0
--- NOTE | 2024-05-02 15:05 | EKG12_ITS ---
Test Reason : Blood Pressure : / mmHG Vent. Rate : 096 BPM Atrial Rate : 000 BPM P-R Int : 000 ms QRS Dur : 084 ms QT Int : 340 ms P-R-T Axes : 000 004 016 degrees QTc Int : 429 ms Atrial fibrillation Nonspecific T wave abnormality Abnormal ECG Confirmed by Elliott Bro ([id number]), editor city ABRIL STARKS ([id number]) on 05/03/2024 11:00:13 AM Referred By: Confirmed By:Elliott Bro
--- NOTE | 2024-05-02 15:06 | RAD_ITS ---
EXAM: XR RIGHT TIBIA AND FIBULA, 2 VIEWS CLINICAL INDICATION: pain TECHNIQUE: Frontal and lateral views of the right tibia and fibula. COMPARISON: No relevant prior studies available. FINDINGS: BONES/JOINTS: Unremarkable. No acute fracture. No subluxation. Normal alignment. Preservation of the joint space. No sclerotic or destructive changes observed. SOFT TISSUES: Soft tissue edema around the leg. No radiopaque foreign body. RAD/Tibia & Fibula 2 Views IMPRESSION: Soft tissue edema around the leg. Electronically Signed: Jr Mills MD at 17:03 EDT ,
--- NOTE | 2024-05-02 15:06 | EX.ED.DYSGE1 ---
HPI History of Present Illness Chief Complaint: Cellulitis Informant: patient, family and EMS Narrative Narrative: 83-year-old female presenting to the emergency room with a chief complaint of I do not feel good. Patient states that she generally feels tired. Family notes that she has had difficulty staying awake today that her pulse ox has been around 92% which is lower than normal for her. She has not had much to eat today. She denies any vomiting or diarrhea, cough, sore throat. Family notes that she took a shower yesterday and did not have redness of the right leg. They note some red-purple discoloration over the anterior lateral aspect of the distal right leg. They note temperature was 101.6 at home. Patient does note that at some point today she did have Tylenol but does not recall exactly when. She has a history of atrial fibrillation and is on Eliquis, prior history of stroke as well as transverse myelitis. She takes chronic opiates which she has had today. Patient was at a doctor's appointment couple days ago and staff there noted to family that she was frequently urinating. Patient denies any dysuria or foul smell. This has been a source of infection for the patient in the past per family. 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) Chronic diastolic (congestive) heart failure Anxiety and depression GERD (gastroesophageal reflux disease) Opioid dependence Neuropathic pain Chronic pain Hiatal hernia Acute anemia Hyperlipidemia Essential (primary) hypertension Paroxysmal atrial fibrillation Transverse myelitis History of DVT (deep vein thrombosis) Acute ischemic stroke Atrial flutter Home Medications ?Medication ?Instructions ?Recorded ?Last Taken ?Type alprazolam 0.25 mg tablet 0.25 mg PO QHS anxiety 08/27/18 08/28/18 20:03 History polyethylene glycol 3350 17 gram 17 gm PO DAILY constipation 08/27/18 08/29/18 10:20 History oral powder packet oxycodone 5 mg tablet 5 mg PO Q4H PRN PRN Severe Pain 12/31/18 Unknown Rx () #10 tabs sennosides 8.6 mg-docusate sodium 2 tab PO BIDCM #120 tabs 09/07/18 Unknown Rx 50 mg tablet Wheel Chair #1 ea 10/10/20 Unknown Rx walker #1 ea 10/10/20 Unknown Rx home oxygen NASAL QPM PRN oxygen 11/30/20 Unknown History methadone 5 mg tablet 5 mg PO TID PRN Pain 09/12/21 Unknown History nitroglycerin 0.4 mg sublingual 0.4 mg sublingual Q5-15M PRN chest 11/06/21 Unknown Rx tablet pain #25 tabs hydrocortisone 2.5 % topical cream 1 applic [place] BID PRN hemorrhoids 12/20/21 Unknown Rx with perineal applicator #30 grams (Anusol-HC) atorvastatin 10 mg tablet 10 mg PO DAILY 12/24/22 Unknown History ascorbate calcium (vitamin C) 500 500 mg PO DAILY 04/28/23 Unknown History mg tablet cholecalciferol (vitamin D3) 50 50 mcg PO DAILY 04/28/23 Unknown History mcg (2,000 unit) capsule denosumab 60 mg/mL subcutaneous 60 mg subcut [id number] #1 mL 04/29/23 Unknown Rx syringe (Prolia) polysaccharide iron complex 150 mg 150 mg PO DAILY #90 caps 06/05/23 Unknown Rx iron capsule (Ferrex) hydrochlorothiazide 25 mg tablet See Rx Instructions .Route 09/10/23 Unknown Rx .COMPLEX #90 tabs Handicap Placard #1 ea 10/14/23 Unknown Rx citalopram 20 mg tablet 30 mg (1.5 x 20 mg) PO DAILY #360 11/13/23 Unknown Rx tabs apixaban 5 mg tablet (Eliquis) 5 mg PO BID #60 TABLETS 11/27/23 Unknown Rx omeprazole 40 mg capsule,delayed See Rx Instructions .Route 01/26/24 Unknown Rx release .COMPLEX #90 caps diltiazem HCl 120 mg capsule,24 120 mg PO DAILY #90 caps 03/01/24 Unknown Rx hr,extended release potassium chloride 20 mEq 20 meq PO TID #270 tabs 03/01/24 Unknown Rx tablet,extended release(part/cryst) furosemide 20 mg tablet 20 mg PO DAILY #0 tabs 07/19/24 Unknown Rx lisinopril 20 mg tablet 20 mg PO BID #180 tabs 03/26/24 Unknown Rx gabapentin 300 mg capsule See Rx Instructions .Route 03/30/24 Unknown Rx .COMPLEX #180 caps Allergy/AdvReac Type Severity Reaction Status Date / Time morphine Allergy Hives Verified 04/27/24 13:12 atorvastatin AdvReac Severe elevated Verified 04/27/24 13:12 liver enzymes carbamazepine (From Tegretol) AdvReac Intermediate HALLUCINATI Verified 04/27/24 13:12 ONS procaine HCl (From Novocain) AdvReac Intermediate HEART Verified 04/27/24 13:12 RACES,FEELS LIKE WILL PASS OUT Family History Mother Colon cancer Father Myocardial infarction Uncle Asthma Surgical History History of carpal tunnel surgery of right wrist H/O: hysterectomy Social History Smoking Status: Former smoker how long ago did patient quit smokin years ago alcohol intake: never substance use type: does not use caffeine: Yes Type: coffee Number of servings: 2 what type of physical activity do you participate in: none seatbelt use: always do you feel safe at home: Yes ROS ROS ED ROS Narrative Generalized fatigue Constitutional Constitutional ED: Reports fever(s); Denies chills or weight loss Eyes Eyes: Denies change in vision or diplopia ENT ENT ED: Denies ear pain, rhinorrhea or sore throat Cardiovascular Cardiovascular: Denies chest pain, orthopnea, palpitations or racing heartbeat Respiratory/Chest Respiratory/Chest: Denies cough, dyspnea or orthopnea Gastrointestinal Gastrointestinal: Reports other Details: Decreased appetite ; Denies abdominal pain, diarrhea, nausea or vomiting Genitourinary Genitourinary ED: Denies dysuria, hematuria or urinary frequency Musculoskeletal Musculoskeletal: Denies arthralgias or myalgias Integumentary Reports rash; Denies abscess Neurologic Neurologic: Denies headache(s) or weakness Psychiatric Psychiatric: Denies anxiety, depression, suicidal ideation or suicidal thoughts Endocrine Endocrinology: Denies polydipsia, polyphagia or polyuria Allergic/Immunologic Allergic/Immunologic ED: Denies mouth swelling, tongue swelling or urticaria EXAM Physical Exam Const Vital Signs: 05/02/24 14:48 05/02/24 14:50 05/02/24 15:34 Temperature 99.7 F H 99.7 F H Temperature Source Oral Oral Pulse Rate 85 85 102 H Respiratory Rate 16 16 17 Blood Pressure 120/78 120/78 123/74 H Blood Pressure Mean 92 92 90 Pulse Ox 95 95 95 Oxygen Delivery Method Room Air Room Air Nasal Cannula Oxygen Flow Rate (L/min) 2 05/02/24 15:50 Temperature 98.9 F Temperature Source Oral Pulse Rate 98 Respiratory Rate 20 H Blood Pressure 133/90 H Blood Pressure Mean 104 Pulse Ox 96 Oxygen Delivery Method Nasal Cannula Oxygen Flow Rate (L/min) 1 Positive well nourished, well developed and obese General Appearance ED: well developed and NAD; Negative for pallor Nutritional Appearance: obese HEENT Reports normocephalic, head/scalp atraumatic and moist mucous membranes Eyes PERRL and EOMs intact bilaterally Neck no lymphadenopathy, supple and no JVD Resp normal respiratory effort and clear to auscultation bilaterally Cardio regular rhythm and no murmurs Rate: tachycardic Rhythm: abnormal rhythm irregularly irregular GI normal to inspection, nondistended, normoactive bowel sounds and non-tender Palpation: soft Back/Spine no CVA tenderness and normal ROM Extremity Extremity Narrative: Right distal leg demonstrates a reddish/purpleish hue anterior lateral over the distal half of the leg. This is is mildly tender. No significant deformity. There is right greater than left lower extremity swelling. The calf is nontender. Neuro oriented x3 and CN's II-XII intact bilaterally Sensorium / Orientation: alert Motor Exam: strength 5/5 throughout Psych mental status grossly normal Mood & Affect: Negative for depressed or tearful Skin no wounds General Skin Exam: Negative for pallor MDM MDM MDM Narrative Medical decision making narrative: Differential diagnosis includes but not limited to cellulitis UTI pneumonia contusion fracture sepsis White count elevated 15.9 with 89 neutrophils 2.1 lymphocytes hemoglobin 13 platelet count of 172. Normal lactic acid at 1.6 troponin is 9 urinalysis demonstrates 5-10 white cells 2+ bacteria negative nitrates will be sent for culture. Blood cultures were obtained. My independent interpretation of the chest x-ray is small right pleural effusion. Her EKG is atrial fibrillation the patient received supplemental oxygen as her pulse ox while sleeping is around 90. While awake and talking she is 98%. I think this is more of a function of shallow respirations as compared to a VQ mismatch. The patient is chronically anticoagulated with apixaban. My independent interpretation of the plain films of the right tib-fib is no acute fracture. Patient will receive vancomycin and Zosyn. COVID influenza and RSV swabs were negative. Plan is admission into hospital for treatment of cellulitis of the right leg. History & Record Review Discussion w/independent historian: Patient and Family Lab Data Attestation: I reviewed the patient's lab results. Labs: Laboratory Results - last 24 hr 05/02/24 05/02/24 15:15 15:32 WBC 15.9 H RBC 4.23 Hgb 13.0 Hct 40.1 MCV 94.8 MCH 30.7 MCHC 32.4 RDW Std Deviation 43.5 RDW Coeff of Jus 12.5 Plt Count 172 MPV 11.2 Immature Gran % (Auto) 0.800 Neut % (Auto) 89.0 H Lymph % (Auto) 2.1 L Jackson % (Auto) 7.8 Eos % (Auto) 0.0 Baso % (Auto) 0.3 Absolute Neuts (auto) 14.2 H Absolute Lymphs (auto) 0.34 L Nucleated RBC % 0 PT 17.0 H INR 1.4 APTT 35.0 Sodium 139 Potassium 3.5 Chloride 98 Carbon Dioxide 35.0 H Anion Gap 6 BUN 22 H Creatinine 0.76 Estim Creat Clear Calc 45.41 Est GFR (MDRD) Af Amer 94 Est GFR (MDRD) Non-Af 77 BUN/Creatinine Ratio 28.9 H Glucose 105 Lactic Acid 1.6 Calcium 9.9 Total Bilirubin 0.70 AST 24 ALT 17 Alkaline Phosphatase 68 Troponin I High Sens 9 Total Protein 8.0 Albumin 3.4 Globulin 4.6 H Albumin/Globulin Ratio 0.7 L Urine Color Yellow Urine Clarity Sl. Cloudy Urine pH 8.0 Ur Specific [place] 1.015 Urine Protein Negative Urine Glucose (UA) Normal Urine Ketones Negative Urine Occult Blood Negative Urine Nitrite Negative Urine Bilirubin Negative Urine Urobilinogen Normal Ur Leukocyte Esterase 100 H Urine RBC 0 SEEN Urine WBC 5-10 SEEN Ur Squamous Epith Cells 0 SEEN Amorphous Sediment 1+ Urine Bacteria 2+ Urine Mucus 0 SEEN Radiography Diagnostic Testing: Clinical Impression(s) from Imaging Studies Chest X-Ray 05/02/24 15:35 IMPRESSION: Small right pleural effusion. Electronically Signed: Jr Mills MD at 15:57 EDT , EKG Initial EKG: Attestation: I personally reviewed and interpreted this EKG as follows: Comments: Atrial fibrillation with a rate of 96 bpm Management Discussion w/another healthcare provider: Hospitalist Discharge Plan Dx/Rx/DC Orders Clinical Impression: Cellulitis of leg, Acute febrile illness Disposition Disposition: Acute Care Hospital [facility]
[2024-05-02] MEDS: 0.9% Normal Saline (1000mL) 1,000 ML 999 ML IV (15:30)
[2024-05-02 15:32] LABS: Absolute Lymphocyte Count 0.34 X10^3/uL (0.83-4.51); Absolute Neutrophil Count 14.2 X10^3/uL (2.0-7.7); Basophil# 0.05 X10^3/uL; Basophil% 0.3 % (0-1); Hematocrit 40.1 % (37-47); Lymphocyte # 0.34 X10^3/ul (0.83-4.51); Lymphocyte % 2.1 % (19-41); Mean Corp Hgb Conc 32.4 g/dL (32-36); Mean Corpuscular Hgb 30.7 pg (27.0-32.0); Mean Corpuscular Volume 94.8 fL (81-99); Mean Platelet Vol. 11.2 fl (6.2-12.0); Monocyte# 1.24 X10^3/uL; Monocyte% 7.8 % (0-10); NRBC Flagged by Analyzer 0 % (0-5); Neutrophil # 14.15 X10^3/uL (2.7-7.7); POSITIVE DIFFERENTIAL YES; Platelet Count 172 K/mm3 (150-450); RBC Distribution Width CV 12.5 % (11.6-14.6); RBC Distribution Width SD 43.5 fl (35.1-43.9); Red Blood Count 4.23 M/mm3 (4.2-5.4); White Blood Count 15.9 K/mm3 (4.4-11.0)
--- NOTE | 2024-05-02 15:35 | RAD_ITS ---
STUDY: XR Chest 1 View 05/02/2024 3:32 PM REASON FOR EXAM: Female, 83 years old. fever COMPARISON: 09/10/2019 TECHNIQUE: XR Chest 1 View FINDINGS: Small right pleural effusion. Healed right rib fractures. Enlarged heart size. Normal mediastinum. Normal donna. Prominent appearing increased interstitial lung markings. Normal visualized pulmonary arteries. There is atherosclerotic calcification of the aortic arch with tortuosity. There are diffuse degenerative changes of the visualized thoracic spine. There is degenerative osteoarthritis of the bilateral shoulders. There are no acute findings of the upper abdomen. RAD/Chest 1 View (Portable) IMPRESSION: Small right pleural effusion. Electronically Signed: Jr Mills MD at 15:57 EDT ,
[2024-05-02 15:38] LABS: Mucous, Urine 0 SEEN /hpf (<or=2+); Red Blood Cells-Urine 0 SEEN /hpf (0-5); Squamous Epithelial Cells - UA 0 SEEN /hpf (5-10)
[2024-05-02 15:41] LABS: International Normalized Ratio 1.4
[2024-05-02 15:44] LABS: Color, Urine Yellow (Yellow); Glucose, Dipstick Normal (Normal); Ketone-Dipstick Negative (Negative); Leukocyte Esterase-Dipstick 100 /ul (Negative); Nitrite-Dipstick Negative (Negative); Occult Blood-Urine Negative /ul (Negative); Protein-Dipstick Negative (Negative); Specific Gravity, Urine 1.015 (1.002-1.030); Urine Bilirubin Dipstick Negative (Negative); Urine Clarity Sl. Cloudy (Clear); Urine Urobilinogen Normal (Normal)
[2024-05-02 15:55] LABS: Bacteria 2+ /hpf (None Seen); White Blood Cells 5-10 SEEN /hpf (0-5)
[2024-05-02 15:56] LABS: Amorphous Sediment 1+
[2024-05-02 16:13] LABS: ALB/GLOB Ratio 0.7 RATIO (0.9-2.4); AST(SGOT) 24 U/L (15-37); Alanine Aminotransfer ALT/SGPT 17 U/L (13-56); Albumin, Serum 3.4 g/dL (3.2-5.0); Alkaline Phosphatase 68 U/L (45-117); Anion Gap 6 (5-15); BUN 22 mg/dL (7-18); BUN/Creat Ratio 28.9 RATIO (10-20); Calcium,Total 9.9 mg/dL (8.5-10.1); Chloride 98 mmol/L (98-107); Creatinine, Serum 0.76 mg/dL (0.55-1.02); EST Glomerular Filtration Rate 77 mL/min (>60); Est Glom Filt Rate - Afr Amer 94 mL/min (>60); Estimated Creatinine Clearance 45.41 ml/min; Globulin 4.6 g/dL (2.2-4.2); Glucose 105 mg/dL (74-106); Lactic Acid 1.6 mmol/L (0.4-1.9); Potassium 3.5 mmol/L (3.5-5.1); Sodium Level 139 mmol/L (136-145); Troponin-I HS 9 pg/mL (3.0-54.0)
--- NOTE | 2024-05-02 17:01 | HP.PCM.HOS_ITS ---
HPI - General General Date of Admission: 05/02/24 Date of Service: 05/02/24 Chief Complaint: Cellulitis HPI Narrative PARISH AUGUSTINE, is a 83 F with A-fib on chronic anticoagulation with Eliquis, prior transverse mellitus, stroke, chronic opioid therapy for pain was brought to the ED for concerns of fever, redness over her right leg and changes in her functional status for the last 1-2 days. Per the family members [sister and daughter at bedside] they noticed a red rash, with associated pain and fever since yesterday and the patient has been more sleepy. The pulse oximeter at home showed a saturation of around 91 to 92% on room air and they were concerned regarding the same. For this reason she was brought to the ED. At the time of presentation to the ED, blood pressure 133/90, oxygen saturation 96% on 1 L nasal cannula, labs showed WBC 15.9, hemoglobin 13.0, platelet count 172, INR 1.4, sodium 139 potassium 3.5 BUN 22 creatinine 0.7 lactic acid 1.6 normal bilirubin AST/ALT, globulin 4.6 urine leukoesterase 100 WBC 5-10, 2+ bacteria, chest x-ray showed small right-sided pleural effusion. In the ED she was started on Zosyn plus vancomycin and received 1 L of normal saline. 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) Chronic diastolic (congestive) heart failure Anxiety and depression GERD (gastroesophageal reflux disease) Opioid dependence Neuropathic pain Chronic pain Hiatal hernia Acute anemia Hyperlipidemia Essential (primary) hypertension Paroxysmal atrial fibrillation Transverse myelitis History of DVT (deep vein thrombosis) Acute ischemic stroke Atrial flutter Home Medications ?Medication ?Instructions ?Recorded ?Last Taken ?Type alprazolam 0.25 mg tablet 0.25 mg PO QHS anxiety 08/27/18 08/28/18 20:03 History polyethylene glycol 3350 17 gram 17 gm PO DAILY constipation 12/20/18 12/22/18 10:20 History oral powder packet oxycodone 5 mg tablet 5 mg PO Q4H PRN PRN Severe Pain 09/07/18 Unknown Rx () #10 tabs sennosides 8.6 mg-docusate sodium 2 tab PO BIDCM #120 tabs 09/07/18 Unknown Rx 50 mg tablet Wheel Chair #1 ea 10/10/20 Unknown Rx walker #1 ea 10/10/20 Unknown Rx home oxygen See Rx Instructions NASAL QHS PRN 11/30/20 Unknown History oxygen methadone 5 mg tablet 5 mg PO TID PRN Pain 09/12/21 Unknown History nitroglycerin 0.4 mg sublingual 0.4 mg sublingual Q5-15M PRN chest 11/06/21 Unknown Rx tablet pain #25 tabs hydrocortisone 2.5 % topical cream 1 applic AK BID PRN hemorrhoids 12/20/21 Unknown Rx with perineal applicator #30 grams (Anusol-HC) atorvastatin 10 mg tablet 10 mg PO DAILY 12/24/22 Unknown History ascorbate calcium (vitamin C) 500 500 mg PO DAILY 04/28/23 Unknown History mg tablet cholecalciferol (vitamin D3) 50 50 mcg PO DAILY 04/28/23 Unknown History mcg (2,000 unit) capsule denosumab 60 mg/mL subcutaneous 60 mg subcut [id number] #1 mL 04/29/23 Unknown Rx syringe (Prolia) polysaccharide iron complex 150 mg 150 mg PO DAILY #90 caps 06/05/23 Unknown Rx iron capsule (Ferrex) hydrochlorothiazide 25 mg tablet See Rx Instructions .Route 09/10/23 Unknown Rx .COMPLEX #90 tabs Handicap Placard #1 ea 10/14/23 Unknown Rx citalopram 20 mg tablet 30 mg (1.5 x 20 mg) PO DAILY #360 11/13/23 Unknown Rx tabs apixaban 5 mg tablet (Eliquis) 5 mg PO BID #60 TABLETS 11/27/23 Unknown Rx omeprazole 40 mg capsule,delayed See Rx Instructions .Route 01/26/24 Unknown Rx release .COMPLEX #90 caps diltiazem HCl 120 mg capsule,24 120 mg PO DAILY #90 caps 03/01/24 Unknown Rx hr,extended release potassium chloride 20 mEq 20 meq PO TID #270 tabs 03/01/24 Unknown Rx tablet,extended release(part/cryst) gabapentin 300 mg capsule See Rx Instructions .Route 03/30/24 Unknown Rx .COMPLEX #180 caps furosemide 20 mg tablet 40 mg PO DAILY 05/02/24 Unknown History lisinopril 20 mg tablet 10 mg PO BID 05/02/24 Unknown History Allergy/AdvReac Type Severity Reaction Status Date / Time morphine Allergy Hives Verified 04/27/24 13:12 atorvastatin AdvReac Severe elevated Verified 04/27/24 13:12 liver enzymes carbamazepine (From Tegretol) AdvReac Intermediate HALLUCINATI Verified 04/27/24 13:12 ONS procaine HCl (From Novocain) AdvReac Intermediate HEART Verified 04/27/24 13:12 RACES,FEELS LIKE WILL PASS OUT Family History Mother Colon cancer Father Myocardial infarction Uncle Asthma Surgical History History of carpal tunnel surgery of right wrist H/O: hysterectomy Social History Smoking Status: Former smoker how long ago did patient quit smokin years ago alcohol intake: never substance use type: does not use caffeine: Yes Type: coffee Number of servings: 2 what type of physical activity do you participate in: none seatbelt use: always do you feel safe at home: Yes ROS Review of Systems ROS Unobtainable: Denies due to encephalopathy, due to endotracheal tube, due to mental condition, due to mental status or other Constitutional Constitutional: Reports fatigue, fever(s) and malaise Eyes Eyes: Denies blurry vision, change in eye color, change in vision, discharge from eye(s), double vision, erythema, eye pain, loss of vision or other ENT HEENT: Denies abnormal hearing, dysphagia, ear pain, epistaxis, headache(s), hearing loss, nasal congestion, nasal discharge, post nasal drip, sinus pressure, sore throat or other Cardiovascular Cardiovascular: Reports dyspnea on exertion and palpitations Respiratory/Chest Respiratory/Chest: Denies cough, dyspnea, excessive phlegm production, hemoptysis, productive cough, shortness of breath at rest, shortness of breath with exertion, wheezing or other Gastrointestinal Gastrointestinal: Reports abdominal pain Genitourinary Genitourinary: Denies burning urination, difficulty urinating, dysuria, hematuria, nocturia, urinary frequency, urinary hesitancy, urinary incontinence, urinary urgency or other Musculoskeletal Musculoskeletal: Reports arthralgias, back pain and myalgias; Denies joint pain, joint stiffness, joint swelling, neck pain or other Neurologic Neurologic: Denies abnormal gait, abnormal speech, confusion, disequilibrium, dizziness, focal weakness, headache(s), numbness, paresthesias, seizure-like activity, seizures, syncope, tingling, tremor(s) or other Endocrine Endocrinology: Denies change in body appearance, cold intolerance, excessive sweating, heat intolerance, polydipsia, polyuria or other Hematologic/Lymphatic Hematologic/Lymphatic: Denies anemia, easy bleeding, easy bruising, lymphadenopathy or other Allergic/Immunologic Allergic/Immunologic: Denies rhinitis, hives, eczemia, asthma or other Vital Signs Vital Signs Vital Signs: 05/02/24 14:48 05/02/24 14:50 05/02/24 15:34 Temperature 99.7 F H 99.7 F H Temperature Source Oral Oral Pulse Rate 85 85 102 H Respiratory Rate 16 16 17 Blood Pressure 120/78 120/78 123/74 H Blood Pressure Mean 92 92 90 Pulse Ox 95 95 95 Oxygen Delivery Method Room Air Room Air Nasal Cannula Oxygen Flow Rate (L/min) 2 05/02/24 15:50 Temperature 98.9 F Temperature Source Oral Pulse Rate 98 Respiratory Rate 20 H Blood Pressure 133/90 H Blood Pressure Mean 104 Pulse Ox 96 Oxygen Delivery Method Nasal Cannula Oxygen Flow Rate (L/min) 1 Weight Weight: 137 lb Body Mass Index (BMI) 26.7 Physical Exam Const alert and oriented x3 HEENT normocephalic Eyes PERRL Neck no lymphadenopathy Resp normal respiratory effort and no retractions GI soft to palpation and non-tender Extremity Extremity Narrative: Erythema, warmth in the right leg Neuro oriented x3 Sensorium / Orientation: awake and alert Psych affect normal Results Medical Records Data Attestation: I reviewed the patient's medical records Lab / Micro Data Attestation: I reviewed the patient's lab results. 05/02/24 15:15 05/02/24 15:15 Labs: Laboratory Results - last 24 hr 05/02/24 15:15: WBC 15.9 H, RBC 4.23, Hgb 13.0, Hct 40.1, MCV 94.8, MCH 30.7, MCHC 32.4, RDW Std Deviation 43.5, RDW Coeff of Jus 12.5, Plt Count 172, MPV 11.2, Immature Gran % (Auto) 0.800, Neut % (Auto) 89.0 H, Lymph % (Auto) 2.1 L, [place] % (Auto) 7.8, Eos % (Auto) 0.0, Baso % (Auto) 0.3, Absolute Neuts (auto) 14.2 H, Absolute Lymphs (auto) 0.34 L, Nucleated RBC % 0, PT 17.0 H, INR 1.4, APTT 35.0, Sodium 139, Potassium 3.5, Chloride 98, Carbon Dioxide 35.0 H, Anion Gap 6, BUN 22 H, Creatinine 0.76, Estim Creat Clear Calc 45.41, Est GFR (MDRD) Af Amer 94, Est GFR (MDRD) Non-Af 77, BUN/Creatinine Ratio 28.9 H, Glucose 105, Lactic Acid 1.6, Calcium 9.9, Total Bilirubin 0.70, AST 24, ALT 17, Alkaline Phosphatase 68, Troponin I High Sens 9, Total Protein 8.0, Albumin 3.4, Globulin 4.6 H, Albumin/Globulin Ratio 0.7 L 05/02/24 15:32: Urine Color Yellow, Urine Clarity Sl. Cloudy, Urine pH 8.0, Ur Specific [place] 1.015, Urine Protein Negative, Urine Glucose (UA) Normal, Urine Ketones Negative, Urine Occult Blood Negative, Urine Nitrite Negative, Urine Bilirubin Negative, Urine Urobilinogen Normal, Ur Leukocyte Esterase 100 H, Urine RBC 0 SEEN, Urine WBC 5-10 SEEN, Ur Squamous Epith Cells 0 SEEN, Amorphous Sediment 1+, Urine Bacteria 2+, Urine Mucus 0 SEEN Micro: Microbiology 05/02/24 15:32 Mucosa - Nose SARS-CoV-2, Influenza & RSV (PCR) - Final Imaging Radiology Impression Chest X-Ray 05/02/24 15:35 IMPRESSION: Small right pleural effusion. Electronically Signed: Jr Mills MD at 15:57 EDT , Assessment & Plan Assessment/Plan (1) Cellulitis of leg: PLAN: Plan 83 year female presents to the ED for concerns of fever and rash over the right leg. The likely reason for her presentation is acute cellulitis, we will start antibiotic therapy for the same. # Acute lower extremity cellulitis -Start Unasyn 3 g IV every 6 hours, discontinue Zosyn and vancomycin for now -MRSA swab -Daily monitoring of the leg -Elevate extremity -Daily CBC #Right-sided pleural effusion: -Given the new onset oxygen requirement possibility of ADHF -BNP -continue Lasix -Echocardiogram #Asymptomatic bacteriuria: -Continue antibiotics as above #A-fib with RVR -Continue home diltiazem -Admit to PCU with cardiac monitoring -Hemodynamically stable for now no further management required -Continue anticoagulation with Eliquis #Chronic back pain on opioid therapy -Continue home opioid therapy Open PT OT evaluation -Case management evaluation for discharge planning #CVA: -Continue home regimen anticoagulation #Transverse myelitis: Noted, continue to monitor #Acute anemia: -Continue iron supplementation #Generalized anxiety disorder -Continue home alprazolam 0.25 mg tablets nightly -Continue escitalopram #Hypertension: -Continue lisinopril 20 mg twice daily -Continue home Lasix for now #Hypokalemia: -Continue potassium chloride supplementation #Continue multivitamin supplementation #Chronic constipation: Continue MiraLAX #GERD: Continue pantoprazole #Osteoporosis: Hold denosumab for now, restart as an outpatient #Dyslipidemia: Continue atorvastatin 10 mg #DVT prophylaxis: On therapeutic anticoagulation Charges/Coding Visit Charges Inpatient E&M: 42675 Init Hosp L2
[2024-05-02] MEDS: Vancomycin HCl 1,500 MG in 0.9% Normal Saline (500mL Bag) 500 ML 250 MG IV (17:12)
--- NOTE | 2024-05-02 18:17 | ECHOCS_ITS ---
Reason For Study: CHF Procedure This was a 2D Doppler, Color Flow transthoracic echocardiogram. Contrast injection was performed. Patient scanned sitting upright due to condition. Exam performed portable in patient room. Left Ventricle Normal size and thickness. The left ventricular ejection fraction is 60 %. Diastolic function is indeterminate. Right Ventricle Normal right ventricle. Atria The left atrium is severely enlarged. The right atrium is mildly enlarged. Mitral Valve Moderate mitral annular calcification. Moderate to severe eccentric mitral regurgitation. Anteriorly directed. Recommend cardiac MRI or MARY for further evaluation. Tricuspid Valve Moderate (2+) tricuspid valve insufficiency. Right ventricular systolic pressure estimated to be 50 mmHg. Aortic Valve Trisinus/trileaflet aortic valve. Pulmonic Valve Trivial pulmonic valve insufficiency. Great Vessels Normal sized aortic root. Pericardium/Pleural No pericardial effusion. Medication Diluted definity 2ml given slow IV push to enhance endocardial definition. MMode/2D Measurements & Calculations LVIDd: 4.3 cm IVSd: 0.68 cm Ao root diam: 3.5 cm LVIDs: 2.8 cm LVPWd: 0.85 cm LA dimension: 4.8 cm FS: 35.2 % LAV(MOD-bp): 104.5 ml LVAd ap4: 25.6 cm2 SV(MOD-sp4): 42.7 ml LAV(MOD-bp) Indexed: 67.2 ml/m2 LVLd ap4: 6.5 cm LAV(MOD-sp2): 99.2 ml EDV(MOD-sp4): 77.8 ml LAV(MOD-sp4): 112.9 ml EDV(sp4-el): 84.8 ml LVAs ap4: 15.6 cm2 LVLs ap4: 5.5 cm ESV(MOD-sp4): 35.1 ml ESV(sp4-el): 37.6 ml EF(MOD-sp4): 54.9 % EF(sp4-el): 55.7 % SV(sp4-el): 47.2 ml LA A4 area: 32.2 cm2 RA A4 area: 21.5 cm2 TAPSE: 1.5 cm Doppler Measurements & Calculations MV E max rain: 84.8 cm/sec MV V2 max: 114.5 cm/sec MV P1/2t max rain: 114.3 cm/sec MV max P.2 mmHg MV P1/2t: 62.3 msec MV V2 mean: 49.5 cm/sec MV mean P.4 mmHg MV dec slope: 536.9 cm/sec2 MV V2 VTI: 21.2 cm MVA(P1/2t): 3.5 cm2 Ao V2 max: 90.7 cm/sec LV V1 max: 80.6 cm/sec MR max rain: 479.0 cm/sec Ao max P.3 mmHg LV V1 max P.6 mmHg MR max P.8 mmHg Ao V2 mean: 63.2 cm/sec Ao mean P.8 mmHg Ao V2 VTI: 15.8 cm PA V2 max: 66.5 cm/sec TR max rain: 294.5 cm/sec PA max PG (full): 0.73 mmHg TR max P.7 mmHg PA V2 mean: 49.7 cm/sec PA mean PG (full): 0.52 mmHg ECHO/Echo Complete W/ Contrast Interpretation Summary The left ventricular ejection fraction is 60 %. Diastolic function is indeterminate. The left atrium is severely enlarged. The right atrium is mildly enlarged. Moderate mitral annular calcification. Moderate to severe eccentric mitral regurgitation. Anteriorly directed. Recomme nd cardiac MRI or MARY for further evaluation. Moderate (2+) tricuspid valve insufficiency. Right ventricular systolic pressure estimated to be 50 mmHg. Ordering Physician: Gary Maharaj Referring Physician: Ольга Riggins Performed By: Aron Napoles RCS
[2024-05-02 18:50] LABS: BNP,B-Type NATRIURETIC PEPTIDE 299.6 pg/mL (0-100)
[2024-05-02] MEDS: Potassium Chloride Oral Tablet 20 MEQ PO ×2 (19:34→21:17)
[2024-05-02] MEDS: Ampicillin/Sulbactam 3 GM in 0.9% Normal Saline (100mL MB+) 100 ML IV ×2 (19:34→23:37)
[2024-05-02] MEDS: oxyCODONE 5 MG Tablet PO (21:07)
[2024-05-02] MEDS: ALPRAZolam 0.25 MG Tablet PO (21:07)
[2024-05-02] MEDS: Lisinopril 10 MG Tablet PO (21:13)
[2024-05-02] MEDS: APIXABAN 5 MG TABLET PO (21:24)
[2024-05-03] VITALS (7 sets, daily range): BP systolic 100–132; BP diastolic 62–85; PULSE 78–98; RESP 12–18; TEMP 36.6–37.2; O2SAT 94–97
[2024-05-03] MEDS: oxyCODONE 5 MG Tablet PO ×2 (02:03→06:07)
[2024-05-03] MEDS: Potassium Chloride Oral Tablet 20 MEQ PO ×3 (05:10→22:24)
[2024-05-03] MEDS: Ampicillin/Sulbactam 3 GM in 0.9% Normal Saline (100mL MB+) 100 ML IV ×4 (05:10→23:34)
[2024-05-03 06:22] LABS: Absolute Lymphocyte Count 0.81 X10^3/uL (0.83-4.51); Absolute Neutrophil Count 13.2 X10^3/uL (2.0-7.7); Basophil# 0.03 X10^3/uL; Basophil% 0.2 % (0-1); Hematocrit 34.8 % (37-47); Hemoglobin 11.3 g/dL (12.0-15.0); Lymphocyte # 0.81 X10^3/ul (0.83-4.51); Lymphocyte % 5.3 % (19-41); Mean Corp Hgb Conc 32.5 g/dL (32-36); Mean Corpuscular Volume 95.3 fL (81-99); Mean Platelet Vol. 11.1 fl (6.2-12.0); Monocyte# 1.27 X10^3/uL; Monocyte% 8.2 % (0-10); NRBC Flagged by Analyzer 0 % (0-5); Neutrophil # 13.18 X10^3/uL (2.7-7.7); Neutrophil % 85.6 % (47-70); Platelet Count 127 K/mm3 (150-450); RBC Distribution Width CV 13.1 % (11.6-14.6); RBC Distribution Width SD 45.3 fl (35.1-43.9); Red Blood Count 3.65 M/mm3 (4.2-5.4); White Blood Count 15.4 K/mm3 (4.4-11.0)
[2024-05-03 06:26] LABS: International Normalized Ratio 1.7; Prothrombin Time (Protime)PT. 19.7 SECONDS (11.7-14.9)
[2024-05-03 06:58] LABS: AST(SGOT) 23 U/L (15-37); Alanine Aminotransfer ALT/SGPT 12 U/L (13-56); Albumin, Serum 2.5 g/dL (3.2-5.0); Alkaline Phosphatase 48 U/L (45-117); Anion Gap 5 (5-15); BUN 18 mg/dL (7-18); BUN/Creat Ratio 29.4 RATIO (10-20); Bilirubin, Direct 0.23 mg/dL (0.00-0.30); Calcium,Total 8.6 mg/dL (8.5-10.1); Chloride 104 mmol/L (98-107); Creatinine, Serum 0.61 mg/dL (0.55-1.02); EST Glomerular Filtration Rate 100 mL/min (>60); Est Glom Filt Rate - Afr Amer 120 mL/min (>60); Globulin 4.3 g/dL (2.2-4.2); Glucose 126 mg/dL (74-106); Magnesium 1.8 mg/dL (1.6-2.6); Phosphorus 1.5 mg/dL (2.5-4.9); Potassium 3.5 mmol/L (3.5-5.1); Protein, Total 6.8 g/dL (6.4-8.2); Sodium Level 138 mmol/L (136-145); Thyroid Stim Hormone (TSH) 0.218 uIU/mL (0.358-3.740)
[2024-05-03] MEDS: Gabapentin 600 MG Tablet PO ×3 (09:34→18:35)
[2024-05-03] MEDS: Citalopram 10 MG Tablet 30 MG PO (09:35)
[2024-05-03] MEDS: Polyethylene Glycol 3350 17 GM PACKET PO (09:36)
[2024-05-03] MEDS: Cholecalciferol (VIT D3) 25 MCG TABLET (1,000 UNITS) 50 MCG PO (09:36)
[2024-05-03] MEDS: Iron Polysaccharide Complex 150 MG CAPSULE PO (09:36)
[2024-05-03] MEDS: Atorvastatin Calcium 10 MG Tablet PO (09:36)
[2024-05-03] MEDS: Lisinopril 10 MG Tablet PO ×2 (09:36→22:24)
[2024-05-03] MEDS: Furosemide 40 MG Tablet PO (09:36)
[2024-05-03] MEDS: dilTIAZem CD 120 MG Capsule PO (09:36)
[2024-05-03] MEDS: Pantoprazole Sodium 40 MG Tablet PO (09:36)
[2024-05-03] MEDS: Ascorbic Acid 500 MG Tablet PO (09:36)
[2024-05-03] MEDS: hydroCHLOROthiazide 25 MG Tablet PO (09:42)
[2024-05-03 10:26] LABS: Hemoglobin A1c 5.1 % (3.8-5.6)
[2024-05-03] MEDS: Acetaminophen 325 MG Tablet 650 MG PO (10:28)
[2024-05-03] MEDS: APIXABAN 5 MG TABLET PO ×2 (10:28→22:25)
--- NOTE | 2024-05-03 10:50 | CASEMGMT ---
TOMAS DONG Assessment: Face to Face with pt for initial transition planning/care coordination assessment. TOMAS DONG introduced self and role at [facility], pt voices understanding and consents to assessment. Pt is A&O x4 and answers all questions appropriately at this time. Pt sitting up in bed in no distress, sister in room. Pt agreeable to answering questions with family in the room. Care providers, pharmacy, and demographics verified/updated. Strata: 2 Admitting Dx: Cellulitis PCP: [facility] Specialists: Kristal, Rivet Machine Operator; Ryan, Pain Management, , Chronic Disease Manager. Preferred Pharmacy: [facility] Insurance: Smackages, [employer] Prescription Benefit: yes LNOK: Son, Sister. Living Arrangements: Pt lives with son and DIL in a 2 story with 2 steps to enter. Pt reports she has a suite on the main level. ADLs: Pt reports needs assistance with ADLs, DIL helps her. Transportation: Pt friend, Marielle, provides transportation when needed. DME: Walker, gait belt, wheelchair, shower bench, O2 from [facility]. Isabel from [facility] states pt uses 2L continuous. HHC/SNF: Previously at the [facility], used HHC in the past unsure of agency. Pt states no concerns with going home at time of dc. Pt states no further concerns/needs. CM to follow. Advised pt to ask CM if any further question/concerns/needs arise, voices understanding. Pt Goal: Home Plan: Home with family support, TOMAS DONG to follow plan of care. Milan MARIN CM
--- NOTE | 2024-05-03 11:56 | NURSING ---
Methadone order changed to QID, Patient to have medication at 1015 for new first time dosage. Pulled from ACTIVE medication list out of [facility] [employer]. Multiple attempts to scan off medication via barcode. Unable to scan states, Medication does not exist. Verified with TOMAS Prince to administer 5 mg of Methadone. Notified Anselmo in pharmacy that medication was not able to be scanned off. States that this was ok to double verify prior to admin w/ RN then manually breezy off. Pharmacy states that hopefully next dose will not a problem to pull and administer, will contact pharmacy if there is still an issue.
--- NOTE | 2024-05-03 16:38 | CHAPLAIN ---
Type of Pastoral Visit _x__ Initial Visit ___ Follow-up Visit ___ On-call Visit ___ General Patient Visit ___ Spiritual Assessment ___ Family Conference ___ Bereavement ___ Rapid Response ___ Code Blue ___ Other (describe below) Pastoral Care Referral From _x__ Patient ___ Family ___ Nurse ___ Physician ___ Manager Of Transportation ___ Knitting Machine Fixer Head ___ Other (describe below) Sacrament/Intervention _x__ Active listening ___ Anointing ___ Church ___ Bereavement ___ Communion _x__ Evelin exploration ___ ___ Life review _x__ Prayer ___ Reconciliation ___ Sacrament of Sick _x__ Supportive presence ___ Wedding ___ Other (describe below) Pastoral Comments patient and a close friend were in the room; pt describes her chronic pain issues; pt is wanting to find gnosticism programming on the TV and she is helped with some options; pt given time to express herself and to respond to her request for prayer support
[2024-05-03] MEDS: Ensure Plus High Protein 120 ML LIQUID PO (18:35)
--- NOTE | 2024-05-03 18:45 | PCM.PN.HOSP ---
Reason for Visit Reason for Visit: Diagnoses Cellulitis of unspecified part of limb (05/02/24) Subjective Subjective Patient was seen and examined today, her right lower leg is reddened and shows evidence of stasis dermatitis. Patient's white blood cell count today was 15.4, patient remains afebrile. Objective Data Objective Data Vital Signs: Vital Signs Temp Pulse Resp BP Pulse Ox O2 Del Method O2 Flow Rate 98.2 F 80 14 108/70 96 Room Air 2 05/03/24 18:30 05/03/24 18:30 05/03/24 18:30 05/03/24 18:30 05/03/24 18:30 05/03/24 18:30 05/03/24 11:05 Oxygen Flow Rate (L/min) 2 Oxygen Delivery Method Room Air Weight: 60.963 kg Body Mass Index (BMI) 29.0 Intake & Output: Intake and Output for Last 24 Hours 05/01/24 05/02/24 05/03/24 23:59 23:59 23:59 Intake Total 1642 / 1642 816 / 816 Output Total 550 / 550 Balance 1642 / 1392 266 / 266 Lab / Micro Data 05/03/24 05:42 05/03/24 05:42 Labs: Laboratory Results - last 24 hr 05/02/24 15:15: B-Natriuretic Peptide 299.6 H 05/03/24 05:42: WBC 15.4 H, RBC 3.65 L, Hgb 11.3 L, Hct 34.8 L, MCV 95.3, MCH 31.0, MCHC 32.5, RDW Std Deviation 45.3 H, RDW Coeff of Jus 13.1, Plt Count 127 L, MPV 11.1, Immature Gran % (Auto) 0.700, Neut % (Auto) 85.6 H, Lymph % (Auto) 5.3 L, [place] % (Auto) 8.2, Eos % (Auto) 0.0, Baso % (Auto) 0.2, Absolute Neuts (auto) 13.2 H, Absolute Lymphs (auto) 0.81 L, Nucleated RBC % 0, PT 19.7 H, INR 1.7, Sodium 138, Potassium 3.5, Chloride 104, Carbon Dioxide 29.0, Anion Gap 5, BUN 18, Creatinine 0.61, Estim Creat Clear Calc 45.00, Est GFR (MDRD) Af Amer 120, Est GFR (MDRD) Non-Af 100, BUN/Creatinine Ratio 29.4 H, Glucose 126 H, Hemoglobin A1c 5.1, Calcium 8.6, Phosphorus 1.5 L, Magnesium 1.8, Total Bilirubin 0.60, Direct Bilirubin 0.23, AST 23, ALT 12 L, Alkaline Phosphatase 48, Total Protein 6.8, Albumin 2.5 L, Globulin 4.3 H, TSH 0.218 L Micro: Microbiology 05/02/24 19:40 Nasal Secretion MRSA (PCR) - Final 05/02/24 15:35 Urine Catheter - Catheter Urine Culture - Preliminary Alpha hemolytic organism 05/02/24 15:32 Mucosa - Nose SARS-CoV-2, Influenza & RSV (PCR) - Final Physical Exam Const alert, oriented x3, no apparent distress and healthy appearing General Appearance: cooperative, well kempt and well developed Orientation / Consciousness: awake, oriented to person, oriented to place and oriented to time HEENT normocephalic, head/scalp atraumatic and moist oral mucous membranes Eyes PERRL, EOMs intact bilaterally and conjunctivae normal Neck supple, no JVD, thyroid normal and no carotid bruits General: trachea midline Resp normal respiratory effort, no retractions, no use of accessory muscles and clear to auscultation bilaterally Auscultation: Negative for rales, rhonchi or wheezes Cardio S1 normal heart sound, S2 normal heart sound, no murmurs, no rub and no gallops Cardio Narrative: Heart rate and rhythm is irregular GI normal to inspection, nondistended, normoactive bowel sounds, soft to palpation, non-tender and non-distended Extremity Extremity Narrative: There is edema and redness noted over the patient's right lower leg along with redness and skin changes suggestive of stasis dermatitis. Skin Skin Narrative: There is redness noted over the patient's right lower leg particularly on the lateral aspect Neuro oriented x3, CN's II-XII intact bilaterally, no focal motor deficits and no sensory deficits noted Sensorium / Orientation: awake and alert Speech: speech normal Psych affect normal Assessment & Plan Assessment/Plan (1) Cellulitis of leg: PLAN: Plan 1. Cellulitis of the right lower leg-continue present antibiotic coverage with Unasyn #2 chronic atrial fibrillation-patient is currently on Eliquis and diltiazem. #3 hyperlipidemia-patient is on statin #4 chronic depression-patient is on citalopram #5 chronic anxiety-patient uses Xanax at bedtime Total clinical time spent by myself addressing the patient's medical issues, reviewing all of her data, and collaborating with patient's care team: 35 minutes Charges/Coding Visit Charges Inpatient E&M: 14415 Subs Hosp L2
[2024-05-03] MEDS: ALPRAZolam 0.25 MG Tablet PO (22:25)
[2024-05-04 03:42] VITALS: BP 132/82; PULSE 79; RESP 18; TEMP 36.8; O2SAT 96
[2024-05-04] MEDS: Potassium Chloride Oral Tablet 20 MEQ PO ×3 (05:35→22:47)
[2024-05-04] MEDS: 0.9% Saline Lock 10 ML Syringe IV ×3 (05:39→20:07)
[2024-05-04] MEDS: Ampicillin/Sulbactam 3 GM in 0.9% Normal Saline (100mL MB+) 100 ML IV ×3 (05:39→17:06)
[2024-05-04 06:24] LABS: Absolute Lymphocyte Count 0.81 X10^3/uL (0.83-4.51); Basophil# 0.02 X10^3/uL; Basophil% 0.2 % (0-1); Eosinophil# 0.01 X10^3/uL; Eosinophils% 0.1 % (0-5); Hematocrit 34.7 % (37-47); Hemoglobin 11.1 g/dL (12.0-15.0); Lymphocyte # 0.81 X10^3/ul (0.83-4.51); Lymphocyte % 7.4 % (19-41); Mean Corpuscular Hgb 30.9 pg (27.0-32.0); Mean Corpuscular Volume 96.7 fL (81-99); Mean Platelet Vol. 10.6 fl (6.2-12.0); Monocyte% 10.1 % (0-10); NRBC Flagged by Analyzer 0 % (0-5); Neutrophil # 8.96 X10^3/uL (2.7-7.7); Neutrophil % 81.8 % (47-70); Platelet Count 118 K/mm3 (150-450); RBC Distribution Width CV 12.9 % (11.6-14.6); RBC Distribution Width SD 46.5 fl (35.1-43.9); Red Blood Count 3.59 M/mm3 (4.2-5.4); White Blood Count 10.9 K/mm3 (4.4-11.0)
[2024-05-04] MEDS: Ensure Plus High Protein 120 ML LIQUID PO ×3 (07:44→17:06)
[2024-05-04] MEDS: Ascorbic Acid 500 MG Tablet PO (07:45)
[2024-05-04] MEDS: Gabapentin 600 MG Tablet PO ×3 (07:45→17:06)
[2024-05-04] MEDS: oxyCODONE 5 MG Tablet PO (07:50)
[2024-05-04 09:21] VITALS: BP 132/88; PULSE 92; RESP 18; TEMP 36.9; O2SAT 97
[2024-05-04] MEDS: hydroCHLOROthiazide 25 MG Tablet PO (09:24)
[2024-05-04] MEDS: APIXABAN 5 MG TABLET PO ×2 (09:24→22:47)
[2024-05-04] MEDS: Iron Polysaccharide Complex 150 MG CAPSULE PO (09:24)
[2024-05-04] MEDS: Polyethylene Glycol 3350 17 GM PACKET PO (09:24)
[2024-05-04] MEDS: Pantoprazole Sodium 40 MG Tablet PO (09:24)
[2024-05-04] MEDS: Cholecalciferol (VIT D3) 25 MCG TABLET (1,000 UNITS) 50 MCG PO (09:25)
[2024-05-04] MEDS: dilTIAZem CD 120 MG Capsule PO (09:25)
[2024-05-04] MEDS: Furosemide 40 MG Tablet PO (09:25)
[2024-05-04] MEDS: Citalopram 10 MG Tablet 30 MG PO (09:25)
[2024-05-04] MEDS: Lisinopril 10 MG Tablet PO ×2 (09:25→22:49)
[2024-05-04] MEDS: Atorvastatin Calcium 10 MG Tablet PO (09:25)
[2024-05-04] MEDS: Acetaminophen 325 MG Tablet 650 MG PO (12:45)
--- NOTE | 2024-05-04 14:58 | CHAPLAIN ---
Type of Pastoral Visit ___ Initial Visit _x__ Follow-up Visit ___ On-call Visit ___ General Patient Visit ___ Spiritual Assessment ___ Family Conference ___ Bereavement ___ Rapid Response ___ Code Blue ___ Other (describe below) Pastoral Care Referral From _x__ Patient ___ Family _x__ Nurse ___ Physician ___ Linux Unix Administrator ___ Wound Care Coordinator ___ Other (describe below) Sacrament/Intervention _x__ Active listening ___ Anointing ___ Samaritan ___ Bereavement ___ Communion _x__ Evelin exploration ___ ___ Life review _x__ Prayer ___ Reconciliation ___ Sacrament of Sick _x__ Supportive presence ___ Wedding ___ Other (describe below) Pastoral Comments RN notified this commercial loan officer that the patient was requesting a follow up visit; pt welcomes this visit with words of appreciation for the visit and prayers yesterday which were very helpful to me; patient has questions of a spiritual and biblical nature to ask; patient speaks of her feelings and thoughts on this process and about her hopes of improving to the point of returning home; pt requests prayers to be spoken again; pt expresses appreciation for the follow up visit today
[2024-05-04 15:20] VITALS: BP 122/78; PULSE 88; RESP 16; TEMP 36.8; O2SAT 96
--- NOTE | 2024-05-04 17:33 | PN.HOSP_ITS ---
Reason for Visit Reason for Visit: Diagnoses Cellulitis of unspecified part of limb (05/02/24) Subjective Subjective Patient was seen and examined today, the redness and warmth over her right lower leg has improved since yesterday. Patient's white blood cell count is also improved. Patient's nasal swab was positive for MRSA but the patient seems to be improving without coverage for MRSA. Objective Data Objective Data Vital Signs: Vital Signs Temp Pulse Resp BP Pulse Ox O2 Del Method O2 Flow Rate 98.4 F 92 18 132/88 H 97 Nasal Cannula 2 05/04/24 09:21 05/04/24 09:21 05/04/24 09:21 05/04/24 09:21 05/04/24 09:21 05/04/24 09:21 05/04/24 12:57 Oxygen Flow Rate (L/min) 2 Oxygen Delivery Method Nasal Cannula Weight: 60.963 kg Body Mass Index (BMI) 29.0 Intake & Output: Intake and Output for Last 24 Hours 05/02/24 05/03/24 05/04/24 23:59 23:59 23:59 Intake Total 1642 / 1642 928 / 928 786 / 786 Output Total 1250 / 1250 300 / 300 Balance 1642 / 1392 -322 / -322 486 / 486 Lab / Micro Data 05/04/24 05:47 05/03/24 05:42 Labs: Laboratory Results - last 24 hr 05/04/24 05:47: WBC 10.9, RBC 3.59 L, Hgb 11.1 L, Hct 34.7 L, MCV 96.7, MCH 30.9, MCHC 32.0, RDW Std Deviation 46.5 H, RDW Coeff of Jus 12.9, Plt Count 118 L, MPV 10.6, Immature Gran % (Auto) 0.400, Neut % (Auto) 81.8 H, Lymph % (Auto) 7.4 L, [place] % (Auto) 10.1 H, Eos % (Auto) 0.1, Baso % (Auto) 0.2, Absolute Neuts (auto) 9.0 H, Absolute Lymphs (auto) 0.81 L, Nucleated RBC % 0 Micro: Microbiology 05/02/24 15:15 Blood Culture (Wb) - Anticubital Left Blood Culture - Preliminary No growth in 48 hours. 05/02/24 15:35 Urine Catheter - Catheter Urine Culture - Preliminary Alpha hemolytic organism 05/02/24 19:40 Nasal Secretion MRSA (PCR) - Final 05/02/24 15:32 Mucosa - Nose SARS-CoV-2, Influenza & RSV (PCR) - Final Radiography Diagnostic Testing: Radiology Impression Echocardiogram 05/02/24 18:17 Interpretation Summary The left ventricular ejection fraction is 60 %. Diastolic function is indeterminate. The left atrium is severely enlarged. The right atrium is mildly enlarged. Moderate mitral annular calcification. Moderate to severe eccentric mitral regurgitation. Anteriorly directed. Recommend cardiac MRI or MARY for further evaluation. Moderate (2+) tricuspid valve insufficiency. Right ventricular systolic pressure estimated to be 50 mmHg. Ordering Physician: Gary Maharaj Referring Physician: Ольга Riggins Performed By: Aron Napoles RCS Physical Exam Narrative alert, oriented x3, no apparent distress and healthy appearing General Appearance: cooperative, well kempt and well developed Orientation / Consciousness: awake, oriented to person, oriented to place and oriented to time HEENT normocephalic, head/scalp atraumatic and moist oral mucous membranes Eyes PERRL, EOMs intact bilaterally and conjunctivae normal Neck supple, no JVD, thyroid normal and no carotid bruits General: trachea midline Resp normal respiratory effort, no retractions, no use of accessory muscles and clear to auscultation bilaterally Auscultation: Negative for rales, rhonchi or wheezes Cardio S1 normal heart sound, S2 normal heart sound, no murmurs, no rub and no gallops Cardio Narrative: Heart rate and rhythm is irregular GI normal to inspection, nondistended, normoactive bowel sounds, soft to palpation, non-tender and non-distended Extremity Extremity Narrative: There is edema and redness noted over the patient's right lower leg along with redness and skin changes suggestive of stasis dermatitis. Skin Skin Narrative: There is redness noted over the patient's right lower leg particularly on the lateral aspect, patient has evidence of stasis dermatitis changes over her left lower leg Neuro oriented x3, CN's II-XII intact bilaterally, no focal motor deficits and no sensory deficits noted Sensorium / Orientation: awake and alert Speech: speech normal Psych affect normal Assessment & Plan Assessment/Plan (1) Cellulitis of leg: PLAN: Plan 1. Cellulitis of the right lower leg-continue present antibiotic coverage with Unasyn, patient's cellulitis appears to be improving #2 chronic atrial fibrillation-patient is currently on Eliquis and diltiazem. #3 hyperlipidemia-patient is on statin #4 chronic depression-patient is on citalopram #5 chronic anxiety-patient uses Xanax at bedtime #6 stasis dermatitis of the lower legs #7 moderate to severe mitral regurg-patient's echocardiogram showed a normal EF but showed evidence of moderate to severe mitral regurg, according to the cardiology progress notes, they are aware of the patient's valvular problem. #8 moderate pulmonary hypertension-complicates care, management, recovery, and prognosis Total clinical time spent by myself addressing the patient's medical issues, reviewing all of her data, and collaborating with patient's care team: 35 minutes Charges/Coding Visit Charges Inpatient E&M: 91694 Subs Hosp L2
[2024-05-04 20:30] VITALS: BP 119/71; PULSE 83; RESP 16; TEMP 36.9; O2SAT 100
[2024-05-04] MEDS: ALPRAZolam 0.25 MG Tablet PO (22:54)
[2024-05-05] MEDS: Ampicillin/Sulbactam 3 GM in 0.9% Normal Saline (100mL MB+) 100 ML IV ×3 (00:32→11:23)
[2024-05-05] MEDS: oxyCODONE 5 MG Tablet PO (03:38)
[2024-05-05 03:45] VITALS: BP 123/79; PULSE 73; RESP 16; TEMP 36.4; O2SAT 96
[2024-05-05] MEDS: 0.9% Saline Lock 10 ML Syringe IV ×3 (05:22→11:22)
[2024-05-05] MEDS: Potassium Chloride Oral Tablet 20 MEQ PO ×2 (05:23→13:54)
[2024-05-05 08:31] VITALS: BP 131/75; PULSE 80; RESP 18; TEMP 36.8; O2SAT 95
[2024-05-05] MEDS: Ensure Plus High Protein 120 ML LIQUID PO ×3 (08:33→16:51)
[2024-05-05] MEDS: Acetaminophen 325 MG Tablet 650 MG PO ×2 (08:33→17:00)
[2024-05-05] MEDS: Gabapentin 600 MG Tablet PO ×3 (08:33→16:51)
[2024-05-05] MEDS: Polyethylene Glycol 3350 17 GM PACKET PO (08:34)
[2024-05-05] MEDS: Pantoprazole Sodium 40 MG Tablet PO (08:34)
[2024-05-05] MEDS: Ascorbic Acid 500 MG Tablet PO (08:34)
[2024-05-05] MEDS: Lisinopril 10 MG Tablet PO (08:34)
[2024-05-05] MEDS: Atorvastatin Calcium 10 MG Tablet PO (08:34)
[2024-05-05] MEDS: Citalopram 10 MG Tablet 30 MG PO (08:34)
[2024-05-05] MEDS: Iron Polysaccharide Complex 150 MG CAPSULE PO (08:35)
[2024-05-05] MEDS: Cholecalciferol (VIT D3) 25 MCG TABLET (1,000 UNITS) 50 MCG PO (08:35)
[2024-05-05] MEDS: Furosemide 40 MG Tablet PO (08:35)
[2024-05-05] MEDS: hydroCHLOROthiazide 25 MG Tablet PO (08:35)
[2024-05-05] MEDS: dilTIAZem CD 120 MG Capsule PO (08:35)
[2024-05-05] MEDS: APIXABAN 5 MG TABLET PO (08:50)
--- NOTE | 2024-05-05 12:01 | CASEMGMT ---
Dr. Mckeon states that if the pt leg is looking better then the pt can be discharged today. This RN CM to pt room at this time to discuss DC planning. This RN CM reviewed how the pt did with PT. Pt states that she has been to the TCU before and would like to return there for further rehab. Pt states that if TCU cannot accept, the pt would prefer to go home with [facility]. SW notified and to make referral to the TCU.
--- NOTE | 2024-05-05 12:18 | CASEMGMT ---
Per RN CM patient is agreeable to [facility] TCU only. SW made a referral to [facility] TCU. Priya HANEY
--- NOTE | 2024-05-05 13:45 | CASEMGMT ---
TCU is able to take patient at discharge. ROBERT met with patient. Introduced self and role at [facility]. SW let patient know that [facility] TCU is able to take her. SW also let patient know the physician was going to send her today. ROBERT asked patient if she would like SW to notify her family of this discharge plan. Patient declined stating she would notify them. ROBERT notified Nina in TCU that patient will be coming today. ROBERT updated RN, community youth secretary, and physician. Plan: d/c to [facility] TCU under skilled level of care. Priya HANEY
[2024-05-05 13:52] VITALS: BP 117/70; PULSE 60; RESP 18; TEMP 36.6; O2SAT 96
--- NOTE | 2024-05-05 14:55 | PCM.TXEXTCAR ---
Diet Diet Order/Speech Therapy: 05/02/24 18:17 Diet: Cardiac - Heart Healthy Food consistency:: Mechanical (Minced/Moist) Liquid Consistency:: Regular/Thin Diet Comments: pills one at a time in puree; ground meats w/ gravy Routine Orders/Code Status O2 Liters per Minute: 2 O2 Frequency: Continuous Keep PO Greater than or Equal to (%): 90 Code Status: Full Code Wound(s) RLE: Wound Type: Cellulitis Therapies Weight Bearing: Full weight bearing Physical Therapy: Eval and Treat Occupational Therapy: Eval and Treat Problem/Diagnosis (1) Cellulitis of leg: Status: Acute Code(s): L03.119 - Cellulitis of unspecified part of limb (2) Chronic pain: Status: Chronic Code(s): G89.29 - Other chronic pain (3) Chronic back pain: Status: Chronic Code(s): M54.9 - Dorsalgia, unspecified; G89.29 - Other chronic pain Plan 1. Cellulitis of the right lower leg- #2 chronic atrial fibrillation-patient is currently on Eliquis and diltiazem. #3 hyperlipidemia-patient is on statin #4 chronic depression-patient is on citalopram #5 chronic anxiety-patient uses Xanax at bedtime #6 stasis dermatitis of the lower legs #7 moderate to severe mitral regurg-patient's echocardiogram showed a normal EF but showed evidence of moderate to severe mitral regurg, according to the cardiology progress notes, they are aware of the patient's valvular problem. #8 moderate pulmonary hypertension-complicates care, management, recovery, and prognosis Total clinical time spent by myself addressing the patient's medical issues, reviewing all of her data, and collaborating with patient's care team: 35 minutes Allergies/Procedures Done in Hospital Allergies morphine Allergy (Verified 04/27/24 13:12) Hives atorvastatin Adverse Reaction (Severe, Verified 04/27/24 13:12) elevated liver enzymes carbamazepine (From Tegretol) Adverse Reaction (Intermediate, Verified 04/27/24 13:12) HALLUCINATIONS procaine HCl (From Novocain) Adverse Reaction (Intermediate, Verified 04/27/24 13:12) HEART RACES,FEELS LIKE WILL PASS OUT Procedures: 2-D Echocardiogram Type of Care/Length of Stay Estimated LOS: Convalescent Care Less Than 30 days Type of Care Needed: Skilled Rehab Potential: Good Prognosis: Good Additional Orders/Day of Discharge H&P will serve as current which was dated: 05/02/24 Day of Discharge: 05/05/24 Dietary and Speech Recommendations Dietitian Recommendations/Changes: Continue cardiac diet, consistency IN ROOM DINING SERVER. Will adjust to ground meats with gravy, per pt preference. Will order 120ml chocolate ensure plus high protein 3x with medpass. If PO intake declines, recommend liberalized regular, no added salt diet. Will monitor weight, as available. Reviewed and approved by Melissa Dorsey RD, LD. Discharge Plan Admission Admit Date/Time: 05/02/24 17:32 Primary Reason for Your Visit: cellulitis right leg Attending Provider: Robles Herbert Primary Care Provider: Ольга Riggins Consulting Providers: Gary Maharaj Discharge Orders/Prescriptions Prescriptions: New furosemide 40 mg Tablet 60 mg PO DAILY Qty: 1 0RF gabapentin 600 mg Tablet 600 mg PO TIDCM Qty: 0 0RF alprazolam 0.25 mg Tablet 0.25 mg PO QHS Qty: 3 0RF methadone 5 mg Tablet 5 mg PO 4X/DAY 3 Days Qty: 12 0RF pantoprazole 40 mg Tablet,Delayed Release (Dr/Ec) 40 mg PO DAILY Qty: 0 0RF oxycodone 5 mg Tablet 5 mg PO Q4H PRN PRN (Reason: Severe Pain (6-10/10)) 2 Days Qty: 6 0RF linezolid [Zyvox] 600 mg tablet 600 mg PO Q12H 7 Days Qty: 14 0RF Rx Instructions: take 14 doses then discontinue Continued home oxygen 2 L See Rx Instructions NASAL QHS PRN (Reason: oxygen) Patient Comments: use at night time Rx Instructions: 2 LPM NASALLY at bedtime PRN; [facility]ME[facility] See Rx Instructions .ROUTE .MEDSUPPLY Qty: 1 0RF Rx Instructions: As directed (DME) Wheel Chair See Rx Instructions .Route .MEDSUPPLY Qty: 1 0RF Rx Instructions: As directed nitroglycerin 0.4 mg tablet, sublingual 0.4 mg SUBLINGUAL Q5-15M PRN (Reason: chest pain) Qty: 25 3RF Rx Instructions: until response; do not exceed 3 doses per episode atorvastatin 10 mg tablet 10 mg PO DAILY cholecalciferol (vitamin D3) 50 mcg (2,000 unit) capsule 50 mcg PO DAILY ascorbate calcium (vitamin C) 500 mg tablet 500 mg PO DAILY (DME) Handicap Placard See Rx Instructions .ROUTE .MEDSUPPLY Qty: 1 0RF Rx Instructions: As directed, length of time 5 years polyethylene glycol 3350 17 GM packet 17 gm PO DAILY sennosides-docusate sodium 1 TABLET tablet 2 tab PO BIDCM Qty: 120 0RF lisinopril 20 mg tablet 10 mg PO BID hydrochlorothiazide 25 mg tablet 25 mg PO DAILY polysaccharide iron complex [Ferrex 150] 150 mg iron capsule 150 mg PO DAILY Qty: 90 3RF citalopram 20 mg tablet 30 mg PO DAILY Qty: 360 2RF Eliquis 5 mg tablet 5 mg PO BID Qty: 60 11RF diltiazem HCl 120 mg capsule,extended release 24 hr 120 mg PO DAILY Qty: 90 3RF potassium chloride 20 mEq tablet,ER particles/crystals 20 meq PO TID Qty: 270 2RF Discontinued Prolia 60 mg/mL syringe 60 mg subcut [id number] Qty: 1 1RF alprazolam 0.25 MG tablet 0.25 mg PO QHS oxycodone 5 MG tablet 5 mg PO Q4H PRN PRN (Reason: Severe Pain (6-06/17)) Qty: 10 0RF methadone 5 mg tablet 5 mg PO TID PRN (Reason: Pain) furosemide 20 mg tablet 40 mg PO DAILY omeprazole 40 mg capsule,delayed release(DR/EC) 40 mg PO DAILY gabapentin 300 mg capsule 600 mg PO TID hydrocortisone [Anusol-HC] 2.5 % cream with perineal applicator 1 applic DC BID PRN (Reason: hemorrhoids) Qty: 30 1RF Referrals / Follow Up: Ольга Riggins MD [Primary Care Provider] - Disposition Disposition (needs filled in before D/C Order can be placed): Retirement Facility
--- NOTE | 2024-05-05 15:27 | DS.PCM_ITS ---
Providers Date of Admission: 05/02/24 Date of Discharge: 05/05/24 Primary Care Physician: Dr. Ольга Riggins MD Reason For Visit: CELLULITIS Diagnosis Discharge Diagnosis (1) Cellulitis of leg: Status: Acute Code(s): L03.119 - Cellulitis of unspecified part of limb (2) Chronic pain: Status: Chronic Code(s): G89.29 - Other chronic pain (3) Chronic back pain: Status: Chronic Code(s): M54.9 - Dorsalgia, unspecified; G89.29 - Other chronic pain Plan 1. Cellulitis of the right lower leg- #2 chronic atrial fibrillation-patient is currently on Eliquis and diltiazem. #3 hyperlipidemia-patient is on statin #4 chronic depression-patient is on citalopram #5 chronic anxiety-patient uses Xanax at bedtime #6 stasis dermatitis of the lower legs #7 moderate to severe mitral regurg-patient's echocardiogram showed a normal EF but showed evidence of moderate to severe mitral regurg, according to the cardiology progress notes, they are aware of the patient's valvular problem. #8 moderate pulmonary hypertension-complicates care, management, recovery, and prognosis Total clinical time spent by myself addressing the patient's medical issues, reviewing all of her data, and collaborating with patient's care team: 35 minutes Medications at Discharge Home Medications polyethylene glycol 3350 17 gram oral powder packet 17 gm PO DAILY constipation 08/27/18 sennosides 8.6 mg-docusate sodium 50 mg tablet 2 tab PO BIDCM stool softner #120 tabs 09/07/18 Wheel Chair #1 ea 10/10/20 walker #1 ea 10/10/20 home oxygen See Rx Instructions NASAL QHS PRN oxygen 11/30/20 nitroglycerin 0.4 mg sublingual tablet 0.4 mg sublingual Q5-15M PRN chest pain #25 tabs 11/06/21 atorvastatin 10 mg tablet 10 mg PO DAILY cholestrol 12/24/22 ascorbate calcium (vitamin C) 500 mg tablet 500 mg PO DAILY supplement 04/28/23 cholecalciferol (vitamin D3) 50 mcg (2,000 unit) capsule 50 mcg PO DAILY supplement 04/28/23 polysaccharide iron complex 150 mg iron capsule (Ferrex) 150 mg PO DAILY supplement #90 caps 06/05/23 Handicap Placard #1 ea 10/14/23 citalopram 20 mg tablet 30 mg (1.5 x 20 mg) PO DAILY depression #360 tabs 11/13/23 apixaban 5 mg tablet (Eliquis) 5 mg PO BID Blood thinner #60 TABLETS 11/27/23 diltiazem HCl 120 mg capsule,24 hr,extended release 120 mg PO DAILY BP #90 caps 03/01/24 potassium chloride 20 mEq tablet,extended release(part/cryst) 20 meq PO TID supplement #270 tabs 03/01/24 lisinopril 20 mg tablet 10 mg PO BID BP 05/02/24 hydrochlorothiazide 25 mg tablet 25 mg PO DAILY BP 05/03/24 alprazolam 0.25 mg tablet 0.25 mg PO QHS Anxiety #3 tabs 05/05/24 furosemide 40 mg tablet 60 mg (1.5 x 40 mg) PO DAILY fluid retention #1 TAB 05/05/24 gabapentin 600 mg tablet 600 mg PO TIDCM nerve pain #0 tabs 05/05/24 linezolid 600 mg tablet (Zyvox) 600 mg PO Q12H antibiotic 7 days #14 tabs 05/05/24 methadone 5 mg tablet 5 mg PO 4X/DAY pain 3 days #12 tabs 05/05/24 oxycodone 5 mg tablet 5 mg PO Q4H PRN PRN Severe Pain (6-10/10) 2 days #6 tabs 05/05/24 pantoprazole 40 mg tablet,delayed release 40 mg PO DAILY GERD #0 tabs 05/05/24 Hospital Course Operations None Procedures 2-D Echocardiogram Summary of Care Provided Minutes Spent on Discharge: 32 Hospital Course: Patient was seen and examined in the emergency room at [facility] with complaints of warmth and redness to her right lower leg. Lab obtained showed an elevated white blood cell count at 15.9, chemistry panel was remarkable for BUN of 22. Patient was admitted to PCU and placed on IV antibiotics, she was seen in consultation by PT and OT, patient expresses a desire [facility] a [facility] for [facility] re[facility] services. Patient's white blood cell count decreased on IV antibiotics. On 05/05/2024, patient was seen and examined: On examination she appeared in good health and spirits, she does not appear to be in any distress. Vital signs as documented. Skin warm and dry and without overt rashes. Neck without JVD, thyroid appears normal, trachea is midline, neck is supple. Lungs clear, normal air movement was noted. Heart exam notable for regular rhythm, normal sounds and absence of murmurs, rubs or gallops. Abdomen unremarkable and without evidence of organomegaly, masses, or abdominal aortic enlargement, bowel sounds are present in all 4 quadrants, no abdominal tenderness was noted. Extremities-there was evidence of stasis dermatitis changes of the skin over both lower legs more so on the right, there is some warmth and redness over the right lateral lower leg, no clubbing was noted. Neuro: Cranial nerves II through XII are grossly intact, no focal motor deficits were noted, sensation to light touch and pinprick is intact, motor exam 5/5 throughout. Psych: Patient is alert and oriented x3, she does not appear anxious or depressed, she does not appear agitated. Patient was [facility] to [facility] in [facility] condition on 05/05/2024. Weight / BMI Weight Weight: 60.963 kg Body Mass Index (BMI) 29.0 ABG / Lab / Microbiology Data 05/04/24 05:47 05/03/24 05:42 Microbiology: Microbiology 05/02/24 15:35 Urine Catheter - Catheter Urine Culture - Final Aerococcus urinae 05/02/24 15:15 Blood Culture (Wb) - Anticubital Left Blood Culture - Preliminary No growth in 48 hours. 05/02/24 19:40 Nasal Secretion MRSA (PCR) - Final 05/02/24 15:32 Mucosa - Nose SARS-CoV-2, Influenza & RSV (PCR) - Final Meaningful Use Info Meaningful Use Meaningful Use Diagnoses (Choose all that apply): None applicable Ischemic Stroke Statin Dosing Therapy Reference: STATIN DOSE THERAPY REFERENCE: * Patients > 75 years receive moderate or high dose statin therapy. * Patients 75 years or YOUNGER should receive HIGH intensity statin dose unless contraindicated. You will be required to document reason for non-treatment if statin daily dose does not meet guidelines. HIGH DOSE STATIN THERAPY DAILY Atorvastatin > than or = to 40 mg Rosuvastatin > than or = to 20 mg Amlodipine + Atorvastatin > than or = to 2.5/40 mg Ezetimibe + Simvastatin 10/80 mg Simvastatin 80mg Discharge Plan Admission Admit Date/Time: 05/02/24 17:32 Primary Reason for Your Visit: cellulitis right leg Attending Provider: Robles Herbert Primary Care Provider: Ольга Riggins Consulting Providers: Gary Maharaj Discharge Orders/Prescriptions Prescriptions: New furosemide 40 mg Tablet 60 mg PO DAILY Qty: 1 0RF gabapentin 600 mg Tablet 600 mg PO TIDCM Qty: 0 0RF alprazolam 0.25 mg Tablet 0.25 mg PO QHS Qty: 3 0RF methadone 5 mg Tablet 5 mg PO 4X/DAY 3 Days Qty: 12 0RF pantoprazole 40 mg Tablet,Delayed Release (Dr/Ec) 40 mg PO DAILY Qty: 0 0RF oxycodone 5 mg Tablet 5 mg PO Q4H PRN PRN (Reason: Severe Pain (-06/17)) 2 Days Qty: 6 0RF linezolid [Zyvox] 600 mg tablet 600 mg PO Q12H 7 Days Qty: 14 0RF Rx Instructions: take 14 doses then discontinue Continued home oxygen 2 L See Rx Instructions NASAL QHS PRN (Reason: oxygen) Patient Comments: use at night time Rx Instructions: 2 LPM NASALLY at bedtime PRN; (DME) walker Misc See Rx Instructions .ROUTE .MEDSUPPLY Qty: 1 0RF Rx Instructions: As directed (DME) Wheel Chair See Rx Instructions .Route .MEDSUPPLY Qty: 1 0RF Rx Instructions: As directed nitroglycerin 0.4 mg tablet, sublingual 0.4 mg SUBLINGUAL Q5-15M PRN (Reason: chest pain) Qty: 25 3RF Rx Instructions: until response; do not exceed 3 doses per episode atorvastatin 10 mg tablet 10 mg PO DAILY cholecalciferol (vitamin D3) 50 mcg (2,000 unit) capsule 50 mcg PO DAILY ascorbate calcium (vitamin C) 500 mg tablet 500 mg PO DAILY (DME) Handicap Placard See Rx Instructions .ROUTE .MEDSUPPLY Qty: 1 0RF Rx Instructions: As directed, length of time 5 years polyethylene glycol 3350 17 GM packet 17 gm PO DAILY sennosides-docusate sodium 1 TABLET tablet 2 tab PO BIDCM Qty: 120 0RF lisinopril 20 mg tablet 10 mg PO BID hydrochlorothiazide 25 mg tablet 25 mg PO DAILY polysaccharide iron complex [Ferrex 150] 150 mg iron capsule 150 mg PO DAILY Qty: 90 3RF citalopram 20 mg tablet 30 mg PO DAILY Qty: 360 2RF Eliquis 5 mg tablet 5 mg PO BID Qty: 60 11RF diltiazem HCl 120 mg capsule,extended release 24 hr 120 mg PO DAILY Qty: 90 3RF potassium chloride 20 mEq tablet,ER particles/crystals 20 meq PO TID Qty: 270 2RF Discontinued Prolia 60 mg/mL syringe 60 mg subcut [id number] Qty: 1 1RF alprazolam 0.25 MG tablet 0.25 mg PO QHS oxycodone 5 MG tablet 5 mg PO Q4H PRN PRN (Reason: Severe Pain (-06/17)) Qty: 10 0RF methadone 5 mg tablet 5 mg PO TID PRN (Reason: Pain) furosemide 20 mg tablet 40 mg PO DAILY omeprazole 40 mg capsule,delayed release(DR/EC) 40 mg PO DAILY gabapentin 300 mg capsule 600 mg PO TID hydrocortisone [Anusol-HC] 2.5 % cream with perineal applicator 1 applic [place] BID PRN (Reason: hemorrhoids) Qty: 30 1RF Referrals / Follow Up: Ольга Riggins MD [Primary Care Provider] - Disposition Disposition (needs filled in before D/C Order can be placed): Residential Facility Charges/Coding Visit Charges Inpatient E&M: 93629 Disch Hosp >30min
[2024-05-05 16:53] VITALS: BP 121/71; PULSE 75; RESP 16; TEMP 36.7; O2SAT 100
== END 2024-05-05 18:05 | DRG 872 ==
LOC: ED 17:13 → PCU 17:51
PROVIDERS: Admitting Provider Internal Medicine; Emergency Provider Emergency Medicine; PCP Internal Medicine; Visit Provider Internal Medicine
DX: A41.9 Sepsis, unspecified organism (principal); J90 Pleural effusion, not elsewhere classified; I50.32 Chronic diastolic (congestive) heart failure; I48.20 Chronic atrial fibrillation, unspecified; L03.115 Cellulitis of right lower limb; I27.20 Pulmonary hypertension, unspecified; I11.0 Hypertensive heart disease with heart failure; D64.9 Anemia, unspecified; I34.0 Nonrheumatic mitral (valve) insufficiency; F32.A Depression, unspecified; E87.6 Hypokalemia; K21.9 Gastro-esophageal reflux disease without esophagitis; E78.5 Hyperlipidemia, unspecified; I87.2 Venous insufficiency (chronic) (peripheral); M54.9 Dorsalgia, unspecified; Z87.891 Personal history of nicotine dependence; F41.1 Generalized anxiety disorder; G89.29 Other chronic pain; Z86.73 Personal history of transient ischemic attack (TIA), and cerebral infarction without residual deficits; Z79.01 Long term (current) use of anticoagulants; Z79.891 Long term (current) use of opiate analgesic; Z79.899 Other long term (current) drug therapy; Z90.710 Acquired absence of both cervix and uterus; R82.71 Bacteriuria; M81.0 Age-related osteoporosis without current pathological fracture; B95.62 Methicillin resistant Staphylococcus aureus infection as the cause of diseases classified elsewhere
CPT/HCPCS: 36415; 71045; 73590; 80048; 80053; 80076; 81001; 83036; 83605; 83735; 83880; 84100; 84443; 84484; 85025; 85610; 85730; 87040; 87086; 87088; 87631; 87641; 92526; 92610; 93005; 93306; 97110; 97162; 97166; 97530; 97802; 99285; J7030; J7040; Q9957; A4216; C8929; J0295

== ENCOUNTER 2024-05-05 18:16 | Inpatient (IN) | payer MEDICARE, OTHER, SELFPAY ==
[2024-05-05 19:45] VITALS: BP 108/59; PULSE 83; RESP 18; TEMP 35.8; O2SAT 97; BMI 29.1; BMI 29.2
[2024-05-05] MEDS: Atorvastatin Calcium 10 MG Tablet PO (20:49)
[2024-05-05] MEDS: ALPRAZolam 0.25 MG Tablet PO (20:49)
[2024-05-05] MEDS: APIXABAN 5 MG TABLET PO (20:49)
[2024-05-05] MEDS: Linezolid 600 MG Tablet PO (20:50)
[2024-05-05] MEDS: oxyCODONE 5 MG Tablet PO (20:50)
[2024-05-05] MEDS: Lisinopril 10 MG Tablet PO (20:50)
--- NOTE | 2024-05-05 21:20 | HP.PCM_ITS ---
HPI - General General Date of Admission: 05/05/24 Date of Service: 05/06/24 Chief Complaint: Here for rehabilitation. HPI Narrative 05/02/2024 PARISH AUGUSTINE, is a 83 Female who presents to [facility] ED with cellulitis. Malaise, tired, sleepy, pulsox 92%. Did not eat. Right lower extremity redness, Fever 101.6, on Eliquis for atrial fibrillation. WBC 15.9, Lactate 1.6, Troponin 9. Urine culture sent, Blood culture sent. Vancomycin/Zosyn iv given for right lower extremity cellulitis. 05/02/2024 Admit [facility]. Unasyn 3gm iv q6 right lower extremity cellulitis. MRSA swab. BNP, Lasix, Echo right pleural effusion, acute HFpEF 05/02/2024 Echo LVEF 60%. Diastolic function indeterminate. Moderate to severe MR> RSVP 50mmHG. 05/03/2024 Right lower extremity red, stasis dermatitis. Unasyn IV right lower extremity cellulitis. 05/04/2024 Right lower extremity cellulitis improved, MRSA +, but right leg improving without MRSA coverage. Unasyn RLE cellulitis. 05/05/2024 Change Unasyn to Linezolid 600mg q12 x 7 days. 05/05/2024 Admit to TCU with debility, here for rehabilitation, strengthening, prior to discharge home alone. 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) Chronic diastolic (congestive) heart failure Anxiety and depression GERD (gastroesophageal reflux disease) Opioid dependence Neuropathic pain Chronic pain Hiatal hernia Acute anemia Hyperlipidemia Essential (primary) hypertension Paroxysmal atrial fibrillation Transverse myelitis History of DVT (deep vein thrombosis) Acute ischemic stroke Atrial flutter Home Medications ?Medication ?Instructions ?Recorded ?Last Taken ?Type polyethylene glycol 3350 17 gram 17 gm PO DAILY constipation 08/27/18 05/05/24 History oral powder packet sennosides 8.6 mg-docusate sodium 2 tab PO BIDCM stool softner #120 09/07/18 Unknown Rx 50 mg tablet tabs Wheel Chair #1 ea 10/10/20 Unknown Rx walker #1 ea 10/10/20 Unknown Rx home oxygen See Rx Instructions NASAL QHS PRN 11/30/20 Unknown History oxygen nitroglycerin 0.4 mg sublingual 0.4 mg sublingual Q5-15M PRN chest 11/06/21 Unknown Rx tablet pain #25 tabs atorvastatin 10 mg tablet 10 mg PO DAILY cholestrol 12/24/22 05/05/24 History ascorbate calcium (vitamin C) 500 500 mg PO DAILY supplement 04/28/23 05/05/24 History mg tablet cholecalciferol (vitamin D3) 50 50 mcg PO DAILY supplement 04/28/23 05/05/24 History mcg (2,000 unit) capsule polysaccharide iron complex 150 mg 150 mg PO DAILY supplement #90 caps 06/05/23 05/05/24 Rx iron capsule (Ferrex) Handicap Placard #1 ea 10/14/23 Unknown Rx citalopram 20 mg tablet 30 mg (1.5 x 20 mg) PO DAILY 11/13/23 05/05/24 Rx depression #360 tabs apixaban 5 mg tablet (Eliquis) 5 mg PO BID Blood thinner #60 11/27/23 05/05/24 Rx TABLETS diltiazem HCl 120 mg capsule,24 120 mg PO DAILY BP #90 caps 03/01/24 05/05/24 Rx hr,extended release potassium chloride 20 mEq 20 meq PO TID supplement #270 tabs 03/01/24 05/05/24 Rx tablet,extended release(part/cryst) lisinopril 20 mg tablet 10 mg PO BID BP 05/02/24 05/05/24 History hydrochlorothiazide 25 mg tablet 25 mg PO DAILY BP 05/03/24 05/05/24 History alprazolam 0.25 mg tablet 0.25 mg PO QHS Anxiety #3 tabs 05/05/24 05/04/24 Rx furosemide 40 mg tablet 60 mg (1.5 x 40 mg) PO DAILY fluid 05/05/24 05/05/24 Rx retention #1 TAB gabapentin 600 mg tablet 600 mg PO TIDCM nerve pain #0 tabs 05/05/24 05/05/24 Rx linezolid 600 mg tablet (Zyvox) 600 mg PO Q12H antibiotic 7 days 05/05/24 Unknown Rx #14 tabs methadone 5 mg tablet 5 mg PO 4X/DAY pain 3 days #12 tabs 05/05/24 05/05/24 Rx oxycodone 5 mg tablet 5 mg PO Q4H PRN PRN Severe Pain 05/05/24 05/05/24 Rx (6-10/10) 2 days #6 tabs pantoprazole 40 mg tablet,delayed 40 mg PO DAILY GERD #0 tabs 05/05/24 05/05/24 Rx release Allergy/AdvReac Type Severity Reaction Status Date / Time morphine Allergy Hives Verified 04/27/24 13:12 atorvastatin AdvReac Severe elevated Verified 04/27/24 13:12 liver enzymes carbamazepine (From Tegretol) AdvReac Intermediate HALLUCINATI Verified 04/27/24 13:12 ONS procaine HCl (From Novocain) AdvReac Intermediate HEART Verified 04/27/24 13:12 RACES,FEELS LIKE WILL PASS OUT Family History Mother Colon cancer Father Myocardial infarction Uncle Asthma Surgical History History of carpal tunnel surgery of right wrist H/O: hysterectomy Social History household members: family and children housing: house Smoking Status: Former smoker how long ago did patient quit smokin years ago alcohol intake: never substance use type: does not use caffeine: Yes Type: coffee Number of servings: 2 what type of physical activity do you participate in: none seatbelt use: always do you feel safe at home: Yes ROS Constitutional Constitutional: Denies chills, fever(s) or weight gain ENT HEENT: Denies headache(s), nasal congestion or nasal discharge Cardiovascular Cardiovascular: Denies chest pain or palpitations Respiratory/Chest Respiratory/Chest: Denies cough, excessive phlegm production or shortness of br eath with exertion Gastrointestinal Gastrointestinal: Denies abdominal pain, nausea or vomiting Genitourinary Genitourinary: Denies dysuria Musculoskeletal Musculoskeletal: Denies joint pain or joint swelling Integumentary Integumentary: Denies rash or wounds Neurologic Neurologic: Denies focal weakness, numbness or tingling Psychiatric Psychiatric: Denies anxiety, auditory hallucinations, depression, homicidal ideation or suicidal ideation Vital Signs Vital Signs Vital Signs: 05/05/24 19:45 Temperature 96.5 F L Temperature Source Temporal Pulse Rate 83 Respiratory Rate 18 Blood Pressure 108/59 L Blood Pressure Mean 75 Pulse Ox 97 Oxygen Delivery Method Room Air Weight Weight: 61.34 kg Body Mass Index (BMI) 29.1 Physical Exam Const alert General Appearance: cooperative HEENT normocephalic Eyes PERRL and EOMs intact bilaterally Neck supple, no JVD and no carotid bruits Resp normal respiratory effort, normal air movement and clear to auscultation bilaterally Cardio regular rate and regular rhythm GI normal to inspection, nondistended, normoactive bowel sounds, non-tender and non-distended Extremity normal capillary refill General Extremity: Negative for edema Skin no rashes or lesions noted General Skin Exam: no breakdown Psych affect normal Appearance: appropriate Assessment & Plan Assessment/Plan (1) Debility: (2) Cellulitis of right lower extremity: (3) Pleural effusion, right: (4) Acute heart failure with preserved ejection fraction (HFpEF): (5) Atrial fibrillation: (6) History of CVA (cerebrovascular accident): (7) Transverse myelitis: (8) Anxiety: (9) Chronic pain: (10) Hyperlipidemia: (11) Osteoporosis: QUALIFIERS: Osteoporosis type: age-related Presence of current pathological fracture: without current pathological fracture Qualified Code(s): M81.0 - Age-related osteoporosis without current pathological fracture (12) Depression: (13) Essential (primary) hypertension: (14) GERD (gastroesophageal reflux disease): (15) Hypokalemia: PLAN: Plan 83 year old female with below past medical history hospitalized for right lower extremity cellulitis, complicated by right pleural effusion 2/2 acute HFpEF, admitted to TCU with debility, here for rehabilitation, strengthening, prior to discharge home with family. * Debility - PT/OT. * Pain - Methadone 5mg 4x/day, Oxycodone 5mg q4 prn. * Bowel - Miralax 17gm daily, senna/colace 2 tablets bid. * Adult immunization - Administer pneumonia vaccine, covid vaccine, flu vaccine as appropriate. * DVT prophylaxis - on Eliquis. * Anxiety - Xanax 0.25mg qhs, stable chronic meterman use, GDR not recommended. * Atrial fibrillation - Diltiazem 120mg daily, Eliquis 5mg bid. * Iron deficiency anemia - Ferrex 150mg daily, Vitamin C 500mg daily. * Hyperlipidemia - Atorvastatin 10mg qhs. * Vitamin D deficiency - D3 50mcg daily. * Depression - Citalopram 30mg daily, stable chronic fdc use, GDR not recommended. * Nutrition - Ensure Plus 120ml po tidcm. * Chronic HFpEF - Lisinopril 10mg bid, Furosemide 60mg daily. * Coronary artery disease - Lisinopril 10mg bid, NTG 0.4mg sl q5m prn, Eliquis 5mg bid. * Neuropathic pain - Gabapentin 600mg tidcm. * Hypertension - Diltiazem 120mg daily, Lisinopril 10mg bid, HCTZ 25mg daily. * Right lower extremity cellulitis - Linezolid 600mg bid thru 05/12/2024. * GERD - Pantoprazole 40mg daily. * Hypokalemia - KCL 20meq tidcm.
[2024-05-06] MEDS: 0.9% Saline Lock 10 ML Syringe IV ×3 (05:24→22:50)
[2024-05-06 07:34] VITALS: O2SAT 98
[2024-05-06] MEDS: Potassium Chloride Oral Tablet 20 MEQ PO ×3 (09:16→17:14)
[2024-05-06] MEDS: dilTIAZem CD 120 MG Capsule PO (09:17)
[2024-05-06] MEDS: Senna/Docusate Sodium 1 Tablet 2 TABLET PO ×2 (09:17→17:14)
[2024-05-06] MEDS: hydroCHLOROthiazide 25 MG Tablet PO (09:18)
[2024-05-06] MEDS: APIXABAN 5 MG TABLET PO ×2 (09:18→22:49)
[2024-05-06] MEDS: Iron Polysaccharide Complex 150 MG CAPSULE PO (09:18)
[2024-05-06] MEDS: Furosemide 20 MG Tablet 60 MG PO (09:18)
[2024-05-06] MEDS: Ascorbic Acid 500 MG Tablet PO (09:19)
[2024-05-06] MEDS: Pantoprazole Sodium 40 MG Tablet PO (09:19)
[2024-05-06] MEDS: Linezolid 600 MG Tablet PO ×2 (09:19→22:52)
[2024-05-06] MEDS: Cholecalciferol (VIT D3) 25 MCG TABLET (1,000 UNITS) 50 MCG PO (09:19)
[2024-05-06] MEDS: Polyethylene Glycol 3350 17 GM PACKET PO (09:19)
[2024-05-06] MEDS: Lisinopril 10 MG Tablet PO ×2 (09:19→22:50)
[2024-05-06] MEDS: Gabapentin 600 MG Tablet PO ×3 (09:25→17:13)
[2024-05-06] MEDS: oxyCODONE 5 MG Tablet PO (09:25)
[2024-05-06] MEDS: Ensure Plus High Protein 120 ML LIQUID PO ×2 (09:26→17:13)
[2024-05-06 09:41] VITALS: BP 119/65; PULSE 77
--- NOTE | 2024-05-06 10:25 | NURSING ---
Vegetable Washing Machine Operator Note; Activity Asset: Yocasta Hernadez is independent in her choice of daily activities. She has a hard time reading however can do pain by numbers on her smartphone. She will listen to the tv, visits w/family and welcomes visits from the flight operations manager and therapy dog. Staff will encourage social activities, remind her of weekly activities and respect her right to say no.
[2024-05-06] MEDS: Tuberculin,Purif.prot.deriv. 50 TU/ML Vial 0.1 ML ID (11:37)
--- NOTE | 2024-05-06 11:44 | PHA.CONS_ITS ---
TCU RX Drug Regimen Review Subjective/Objective Subjective/Objective: Subjective: 83 YOF admitted to TCU on 05/05/24 s/p hospitalization at [facility] secondary to a MRSA cellulitis infection of the right lower extremity. Patient admitted to TCU for strengthening and rehabilitation prior to discharge home w here she currently resides alone. Objective: Allergies morphine Allergy (Verified 04/27/24 13:12) Hives atorvastatin Adverse Reaction (Severe, Verified 04/27/24 13:12) elevated liver enzymes carbamazepine (From Tegretol) Adverse Reaction (Intermediate, Verified 04/27/24 13:12) HALLUCINATIONS procaine HCl (From Novocain) Adverse Reaction (Intermediate, Verified 04/27/24 13:12) HEART RACES,FEELS LIKE WILL PASS OUT Current Medications Generic Name Dose Route Start Last Admin Trade Name Freq PRN Reason Stop Dose Admin Acetaminophen 1,000 mg 05/06/24 07:24 Acetaminophen 500 Mg Tablet PO Q6H PRN PRN HEADACHE Alprazolam 0.25 mg 05/05/24 22:00 05/05/24 20:49 Alprazolam 0.25 Mg Tablet PO 0.25 mg QHS MAURA Administration Apixaban 5 mg 05/05/24 22:00 05/06/24 09:18 Apixaban 5 Mg Tablet PO 5 mg BID MAURA Administration Ascorbic Acid 500 mg 05/06/24 10:00 05/06/24 09:19 Ascorbic Acid 500 Mg Tablet PO 500 mg DAILY MAURA Administration Atorvastatin Calcium 10 mg 05/05/24 22:00 05/05/24 20:49 Atorvastatin Calcium 10 Mg Tablet PO 10 mg QHS MAURA Administration Cholecalciferol 50 mcg 05/06/24 10:00 05/06/24 09:19 Cholecalciferol (Vit D3) 25 Mcg Tablet (1,000 Units) PO 50 mcg DAILY MAURA Administration Citalopram Hydrobromide 30 mg 05/13/24 10:00 Citalopram 10 Mg Tablet PO DAILY MAURA Diltiazem HCl 120 mg 05/06/24 10:00 05/06/24 09:17 Diltiazem Cd 120 Mg Capsule PO 120 mg DAILY MAURA Administration Furosemide 60 mg 05/06/24 10:00 05/06/24 09:18 Furosemide 20 Mg Tablet PO 60 mg DAILY MAURA Administration Protocol Gabapentin 600 mg 05/06/24 07:45 05/06/24 09:25 Gabapentin 600 Mg Tablet PO 600 mg TIDCM MAURA Administration Hydrochlorothiazide 25 mg 05/06/24 10:00 05/06/24 09:18 Hydrochlorothiazide 25 Mg Tablet PO 25 mg DAILY MAURA Administration Protocol Linezolid 600 mg 05/05/24 22:00 05/06/24 09:19 Linezolid 600 Mg Tablet PO 05/12/24 10:01 600 mg BID MAURA Administration Lisinopril 10 mg 05/05/24 22:00 05/06/24 09:19 Lisinopril 10 Mg Tablet PO 10 mg BID MAURA Administration Protocol Methadone HCl 5 mg 05/05/24 22:00 05/06/24 11:35 Methadone 5 Mg Tablet PO 5 mg 4X/DAY MAURA Administration Nitroglycerin 0.4 mg 05/05/24 19:00 Nitroglycerin (Inpatient Use) 0.4 Mg Tab.Subl SL Q5M PRN CARDIAC/CHEST PAIN Nutritional Formula (Lactose Free) 120 ml 05/06/24 07:45 05/06/24 09:26 Ensure Plus High Protein 120 Ml Liquid PO 120 ml TIDCM MAURA Administration Oxycodone HCl 5 mg 05/05/24 18:43 05/06/24 09:25 Oxycodone 5 Mg Tablet PO 5 mg Q4H PRN PRN Administration Severe Pain (6-10) Pantoprazole Sodium 40 mg 05/06/24 10:00 05/06/24 09:19 Pantoprazole Sodium 40 Mg Tablet PO 40 mg DAILY MAURA Administration Polyethylene Glycol 17 gm 05/06/24 10:00 05/06/24 09:19 Polyethylene Glycol 3350 17 Gm Packet PO 17 gm DAILY MAURA Administration Polysaccharide Iron Complex 150 mg 05/06/24 10:00 05/06/24 09:18 Iron Polysaccharide Complex 150 Mg Capsule PO 150 mg DAILY MAURA Administration Potassium Chloride 20 meq 05/06/24 07:45 05/06/24 09:16 Potassium Chloride Oral Tablet 20 Meq PO 20 meq TIDCM MAURA Administration Senna/Docusate Sodium 2 tablet 05/06/24 08:00 05/06/24 09:17 Senna/Docusate Sodium 1 Tablet PO 2 tablet BIDCM MAURA Administration Sodium Chloride 10 - 40 ml 05/06/24 05:10 05/06/24 05:24 0.9% Saline Lock 10 Ml Syringe IV 10 ml UD PRN Administration SALINE FLUSH Tuberculin PPD 0.1 ml 05/13/24 10:00 Tuberculin,Purif.Prot.Deriv. 50 Tu/Ml Vial ID 05/13/24 10:01 X1 ONE Problem List Essential (primary) hypertension (Acute) Depression (Acute) Anxiety (Acute) Acute heart failure with preserved ejection fraction (HFpEF) (Acute) Pleural effusion, right (Acute) Cellulitis of right lower extremity (Acute) Debility (Acute) GERD (gastroesophageal reflux disease) (Chronic) Osteoporosis (Chronic) Hypokalemia (Acute) Transverse myelitis (Chronic) History of CVA (cerebrovascular accident) (Chronic) Hyperlipidemia (Chronic) Chronic pain (Chronic) Vital Signs Temp Pulse Resp BP Pulse Ox O2 Del Method O2 Flow Rate 96.5 F L 77 18 119/65 98 Nasal Cannula 2 05/05/24 19:45 05/06/24 09:41 05/05/24 19:45 05/06/24 09:41 05/06/24 07:34 05/06/24 07:34 05/06/24 09:44 Oxygen Flow Rate (L/min) 2 Oxygen Delivery Method Nasal Cannula Weight: 61.34 kg Body Mass Index (BMI) 29.1 Assessment/Plan: 1. Acute/ Chronic Pain: Methadone 5mg PO 4x/day, Tylenol 1000mg PO Q6h PRN Headache, Oxycodone 5mg PO Q4h PRN Pain 6-10. Please continue to monitor for PRN medication usage, S/S increased/decreased pain, oversedation, respiratory depression, constipation with scheduled narcotic usage. - The patient has received 2 PRN doses of oxycodone since admission for pain rated 8-9/10. 2. Lower extremity Cellulitis: Zyvoxx 600mg PO BID thru 05/12/24. Please continue to monitor for resolution of infection, culture data (no new results), platelet count (118 on 05/04). 3. Afib/ CHF/ CAD: Eliquis 5mg PO BID, Lipitor 10mg PO QHS, Cardizem 120mg PO Daily, Lasix 60mg PO Daily, HCTZ 25mg PO Daily, Lisinopril 10mg PO BID, KCl 20mEq PO TID, Nitrostat PRN. Please continue to monitor for S/S bleeding/bruising, lipid panel annually (WNL 10/2023), BP (last 119/65), pulse (l ast 77), renal function (SCr 0.61 05/03), potassium level (last 3.5 on 05/03), H/H (hgb 11.1, hct 34.7 on 05/04), I/O. 4. Neuropathic Pain: Gabapentin 600mg PO TID. Please continue to monitor renal function, medication effectiveness, s/s oversedation. This is a BEER's criteria medication which can increase the risk of falls in patients > 65 years of age. Please continue to monitor patient closely for falls. 5. GERD: Protonix 40mg PO Daily. Please continue to monitor for headaches, nausea, bloating. Please also encourage non-pharmacologic therapies to help minimize GERD exacerbations. 6. General Wellness: Ascorbic acid 500mg PO Daily, Vitamin D 50mcg PO daily, Ferrex 150mg PO Daily. 7. Bowel: Senna/docusate 2 tab PO BID, Miralax 17g PO Daily. Please continue to monitor for increased/decreased constipation and/or diarrhea. - to date, the patient does not have a reported BM. Please continue to monitor and consider ordering PRN medication if no BM in 48-72hrs. Assessment/Plan for indications treated with psychotropic medications: 1. Depression/ Anxiety: Citalopram 30mg PO Daily (to start 05/13 once Zyvoxx completed), Alprazolam 0.25mg PO QHS. Please consider a GDR by 10/2024 if clinically indicated, thank you. Medical chart and medication regimen reviewed. The following medication irregularities or issues were identified: 1. Depression/ Anxiety: Citalopram 30mg PO Daily (to start 05/13 once Zyvoxx completed), Alprazolam 0.25mg PO QHS. Please consider a GDR by 10/2024 if clinically indicated, thank you. Date Date of Note:: 05/06/24
[2024-05-06 14:00] VITALS: PULSE 91; RESP 18; O2SAT 98
--- NOTE | 2024-05-06 15:54 | CASEMGMT ---
Social Work SW met with patient to complete initial assessment. Introduced self and role. Verified/updated contacts. Patient changed code status at admission to DNR-CCA, no intubation. Pt unsure if she has advanced directives completed and agreed to have son/DIL search for documents and provide copies if confirmed. Educated to Medicare benefit and encouraged to contact secondary insurance to ensure copay coverage. Pt's goal is to return home with son and DIL. SW will continue to follow for DC planning. TESS NoriegaW
[2024-05-06 16:00] VITALS: BP 125/72; PULSE 84; RESP 14; TEMP 36.8
[2024-05-06] MEDS: ALPRAZolam 0.25 MG Tablet PO (22:48)
[2024-05-06] MEDS: Atorvastatin Calcium 10 MG Tablet PO (22:49)
[2024-05-06] MEDS: Menthol/Lanolin/Calamine/Znox 113 GM Tube 1 APPLIC TOPICAL (22:49)
[2024-05-07] MEDS: oxyCODONE 5 MG Tablet PO ×3 (03:06→20:43)
[2024-05-07 07:10] VITALS: O2SAT 98
[2024-05-07] MEDS: 0.9% Saline Lock 10 ML Syringe IV ×2 (09:13→20:45)
[2024-05-07] MEDS: Gabapentin 600 MG Tablet PO ×3 (09:13→17:31)
[2024-05-07] MEDS: Potassium Chloride Oral Tablet 20 MEQ PO ×3 (09:14→17:31)
[2024-05-07] MEDS: Senna/Docusate Sodium 1 Tablet 2 TABLET PO ×2 (09:15→17:31)
[2024-05-07] MEDS: Nystatin Powder 15gm Bottle 1 APPLIC TOPICAL ×2 (09:16→22:46)
[2024-05-07] MEDS: Menthol/Lanolin/Calamine/Znox 113 GM Tube 1 APPLIC TOPICAL ×2 (09:16→22:48)
[2024-05-07] MEDS: dilTIAZem CD 120 MG Capsule PO (09:17)
[2024-05-07] MEDS: APIXABAN 5 MG TABLET PO ×2 (09:18→22:46)
[2024-05-07] MEDS: Iron Polysaccharide Complex 150 MG CAPSULE PO (09:18)
[2024-05-07] MEDS: Ascorbic Acid 500 MG Tablet PO (09:19)
[2024-05-07] MEDS: Cholecalciferol (VIT D3) 25 MCG TABLET (1,000 UNITS) 50 MCG PO (09:19)
[2024-05-07] MEDS: Pantoprazole Sodium 40 MG Tablet PO (09:19)
[2024-05-07] MEDS: Linezolid 600 MG Tablet PO ×2 (09:20→22:46)
[2024-05-07] MEDS: Lisinopril 10 MG Tablet PO ×2 (09:20→22:47)
[2024-05-07] MEDS: Polyethylene Glycol 3350 17 GM PACKET PO (09:20)
[2024-05-07] MEDS: Furosemide 20 MG Tablet 60 MG PO (09:21)
[2024-05-07] MEDS: hydroCHLOROthiazide 25 MG Tablet PO (09:21)
[2024-05-07 09:33] VITALS: BP 112/61; PULSE 82
[2024-05-07] MEDS: Ensure Plus High Protein 120 ML LIQUID PO ×2 (13:35→17:38)
[2024-05-07 15:40] VITALS: BP 110/67; PULSE 78; RESP 16; TEMP 36.5; O2SAT 98
[2024-05-07] MEDS: ALPRAZolam 0.25 MG Tablet PO (22:47)
[2024-05-07] MEDS: Atorvastatin Calcium 10 MG Tablet PO (22:47)
[2024-05-08] MEDS: Gabapentin 600 MG Tablet PO ×3 (09:14→17:07)
[2024-05-08] MEDS: Potassium Chloride Oral Tablet 20 MEQ PO ×3 (09:14→17:07)
[2024-05-08] MEDS: Senna/Docusate Sodium 1 Tablet 2 TABLET PO ×2 (09:14→17:06)
[2024-05-08] MEDS: APIXABAN 5 MG TABLET PO ×2 (09:15→22:59)
[2024-05-08] MEDS: dilTIAZem CD 120 MG Capsule PO (09:15)
[2024-05-08] MEDS: Iron Polysaccharide Complex 150 MG CAPSULE PO (09:16)
[2024-05-08] MEDS: Polyethylene Glycol 3350 17 GM PACKET PO (09:17)
[2024-05-08] MEDS: hydroCHLOROthiazide 25 MG Tablet PO (09:17)
[2024-05-08] MEDS: Furosemide 20 MG Tablet 60 MG PO (09:17)
[2024-05-08] MEDS: Pantoprazole Sodium 40 MG Tablet PO (09:17)
[2024-05-08] MEDS: Ascorbic Acid 500 MG Tablet PO (09:18)
[2024-05-08] MEDS: Cholecalciferol (VIT D3) 25 MCG TABLET (1,000 UNITS) 50 MCG PO (09:18)
[2024-05-08] MEDS: Lisinopril 10 MG Tablet PO ×2 (09:18→22:57)
[2024-05-08] MEDS: Linezolid 600 MG Tablet PO ×2 (09:18→22:58)
[2024-05-08] MEDS: Menthol/Lanolin/Calamine/Znox 113 GM Tube 1 APPLIC TOPICAL ×2 (09:30→23:02)
[2024-05-08] MEDS: Nystatin Powder 15gm Bottle 1 APPLIC TOPICAL ×2 (09:30→23:02)
[2024-05-08] MEDS: oxyCODONE 5 MG Tablet PO (09:37)
[2024-05-08] MEDS: Acetaminophen 500 MG Tablet 1000 MG PO (13:43)
[2024-05-08] MEDS: 0.9% Saline Lock 10 ML Syringe IV (13:50)
[2024-05-08 16:00] VITALS: BP 89/57; PULSE 70; RESP 16; TEMP 36.4; O2SAT 98
[2024-05-08] MEDS: ALPRAZolam 0.25 MG Tablet PO (22:58)
[2024-05-08] MEDS: Atorvastatin Calcium 10 MG Tablet PO (22:59)
[2024-05-08 23:03] VITALS: BP 98/56; PULSE 80
[2024-05-08 23:05] VITALS: O2SAT 99
[2024-05-09 08:49] VITALS: BP 101/61; PULSE 85; RESP 17; TEMP 36.3; O2SAT 98
[2024-05-09] MEDS: Potassium Chloride Oral Tablet 20 MEQ PO ×3 (08:51→18:05)
[2024-05-09] MEDS: Iron Polysaccharide Complex 150 MG CAPSULE PO (08:52)
[2024-05-09] MEDS: Senna/Docusate Sodium 1 Tablet 2 TABLET PO ×2 (08:52→18:04)
[2024-05-09] MEDS: dilTIAZem CD 120 MG Capsule PO (08:52)
[2024-05-09] MEDS: APIXABAN 5 MG TABLET PO ×2 (08:52→21:49)
[2024-05-09] MEDS: Menthol/Lanolin/Calamine/Znox 113 GM Tube 1 APPLIC TOPICAL ×2 (08:53→21:56)
[2024-05-09] MEDS: hydroCHLOROthiazide 25 MG Tablet PO (08:53)
[2024-05-09] MEDS: Furosemide 20 MG Tablet 60 MG PO (08:53)
[2024-05-09] MEDS: Polyethylene Glycol 3350 17 GM PACKET PO (08:53)
[2024-05-09] MEDS: Ascorbic Acid 500 MG Tablet PO (08:54)
[2024-05-09] MEDS: Pantoprazole Sodium 40 MG Tablet PO (08:54)
[2024-05-09] MEDS: Linezolid 600 MG Tablet PO ×2 (08:55→21:50)
[2024-05-09] MEDS: Lisinopril 10 MG Tablet PO ×2 (08:55→21:51)
[2024-05-09] MEDS: Nystatin Powder 15gm Bottle 1 APPLIC TOPICAL ×2 (08:55→21:50)
[2024-05-09] MEDS: Cholecalciferol (VIT D3) 25 MCG TABLET (1,000 UNITS) 50 MCG PO (08:55)
[2024-05-09] MEDS: oxyCODONE 5 MG Tablet PO ×2 (08:58→15:00)
[2024-05-09] MEDS: Gabapentin 600 MG Tablet PO ×3 (08:58→18:05)
[2024-05-09] MEDS: Ensure Plus High Protein 120 ML LIQUID PO ×2 (09:09→11:57)
[2024-05-09] MEDS: Acetaminophen 500 MG Tablet 1000 MG PO ×2 (11:59→18:08)
--- NOTE | 2024-05-09 21:01 | NURSING ---
Spoke w/ Dr. Cardona via phone and received and read back new orders for Artificial Tears 2 drops to each eye every hour as needed for dryness and Arthritis Compound cream apply 2 clicks to rt shoulder BID.
[2024-05-09] MEDS: ALPRAZolam 0.25 MG Tablet PO (21:49)
[2024-05-09] MEDS: Atorvastatin Calcium 10 MG Tablet PO (21:50)
[2024-05-09] MEDS: Glycerin/Hypromellose/PEG400 15 ml Bottle 2 DRP EACH EYE (21:55)
[2024-05-09] MEDS: Arthritis Pain Compound 60 CLICK TUBE TOPICAL (21:55)
[2024-05-10 07:20] VITALS: O2SAT 94
[2024-05-10] MEDS: Gabapentin 600 MG Tablet PO ×3 (08:54→16:55)
[2024-05-10] MEDS: Ensure Plus High Protein 120 ML LIQUID PO (08:54)
[2024-05-10] MEDS: Potassium Chloride Oral Tablet 20 MEQ PO ×3 (08:56→16:56)
[2024-05-10] MEDS: Senna/Docusate Sodium 1 Tablet 2 TABLET PO ×2 (08:57→16:55)
[2024-05-10] MEDS: Arthritis Pain Compound 60 CLICK TUBE TOPICAL ×2 (08:57→22:12)
[2024-05-10] MEDS: APIXABAN 5 MG TABLET PO ×2 (08:58→22:12)
[2024-05-10] MEDS: Menthol/Lanolin/Calamine/Znox 113 GM Tube 1 APPLIC TOPICAL ×2 (08:58→22:21)
[2024-05-10] MEDS: Iron Polysaccharide Complex 150 MG CAPSULE PO (08:59)
[2024-05-10] MEDS: Nystatin Powder 15gm Bottle 1 APPLIC TOPICAL ×2 (09:00→22:21)
[2024-05-10] MEDS: Polyethylene Glycol 3350 17 GM PACKET PO (09:00)
[2024-05-10] MEDS: Cholecalciferol (VIT D3) 25 MCG TABLET (1,000 UNITS) 50 MCG PO (09:01)
[2024-05-10] MEDS: Pantoprazole Sodium 40 MG Tablet PO (09:01)
[2024-05-10] MEDS: Linezolid 600 MG Tablet PO ×2 (09:01→22:15)
[2024-05-10] MEDS: Ascorbic Acid 500 MG Tablet PO (09:01)
[2024-05-10] MEDS: oxyCODONE 5 MG Tablet PO (09:09)
[2024-05-10] MEDS: Furosemide 20 MG Tablet 60 MG PO (09:12)
[2024-05-10] MEDS: Lisinopril 10 MG Tablet PO ×2 (09:13→22:16)
[2024-05-10] MEDS: hydroCHLOROthiazide 25 MG Tablet PO (09:13)
[2024-05-10] MEDS: dilTIAZem CD 120 MG Capsule PO (09:13)
[2024-05-10 09:29] VITALS: BP 100/68; PULSE 69; O2SAT 98
[2024-05-10 15:29] VITALS: PULSE 79; RESP 12; TEMP 36.7; O2SAT 97
[2024-05-10] MEDS: Glycerin/Hypromellose/PEG400 15 ml Bottle 2 DRP EACH EYE ×2 (15:36→17:03)
[2024-05-10] MEDS: Acetaminophen 500 MG Tablet 1000 MG PO ×2 (15:39→22:14)
[2024-05-10 17:06] VITALS: BP 120/68
[2024-05-10 21:30] VITALS: BP 98/55
[2024-05-10] MEDS: ALPRAZolam 0.25 MG Tablet PO (22:13)
[2024-05-10] MEDS: Atorvastatin Calcium 10 MG Tablet PO (22:16)
[2024-05-11 07:22] VITALS: O2SAT 95
[2024-05-11] MEDS: oxyCODONE 5 MG Tablet PO (09:18)
[2024-05-11] MEDS: Senna/Docusate Sodium 1 Tablet 2 TABLET PO ×2 (09:19→17:08)
[2024-05-11] MEDS: Potassium Chloride Oral Tablet 20 MEQ PO ×3 (09:19→17:08)
[2024-05-11] MEDS: Arthritis Pain Compound 60 CLICK TUBE TOPICAL ×2 (09:19→21:22)
[2024-05-11] MEDS: Gabapentin 600 MG Tablet PO ×3 (09:19→17:09)
[2024-05-11] MEDS: Ascorbic Acid 500 MG Tablet PO (09:20)
[2024-05-11] MEDS: Furosemide 20 MG Tablet 60 MG PO (09:20)
[2024-05-11] MEDS: Polyethylene Glycol 3350 17 GM PACKET PO (09:20)
[2024-05-11] MEDS: APIXABAN 5 MG TABLET PO ×2 (09:20→21:22)
[2024-05-11] MEDS: Pantoprazole Sodium 40 MG Tablet PO (09:20)
[2024-05-11] MEDS: hydroCHLOROthiazide 25 MG Tablet PO (09:20)
[2024-05-11] MEDS: dilTIAZem CD 120 MG Capsule PO (09:20)
[2024-05-11] MEDS: Iron Polysaccharide Complex 150 MG CAPSULE PO (09:20)
[2024-05-11] MEDS: Lisinopril 10 MG Tablet PO ×2 (09:21→21:21)
[2024-05-11] MEDS: Cholecalciferol (VIT D3) 25 MCG TABLET (1,000 UNITS) 50 MCG PO (09:21)
[2024-05-11] MEDS: Linezolid 600 MG Tablet PO ×2 (09:21→21:22)
[2024-05-11] MEDS: Menthol/Lanolin/Calamine/Znox 113 GM Tube 1 APPLIC TOPICAL ×2 (09:30→21:19)
[2024-05-11] MEDS: Nystatin Powder 15gm Bottle 1 APPLIC TOPICAL ×2 (09:33→21:17)
[2024-05-11] MEDS: Glycerin/Hypromellose/PEG400 15 ml Bottle 2 DRP EACH EYE ×3 (12:05→21:28)
[2024-05-11] MEDS: Acetaminophen 500 MG Tablet 1000 MG PO (12:08)
[2024-05-11 14:30] VITALS: BP 92/58; PULSE 61; RESP 18; TEMP 35.8; O2SAT 99
[2024-05-11 16:24] VITALS: O2SAT 99
[2024-05-11 17:04] VITALS: BMI 29.2
[2024-05-11 20:30] VITALS: PULSE 78; RESP 16
[2024-05-11] MEDS: ALPRAZolam 0.25 MG Tablet PO (21:17)
[2024-05-11] MEDS: Atorvastatin Calcium 10 MG Tablet PO (21:21)
[2024-05-11 21:33] VITALS: BP 108/68; PULSE 78; RESP 16
[2024-05-12] MEDS: oxyCODONE 5 MG Tablet PO ×3 (02:25→14:14)
[2024-05-12] MEDS: Acetaminophen 500 MG Tablet 1000 MG PO (02:27)
[2024-05-12 03:00] VITALS: PULSE 72; RESP 18; O2SAT 94
--- NOTE | 2024-05-12 08:45 | NURSING ---
[facility] Internship Note; MDS for 05/12/2024 Complete
[2024-05-12 09:17] VITALS: BP 106/69; PULSE 75; O2SAT 98
[2024-05-12] MEDS: Potassium Chloride Oral Tablet 20 MEQ PO ×3 (09:21→17:57)
[2024-05-12] MEDS: Pantoprazole Sodium 40 MG Tablet PO (09:21)
[2024-05-12] MEDS: Senna/Docusate Sodium 1 Tablet 2 TABLET PO ×2 (09:21→17:56)
[2024-05-12] MEDS: Arthritis Pain Compound 60 CLICK TUBE TOPICAL ×2 (09:21→22:10)
[2024-05-12] MEDS: Cholecalciferol (VIT D3) 25 MCG TABLET (1,000 UNITS) 50 MCG PO (09:22)
[2024-05-12] MEDS: Iron Polysaccharide Complex 150 MG CAPSULE PO (09:22)
[2024-05-12] MEDS: APIXABAN 5 MG TABLET PO ×2 (09:22→22:10)
[2024-05-12] MEDS: Ascorbic Acid 500 MG Tablet PO (09:22)
[2024-05-12] MEDS: Furosemide 20 MG Tablet 60 MG PO (09:22)
[2024-05-12] MEDS: dilTIAZem CD 120 MG Capsule PO (09:22)
[2024-05-12] MEDS: Polyethylene Glycol 3350 17 GM PACKET PO (09:23)
[2024-05-12] MEDS: Glycerin/Hypromellose/PEG400 15 ml Bottle 2 DRP EACH EYE ×2 (09:23→22:09)
[2024-05-12] MEDS: Linezolid 600 MG Tablet PO (09:23)
[2024-05-12] MEDS: Lisinopril 10 MG Tablet PO ×2 (09:23→22:09)
[2024-05-12] MEDS: hydroCHLOROthiazide 25 MG Tablet PO (09:23)
[2024-05-12] MEDS: Menthol/Lanolin/Calamine/Znox 113 GM Tube 1 APPLIC TOPICAL ×2 (09:24→22:07)
[2024-05-12] MEDS: Ensure Plus High Protein 120 ML LIQUID PO (09:35)
[2024-05-12] MEDS: Gabapentin 600 MG Tablet PO ×3 (09:35→17:55)
[2024-05-12] MEDS: Nystatin Powder 15gm Bottle 1 APPLIC TOPICAL ×2 (09:45→22:07)
[2024-05-12 09:49] VITALS: O2SAT 92
--- NOTE | 2024-05-12 11:09 | CASEMGMT ---
Social Work IDT met with patient, sister and DIL for care plan meeting. Discussed patient's progress in PT/OT/ST/SN. Educated to Medicare benefit. Provided family with written communication on insurance process and copay coverage during stay. Pt lives with son and DIL. DIL assists with showers and IADLs, but needs pt to be independent with dressing and toileting. Offered therapy training for DIL. SW will continue to follow for DC planning. Delaney Shaikh, REGULATION SUPERVISOR PBX MECHANIC
--- NOTE | 2024-05-12 13:58 | CASEMGMT ---
BIMS () and PHQ2 (1) interviews completed on this date for MDS assessment. ALEXA Riddle
--- NOTE | 2024-05-12 14:44 | CHAPLAIN ---
Type of Pastoral Visit ___ Initial Visit _x__ Follow-up Visit ___ On-call Visit ___ General Patient Visit ___ Spiritual Assessment ___ Family Conference ___ Bereavement ___ Rapid Response ___ Code Blue ___ Other (describe below) Pastoral Care Referral From _x__ Patient ___ Family ___ Nurse ___ Physician ___ Controls Project Engineer ___ Information Developer ___ Other (describe below) Sacrament/Intervention _x__ Active listening ___ Anointing ___ Anabaptism ___ Bereavement ___ Communion _x__ Evelin exploration ___ _x__ Life review _x__ Prayer ___ Reconciliation ___ Sacrament of Sick ___ Supportive presence ___ Wedding ___ Other (describe below) Pastoral Comments patient is welcoming and is eager to have visit with this assembler for puller over hand; pt gives updates on her care and status; pt leads in the conversation and has much to say about what she reads and what she watches that revolve around biblical writings and TV preachers; pt requests more prayer
[2024-05-12 14:51] VITALS: BP 92/64; PULSE 69; RESP 16; TEMP 35.9; O2SAT 96
[2024-05-12] MEDS: ALPRAZolam 0.25 MG Tablet PO (22:07)
[2024-05-12] MEDS: Atorvastatin Calcium 10 MG Tablet PO (22:10)
[2024-05-12 22:21] VITALS: BP 110/67; PULSE 72; RESP 16
[2024-05-13 06:16] VITALS: PULSE 70; RESP 16; O2SAT 91
[2024-05-13 08:14] LABS: Basophil# 0.04 X10^3/uL; Basophil% 1.1 % (0-1); Eosinophil# 0.13 X10^3/uL; Eosinophils% 3.6 % (0-5); Hematocrit 33.6 % (37-47); Hemoglobin 10.7 g/dL (12.0-15.0); Lymphocyte % 30.7 % (19-41); Mean Corp Hgb Conc 31.8 g/dL (32-36); Mean Corpuscular Hgb 30.5 pg (27.0-32.0); Mean Corpuscular Volume 95.7 fL (81-99); Mean Platelet Vol. 9.6 fl (6.2-12.0); Monocyte# 0.26 X10^3/uL; Monocyte% 7.3 % (0-10); NRBC Flagged by Analyzer 0 % (0-5); Neutrophil # 2.03 X10^3/uL (2.7-7.7); Neutrophil % 56.7 % (47-70); Platelet Count 196 K/mm3 (150-450); RBC Distribution Width CV 12.1 % (11.6-14.6); RBC Distribution Width SD 42.5 fl (35.1-43.9); Red Blood Count 3.51 M/mm3 (4.2-5.4); White Blood Count 3.6 K/mm3 (4.4-11.0)
[2024-05-13 08:37] LABS: Anion Gap 4 (5-15); BUN 19 mg/dL (7-18); Calcium,Total 9.6 mg/dL (8.5-10.1); Chloride 101 mmol/L (98-107); Creatinine, Serum 0.86 mg/dL (0.55-1.02); EST Glomerular Filtration Rate 67 mL/min (>60); Est Glom Filt Rate - Afr Amer 81 mL/min (>60); Estimated Creatinine Clearance 42.05 ml/min; Glucose 117 mg/dL (74-106); Potassium 3.6 mmol/L (3.5-5.1); Sodium Level 137 mmol/L (136-145)
[2024-05-13 08:44] VITALS: BP 117/78; PULSE 76; RESP 17; TEMP 36.3; O2SAT 97
[2024-05-13] MEDS: Senna/Docusate Sodium 1 Tablet 2 TABLET PO ×2 (08:47→17:06)
[2024-05-13] MEDS: Potassium Chloride Oral Tablet 20 MEQ PO ×3 (08:47→17:06)
[2024-05-13] MEDS: Arthritis Pain Compound 60 CLICK TUBE TOPICAL ×2 (08:48→21:11)
[2024-05-13] MEDS: Menthol/Lanolin/Calamine/Znox 113 GM Tube 1 APPLIC TOPICAL ×2 (08:48→21:12)
[2024-05-13] MEDS: dilTIAZem CD 120 MG Capsule PO (08:49)
[2024-05-13] MEDS: Citalopram 10 MG Tablet 30 MG PO (08:49)
[2024-05-13] MEDS: APIXABAN 5 MG TABLET PO ×2 (08:49→21:12)
[2024-05-13] MEDS: Iron Polysaccharide Complex 150 MG CAPSULE PO (08:50)
[2024-05-13] MEDS: Furosemide 20 MG Tablet 60 MG PO (08:50)
[2024-05-13] MEDS: Polyethylene Glycol 3350 17 GM PACKET PO (08:50)
[2024-05-13] MEDS: Nystatin Powder 15gm Bottle 1 APPLIC TOPICAL ×2 (08:50→21:14)
[2024-05-13] MEDS: hydroCHLOROthiazide 25 MG Tablet PO (08:50)
[2024-05-13] MEDS: Pantoprazole Sodium 40 MG Tablet PO (08:50)
[2024-05-13] MEDS: Lisinopril 10 MG Tablet PO ×2 (08:51→21:13)
[2024-05-13] MEDS: Cholecalciferol (VIT D3) 25 MCG TABLET (1,000 UNITS) 50 MCG PO (08:51)
[2024-05-13] MEDS: Ascorbic Acid 500 MG Tablet PO (08:51)
[2024-05-13] MEDS: Gabapentin 600 MG Tablet PO ×3 (08:53→17:07)
--- NOTE | 2024-05-13 08:59 | NURSING ---
Addendum entered by Barrie Bales 05/13/24 17:45: Patient refused to get up to chair for lunch and dinner this shift. Continued to educate patient of aspiration risks. Patient acknowledges. Call light within reach. Original Note: Patient refused to get up to chair with breakfast. Education provided to patient regarding risk for aspiration pneumonia. Patient acknowledges. Will continue to encourage patient to get up to chair with meals. Call light within reach.
[2024-05-13] MEDS: Tuberculin,Purif.prot.deriv. 50 TU/ML Vial 0.1 ML ID (12:07)
[2024-05-13] MEDS: Glycerin/Hypromellose/PEG400 15 ml Bottle 2 DRP EACH EYE ×2 (12:08→21:15)
[2024-05-13] MEDS: oxyCODONE 5 MG Tablet PO (13:52)
[2024-05-13] MEDS: Acetaminophen 500 MG Tablet 1000 MG PO (13:53)
--- NOTE | 2024-05-13 17:25 | NURSING ---
Updated Dr. Cardona, patient's stool black and tarry this shift. New order for occult stool.
[2024-05-13] MEDS: Atorvastatin Calcium 10 MG Tablet PO (21:13)
[2024-05-13] MEDS: ALPRAZolam 0.25 MG Tablet PO (21:17)
[2024-05-13 21:24] VITALS: BP 111/66; PULSE 70
[2024-05-14] MEDS: oxyCODONE 5 MG Tablet PO ×3 (02:23→14:34)
[2024-05-14] MEDS: Potassium Chloride Oral Tablet 20 MEQ PO ×3 (06:45→17:10)
[2024-05-14] MEDS: Gabapentin 600 MG Tablet PO ×3 (06:45→17:09)
[2024-05-14 07:30] VITALS: O2SAT 96
[2024-05-14] MEDS: Citalopram 10 MG Tablet 30 MG PO (08:37)
[2024-05-14] MEDS: Senna/Docusate Sodium 1 Tablet 2 TABLET PO ×2 (08:37→17:10)
[2024-05-14] MEDS: dilTIAZem CD 120 MG Capsule PO (08:37)
[2024-05-14] MEDS: Arthritis Pain Compound 60 CLICK TUBE TOPICAL ×2 (08:37→21:32)
[2024-05-14] MEDS: Furosemide 20 MG Tablet 60 MG PO (08:38)
[2024-05-14] MEDS: hydroCHLOROthiazide 25 MG Tablet PO (08:38)
[2024-05-14] MEDS: APIXABAN 5 MG TABLET PO ×2 (08:38→21:32)
[2024-05-14] MEDS: Iron Polysaccharide Complex 150 MG CAPSULE PO (08:38)
[2024-05-14] MEDS: Cholecalciferol (VIT D3) 25 MCG TABLET (1,000 UNITS) 50 MCG PO (08:39)
[2024-05-14] MEDS: Pantoprazole Sodium 40 MG Tablet PO (08:39)
[2024-05-14] MEDS: Ascorbic Acid 500 MG Tablet PO (08:39)
[2024-05-14] MEDS: Polyethylene Glycol 3350 17 GM PACKET PO (08:39)
[2024-05-14] MEDS: Lisinopril 10 MG Tablet PO ×2 (08:40→21:33)
[2024-05-14] MEDS: Acetaminophen 500 MG Tablet 1000 MG PO (08:47)
[2024-05-14] MEDS: Glycerin/Hypromellose/PEG400 15 ml Bottle 2 DRP EACH EYE ×2 (08:50→21:32)
[2024-05-14] MEDS: Menthol/Lanolin/Calamine/Znox 113 GM Tube 1 APPLIC TOPICAL ×2 (08:55→21:30)
[2024-05-14] MEDS: Nystatin Powder 15gm Bottle 1 APPLIC TOPICAL ×2 (08:57→21:31)
[2024-05-14 12:26] VITALS: BP 93/59; PULSE 84; RESP 16; TEMP 36.1; O2SAT 96
[2024-05-14] MEDS: Ensure Plus High Protein 120 ML LIQUID PO (17:17)
--- NOTE | 2024-05-14 19:39 | NURSING ---
Patient refuse to sit in wheelchair this AM to eat breakfast. When this nurse asks why, patient states the w/c is too small to fit comfortably in with pillows for comfort. This nurse asks if patient would get in w/c to eat if she had a bigger w/c and she states she would. Larger w/c provided to patient and shown to her and she confirms she will sit in it for lunch. director energy made aware. Patient ended up refusing to get up to eat for lunch and ate lunch and bed d/t to not feeling like getting up. This nurse states the danger of laying in bed while eating with aspiration risk and patient states understanding.
[2024-05-14] MEDS: ALPRAZolam 0.25 MG Tablet PO (21:29)
[2024-05-14] MEDS: Atorvastatin Calcium 10 MG Tablet PO (21:33)
[2024-05-14 21:44] VITALS: BP 121/63; PULSE 85; RESP 16; O2SAT 94
[2024-05-15] MEDS: oxyCODONE 5 MG Tablet PO ×2 (04:26→13:36)
[2024-05-15] MEDS: Potassium Chloride Oral Tablet 20 MEQ PO ×3 (08:05→17:12)
[2024-05-15] MEDS: Menthol/Lanolin/Calamine/Znox 113 GM Tube 1 APPLIC TOPICAL ×2 (08:06→21:11)
[2024-05-15] MEDS: Arthritis Pain Compound 60 CLICK TUBE TOPICAL ×2 (08:06→21:08)
[2024-05-15] MEDS: Senna/Docusate Sodium 1 Tablet 2 TABLET PO ×2 (08:06→17:12)
[2024-05-15] MEDS: Ascorbic Acid 500 MG Tablet PO (08:07)
[2024-05-15] MEDS: APIXABAN 5 MG TABLET PO ×2 (08:07→21:08)
[2024-05-15] MEDS: Polyethylene Glycol 3350 17 GM PACKET PO (08:08)
[2024-05-15] MEDS: Cholecalciferol (VIT D3) 25 MCG TABLET (1,000 UNITS) 50 MCG PO (08:08)
[2024-05-15] MEDS: dilTIAZem CD 120 MG Capsule PO (08:08)
[2024-05-15] MEDS: Nystatin Powder 15gm Bottle 1 APPLIC TOPICAL ×2 (08:09→21:12)
[2024-05-15] MEDS: Pantoprazole Sodium 40 MG Tablet PO (08:09)
[2024-05-15] MEDS: Lisinopril 10 MG Tablet PO ×2 (08:09→21:09)
[2024-05-15] MEDS: Iron Polysaccharide Complex 150 MG CAPSULE PO (08:10)
[2024-05-15] MEDS: Citalopram 10 MG Tablet 30 MG PO (08:10)
[2024-05-15] MEDS: hydroCHLOROthiazide 25 MG Tablet PO (08:10)
[2024-05-15] MEDS: Furosemide 20 MG Tablet 60 MG PO (08:11)
[2024-05-15] MEDS: Gabapentin 600 MG Tablet PO ×3 (08:18→17:11)
[2024-05-15 08:25] VITALS: BP 125/79; PULSE 68; O2SAT 96
[2024-05-15 08:54] VITALS: O2SAT 95
--- NOTE | 2024-05-15 09:12 | NURSING ---
PT REFUSED TO GET OUT OF BED FOR BREAKFAST. EDUCATED PT ON THE REASONS OF GETTING UP. PT STATED SHE UNDERSTANDS AND WILL GET UP FOR THIS NURSE AT LUNCH AND SUPPER. PT ALSO REFUSES ENSURE AT TIMES DUE TO ALSO GETTING IT ON HER TRAY. WILL CONTINUE TO MONITOR.
[2024-05-15] MEDS: Acetaminophen 500 MG Tablet 1000 MG PO (10:41)
[2024-05-15 15:20] VITALS: PULSE 64; RESP 16; O2SAT 98
[2024-05-15 16:00] VITALS: BP 104/71; PULSE 64; RESP 16; TEMP 35.9; O2SAT 98
[2024-05-15] MEDS: Glycerin/Hypromellose/PEG400 15 ml Bottle 2 DRP EACH EYE ×2 (17:13→21:08)
[2024-05-15] MEDS: ALPRAZolam 0.25 MG Tablet PO (21:08)
[2024-05-15] MEDS: Atorvastatin Calcium 10 MG Tablet PO (21:08)
[2024-05-15 21:18] VITALS: BP 110/73; PULSE 60
[2024-05-16] MEDS: oxyCODONE 5 MG Tablet PO ×3 (00:53→16:09)
[2024-05-16 05:52] VITALS: RESP 16; O2SAT 97
[2024-05-16] MEDS: Ensure Plus High Protein 120 ML LIQUID PO ×3 (09:16→17:18)
[2024-05-16] MEDS: Gabapentin 600 MG Tablet PO ×3 (09:17→17:17)
[2024-05-16] MEDS: Arthritis Pain Compound 60 CLICK TUBE TOPICAL ×2 (09:18→21:33)
[2024-05-16] MEDS: Polyethylene Glycol 3350 17 GM PACKET PO (09:19)
[2024-05-16] MEDS: Menthol/Lanolin/Calamine/Znox 113 GM Tube 1 APPLIC TOPICAL ×2 (09:20→21:34)
[2024-05-16] MEDS: Nystatin Powder 15gm Bottle 1 APPLIC TOPICAL ×2 (09:20→21:33)
[2024-05-16] MEDS: Potassium Chloride Oral Tablet 20 MEQ PO ×3 (09:21→17:18)
[2024-05-16] MEDS: Senna/Docusate Sodium 1 Tablet 2 TABLET PO ×2 (09:22→17:18)
[2024-05-16] MEDS: hydroCHLOROthiazide 25 MG Tablet PO (09:22)
[2024-05-16] MEDS: Furosemide 20 MG Tablet 60 MG PO (09:22)
[2024-05-16] MEDS: dilTIAZem CD 120 MG Capsule PO (09:22)
[2024-05-16] MEDS: Citalopram 10 MG Tablet 30 MG PO (09:23)
[2024-05-16] MEDS: APIXABAN 5 MG TABLET PO ×2 (09:23→21:33)
[2024-05-16] MEDS: Iron Polysaccharide Complex 150 MG CAPSULE PO (09:23)
[2024-05-16] MEDS: Ascorbic Acid 500 MG Tablet PO (09:24)
[2024-05-16] MEDS: Cholecalciferol (VIT D3) 25 MCG TABLET (1,000 UNITS) 50 MCG PO (09:24)
[2024-05-16] MEDS: Pantoprazole Sodium 40 MG Tablet PO (09:24)
[2024-05-16] MEDS: Lisinopril 10 MG Tablet PO ×2 (09:25→21:33)
[2024-05-16 09:54] VITALS: BP 119/74; PULSE 68; O2SAT 97
[2024-05-16 15:52] VITALS: BP 106/63; PULSE 62; RESP 14; TEMP 36.4; O2SAT 100
[2024-05-16] MEDS: Atorvastatin Calcium 10 MG Tablet PO (21:33)
[2024-05-16] MEDS: ALPRAZolam 0.25 MG Tablet PO (21:33)
[2024-05-16 21:40] VITALS: BP 118/74; PULSE 83
[2024-05-17] MEDS: oxyCODONE 5 MG Tablet PO ×3 (02:08→15:24)
[2024-05-17] MEDS: Gabapentin 600 MG Tablet PO ×3 (09:40→17:28)
[2024-05-17] MEDS: APIXABAN 5 MG TABLET PO ×2 (09:41→21:47)
[2024-05-17] MEDS: Potassium Chloride Oral Tablet 20 MEQ PO ×3 (09:41→17:34)
[2024-05-17] MEDS: Senna/Docusate Sodium 1 Tablet 2 TABLET PO ×2 (09:41→17:33)
[2024-05-17] MEDS: dilTIAZem CD 120 MG Capsule PO (09:41)
[2024-05-17] MEDS: Citalopram 10 MG Tablet 30 MG PO (09:41)
[2024-05-17] MEDS: hydroCHLOROthiazide 25 MG Tablet PO (09:42)
[2024-05-17] MEDS: Polyethylene Glycol 3350 17 GM PACKET PO (09:42)
[2024-05-17] MEDS: Ascorbic Acid 500 MG Tablet PO (09:42)
[2024-05-17] MEDS: Furosemide 20 MG Tablet 60 MG PO (09:42)
[2024-05-17] MEDS: Pantoprazole Sodium 40 MG Tablet PO (09:42)
[2024-05-17] MEDS: Iron Polysaccharide Complex 150 MG CAPSULE PO (09:42)
[2024-05-17] MEDS: Cholecalciferol (VIT D3) 25 MCG TABLET (1,000 UNITS) 50 MCG PO (09:43)
[2024-05-17] MEDS: Lisinopril 10 MG Tablet PO ×2 (09:43→21:48)
[2024-05-17] MEDS: Nystatin Powder 15gm Bottle 1 APPLIC TOPICAL ×2 (09:51→21:49)
[2024-05-17] MEDS: Menthol/Lanolin/Calamine/Znox 113 GM Tube 1 APPLIC TOPICAL (09:51)
[2024-05-17] MEDS: Arthritis Pain Compound 60 CLICK TUBE TOPICAL ×2 (09:51→21:47)
[2024-05-17 13:53] VITALS: BP 97/65; PULSE 62; RESP 16; TEMP 36; O2SAT 87
[2024-05-17] MEDS: Acetaminophen 500 MG Tablet 1000 MG PO (15:23)
[2024-05-17] MEDS: Glycerin/Hypromellose/PEG400 15 ml Bottle 2 DRP EACH EYE (17:46)
[2024-05-17] MEDS: ALPRAZolam 0.25 MG Tablet PO (21:47)
[2024-05-17] MEDS: Atorvastatin Calcium 10 MG Tablet PO (21:47)
[2024-05-17 21:57] VITALS: BP 117/68; PULSE 79; O2SAT 100
[2024-05-17 23:00] VITALS: RESP 16; O2SAT 100
--- NOTE | 2024-05-18 06:59 | MDS.RN ---
Information for the MDS was obtained from review of the clinical record, interview of resident, staff, and direct observation of resident?s care.
[2024-05-18] MEDS: oxyCODONE 5 MG Tablet PO ×2 (09:34→14:14)
[2024-05-18] MEDS: Arthritis Pain Compound 60 CLICK TUBE TOPICAL ×2 (09:34→22:41)
[2024-05-18] MEDS: Gabapentin 600 MG Tablet PO ×3 (09:35→17:41)
[2024-05-18] MEDS: Senna/Docusate Sodium 1 Tablet 2 TABLET PO ×2 (09:35→17:41)
[2024-05-18] MEDS: Potassium Chloride Oral Tablet 20 MEQ PO ×3 (09:35→17:41)
[2024-05-18] MEDS: Nystatin Powder 15gm Bottle 1 APPLIC TOPICAL ×2 (09:36→22:43)
[2024-05-18] MEDS: Polyethylene Glycol 3350 17 GM PACKET PO (09:36)
[2024-05-18] MEDS: Iron Polysaccharide Complex 150 MG CAPSULE PO (09:37)
[2024-05-18] MEDS: Ascorbic Acid 500 MG Tablet PO (09:37)
[2024-05-18] MEDS: APIXABAN 5 MG TABLET PO ×2 (09:37→22:41)
[2024-05-18] MEDS: hydroCHLOROthiazide 25 MG Tablet PO (09:37)
[2024-05-18] MEDS: Pantoprazole Sodium 40 MG Tablet PO (09:38)
[2024-05-18] MEDS: Cholecalciferol (VIT D3) 25 MCG TABLET (1,000 UNITS) 50 MCG PO (09:38)
[2024-05-18] MEDS: dilTIAZem CD 120 MG Capsule PO (09:38)
[2024-05-18] MEDS: Citalopram 10 MG Tablet 30 MG PO (09:38)
[2024-05-18] MEDS: Furosemide 20 MG Tablet 60 MG PO (09:38)
[2024-05-18] MEDS: Lisinopril 10 MG Tablet PO ×2 (09:39→22:42)
[2024-05-18] MEDS: Menthol/Lanolin/Calamine/Znox 113 GM Tube 1 APPLIC TOPICAL ×2 (09:42→22:41)
[2024-05-18 09:48] VITALS: BP 122/80; PULSE 84; O2SAT 97
[2024-05-18 12:58] VITALS: BMI 28.5
--- NOTE | 2024-05-18 13:43 | CASEMGMT ---
Social Work SW phoned DIL to discuss DC plans for pt. Updated DIL on pt's LOF and IDT presumed pt has returned to her PLOF. DIL confirmed, though concerned about pt's modified diet. SW offered to have ST call DIL to discuss that diet. DIL agreed. SW offered to set DC date. DIL prefers 05/28. SW to review with IDT and follow up with DIL. SW will continue to follow. SW notified ST and inquired to IDT about DC date. Delaney Shaikh, BLIND ESCORT RETAIL HELPER
[2024-05-18 14:15] VITALS: PULSE 81; RESP 18; O2SAT 99
[2024-05-18 14:36] VITALS: BP 101/68; PULSE 83; RESP 16; TEMP 36.4; O2SAT 83
[2024-05-18] MEDS: Ensure Plus High Protein 120 ML LIQUID PO (17:40)
[2024-05-18 22:40] VITALS: BP 123/83; PULSE 77; RESP 16; O2SAT 94
[2024-05-18] MEDS: ALPRAZolam 0.25 MG Tablet PO (22:40)
[2024-05-18] MEDS: Atorvastatin Calcium 10 MG Tablet PO (22:42)
[2024-05-18] MEDS: Glycerin/Hypromellose/PEG400 15 ml Bottle 2 DRP EACH EYE (22:45)
[2024-05-19] MEDS: Acetaminophen 500 MG Tablet 1000 MG PO ×2 (02:40→12:54)
[2024-05-19] MEDS: oxyCODONE 5 MG Tablet PO ×2 (02:43→08:14)
[2024-05-19] MEDS: Potassium Chloride Oral Tablet 20 MEQ PO ×3 (08:14→17:55)
[2024-05-19] MEDS: Gabapentin 600 MG Tablet PO ×3 (08:15→17:55)
[2024-05-19] MEDS: Citalopram 10 MG Tablet 30 MG PO (08:15)
[2024-05-19] MEDS: dilTIAZem CD 120 MG Capsule PO (08:15)
[2024-05-19] MEDS: Senna/Docusate Sodium 1 Tablet 2 TABLET PO ×2 (08:15→17:55)
[2024-05-19] MEDS: Arthritis Pain Compound 60 CLICK TUBE TOPICAL ×2 (08:15→22:29)
[2024-05-19] MEDS: hydroCHLOROthiazide 25 MG Tablet PO (08:16)
[2024-05-19] MEDS: Polyethylene Glycol 3350 17 GM PACKET PO (08:16)
[2024-05-19] MEDS: Iron Polysaccharide Complex 150 MG CAPSULE PO (08:16)
[2024-05-19] MEDS: Furosemide 20 MG Tablet 60 MG PO (08:16)
[2024-05-19] MEDS: APIXABAN 5 MG TABLET PO ×2 (08:16→20:08)
[2024-05-19] MEDS: Lisinopril 10 MG Tablet PO ×2 (08:17→20:08)
[2024-05-19] MEDS: Ascorbic Acid 500 MG Tablet PO (08:17)
[2024-05-19] MEDS: Pantoprazole Sodium 40 MG Tablet PO (08:17)
[2024-05-19] MEDS: Cholecalciferol (VIT D3) 25 MCG TABLET (1,000 UNITS) 50 MCG PO (08:17)
[2024-05-19] MEDS: Menthol/Lanolin/Calamine/Znox 113 GM Tube 1 APPLIC TOPICAL ×2 (08:32→20:08)
[2024-05-19] MEDS: Nystatin Powder 15gm Bottle 1 APPLIC TOPICAL ×2 (08:32→20:09)
[2024-05-19 14:24] VITALS: BP 100/60; PULSE 72; RESP 16; O2SAT 98
[2024-05-19 14:29] VITALS: TEMP 36.1
--- NOTE | 2024-05-19 14:30 | CASEMGMT ---
Social Work Received return call from OFELIA after she spoke with . OFELIA expressed concern with pt wanting to get waited on in regards to ADLs, etc. OFELIA made it clear she cannot and will not assist pt with any personal care tasks. OFELIA cooks her food from scratch every day and does the boat wrapper. ROBERT commended OFELIA for setting boundaries and encouraged to maintain once pt returns home. ROBERT offered to explain options to pt if she does not want to complete those tasks independent, as pt is physically capable to do them, such as nonskilled HHC or AL or SNF. OFELIA refuted nonskilled HHC as I will not allow that in my home. ROBERT agreed to only offer AL/SNF and appreciative DIL sharing abilities with this worker. SW agreed to explain this information to pt and ensure pt can return home. OFELIA appreciative of this worker's assistance. If pt is agreeable, pt will DC home 05/28 with skilled HHC. SW to speak with pt. Delaney Shaikh, YIELD IMPROVEMENT ENGINEER GRAIN DRIER
--- NOTE | 2024-05-19 16:06 | CASEMGMT ---
Social Work SW met with patient and sister at bedside. SW informed pt of conversation with DIL and discussed pt's toileting abilities, specifically. Pt explained she hasn't done the toileting tasks on her own yet because the staff help her and put barrier cream on. SW explained that in order for pt to return home, per DIL, she must complete her own toileting tasks. Encouraged pt moving forward to try tasks independently, and then staff can assist with barrier cream. Explained the other option would be AL or SNF, and pt is not agreeable to that option. Pt is agreeable to DC date of 05/28. SW will continue to follow. Delaney Shaikh, AERONAUTICAL RESEARCH ENGINEER LOT PORTER
[2024-05-19] MEDS: Atorvastatin Calcium 10 MG Tablet PO (20:08)
--- NOTE | 2024-05-19 21:15 | DS.PCM_ITS ---
Providers Date of Admission: 05/05/24 Primary Care Physician: Dr. Ольга Riggins MD Reason For Visit: CELLULITIS Diagnosis Discharge Diagnosis (1) Debility: Status: Acute Code(s): R53.81 - Other malaise (2) Cellulitis of right lower extremity: Status: Acute Code(s): L03.115 - Cellulitis of right lower limb (3) Pleural effusion, right: Status: Acute Code(s): J90 - Pleural effusion, not elsewhere classified (4) Acute heart failure with preserved ejection fraction (HFpEF): Status: Acute Code(s): I50.31 - Acute diastolic (congestive) heart failure (5) Atrial fibrillation: Status: Inactive Code(s): I48.91 - Unspecified atrial fibrillation (6) History of CVA (cerebrovascular accident): Status: Chronic Code(s): Z86.73 - Personal history of transient ischemic attack (TIA), and cerebral infarction without residual deficits (7) Transverse myelitis: Status: Chronic (8) Anxiety: Status: Acute Code(s): F41.9 - Anxiety disorder, unspecified (9) Chronic pain: Status: Chronic Code(s): G89.29 - Other chronic pain (10) Hyperlipidemia: Status: Chronic Code(s): E78.5 - Hyperlipidemia, unspecified (11) Osteoporosis: Status: Chronic Code(s): M81.0 - Age-related osteoporosis without current pathological fracture Qualifiers: Osteoporosis type: age-related Presence of current pathological fracture: without current pathological fracture Qualified Code(s): M81.0 - Age- related osteoporosis without current pathological fracture (12) Depression: Status: Acute Code(s): F32.A - Depression, unspecified (13) Essential (primary) hypertension: Status: Acute Code(s): I10 - Essential (primary) hypertension (14) GERD (gastroesophageal reflux disease): Status: Chronic Code(s): K21.9 - Gastro-esophageal reflux disease without esophagitis (15) Hypokalemia: Status: Acute Code(s): E87.6 - Hypokalemia Plan 83 year old female with below past medical history hospitalized for right lower extremity cellulitis, complicated by right pleural effusion 2/2 acute HFpEF, admitted to TCU with debility, here for rehabilitation, strengthening, prior to discharge home with family. * Debility - PT/OT. * Pain - Methadone 5mg 4x/day, Oxycodone 5mg q4 prn. * Bowel - Miralax 17gm daily, senna/colace 2 tablets bid. * Adult immunization - Administer pneumonia vaccine, covid vaccine, flu vaccine as appropriate. * DVT prophylaxis - on Eliquis. 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 * Atrial fibrillation - Diltiazem 120mg daily, Eliquis 5mg bid. * Iron deficiency anemia - Ferrex 150mg daily, Vitamin C 500mg daily. * Hyperlipidemia - Atorvastatin 10mg qhs. * Vitamin D deficiency - D3 50mcg daily. * Depression - Citalopram 30mg daily, stable chronic alf use, GDR not recommended. * Nutrition - Ensure Plus 120ml po tidcm. * Chronic HFpEF - Lisinopril 10mg bid, Furosemide 60mg daily. * Coronary artery disease - Lisinopril 10mg bid, NTG 0.4mg sl q5m prn, Eliquis 5mg bid. * Neuropathic pain - Gabapentin 600mg tidcm. * Hypertension - Diltiazem 120mg daily, Lisinopril 10mg bid, HCTZ 25mg daily. * Right lower extremity cellulitis - Linezolid 600mg bid thru 05/12/2024. * GERD - Pantoprazole 40mg daily. * Hypokalemia - KCL 20meq tidcm. Medications at Discharge Home Medications polyethylene glycol 3350 17 gram oral powder packet 17 gm PO DAILY constipation 08/27/18 sennosides 8.6 mg-docusate sodium 50 mg tablet 2 tab PO BIDCM stool softner #120 tabs 09/07/18 Wheel Chair #1 ea 10/10/20 walker #1 ea 10/10/20 home oxygen See Rx Instructions NASAL QHS PRN oxygen 11/30/20 nitroglycerin 0.4 mg sublingual tablet 0.4 mg sublingual Q5-15M PRN chest pain #25 tabs 11/06/21 atorvastatin 10 mg tablet 10 mg PO DAILY cholestrol 12/24/22 ascorbate calcium (vitamin C) 500 mg tablet 500 mg PO DAILY supplement 04/28/23 cholecalciferol (vitamin D3) 50 mcg (2,000 unit) capsule 50 mcg PO DAILY supplement 04/28/23 polysaccharide iron complex 150 mg iron capsule (Ferrex) 150 mg PO DAILY supplement #90 caps 06/05/23 Handicap Placard #1 ea 10/14/23 citalopram 20 mg tablet 30 mg (1.5 x 20 mg) PO DAILY depression #360 tabs 11/13/23 apixaban 5 mg tablet (Eliquis) 5 mg PO BID Blood thinner #60 TABLETS 11/27/23 diltiazem HCl 120 mg capsule,24 hr,extended release 120 mg PO DAILY BP #90 caps 03/01/24 potassium chloride 20 mEq tablet,extended release(part/cryst) 20 meq PO TID supplement #270 tabs 03/01/24 lisinopril 20 mg tablet 10 mg PO BID BP 05/02/24 hydrochlorothiazide 25 mg tablet 25 mg PO DAILY BP 05/03/24 alprazolam 0.25 mg tablet 0.25 mg PO QHS Anxiety #3 tabs 05/05/24 gabapentin 600 mg tablet 600 mg PO TIDCM nerve pain #0 tabs 05/05/24 methadone 5 mg tablet 5 mg PO 4X/DAY pain 3 days #12 tabs 05/05/24 oxycodone 5 mg tablet 5 mg PO Q4H PRN PRN Severe Pain (6-10/10) 2 days #6 tabs 05/05/24 pantoprazole 40 mg tablet,delayed release 40 mg PO DAILY GERD #0 tabs 05/05/24 acetaminophen 500 mg tablet 1,000 mg (2 x 500 mg) PO Q6H PRN PRN Headache #0 tabs 05/19/24 furosemide 20 mg tablet 60 mg (3 x 20 mg) PO DAILY 30 days #90 tabs 05/19/24 Hospital Course Operations None Procedures None Summary of Care Provided Minutes Spent on Discharge: 35 Hospital Course: 83 year old female with below past medical history hospitalized for right lower extremity cellulitis, complicated by right pleural effusion 2/2 acute HFpEF, admitted to TCU with debility, here for rehabilitation, strengthening, prior to discharge home with family. Discharge home with daughter in law 05/28/2024, [facility] PT/OT. Physical Exam Const alert General Appearance: cooperative HEENT normocephalic Eyes PERRL and EOMs intact bilaterally Neck supple, no JVD and no carotid bruits Resp normal respiratory effort, normal air movement and clear to auscultation bilaterally Cardio regular rate and regular rhythm GI normal to inspection, nondistended, normoactive bowel sounds, non-tender and non-distended Extremity normal capillary refill General Extremity: Negative for edema Skin no rashes or lesions noted General Skin Exam: no breakdown Psych affect normal Appearance: appropriate Weight / BMI Weight Weight: 60.101 kg Body Mass Index (BMI) 28.5 ABG / Lab / Microbiology Data 05/13/24 08:05 05/13/24 08:05 Microbiology: Microbiology 05/13/24 21:25 Stool Stool Occult Blood (ELIZABETH) - Final 05/06/24 04:51 Nasal Secretion SARS-CoV-2 Antigen (Rapid) - Final D/C Instructions Discharge Diet: No restrictions Discharge Activity: Return to Normal Activity, May Shower and Use Walker Weight Bearing Status: Weight bearing as tolerated Call your doctor if you observe: Fever of 101 or Higher, Inability to urinate, Inability to have a bowel movement, Shortness of breath, Dizziness, Fainting spells, Swelling in the ankles, Chest pain and Uncontrolled pain Additional Instructions: Discharge home with daughter in law 05/28/2024, [facility] PT/OT. Meaningful Use Info Meaningful Use Meaningful Use Diagnoses (Choose all that apply): None applicable Ischemic Stroke Statin Dosing Therapy Reference: STATIN DOSE THERAPY REFERENCE: * Patients > 75 years receive moderate or high dose statin therapy. * Patients 75 years or YOUNGER should receive HIGH intensity statin dose unless contraindicated. You will be required to document reason for non-treatment if statin daily dose does not meet guidelines. HIGH DOSE STATIN THERAPY DAILY Atorvastatin > than or = to 40 mg Rosuvastatin > than or = to 20 mg Amlodipine + Atorvastatin > than or = to 2.5/40 mg Ezetimibe + Simvastatin 10/80 mg Simvastatin 80mg Discharge Plan Admission Admit Date/Time: 05/05/24 18:16 Primary Reason for Your Visit: Debility. Attending Provider: Nimesh Cardona Chi Primary Care Provider: Ольга Riggins Instructions Additional Instructions / Restrictions: Discharge home with daughter in law 05/28/2024, [facility] PT/OT. Discharge Orders/Prescriptions Prescriptions: New acetaminophen 500 mg Tablet 1,000 mg PO Q6H PRN PRN (Reason: Headache) Qty: 0 0RF furosemide 20 mg Tablet 60 mg PO DAILY 30 Days Qty: 90 0RF Continued home oxygen 2 L See Rx Instructions NASAL QHS PRN (Reason: oxygen) Patient Comments: use at night time Rx Instructions: 2 LPM NASALLY at bedtime PRN; nitroglycerin 0.4 mg tablet, sublingual 0.4 mg SUBLINGUAL Q5-15M PRN (Reason: chest pain) Qty: 25 3RF Rx Instructions: until response; do not exceed 3 doses per episode atorvastatin 10 mg tablet 10 mg PO DAILY cholecalciferol (vitamin D3) 50 mcg (2,000 unit) capsule 50 mcg PO DAILY ascorbate calcium (vitamin C) 500 mg tablet 500 mg PO DAILY polyethylene glycol 3350 17 GM packet 17 gm PO DAILY sennosides-docusate sodium 1 TABLET tablet 2 tab PO BIDCM Qty: 120 0RF lisinopril 20 mg tablet 10 mg PO BID hydrochlorothiazide 25 mg tablet 25 mg PO DAILY gabapentin 600 mg Tablet 600 mg PO TIDCM Qty: 0 0RF alprazolam 0.25 mg Tablet 0.25 mg PO QHS Qty: 3 0RF methadone 5 mg Tablet 5 mg PO 4X/DAY 3 Days Qty: 12 0RF pantoprazole 40 mg Tablet,Delayed Release (Dr/Ec) 40 mg PO DAILY Qty: 0 0RF oxycodone 5 mg Tablet 5 mg PO Q4H PRN PRN (Reason: Severe Pain (-06/17)) 2 Days Qty: 6 0RF polysaccharide iron complex [Ferrex 150] 150 mg iron capsule 150 mg PO DAILY Qty: 90 3RF citalopram 20 mg tablet 30 mg PO DAILY Qty: 360 2RF Eliquis 5 mg tablet 5 mg PO BID Qty: 60 11RF diltiazem HCl 120 mg capsule,extended release 24 hr 120 mg PO DAILY Qty: 90 3RF potassium chloride 20 mEq tablet,ER particles/crystals 20 meq PO TID Qty: 270 2RF Discontinued furosemide 40 mg Tablet 60 mg PO DAILY Qty: 1 0RF linezolid [Zyvox] 600 mg tablet 600 mg PO Q12H 7 Days Qty: 14 0RF Rx Instructions: take 14 doses then discontinue No Action (DME) walker Misc See Rx Instructions .ROUTE .MEDSUPPLY Qty: 1 0RF Rx Instructions: As directed (DME) Wheel Chair See Rx Instructions .Route .MEDSUPPLY Qty: 1 0RF Rx Instructions: As directed (DME) Kamila Goff See Rx Instructions .ROUTE .MEDSUPPLY Qty: 1 0RF Rx Instructions: As directed, length of time 5 years Referrals / Follow Up: Ольга Riggins MD [Primary Care Provider] - Disposition Disposition (needs filled in before D/C Order can be placed): Home Health Service
[2024-05-19] MEDS: ALPRAZolam 0.25 MG Tablet PO (22:16)
[2024-05-20] MEDS: Acetaminophen 500 MG Tablet 1000 MG PO ×2 (04:03→15:02)
[2024-05-20] MEDS: oxyCODONE 5 MG Tablet PO ×3 (04:03→15:03)
[2024-05-20 06:29] LABS: Absolute Lymphocyte Count 1.99 X10^3/uL (0.83-4.51); Absolute Neutrophil Count 2.2 X10^3/uL (2.0-7.7); Basophil# 0.05 X10^3/uL; Eosinophil# 0.19 X10^3/uL; Eosinophils% 3.8 % (0-5); Hematocrit 30.8 % (37-47); Hemoglobin 9.7 g/dL (12.0-15.0); Lymphocyte # 1.99 X10^3/ul (0.83-4.51); Lymphocyte % 39.8 % (19-41); Mean Corp Hgb Conc 31.5 g/dL (32-36); Mean Corpuscular Hgb 30.3 pg (27.0-32.0); Mean Corpuscular Volume 96.3 fL (81-99); Mean Platelet Vol. 11.4 fl (6.2-12.0); Monocyte# 0.59 X10^3/uL; Monocyte% 11.8 % (0-10); NRBC Flagged by Analyzer 0 % (0-5); Neutrophil # 2.17 X10^3/uL (2.7-7.7); Neutrophil % 43.4 % (47-70); Platelet Count 137 K/mm3 (150-450); RBC Distribution Width CV 11.7 % (11.6-14.6); RBC Distribution Width SD 41.4 fl (35.1-43.9)
[2024-05-20 06:36] VITALS: O2SAT 94
[2024-05-20 06:47] LABS: Anion Gap 4 (5-15); BUN 17 mg/dL (7-18); BUN/Creat Ratio 23.1 RATIO (10-20); Calcium,Total 9.3 mg/dL (8.5-10.1); Chloride 99 mmol/L (98-107); Creatinine, Serum 0.74 mg/dL (0.55-1.02); EST Glomerular Filtration Rate 80 mL/min (>60); Est Glom Filt Rate - Afr Amer 97 mL/min (>60); Glucose 85 mg/dL (74-106); Potassium 3.6 mmol/L (3.5-5.1); Sodium Level 138 mmol/L (136-145)
[2024-05-20] MEDS: Gabapentin 600 MG Tablet PO ×3 (09:12→17:48)
[2024-05-20] MEDS: Ensure Plus High Protein 120 ML LIQUID PO ×3 (09:13→17:48)
[2024-05-20] MEDS: Furosemide 20 MG Tablet 60 MG PO (09:14)
[2024-05-20] MEDS: APIXABAN 5 MG TABLET PO ×2 (09:14→21:23)
[2024-05-20] MEDS: Citalopram 10 MG Tablet 30 MG PO (09:15)
[2024-05-20] MEDS: Senna/Docusate Sodium 1 Tablet 2 TABLET PO ×2 (09:15→17:48)
[2024-05-20] MEDS: dilTIAZem CD 120 MG Capsule PO (09:15)
[2024-05-20] MEDS: Pantoprazole Sodium 40 MG Tablet PO (09:15)
[2024-05-20] MEDS: Iron Polysaccharide Complex 150 MG CAPSULE PO (09:15)
[2024-05-20] MEDS: Potassium Chloride Oral Tablet 20 MEQ PO ×3 (09:15→17:48)
[2024-05-20] MEDS: Ascorbic Acid 500 MG Tablet PO (09:15)
[2024-05-20] MEDS: hydroCHLOROthiazide 25 MG Tablet PO (09:15)
[2024-05-20] MEDS: Lisinopril 10 MG Tablet PO ×2 (09:15→21:23)
[2024-05-20] MEDS: Cholecalciferol (VIT D3) 25 MCG TABLET (1,000 UNITS) 50 MCG PO (09:15)
[2024-05-20] MEDS: Arthritis Pain Compound 60 CLICK TUBE TOPICAL ×2 (09:16→21:23)
[2024-05-20] MEDS: Polyethylene Glycol 3350 17 GM PACKET PO (09:16)
[2024-05-20] MEDS: Nystatin Powder 15gm Bottle 1 APPLIC TOPICAL ×2 (09:27→21:20)
[2024-05-20] MEDS: Menthol/Lanolin/Calamine/Znox 113 GM Tube 1 APPLIC TOPICAL ×2 (09:28→21:21)
[2024-05-20 10:00] VITALS: PULSE 80; RESP 16; O2SAT 97
[2024-05-20 16:00] VITALS: BP 110/62; PULSE 75; RESP 14; TEMP 36.6; O2SAT 96
[2024-05-20] MEDS: ALPRAZolam 0.25 MG Tablet PO (21:21)
[2024-05-20] MEDS: Atorvastatin Calcium 10 MG Tablet PO (21:23)
[2024-05-21] MEDS: Acetaminophen 500 MG Tablet 1000 MG PO ×2 (03:58→14:37)
[2024-05-21] MEDS: oxyCODONE 5 MG Tablet PO ×2 (03:59→14:38)
[2024-05-21 05:21] VITALS: PULSE 66; RESP 16; O2SAT 99
[2024-05-21 06:05] LABS: Hematocrit 29.1 % (37-47); Hemoglobin 9.2 g/dL (12.0-15.0)
[2024-05-21] MEDS: Potassium Chloride Oral Tablet 20 MEQ PO ×3 (08:49→18:16)
[2024-05-21] MEDS: Gabapentin 600 MG Tablet PO ×3 (08:49→18:21)
[2024-05-21] MEDS: Senna/Docusate Sodium 1 Tablet 2 TABLET PO ×2 (08:50→18:15)
[2024-05-21] MEDS: Iron Polysaccharide Complex 150 MG CAPSULE PO (08:52)
[2024-05-21] MEDS: Furosemide 20 MG Tablet 60 MG PO (08:53)
[2024-05-21] MEDS: hydroCHLOROthiazide 25 MG Tablet PO (08:58)
[2024-05-21] MEDS: Pantoprazole Sodium 40 MG Tablet PO (08:59)
[2024-05-21] MEDS: Citalopram 10 MG Tablet 30 MG PO (08:59)
[2024-05-21] MEDS: dilTIAZem CD 120 MG Capsule PO (08:59)
[2024-05-21] MEDS: Ascorbic Acid 500 MG Tablet PO (09:00)
[2024-05-21] MEDS: Cholecalciferol (VIT D3) 25 MCG TABLET (1,000 UNITS) 50 MCG PO (09:00)
[2024-05-21] MEDS: Lisinopril 10 MG Tablet PO ×2 (09:00→22:08)
[2024-05-21] MEDS: Arthritis Pain Compound 60 CLICK TUBE TOPICAL ×2 (09:06→22:07)
[2024-05-21] MEDS: Nystatin Powder 15gm Bottle 1 APPLIC TOPICAL ×2 (09:06→22:08)
[2024-05-21] MEDS: Menthol/Lanolin/Calamine/Znox 113 GM Tube 1 APPLIC TOPICAL ×2 (09:07→22:09)
[2024-05-21] MEDS: Polyethylene Glycol 3350 17 GM PACKET PO (09:14)
--- NOTE | 2024-05-21 10:41 | NURSING ---
New order received to obtain occult stool sample.
[2024-05-21 10:46] VITALS: BP 105/70; PULSE 71; RESP 16; TEMP 36.1; O2SAT 97
[2024-05-21] MEDS: ALPRAZolam 0.25 MG Tablet PO (22:07)
[2024-05-21] MEDS: Atorvastatin Calcium 10 MG Tablet PO (22:08)
[2024-05-21 22:19] VITALS: BP 115/71; PULSE 85
[2024-05-22 06:55] LABS: Hematocrit 30.1 % (37-47); Hemoglobin 9.5 g/dL (12.0-15.0)
[2024-05-22] MEDS: Arthritis Pain Compound 60 CLICK TUBE TOPICAL ×2 (08:41→22:07)
[2024-05-22] MEDS: Nystatin Powder 15gm Bottle 1 APPLIC TOPICAL ×2 (08:42→22:08)
[2024-05-22] MEDS: Polyethylene Glycol 3350 17 GM PACKET PO (08:42)
[2024-05-22] MEDS: Menthol/Lanolin/Calamine/Znox 113 GM Tube 1 APPLIC TOPICAL ×2 (08:43→22:08)
[2024-05-22] MEDS: Senna/Docusate Sodium 1 Tablet 2 TABLET PO ×2 (08:51→16:50)
[2024-05-22] MEDS: Gabapentin 600 MG Tablet PO ×3 (08:51→16:50)
[2024-05-22] MEDS: Potassium Chloride Oral Tablet 20 MEQ PO ×3 (08:51→16:50)
[2024-05-22] MEDS: Iron Polysaccharide Complex 150 MG CAPSULE PO (08:53)
[2024-05-22] MEDS: Citalopram 10 MG Tablet 30 MG PO (08:53)
[2024-05-22] MEDS: Pantoprazole Sodium 40 MG Tablet PO (08:53)
[2024-05-22] MEDS: Ascorbic Acid 500 MG Tablet PO (08:54)
[2024-05-22] MEDS: hydroCHLOROthiazide 25 MG Tablet PO (08:54)
[2024-05-22] MEDS: Lisinopril 10 MG Tablet PO ×2 (08:54→22:09)
[2024-05-22] MEDS: Furosemide 20 MG Tablet 60 MG PO (08:54)
[2024-05-22] MEDS: dilTIAZem CD 120 MG Capsule PO (08:54)
[2024-05-22] MEDS: Cholecalciferol (VIT D3) 25 MCG TABLET (1,000 UNITS) 50 MCG PO (08:54)
[2024-05-22 09:00] VITALS: BP 109/61; PULSE 77; RESP 16; TEMP 36.1; O2SAT 95
[2024-05-22] MEDS: Atorvastatin Calcium 10 MG Tablet PO (22:08)
[2024-05-22] MEDS: ALPRAZolam 0.25 MG Tablet PO (22:09)
[2024-05-22 22:25] VITALS: PULSE 65; RESP 16; O2SAT 98
[2024-05-23] MEDS: Acetaminophen 500 MG Tablet 1000 MG PO (04:33)
[2024-05-23] MEDS: oxyCODONE 5 MG Tablet PO (04:33)
[2024-05-23 06:13] VITALS: RESP 16
[2024-05-23 08:26] VITALS: BP 112/72; PULSE 73; RESP 16; TEMP 36.1; O2SAT 99
[2024-05-23] MEDS: Arthritis Pain Compound 60 CLICK TUBE TOPICAL ×2 (08:27→21:33)
[2024-05-23] MEDS: Nystatin Powder 15gm Bottle 1 APPLIC TOPICAL ×2 (08:28→21:32)
[2024-05-23] MEDS: Menthol/Lanolin/Calamine/Znox 113 GM Tube 1 APPLIC TOPICAL ×2 (08:28→21:31)
[2024-05-23] MEDS: Potassium Chloride Oral Tablet 20 MEQ PO ×3 (08:29→16:58)
[2024-05-23] MEDS: dilTIAZem CD 120 MG Capsule PO (08:29)
[2024-05-23] MEDS: Citalopram 10 MG Tablet 30 MG PO (08:29)
[2024-05-23] MEDS: Ascorbic Acid 500 MG Tablet PO (08:29)
[2024-05-23] MEDS: Cholecalciferol (VIT D3) 25 MCG TABLET (1,000 UNITS) 50 MCG PO (08:29)
[2024-05-23] MEDS: Iron Polysaccharide Complex 150 MG CAPSULE PO (08:29)
[2024-05-23] MEDS: Pantoprazole Sodium 40 MG Tablet PO (08:29)
[2024-05-23] MEDS: Lisinopril 10 MG Tablet PO ×2 (08:30→21:33)
[2024-05-23] MEDS: Senna/Docusate Sodium 1 Tablet 2 TABLET PO ×2 (08:30→16:58)
[2024-05-23] MEDS: Polyethylene Glycol 3350 17 GM PACKET PO (08:30)
[2024-05-23] MEDS: hydroCHLOROthiazide 25 MG Tablet PO (08:30)
[2024-05-23] MEDS: Furosemide 20 MG Tablet 60 MG PO (08:30)
[2024-05-23] MEDS: Gabapentin 600 MG Tablet PO ×3 (08:36→16:58)
[2024-05-23 21:00] VITALS: BP 119/66; PULSE 69; RESP 16
[2024-05-23] MEDS: ALPRAZolam 0.25 MG Tablet PO (21:29)
[2024-05-23] MEDS: Atorvastatin Calcium 10 MG Tablet PO (21:33)
[2024-05-23] MEDS: Glycerin/Hypromellose/PEG400 15 ml Bottle 2 DRP EACH EYE (21:40)
--- NOTE | 2024-05-24 03:44 | NURSING ---
Patient requests arthritis cream to bilat knees, written communication left for Dr. Cardona regarding patient request.
[2024-05-24] MEDS: Acetaminophen 500 MG Tablet 1000 MG PO ×2 (04:37→15:03)
[2024-05-24] MEDS: oxyCODONE 5 MG Tablet PO ×2 (04:37→15:03)
[2024-05-24 08:40] VITALS: BP 110/68; PULSE 71; RESP 16; TEMP 36.4; O2SAT 96
[2024-05-24] MEDS: Potassium Chloride Oral Tablet 20 MEQ PO ×3 (08:44→16:45)
[2024-05-24] MEDS: Menthol/Lanolin/Calamine/Znox 113 GM Tube 1 APPLIC TOPICAL ×2 (08:44→21:42)
[2024-05-24] MEDS: Arthritis Pain Compound 60 CLICK TUBE TOPICAL ×2 (08:44→21:41)
[2024-05-24] MEDS: Senna/Docusate Sodium 1 Tablet 2 TABLET PO ×2 (08:44→16:45)
[2024-05-24] MEDS: dilTIAZem CD 120 MG Capsule PO (08:45)
[2024-05-24] MEDS: hydroCHLOROthiazide 25 MG Tablet PO (08:45)
[2024-05-24] MEDS: Iron Polysaccharide Complex 150 MG CAPSULE PO (08:45)
[2024-05-24] MEDS: Citalopram 10 MG Tablet 30 MG PO (08:45)
[2024-05-24] MEDS: Ascorbic Acid 500 MG Tablet PO (08:46)
[2024-05-24] MEDS: Polyethylene Glycol 3350 17 GM PACKET PO (08:46)
[2024-05-24] MEDS: Pantoprazole Sodium 40 MG Tablet PO (08:46)
[2024-05-24] MEDS: Furosemide 20 MG Tablet 60 MG PO (08:46)
[2024-05-24] MEDS: Nystatin Powder 15gm Bottle 1 APPLIC TOPICAL ×2 (08:46→21:42)
[2024-05-24] MEDS: Lisinopril 10 MG Tablet PO ×2 (08:47→21:41)
[2024-05-24] MEDS: Cholecalciferol (VIT D3) 25 MCG TABLET (1,000 UNITS) 50 MCG PO (08:47)
[2024-05-24] MEDS: Gabapentin 600 MG Tablet PO ×3 (08:49→16:48)
--- NOTE | 2024-05-24 14:57 | CASEMGMT ---
Addendum entered by Delaney Shaikh 05/26/24 14:26: SOLE SCRAPER is not recommending ST at DC. SW updated [facility] and order. Addendum entered by Delaney Shaikh 05/25/24 10:55: SW followed up with pt on HHC preference. Pt selects [facility]. SW phoned referral. Original Note: Social Work SW spoke with pt to provide a printed list of skilled HHC agencies with quality and resource data via [employer] Guide for pt to select HHC agency preferences. Plan: DC home with son and DIL 05/28, [facility]HC PT/OT/ST, no DME needs [facility]
[2024-05-24] MEDS: Atorvastatin Calcium 10 MG Tablet PO (21:42)
[2024-05-24] MEDS: ALPRAZolam 0.25 MG Tablet PO (21:42)
[2024-05-24] MEDS: APIXABAN 5 MG TABLET PO (21:42)
[2024-05-24 21:50] VITALS: PULSE 77; RESP 17; O2SAT 94
[2024-05-24 21:57] VITALS: BP 100/48; PULSE 77
[2024-05-25] MEDS: Acetaminophen 500 MG Tablet 1000 MG PO ×2 (04:32→14:58)
[2024-05-25] MEDS: oxyCODONE 5 MG Tablet PO ×3 (04:33→14:56)
[2024-05-25 06:05] VITALS: RESP 16
[2024-05-25 06:58] VITALS: O2SAT 92
[2024-05-25 07:57] VITALS: BMI 28.7
[2024-05-25] MEDS: Gabapentin 600 MG Tablet PO ×3 (08:35→17:52)
[2024-05-25] MEDS: Senna/Docusate Sodium 1 Tablet 2 TABLET PO ×2 (08:35→17:53)
[2024-05-25] MEDS: Potassium Chloride Oral Tablet 20 MEQ PO ×3 (08:35→17:52)
[2024-05-25] MEDS: dilTIAZem CD 120 MG Capsule PO (08:36)
[2024-05-25] MEDS: Citalopram 10 MG Tablet 30 MG PO (08:36)
[2024-05-25] MEDS: APIXABAN 5 MG TABLET PO ×2 (08:36→23:00)
[2024-05-25] MEDS: Iron Polysaccharide Complex 150 MG CAPSULE PO (08:36)
[2024-05-25] MEDS: Ascorbic Acid 500 MG Tablet PO (08:37)
[2024-05-25] MEDS: hydroCHLOROthiazide 25 MG Tablet PO (08:37)
[2024-05-25] MEDS: Furosemide 20 MG Tablet 60 MG PO (08:37)
[2024-05-25] MEDS: Polyethylene Glycol 3350 17 GM PACKET PO (08:37)
[2024-05-25] MEDS: Pantoprazole Sodium 40 MG Tablet PO (08:37)
[2024-05-25] MEDS: Arthritis Pain Compound 60 CLICK TUBE TOPICAL ×2 (08:38→22:59)
[2024-05-25] MEDS: Cholecalciferol (VIT D3) 25 MCG TABLET (1,000 UNITS) 50 MCG PO (08:38)
[2024-05-25] MEDS: Lisinopril 10 MG Tablet PO ×2 (08:38→23:01)
[2024-05-25] MEDS: Glycerin/Hypromellose/PEG400 15 ml Bottle 2 DRP EACH EYE (08:49)
[2024-05-25] MEDS: Menthol/Lanolin/Calamine/Znox 113 GM Tube 1 APPLIC TOPICAL ×2 (08:52→22:59)
[2024-05-25] MEDS: Nystatin Powder 15gm Bottle 1 APPLIC TOPICAL ×2 (08:53→22:59)
--- NOTE | 2024-05-25 12:53 | NURSING ---
Offered covid vaccine, VIS provided. Resident refuses at this time.
--- NOTE | 2024-05-25 14:50 | CHAPLAIN ---
Type of Pastoral Visit ___ Initial Visit _x__ Follow-up Visit ___ On-call Visit ___ General Patient Visit ___ Spiritual Assessment ___ Family Conference ___ Bereavement ___ Rapid Response ___ Code Blue ___ Other (describe below) Pastoral Care Referral From _x__ Patient ___ Family ___ Nurse ___ Physician ___ Plastics Seasoner Operator ___ Tree Girdler ___ Other (describe below) Sacrament/Intervention _x__ Active listening ___ Anointing ___ Adventism ___ Bereavement ___ Communion _x__ Evelin exploration ___ ___ Life review _x__ Prayer ___ Reconciliation ___ Sacrament of Sick _x__ Supportive presence ___ Wedding ___ Other (describe below) Pastoral Comments patient had requested a follow up visit through her RN; pt gives updates on her recovery and that she will be going home at the end of this week; pt admits to some apprehension about going home and having enough strength but acknowledges family support and an aide that will come three times a week; pt has some spiritual questions that she addressed in the conversation and expressed thankfulness for the spiritual care support given to her while in the hospital
[2024-05-25 16:00] VITALS: BP 114/68; PULSE 73; RESP 16; TEMP 36.2; O2SAT 97
[2024-05-25 22:21] VITALS: BP 107/69; PULSE 67
[2024-05-25] MEDS: ALPRAZolam 0.25 MG Tablet PO (22:58)
[2024-05-25] MEDS: Atorvastatin Calcium 10 MG Tablet PO (23:00)
[2024-05-26] MEDS: Acetaminophen 500 MG Tablet 1000 MG PO ×2 (04:11→14:43)
[2024-05-26] MEDS: oxyCODONE 5 MG Tablet PO ×2 (04:11→14:43)
[2024-05-26 07:39] VITALS: O2SAT 92
[2024-05-26] MEDS: Potassium Chloride Oral Tablet 20 MEQ PO ×3 (08:51→17:32)
[2024-05-26] MEDS: Gabapentin 600 MG Tablet PO ×3 (08:52→17:32)
[2024-05-26] MEDS: Polyethylene Glycol 3350 17 GM PACKET PO (08:53)
[2024-05-26] MEDS: Citalopram 10 MG Tablet 30 MG PO (08:55)
[2024-05-26] MEDS: hydroCHLOROthiazide 25 MG Tablet PO (08:56)
[2024-05-26] MEDS: Furosemide 20 MG Tablet 60 MG PO (08:56)
[2024-05-26] MEDS: APIXABAN 5 MG TABLET PO ×2 (08:56→21:40)
[2024-05-26] MEDS: Iron Polysaccharide Complex 150 MG CAPSULE PO (08:57)
[2024-05-26] MEDS: Pantoprazole Sodium 40 MG Tablet PO (08:57)
[2024-05-26] MEDS: Senna/Docusate Sodium 1 Tablet 2 TABLET PO ×2 (08:58→17:33)
[2024-05-26] MEDS: Lisinopril 10 MG Tablet PO ×2 (08:58→21:40)
[2024-05-26] MEDS: Cholecalciferol (VIT D3) 25 MCG TABLET (1,000 UNITS) 50 MCG PO (08:59)
[2024-05-26] MEDS: dilTIAZem CD 120 MG Capsule PO (08:59)
[2024-05-26] MEDS: Ascorbic Acid 500 MG Tablet PO (09:00)
[2024-05-26] MEDS: Nystatin Powder 15gm Bottle 1 APPLIC TOPICAL ×2 (09:07→21:41)
[2024-05-26] MEDS: Arthritis Pain Compound 60 CLICK TUBE TOPICAL ×2 (09:07→21:40)
[2024-05-26] MEDS: Menthol/Lanolin/Calamine/Znox 113 GM Tube 1 APPLIC TOPICAL ×2 (09:09→21:41)
[2024-05-26 09:12] VITALS: BP 113/57; PULSE 64; RESP 16; TEMP 36.4; O2SAT 98
--- NOTE | 2024-05-26 14:43 | CASEMGMT ---
Social Work SW conducted BIMS () and PHQ-2 () for MDS assessment. Delaney Shaikh, MULTIPLEX OPERATOR RESEARCH HOME ECONOMIST
--- NOTE | 2024-05-26 18:41 | NURSING ---
Discussed medications with patient, informing her that Dr. Cardona would not be able to call in her chronic medications, including methadone. Patient is to contact prescribing doctor for those needs. Patient verbalized understanding.
[2024-05-26 21:39] VITALS: BP 111/63; PULSE 68
[2024-05-26] MEDS: ALPRAZolam 0.25 MG Tablet PO (21:40)
[2024-05-26] MEDS: Atorvastatin Calcium 10 MG Tablet PO (21:40)
[2024-05-27] MEDS: oxyCODONE 5 MG Tablet PO ×3 (03:14→15:31)
[2024-05-27] MEDS: Acetaminophen 500 MG Tablet 1000 MG PO ×2 (03:14→15:32)
[2024-05-27 05:47] LABS: Absolute Neutrophil Count 1.2 X10^3/uL (2.0-7.7); Basophil# 0.02 X10^3/uL; Basophil% 0.6 % (0-1); Eosinophil# 0.14 X10^3/uL; Eosinophils% 4.5 % (0-5); Hematocrit 28.3 % (37-47); Hemoglobin 9.1 g/dL (12.0-15.0); Lymphocyte % 41.8 % (19-41); Mean Corp Hgb Conc 32.2 g/dL (32-36); Mean Corpuscular Hgb 30.6 pg (27.0-32.0); Mean Corpuscular Volume 95.3 fL (81-99); Mean Platelet Vol. 10.5 fl (6.2-12.0); Monocyte# 0.42 X10^3/uL; Monocyte% 13.5 % (0-10); NRBC Flagged by Analyzer 0 % (0-5); Neutrophil # 1.23 X10^3/uL (2.7-7.7); Neutrophil % 39.6 % (47-70); POSITIVE MORPHOLOGY YES; Platelet Count 150 K/mm3 (150-450); RBC Distribution Width CV 12.2 % (11.6-14.6); Red Blood Count 2.97 M/mm3 (4.2-5.4); White Blood Count 3.1 K/mm3 (4.4-11.0)
[2024-05-27 06:04] LABS: Differential Indicated SCAN CRITERIA MET
[2024-05-27 06:36] LABS: Anion Gap 0 (5-15); BUN 13 mg/dL (7-18); BUN/Creat Ratio 17.6 RATIO (10-20); Calcium,Total 8.8 mg/dL (8.5-10.1); Chloride 95 mmol/L (98-107); Creatinine, Serum 0.74 mg/dL (0.55-1.02); EST Glomerular Filtration Rate 80 mL/min (>60); Est Glom Filt Rate - Afr Amer 97 mL/min (>60); Estimated Creatinine Clearance 44.78 ml/min; Glucose 77 mg/dL (74-106); Potassium 4.2 mmol/L (3.5-5.1); Sodium Level 131 mmol/L (136-145)
[2024-05-27] MEDS: Potassium Chloride Oral Tablet 20 MEQ PO ×3 (08:39→18:04)
[2024-05-27] MEDS: Arthritis Pain Compound 60 CLICK TUBE TOPICAL ×2 (08:39→22:25)
[2024-05-27] MEDS: Senna/Docusate Sodium 1 Tablet 2 TABLET PO ×2 (08:42→18:04)
[2024-05-27] MEDS: Menthol/Lanolin/Calamine/Znox 113 GM Tube 1 APPLIC TOPICAL ×2 (08:42→22:26)
[2024-05-27] MEDS: Citalopram 10 MG Tablet 30 MG PO (08:43)
[2024-05-27] MEDS: dilTIAZem CD 120 MG Capsule PO (08:43)
[2024-05-27 08:44] VITALS: O2SAT 90
[2024-05-27] MEDS: Furosemide 20 MG Tablet 60 MG PO (08:44)
[2024-05-27] MEDS: Nystatin Powder 15gm Bottle 1 APPLIC TOPICAL ×2 (08:44→22:24)
[2024-05-27] MEDS: Iron Polysaccharide Complex 150 MG CAPSULE PO (08:44)
[2024-05-27] MEDS: APIXABAN 5 MG TABLET PO ×2 (08:44→22:25)
[2024-05-27] MEDS: Pantoprazole Sodium 40 MG Tablet PO (08:45)
[2024-05-27] MEDS: Ascorbic Acid 500 MG Tablet PO (08:45)
[2024-05-27] MEDS: Polyethylene Glycol 3350 17 GM PACKET PO (08:46)
[2024-05-27] MEDS: Cholecalciferol (VIT D3) 25 MCG TABLET (1,000 UNITS) 50 MCG PO (08:46)
[2024-05-27] MEDS: Lisinopril 10 MG Tablet PO ×2 (08:46→22:24)
[2024-05-27] MEDS: Gabapentin 600 MG Tablet PO ×3 (08:52→18:03)
[2024-05-27 09:01] VITALS: BP 118/70; PULSE 64; O2SAT 100
[2024-05-27 10:18] LABS: Differential Comment SCANNED; Reactive Lymphocyte 1+
--- NOTE | 2024-05-27 14:24 | MDS.RN ---
MDS pain interview complete.
[2024-05-27 15:47] VITALS: BP 96/60; PULSE 54; RESP 16; TEMP 35.9; O2SAT 99
[2024-05-27 16:59] VITALS: BP 98/58
[2024-05-27 22:00] VITALS: PULSE 74; RESP 16; O2SAT 99
[2024-05-27] MEDS: ALPRAZolam 0.25 MG Tablet PO (22:24)
[2024-05-27] MEDS: Atorvastatin Calcium 10 MG Tablet PO (22:25)
[2024-05-27] MEDS: Glycerin/Hypromellose/PEG400 15 ml Bottle 2 DRP EACH EYE (22:27)
[2024-05-27 22:30] VITALS: BP 117/60; PULSE 74; RESP 16
[2024-05-28] MEDS: Acetaminophen 500 MG Tablet 1000 MG PO ×2 (04:52→13:38)
[2024-05-28] MEDS: oxyCODONE 5 MG Tablet PO ×2 (04:52→13:37)
[2024-05-28 05:26] VITALS: RESP 18; O2SAT 98
[2024-05-28 06:42] VITALS: BP 109/73; PULSE 63; RESP 16
[2024-05-28] MEDS: Arthritis Pain Compound 60 CLICK TUBE TOPICAL (08:38)
[2024-05-28 08:39] VITALS: O2SAT 92
[2024-05-28] MEDS: Potassium Chloride Oral Tablet 20 MEQ PO ×2 (08:39→13:30)
[2024-05-28] MEDS: Senna/Docusate Sodium 1 Tablet 2 TABLET PO (08:40)
[2024-05-28] MEDS: Gabapentin 600 MG Tablet PO ×2 (08:40→13:38)
[2024-05-28] MEDS: Nystatin Powder 15gm Bottle 1 APPLIC TOPICAL (08:40)
[2024-05-28] MEDS: Menthol/Lanolin/Calamine/Znox 113 GM Tube 1 APPLIC TOPICAL (08:41)
[2024-05-28] MEDS: Pantoprazole Sodium 40 MG Tablet PO (08:42)
[2024-05-28] MEDS: Ascorbic Acid 500 MG Tablet PO (08:42)
[2024-05-28] MEDS: Cholecalciferol (VIT D3) 25 MCG TABLET (1,000 UNITS) 50 MCG PO (08:42)
[2024-05-28] MEDS: Lisinopril 10 MG Tablet PO (08:43)
[2024-05-28] MEDS: Furosemide 20 MG Tablet 60 MG PO (08:43)
[2024-05-28] MEDS: Polyethylene Glycol 3350 17 GM PACKET PO (08:43)
[2024-05-28] MEDS: APIXABAN 5 MG TABLET PO (08:44)
[2024-05-28] MEDS: dilTIAZem CD 120 MG Capsule PO (08:44)
[2024-05-28] MEDS: Iron Polysaccharide Complex 150 MG CAPSULE PO (08:44)
[2024-05-28] MEDS: Citalopram 10 MG Tablet 30 MG PO (08:44)
[2024-05-28 08:50] LABS: Anion Gap 5 (5-15); BUN 10 mg/dL (7-18); BUN/Creat Ratio 13.6 RATIO (10-20); Calcium,Total 8.6 mg/dL (8.5-10.1); Chloride 97 mmol/L (98-107); Creatinine, Serum 0.74 mg/dL (0.55-1.02); EST Glomerular Filtration Rate 80 mL/min (>60); Est Glom Filt Rate - Afr Amer 97 mL/min (>60); Estimated Creatinine Clearance 44.78 ml/min; Glucose 89 mg/dL (74-106); Potassium 4.1 mmol/L (3.5-5.1); Sodium Level 133 mmol/L (136-145)
[2024-05-28] MEDS: Glycerin/Hypromellose/PEG400 15 ml Bottle 2 DRP EACH EYE (08:53)
[2024-05-28 09:01] VITALS: BP 113/73; PULSE 71; RESP 16; TEMP 36.4; O2SAT 94
[2024-05-28 16:00] VITALS: BP 112/77; PULSE 69; RESP 16; TEMP 36.5; O2SAT 98
[2024-05-28 16:09] VITALS: BP 112/77; PULSE 69; RESP 16; TEMP 36.5; O2SAT 98
== END 2024-05-28 16:00 | disposition home health service (06) | DRG 602 ==
PROVIDERS: Admitting Provider Family Medicine Geriatric Medicine; PCP Internal Medicine; Visit Provider Family Medicine Geriatric Medicine
DX: L03.115 Cellulitis of right lower limb (principal); I50.33 Acute on chronic diastolic (congestive) heart failure; G37.3 Acute transverse myelitis in demyelinating disease of central nervous system; J91.8 Pleural effusion in other conditions classified elsewhere; I48.11 Longstanding persistent atrial fibrillation; D50.9 Iron deficiency anemia, unspecified; G62.9 Polyneuropathy, unspecified; B95.62 Methicillin resistant Staphylococcus aureus infection as the cause of diseases classified elsewhere; I11.0 Hypertensive heart disease with heart failure; F32.A Depression, unspecified; E78.5 Hyperlipidemia, unspecified; E55.9 Vitamin D deficiency, unspecified; E87.6 Hypokalemia; K21.9 Gastro-esophageal reflux disease without esophagitis; Z79.01 Long term (current) use of anticoagulants; F41.1 Generalized anxiety disorder; Z87.891 Personal history of nicotine dependence; G89.29 Other chronic pain; Z79.899 Other long term (current) drug therapy; M81.0 Age-related osteoporosis without current pathological fracture
CPT/HCPCS: 36415; 80048; 82274; 85014; 85018; 85025; 87811; 92507; 92523; 92526; 92610; 94668; 97110; 97116; 97129; 97130; 97162; 97166; 97530; 97535; 97802; A4216

== ENCOUNTER → 2024-07-21 | Outpatient (CLI) | payer MEDICARE, OTHER, SELFPAY ==
[2024-07-21 15:15] LABS: Absolute Lymphocyte Count 1.17 X10^3/uL (0.83-4.51); Absolute Neutrophil Count 2.1 X10^3/uL (2.0-7.7); Basophil# 0.04 X10^3/uL; Eosinophil# 0.11 X10^3/uL; Eosinophils% 2.8 % (0-5); Hematocrit 37.4 % (37-47); Hemoglobin 11.5 g/dL (12.0-15.0); Lymphocyte # 1.17 X10^3/ul (0.83-4.51); Lymphocyte % 30.2 % (19-41); Mean Corp Hgb Conc 30.7 g/dL (32-36); Mean Corpuscular Hgb 29.8 pg (27.0-32.0); Mean Corpuscular Volume 96.9 fL (81-99); Mean Platelet Vol. 11.6 fl (6.2-12.0); Monocyte% 12.9 % (0-10); NRBC Flagged by Analyzer 0 % (0-5); Neutrophil # 2.05 X10^3/uL (2.7-7.7); Neutrophil % 52.8 % (47-70); Platelet Count 181 K/mm3 (150-450); RBC Distribution Width CV 12.9 % (11.6-14.6); Red Blood Count 3.86 M/mm3 (4.2-5.4); White Blood Count 3.9 K/mm3 (4.4-11.0)
[2024-07-21 15:46] LABS: ALB/GLOB Ratio 0.7 RATIO (0.9-2.4); AST(SGOT) 18 U/L (15-37); Alanine Aminotransfer ALT/SGPT 18 U/L (13-56); Albumin, Serum 3.3 g/dL (3.2-5.0); Alkaline Phosphatase 73 U/L (45-117); Anion Gap 4 (5-15); BUN 18 mg/dL (7-18); BUN/Creat Ratio 22.9 RATIO (10-20); Calcium,Total 9.7 mg/dL (8.5-10.1); Chloride 101 mmol/L (98-107); Cholesterol 183 mg/dL (200); Creatinine, Serum 0.78 mg/dL (0.55-1.02); EST Glomerular Filtration Rate 75 mL/min (>60); Est Glom Filt Rate - Afr Amer 90 mL/min (>60); Globulin 4.8 g/dL (2.2-4.2); Glucose 78 mg/dL (74-106); High Density Lipoprotein 100 mg/dL; Potassium 4.4 mmol/L (3.5-5.1); Protein, Total 8.1 g/dL (6.4-8.2); Sodium Level 139 mmol/L (136-145); Triglycerides 81 mg/dL; Very Low Density Lipoprotein 16 mg/dL (5-40)
[2024-07-21 17:07] LABS: PTHIN 177.7 pg/mL (18.4-80.1)
[2024-07-21 17:11] LABS: Vitamin D,25 Hydroxy 43.8 ng/mL
== END | disposition home or self-care (01) ==
LOC: BIMLAB 13:36
PROVIDERS: Internal Medicine Endocrinology, Diabetes & Metabolism; PCP Internal Medicine; Referring Provider Physician Assistant; Visit Provider Physician Assistant
DX: D64.9 Anemia, unspecified (principal); E78.5 Hyperlipidemia, unspecified; E55.9 Vitamin D deficiency, unspecified; M81.0 Age-related osteoporosis without current pathological fracture
CPT/HCPCS: 36415; 80053; 80061; 82306; 83970; 85025

== ENCOUNTER → 2024-07-29 | Outpatient (CLI) | payer MEDICARE, OTHER, SELFPAY | END | disposition home or self-care (01) | LOC: LABSPEC 15:01 | PROVIDERS: PCP Internal Medicine; Referring Provider Physician Assistant; Visit Provider Physician Assistant | DX: D64.9 Anemia, unspecified (principal) | CPT/HCPCS: 82274 ==

== ENCOUNTER → 2024-10-01 | Outpatient (CLI) | payer MEDICARE, OTHER, SELFPAY ==
[2024-10-01 16:38] LABS: Absolute Lymphocyte Count 0.84 X10^3/uL (0.83-4.51); Absolute Neutrophil Count 2.3 X10^3/uL (2.0-7.7); Basophil# 0.01 X10^3/uL; Basophil% 0.3 % (0-1); Eosinophil# 0.09 X10^3/uL; Eosinophils% 2.5 % (0-5); Hematocrit 38.1 % (37-47); Hemoglobin 12.2 g/dL (12.0-15.0); Lymphocyte # 0.84 X10^3/ul (0.83-4.51); Lymphocyte % 23.5 % (19-41); Mean Corpuscular Hgb 30.3 pg (27.0-32.0); Mean Corpuscular Volume 94.8 fL (81-99); Mean Platelet Vol. 11.3 fl (6.2-12.0); Monocyte# 0.38 X10^3/uL; Monocyte% 10.6 % (0-10); NRBC Flagged by Analyzer 0 % (0-5); Neutrophil # 2.25 X10^3/uL (2.7-7.7); Neutrophil % 62.8 % (47-70); Platelet Count 166 K/mm3 (150-450); RBC Distribution Width CV 13.2 % (11.6-14.6); RBC Distribution Width SD 46.2 fl (35.1-43.9); Red Blood Count 4.02 M/mm3 (4.2-5.4); White Blood Count 3.6 K/mm3 (4.4-11.0)
[2024-10-01 17:15] LABS: ALB/GLOB Ratio 0.6 RATIO (0.9-2.4); AST(SGOT) 22 U/L (15-37); Alanine Aminotransfer ALT/SGPT 22 U/L (13-56); Albumin, Serum 3.2 g/dL (3.2-5.0); Alkaline Phosphatase 102 U/L (45-117); Anion Gap 2 (5-15); BUN 23 mg/dL (7-18); BUN/Creat Ratio 28.3 RATIO (10-20); Calcium,Total 10.6 mg/dL (8.5-10.1); Chloride 98 mmol/L (98-107); Creatinine, Serum 0.81 mg/dL (0.55-1.02); EST Glomerular Filtration Rate 72 mL/min (>60); Est Glom Filt Rate - Afr Amer 87 mL/min (>60); Globulin 5.3 g/dL (2.2-4.2); Glucose 88 mg/dL (74-106); Potassium 4.3 mmol/L (3.5-5.1); Protein, Total 8.5 g/dL (6.4-8.2); Sodium Level 137 mmol/L (136-145)
== END | disposition home or self-care (01) ==
PROVIDERS: PCP Internal Medicine; Referring Provider Physician Assistant Medical; Visit Provider Physician Assistant Medical
DX: I34.0 Nonrheumatic mitral (valve) insufficiency (principal); E78.5 Hyperlipidemia, unspecified; D64.9 Anemia, unspecified
CPT/HCPCS: 80053; 85025

== ENCOUNTER 2024-10-06 11:09 | Inpatient (IN) | payer MEDICARE, OTHER, SELFPAY ==
[2024-10-06] VITALS (12 sets, daily range): BP systolic 88–127; BP diastolic 56–83; PULSE 59–72; RESP 11–20; TEMP 36.2–36.8; O2SAT 87–99; BMI 30.4; BMI 29.6
--- NOTE | 2024-10-06 11:42 | CT_ITS ---
PROCEDURE: BRAIN/HEAD WITHOUT CONTRAST REASON FOR EXAM: Altered mental status. Confusion for 1 week. History of CVA. Hypertension. TECHNIQUE: CT head without contrast COMPARISON: None. FINDINGS: Partial opacification of left mastoid air cells is seen, of uncertain chronicity. Moderate right and mild left ethmoid sinus mucosal disease is seen. Remaining paranasal sinuses appe ar clear, as do the right mastoid air cells. No intracranial hemorrhage, mass, or mass effect is seen. No extra-axial fluid collection is noted. Mild generalized cerebral atrophy is seen, with symmetric ventricular enlargement consistent with the degree of atrophy. The bilateral cerebral white matter areas show hypodensities, predominantly periventricular, consiste nt with chronic ischemic changes of small-vessel disease. CT/Brain/Head without Contrast IMPRESSION: 1. No intracranial hemorrhage or other acute intracranial process is seen. 2. Additional findings as noted. One or more dose reduction techniques were used (e.g., Automated exposure contr ol, adjustment of the mA and/or kV according to patient size, use of iterative reconstruction technique). Reading Location: [id number]
--- NOTE | 2024-10-06 11:42 | EKG12_ITS ---
Test Reason : Blood Pressure : */* mmHG Vent. Rate : 67 BPM Atrial Rate : * BPM P-R Int : * ms QRS Dur : 86 ms QT Int : 424 ms P-R-T Axes : * 5 -5 degrees QTcB Int : 448 ms Atrial fibrillation Nonspecific T wave abnormality Abnormal ECG Confirmed by TEE GARDUNO, AISHWARYA ([id number]), production editor CHRISTINA SOLIS ([id number]) on 10/07/2024 1:22:04 PM Referred By: Confirmed By: AISHWARYA OLIVEIRA MD
--- NOTE | 2024-10-06 11:42 | RAD_ITS ---
PROCEDURE: CHEST 1 VIEW (PORTABLE) REASON FOR EXAM: Shortness of breath. TECHNIQUE: AP portable upright chest. COMPARISON: Chest x-ray of 05/02/2024. RAD/Chest 1 View (Portable) IMPRESSION: Generalized osteopenia is seen. Asymmetric right glenohumeral joint degenerative changes are prominently again present. Old right rib fractures are again seen. The cardiomediastinal silhouette is stable, with a calcified aorta noted. Lungs appear clear of acute disease. No pleural effusion or pneumothorax is evident. Reading Location: [id number]
--- NOTE | 2024-10-06 11:43 | EDS_ITS ---
HPI History of Present Illness Chief Complaint: General Illness Informant: patient, family and friend Narrative Narrative: 83-year-old female has been gradually becoming confused over the past 2 or 3 weeks but much worse today and very weak when her sister TEJ saw her. Patient lives with someone else who was not currently here. Usually gets around with a walker because of a history of transverse myelitis. Patient states she is indeed feeling very weak all over and has pain all over although she and the family admit that the pain all over is not new, she always has that from the transverse myelitis that she has dealt with. The patient states she has some numbness in both of her legs although family states they were not aware of that before now. The patient states she is feeling a little short of breath but other than that she has no other new symptoms. Today she was so weak she looks like she may fall so family was concerned and brought her for evaluation for the first time in the last couple weeks. 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) Chronic diastolic (congestive) heart failure Anxiety and depression GERD (gastroesophageal reflux disease) Opioid dependence Neuropathic pain Chronic pain Hiatal hernia Acute anemia Hyperlipidemia Essential (primary) hypertension Paroxysmal atrial fibrillation Transverse myelitis History of DVT (deep vein thrombosis) Acute ischemic stroke Atrial flutter Home Medications ?Medication ?Instructions ?Recorded ?Last Taken ?Type polyethylene glycol 3350 17 gram 17 gm PO DAILY constipation 08/27/18 05/05/24 History oral powder packet Wheel Chair #1 ea 10/10/20 Unknown Rx walker #1 ea 10/10/20 Unknown Rx home oxygen See Rx Instructions NASAL QHS PRN 11/30/20 Unknown History oxygen ascorbate calcium (vitamin C) 500 500 mg PO DAILY supplement 04/28/23 05/05/24 History mg tablet cholecalciferol (vitamin D3) 50 50 mcg PO DAILY supplement 04/28/23 05/05/24 History mcg (2,000 unit) capsule Handicap Placard #1 ea 10/14/23 Unknown Rx alprazolam 0.25 mg tablet 0.25 mg PO QHS Anxiety #3 tabs 05/05/24 05/04/24 Rx oxycodone 5 mg tablet 5 mg PO Q4H PRN PRN Severe Pain 05/05/24 05/05/24 Rx (6-06/17) 2 days #6 tabs acetaminophen 500 mg tablet 1,000 mg (2 x 500 mg) PO Q6H PRN 05/19/24 Unknown Rx PRN Headache #0 tabs citalopram 20 mg tablet 30 mg (1.5 x 20 mg) PO DAILY 07/30/24 Unknown Rx depression 3 months #135 tabs Arthritis compound cream D3/L3/B2 1 unit topical BID #1 BOTTLE 08/30/24 Unknown Rx apixaban 5 mg tablet (Eliquis) 5 mg PO BID Blood thinner #60 09/06/24 Unknown Rx TABLETS atorvastatin 10 mg tablet 10 mg PO DAILY cholestrol #90 tabs 09/06/24 Unknown Rx diltiazem HCl 120 mg capsule,24 120 mg PO DAILY BP #90 caps 09/06/24 Unknown Rx hr,extended release hydrochlorothiazide 25 mg tablet 25 mg PO DAILY BP #90 tabs 09/06/24 Unknown Rx potassium chloride 20 mEq 20 meq PO TID supplement #270 tabs 09/06/24 Unknown Rx tablet,extended release(part/cryst) omeprazole 40 mg capsule,delayed 40 mg PO QDAY #90 caps 09/14/24 Unknown Rx release bisacodyl 5 mg tablet,delayed 5 mg PO ONCE PRN constipation 10/01/24 Unknown History release (Dulcolax (bisacodyl)) casanthranol-docusate sodium 30 1 cap PO DAILY PRN constipation 10/01/24 Unknown History mg-100 mg capsule gabapentin 300 mg capsule 600 mg PO TID 10/01/24 Unknown History lisinopril 10 mg tablet 10 mg PO BID 10/01/24 Unknown History nitroglycerin 0.4 mg sublingual 0.4 mg sublingual Q5-15M PRN chest 10/01/24 Unknown Rx tablet pain #25 tabs furosemide 20 mg tablet 60 mg PO DAILY 10/06/24 Unknown History methadone 5 mg tablet 5 mg PO Q8H PRN pain 10/06/24 Unknown History Allergy/AdvReac Type Severity Reaction Status Date / Time morphine Allergy Hives Verified 10/06/24 11:17 atorvastatin AdvReac Severe elevated Verified 10/06/24 11:17 liver enzymes carbamazepine (From Tegretol) AdvReac Intermediate HALLUCINATI Verified 10/06/24 11:17 ONS procaine HCl (From Novocain) AdvReac Intermediate HEART Verified 10/06/24 11:17 RACES,FEELS LIKE WILL PASS OUT Family History Mother Colon cancer Father Myocardial infarction Uncle Asthma Surgical History History of carpal tunnel surgery of right wrist H/O: hysterectomy Social History household members: family and children housing: house Smoking Status: Former smoker how long ago did patient quit smokin years ago alcohol intake: never substance use type: does not use caffeine: Yes Type: coffee Number of servings: 2 what type of physical activity do you participate in: none seatbelt use: always do you feel safe at home: Yes ROS ROS ED Constitutional Constitutional ED: Reports as per HPI, body ache(s) and weakness; Denies chills or fever(s) Eyes Eyes: Reports change in vision bilateral (Chronically, but progressively getting worse. Recent eye injections.); Denies diplopia ENT ENT ED: Denies rhinorrhea or sore throat Cardiovascular Cardiovascular: Denies chest pain or palpitations Respiratory/Chest Respiratory/Chest: Reports dyspnea; Denies cough Gastrointestinal Gastrointestinal: Denies abdominal pain, diarrhea, nausea or vomiting Genitourinary Genitourinary ED: Denies dysuria or hematuria Musculoskeletal Musculoskeletal: Denies back pain or neck pain Integumentary Denies abscess or rash Neurologic Neurologic: Reports as per HPI, confusion, paresthesias RLE and LLE and other Details: Generalized weakness but nothing focal ; Denies abnormal speech, headache(s), seizure-like activity or weakness Psychiatric Psychiatric: Denies anxiety or suicidal thoughts EXAM Physical Exam Const Vital Signs: 10/06/24 11:11 10/06/24 11:17 10/06/24 12:45 Temperature 97.5 F L Temperature Source Oral Pulse Rate 72 Respiratory Rate 15 Respiratory Effort Normal Non-Labored Respiratory Pattern Normal Blood Pressure 127/82 H Blood Pressure Mean 97 Pulse Ox 94 87 Oxygen Delivery Method Room Air Room Air Oxygen Flow Rate (L/min) 10/06/24 13:10 10/06/24 14:11 Temperature Temperature Source Pulse Rate 69 64 Respiratory Rate 11 L 13 Respiratory Effort Respiratory Pattern Blood Pressure 97/68 88/57 L Blood Pressure Mean 77 67 Pulse Ox 99 96 Oxygen Delivery Method Nasal Cannula Room Air Oxygen Flow Rate (L/min) 2 Positive well nourished and well developed Constitutional Narrative: Somnolent but easily arouses and converses, answers questions appropriately. General Appearance ED: well developed and NAD HEENT Reports moist mucous membranes normocephalic and atraumatic Eyes PERRL Eyes Narrative: Disconjugate gaze Neck full ROM, no lymphadenopathy and supple Resp normal respiratory effort and clear to auscultation bilaterally Resp Narrative: Decreased breath sounds right base otherwise clear. No distress. No splinting on deep inspiration. Trachea midline. Cardio regular rate, regular rhythm and no murmurs GI non-tender and non-distended Auscultation: normoactive bowel sounds Palpation: soft Back/Spine no CVA tenderness General Back: other FROM Extremity normal to inspection Extremity Narrative: Limited range of motion right shoulder due to frozen shoulder and pain otherwise good range without difficulty or limitation. General Extremety ED: Negative for edema, pulses abnormal or tenderness General Extremity: Negative for edema or pulses abnormal Neuro oriented x3 and CN's II-XII intact bilaterally Neuro Narrative: No major sensory deficit but subjectively decreased both legs compared with arms. No dysarthria or aphasia. Symmetrically weak all 4 extremities. Sensorium / Orientation: awake and alert Motor Exam: general weakness Psych mental status grossly normal Skin no rashes or lesions noted and no wounds MDM MDM MDM Narrative Medical decision making narrative: Broad differential here including primary [employer] etiologies for which we did a head CT, my interpretation shows nothing acute but chronic changes noted, radiology in agreement. Also possibly metabolic etiology, infectious etiology, cardiopulmonary especially with her mild dyspnea. 1 view chest x-ray on my interpretation shows no acute pneumonia, her labs are noted, the urine is suspicious for infection and she is prerenal, but the rest of her labs are unremarkable. She does not have a high white blood count. It is noted on reevaluation that her pressure is low, nurses told me it was 88/57 so for that reason I have ordered a liter of fluid, Rocephin for the urine, culture sent and blood cultures ordered prior to antibiotics, her lactate is normal at 0.8 arguing against sepsis. Will admit. Lab Data Attestation: I reviewed the patient's lab results. Labs: Laboratory Results - last 24 hr 10/06/24 10/06/24 11:55 12:40 WBC 4.8 RBC 3.74 L Hgb 11.3 L Hct 36.0 L MCV 96.3 MCH 30.2 MCHC 31.4 L RDW Std Deviation 47.7 H RDW Coeff of Jus 13.5 Plt Count 146 L MPV 10.8 Immature Gran % (Auto) 0.400 Neut % (Auto) 69.8 Lymph % (Auto) 15.3 L [place] % (Auto) 12.8 H Eos % (Auto) 1.3 Baso % (Auto) 0.4 Absolute Neuts (auto) 3.3 Absolute Lymphs (auto) 0.73 L Nucleated RBC % 0 Sodium 140 Potassium 4.9 Chloride 103 Carbon Dioxide 36.0 H Anion Gap 1 L BUN 30 H Creatinine 0.91 Estim Creat Clear Calc 40.46 Est GFR (MDRD) Af Amer 76 Est GFR (MDRD) Non-Af 63 BUN/Creatinine Ratio 32.9 H Glucose 83 Lactic Acid 0.8 Calcium 9.9 Total Bilirubin 0.20 AST 21 ALT 19 Alkaline Phosphatase 91 Troponin I High Sens 9 Total Protein 8.1 Albumin 2.9 L Globulin 5.2 H Albumin/Globulin Ratio 0.6 L Urine Color Yellow Urine Clarity Sl. Cloudy Urine pH 7.0 Ur Specific [place] 1.005 Urine Protein 15 H Urine Glucose (UA) Normal Urine Ketones Negative Urine Occult Blood Negative Urine Nitrite Positive H Urine Bilirubin Negative Urine Urobilinogen Normal Ur Leukocyte Esterase 500 H Urine RBC 0 SEEN Urine WBC 5-10 SEEN Ur Squamous Epith Cells 0 SEEN Urine Bacteria 3+ Urine Mucus 0 SEEN Radiography Diagnostic Testing: Clinical Impression(s) from Imaging Studies Brain CT 10/06/24 11:42 IMPRESSION: 1. No intracranial hemorrhage or other acute intracranial process is seen. 2. Additional findings as noted. One or more dose reduction techniques were used (e.g., Automated exposure control, adjustment of the mA and/or kV according to patient size, use of iterative reconstruction technique). Reading Location: [address] Chest X-Ray 10/06/24 11:42 IMPRESSION: Generalized osteopenia is seen. Asymmetric right glenohumeral joint degenerative changes are prominently again present. Old right rib fractures are again seen. The cardiomediastinal silhouette is stable, with a calcified aorta noted. Lungs appear clear of acute disease. No pleural effusion or pneumothorax is evident. Reading Location: [address] Rhythm Strip Rhythm Strip: A-fib Rate: 70 Ectopy: None EKG Initial EKG: Attestation: I personally reviewed and interpreted this EKG as follows: Interpretation: No Acute Injury Pattern, Atrial Fibrillation and Non- Specific ST Changes Management Discussion w/another healthcare provider: Hospitalist Discharge Plan Dx/Rx/DC Orders Clinical Impression: Acute metabolic encephalopathy, Acute UTI, Acute dehydration Disposition Disposition: Acute Care Hospital [facility]
[2024-10-06 12:00] LABS: Absolute Lymphocyte Count 0.73 X10^3/uL (0.83-4.51); Absolute Neutrophil Count 3.3 X10^3/uL (2.0-7.7); Basophil# 0.02 X10^3/uL; Basophil% 0.4 % (0-1); Eosinophil# 0.06 X10^3/uL; Eosinophils% 1.3 % (0-5); Hemoglobin 11.3 g/dL (12.0-15.0); Lymphocyte # 0.73 X10^3/ul (0.83-4.51); Lymphocyte % 15.3 % (19-41); Mean Corp Hgb Conc 31.4 g/dL (32-36); Mean Corpuscular Hgb 30.2 pg (27.0-32.0); Mean Corpuscular Volume 96.3 fL (81-99); Mean Platelet Vol. 10.8 fl (6.2-12.0); Monocyte# 0.61 X10^3/uL; Monocyte% 12.8 % (0-10); NRBC Flagged by Analyzer 0 % (0-5); Neutrophil # 3.32 X10^3/uL (2.7-7.7); Neutrophil % 69.8 % (47-70); Platelet Count 146 K/mm3 (150-450); RBC Distribution Width CV 13.5 % (11.6-14.6); RBC Distribution Width SD 47.7 fl (35.1-43.9); Red Blood Count 3.74 M/mm3 (4.2-5.4); White Blood Count 4.8 K/mm3 (4.4-11.0)
[2024-10-06 12:17] LABS: ALB/GLOB Ratio 0.6 RATIO (0.9-2.4); AST(SGOT) 21 U/L (15-37); Alanine Aminotransfer ALT/SGPT 19 U/L (13-56); Albumin, Serum 2.9 g/dL (3.2-5.0); Alkaline Phosphatase 91 U/L (45-117); Anion Gap 1 (5-15); BUN 30 mg/dL (7-18); BUN/Creat Ratio 32.9 RATIO (10-20); Calcium,Total 9.9 mg/dL (8.5-10.1); Chloride 103 mmol/L (98-107); Creatinine, Serum 0.91 mg/dL (0.55-1.02); EST Glomerular Filtration Rate 63 mL/min (>60); Est Glom Filt Rate - Afr Amer 76 mL/min (>60); Estimated Creatinine Clearance 40.46 ml/min; Globulin 5.2 g/dL (2.2-4.2); Glucose 83 mg/dL (74-106); Potassium 4.9 mmol/L (3.5-5.1); Protein, Total 8.1 g/dL (6.4-8.2); Sodium Level 140 mmol/L (136-145); Troponin-I HS 9 pg/mL (3.0-54.0)
[2024-10-06 12:35] LABS: Lactic Acid 0.8 mmol/L (0.4-1.9)
[2024-10-06 12:52] LABS: Mucous, Urine 0 SEEN /hpf (<or=2+); Red Blood Cells-Urine 0 SEEN /hpf (0-5); Squamous Epithelial Cells - UA 0 SEEN /hpf (5-10)
[2024-10-06 13:13] LABS: Color, Urine Yellow (Yellow); Glucose, Dipstick Normal (Normal); Ketone-Dipstick Negative (Negative); Leukocyte Esterase-Dipstick 500 /ul (Negative); Nitrite-Dipstick Positive (Negative); Occult Blood-Urine Negative /ul (Negative); Protein-Dipstick 15 mg/dl (Negative); Specific Gravity, Urine 1.005 (1.002-1.030); Urine Bilirubin Dipstick Negative (Negative); Urine Clarity Sl. Cloudy (Clear); Urine Urobilinogen Normal (Normal)
[2024-10-06 13:26] LABS: Bacteria 3+ /hpf (None Seen); White Blood Cells 5-10 SEEN /hpf (0-5)
--- NOTE | 2024-10-06 14:29 | PCM.HP.STD ---
HPI - General General Date of Admission: 10/06/24 Date of Service: 10/06/24 Chief Complaint: Worsening weakness and confusion HPI Narrative PARISH AUGUSTINE, is a 83 F who presented to [facility] ED on 10/06/2024 with worsening weakness and confusion. Patient lives with her son and [id number]. Sister was present in the ED with her. Patient typically uses a walker for ambulation. However, sister notes that she has been very shaky over the past few weeks and has essentially been unable to ambulate. She has also become more confused over that time. Patient also reports generalized pain all over. Patient reports mild shortness of breath as well but denies any other symptoms currently. In the ED she was hypotensive to the 90s systolic but otherwise stable on home 2 L nasal cannula and afebrile. CBC and CMP were unremarkable. UA showed 500 leukocyte esterase, positive nitrites, 3+ bacteria. CT brain and chest x-ray were unremarkable. Given her worsening weakness and suspected UTI with mild hypotension, hospitalist was contacted for admission. I saw the patient at bedside in the ED, sister was present. Patient was weak and fatigued appearing. She did make eye contact with me with questions and could tell me she was at [facility] and that it was September 2024, but she otherwise did not provide much information with my questions. She currently denies any acute pain or discomfort. Sister notes that patient has been chronically been getting weaker and family is concerned about being able to take care of her at home and would be interested in snf placement for her. No other acute concerns at this time. 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) Chronic diastolic (congestive) heart failure Anxiety and depression GERD (gastroesophageal reflux disease) Opioid dependence Neuropathic pain Chronic pain Hiatal hernia Acute anemia Hyperlipidemia Essential (primary) hypertension Paroxysmal atrial fibrillation Transverse myelitis History of DVT (deep vein thrombosis) Acute ischemic stroke Atrial flutter Home Medications ?Medication ?Instructions ?Recorded ?Last Taken ?Type polyethylene glycol 3350 17 gram 17 gm PO DAILY constipation 08/27/18 05/05/24 History oral powder packet Wheel Chair #1 ea 10/10/20 Unknown Rx walker #1 ea 10/10/20 Unknown Rx home oxygen See Rx Instructions NASAL QHS PRN 11/30/20 Unknown History oxygen ascorbate calcium (vitamin C) 500 500 mg PO DAILY supplement 04/28/23 05/05/24 History mg tablet cholecalciferol (vitamin D3) 50 50 mcg PO DAILY supplement 04/28/23 05/05/24 History mcg (2,000 unit) capsule Handicap Placard #1 ea 10/14/23 Unknown Rx alprazolam 0.25 mg tablet 0.25 mg PO QHS Anxiety #3 tabs 05/05/24 05/04/24 Rx oxycodone 5 mg tablet 5 mg PO Q4H PRN PRN Severe Pain 05/05/24 05/05/24 Rx (6-06/17) 2 days #6 tabs acetaminophen 500 mg tablet 1,000 mg (2 x 500 mg) PO Q6H PRN 05/19/24 Unknown Rx PRN Headache #0 tabs citalopram 20 mg tablet 30 mg (1.5 x 20 mg) PO DAILY 07/30/24 Unknown Rx depression 3 months #135 tabs Arthritis compound cream D3/L3/B2 1 unit topical BID #1 BOTTLE 08/30/24 Unknown Rx apixaban 5 mg tablet (Eliquis) 5 mg PO BID Blood thinner #60 09/06/24 Unknown Rx TABLETS atorvastatin 10 mg tablet 10 mg PO DAILY cholestrol #90 tabs 09/06/24 Unknown Rx diltiazem HCl 120 mg capsule,24 120 mg PO DAILY BP #90 caps 09/06/24 Unknown Rx hr,extended release hydrochlorothiazide 25 mg tablet 25 mg PO DAILY BP #90 tabs 09/06/24 Unknown Rx potassium chloride 20 mEq 20 meq PO TID supplement #270 tabs 09/06/24 Unknown Rx tablet,extended release(part/cryst) omeprazole 40 mg capsule,delayed 40 mg PO QDAY #90 caps 09/14/24 Unknown Rx release bisacodyl 5 mg tablet,delayed 5 mg PO ONCE PRN constipation 10/01/24 Unknown History release (Dulcolax (bisacodyl)) casanthranol-docusate sodium 30 1 cap PO DAILY PRN constipation 10/01/24 Unknown History mg-100 mg capsule gabapentin 300 mg capsule 600 mg PO TID 10/01/24 Unknown History lisinopril 10 mg tablet 10 mg PO BID 10/01/24 Unknown History nitroglycerin 0.4 mg sublingual 0.4 mg sublingual Q5-15M PRN chest 10/01/24 Unknown Rx tablet pain #25 tabs furosemide 20 mg tablet 60 mg PO DAILY 10/06/24 Unknown History methadone 5 mg tablet 5 mg PO Q8H PRN pain 10/06/24 Unknown History Allergy/AdvReac Type Severity Reaction Status Date / Time morphine Allergy Hives Verified 10/06/24 11:17 atorvastatin AdvReac Severe elevated Verified 10/06/24 11:17 liver enzymes carbamazepine (From Tegretol) AdvReac Intermediate HALLUCINATI Verified 10/06/24 11:17 ONS procaine HCl (From Novocain) AdvReac Intermediate HEART Verified 10/06/24 11:17 RACES,FEELS LIKE WILL PASS OUT Family History Mother Colon cancer Father Myocardial infarction Uncle Asthma Surgical History History of carpal tunnel surgery of right wrist H/O: hysterectomy Social History household members: family and children housing: house Smoking Status: Former smoker how long ago did patient quit smokin years ago alcohol intake: never substance use type: does not use caffeine: Yes Type: coffee Number of servings: 2 what type of physical activity do you participate in: none seatbelt use: always do you feel safe at home: Yes ROS Constitutional Constitutional: Reports fatigue and weakness; Denies chills or fever(s) Eyes Eyes: Denies change in vision Cardiovascular Cardiovascular: Denies chest pain Respiratory/Chest Respiratory/Chest: Denies cough, shortness of breath at rest or wheezing Gastrointestinal Gastrointestinal: Denies abdominal pain, constipation, diarrhea, nausea or vomiting Genitourinary Genitourinary: Denies dysuria Neurologic Neurologic: Denies dizziness or headache(s) Vital Signs Vital Signs Vital Signs: 10/06/24 11:11 10/06/24 11:17 10/06/24 12:45 Temperature 97.5 F L Temperature Source Oral Pulse Rate 72 Respiratory Rate 15 Respiratory Effort Normal Non-Labored Respiratory Pattern Normal Blood Pressure 127/82 H Blood Pressure Mean 97 Pulse Ox 94 87 Oxygen Delivery Method Room Air Room Air Oxygen Flow Rate (L/min) 10/06/24 13:10 10/06/24 14:11 Temperature Temperature Source Pulse Rate 69 64 Respiratory Rate 11 L 13 Respiratory Effort Respiratory Pattern Blood Pressure 97/68 88/57 L Blood Pressure Mean 77 67 Pulse Ox 99 96 Oxygen Delivery Method Nasal Cannula Room Air Oxygen Flow Rate (L/min) 2 Weight Weight: 63.9 kg Body Mass Index (BMI) 30.4 Physical Exam Const alert and no apparent distress Constitutional Narrative: Elderly female, class I obesity, chronically ill-appearing, fatigued, is alert and oriented x 3 but only answering questions with short appropriate responses, otherwise laying back in bed and in no acute distress. General Appearance: cooperative and comfortable HEENT normocephalic, head/scalp atraumatic, hearing grossly normal bilaterally and nasal mucous membranes and turbinates normal HEENT Narrative: Dry mucous membranes. Eyes PERRL, EOMs intact bilaterally and conjunctivae normal Eyes Narrative: Disconjugate gaze. Neck full ROM Chest inspection of chest normal Resp normal respiratory effort, normal air movement, no use of accessory muscles and clear to auscultation bilaterally Resp Narrative: Breathing comfortably on 2 L nasal cannula at rest. No wheezing or crackles noted bilaterally. Cardio no murmurs and peripheral pulses 2+ throughout Cardio Narrative: A-fib, rate controlled. GI normal to inspection, nondistended, normoactive bowel sounds, soft to palpation, non-tender and non-distended Back/Spine normal ROM Extremity normal to inspection and no pedal edema Skin no rashes or lesions noted Neuro Neuro Narrative: Generalized weakness but no specific deficits noted. Psych Psych Narrative: Flat affect. Results Lab / Micro Data 10/06/24 11:55 10/06/24 11:55 Labs: Laboratory Results - last 24 hr 10/06/24 11:55: WBC 4.8, RBC 3.74 L, Hgb 11.3 L, Hct 36.0 L, MCV 96.3, MCH 30.2, MCHC 31.4 L, RDW Std Deviation 47.7 H, RDW Coeff of Jus 13.5, Plt Count 146 L, MPV 10.8, Immature Gran % (Auto) 0.400, Neut % (Auto) 69.8, Lymph % (Auto) 15.3 L, [place] % (Auto) 12.8 H, Eos % (Auto) 1.3, Baso % (Auto) 0.4, Absolute Neuts (auto) 3.3, Absolute Lymphs (auto) 0.73 L, Nucleated RBC % 0, Sodium 140, Potassium 4.9, Chloride 103, Carbon Dioxide 36.0 H, Anion Gap 1 L, BUN 30 H, Creatinine 0.91, Estim Creat Clear Calc 40.46, Est GFR (MDRD) Af Amer 76, Est GFR (MDRD) Non-Af 63, BUN/Creatinine Ratio 32.9 H, Glucose 83, Lactic Acid 0.8, Calcium 9.9, Total Bilirubin 0.20, AST 21, ALT 19, Alkaline Phosphatase 91, Troponin I High Sens 9, Total Protein 8.1, Albumin 2.9 L, Globulin 5.2 H, Albumin/Globulin Ratio 0.6 L 10/06/24 12:40: Urine Color Yellow, Urine Clarity Sl. Cloudy, Urine pH 7.0, Ur Specific Hanahan 1.005, Urine Protein 15 H, Urine Glucose (UA) Normal, Urine Ketones Negative, Urine Occult Blood Negative, Urine Nitrite Positive H, Urine Bilirubin Negative, Urine Urobilinogen Normal, Ur Leukocyte Esterase 500 H, Urine RBC 0 SEEN, Urine WBC 5-10 SEEN, Ur Squamous Epith Cells 0 SEEN, Urine Bacteria 3+, Urine Mucus 0 SEEN Micro: Microbiology 10/06/24 12:05 Mucosa - Nose SARS-CoV-2, Influenza & RSV (PCR) - Final Rhythm Strip Rhythm Strip: A-fib Rate: 70 Ectopy: None Imaging Radiology Impression Brain CT 10/06/24 11:42 IMPRESSION: 1. No intracranial hemorrhage or other acute intracranial process is seen. 2. Additional findings as noted. One or more dose reduction techniques were used (e.g., Automated exposure control, adjustment of the mA and/or kV according to patient size, use of iterative reconstruction technique). Reading Location: [address] Chest X-Ray 01/29/25 11:42 IMPRESSION: Generalized osteopenia is seen. Asymmetric right glenohumeral joint degenerative changes are prominently again present. Old right rib fractures are again seen. The cardiomediastinal silhouette is stable, with a calcified aorta noted. Lungs appear clear of acute disease. No pleural effusion or pneumothorax is evident. Reading Location: [address] Assessment & Plan Assessment/Plan (1) Adult failure to thrive: (2) Acute metabolic encephalopathy: (3) Acute UTI: (4) Acute dehydration: PLAN: Plan Patient is an 83-year-old female who presented [facility] ED on 10/06/2024 with worsening weakness and confusion. 1. Acute on chronic debility with mild acute metabolic encephalopathy ? Admit under inpatient status to PCU. PT/OT/case management consulted. Appears to have slow chronic worsening of her functional status. May have mild acute worsening from acute cystitis, dehydration and chronic pain medications. Baseline mental status unclear but suspect patient is not to far from her baseline. CT brain on admit negative. Lives at home with family who is requesting consideration for snf placement on discharge. Appreciate therapy recommendations. 2. Suspected acute cystitis ? UA on admit showed positive nitrites, 500 leukocyte esterase, 3+ bacteria. Patient not able to tell whether she is having UTI symptoms or not. No recent urine culture data available. Will treat empirically with IV ceftriaxone for now. Follow-up urine culture. 3. Mild hypotension with dehydration ? Hypotensive to the high 80s to 90s systolic in the ED. Suspect due to dehydration in setting of poor p.o. intake and home diuretics. Given 1 L of IV fluids in the ED, monitor BP and follow-up a.m. labs. Holding home blood pressure medications as noted below. 4. Chronic pain syndrome ? Home regimen of methadone 5 mg every 8 hours as needed, oxycodone 5 mg every 4 hours as needed and gabapentin 600 mg 3 times daily. Checked OARRS report and this was confirmed. Suspect these medications could be contributing to her mild encephalopathy. Will continue these for now but can consider decreasing doses as able. Chronic medical conditions: ? Class I obesity: BMI 30 on admit. Complicates hospital course, care and prognosis. ? HFpEF, mitral valve insufficiency, hypertension, hyperlipidemia: Mildly hypotensive and dry appearing in the ED. Given 1 L of IV fluids. Will hold home Lasix, lisinopril and hydrochlorothiazide for now. Continue home statin. ? Chronic persistent A-fib: Rate controlled on admit. Continue home diltiazem and Eliquis. ? Anxiety/depression: Continue home citalopram and alprazolam at night. ? Mild chronic anemia: Hemoglobin 11.3 on admit, stable at baseline. ? COPD with chronic respiratory failure: Stable on home 2 L nasal cannula on admit. Chest x-ray unremarkable. Not in acute exacerbation. Continue home inhalers. DVT prophylaxis: Not indicated, on Eliquis CODE STATUS: DNR CCA, DNI Expected disposition: SNF versus long-term care, TBD Total clinical time spent by myself addressing the patient's medical issues, reviewing all the data, and collaborating with patient's care team: 75 minutes. Charges/Coding Visit Charges Inpatient E&M: 38771 Init Hosp L3
[2024-10-06] MEDS: 0.9% Normal Saline (1000mL) 1,000 ML 999 ML IV (14:37)
[2024-10-06] MEDS: Ceftriaxone 1 GM/50 ML BAG IV (14:37)
--- NOTE | 2024-10-06 15:12 | ED.RN ---
Per family friend and utilities operator, pt is requiring more care than son and shaheed-in-law can provide at home. Pt, son, shaheed-in-law, and sister are all in agreement pt likely will require discharge to an extended care facility.
--- NOTE | 2024-10-06 18:07 | CM.ED ---
Care Management Face to Face with patient for initial transition planning/care coordination assessment in the ED.? This automobile service writer introduced self and role at [facility]. Patient alert and oriented. Patient willing to participate in assessment and is able to answer all questions appropriately.? Patients sister at bedside and permission given to participate in assessment.? Care providers, pharmacy, and demographics verified. Admitting Diagnosis: Acute UTI Other diagnosis history: ?prior cva, hypertension, CHF, Afib, PCP: [facility] Specialists: Ryan Riggins King Preferred Pharmacy: [facility] Insurance: Medicare Prescription Benefit:?yes Living Will/HPOA: has both LW and HPOA LNOK: son Living Arrangements: Lives with son and DIL Transportation: family HHC: none SNF/Rehab: Had previously been at [facility] Resources: none Behavioral Health History: anxiety Patient goals: Patient wishes to be placed in LTC facility .? ? Disposition Plan: admission to acute; RN CM/SW to follow for discharge planning needs that may arise. Areli Gill, ALTERATION HAND, IRRIGATION DISTRICT MANAGER
[2024-10-06] MEDS: APIXABAN 5 MG TABLET PO (21:36)
[2024-10-06] MEDS: ALPRAZolam 0.25 MG Tablet PO (21:36)
[2024-10-07] VITALS (10 sets, daily range): BP systolic 107–125; BP diastolic 79–90; PULSE 70–92; RESP 15–18; TEMP 36.7–36.9; O2SAT 93–98
[2024-10-07 07:28] LABS: Hematocrit 35.3 % (37-47); Hemoglobin 10.7 g/dL (12.0-15.0); Mean Corp Hgb Conc 30.3 g/dL (32-36); Mean Corpuscular Hgb 29.6 pg (27.0-32.0); Mean Corpuscular Volume 97.8 fL (81-99); Platelet Count 135 K/mm3 (150-450); RBC Distribution Width CV 13.5 % (11.6-14.6); RBC Distribution Width SD 48.5 fl (35.1-43.9); Red Blood Count 3.61 M/mm3 (4.2-5.4); White Blood Count 4.2 K/mm3 (4.4-11.0)
[2024-10-07] MEDS: Gabapentin 300 MG Capsule 600 MG PO ×3 (07:37→21:34)
[2024-10-07] MEDS: Acetaminophen 325 MG Tablet 650 MG PO ×2 (07:37→20:25)
[2024-10-07 07:39] LABS: Anion Gap 5 (5-15); BUN 27 mg/dL (7-18); BUN/Creat Ratio 35.2 RATIO (10-20); Calcium,Total 9.3 mg/dL (8.5-10.1); Chloride 107 mmol/L (98-107); Creatinine, Serum 0.77 mg/dL (0.55-1.02); EST Glomerular Filtration Rate 77 mL/min (>60); Est Glom Filt Rate - Afr Amer 93 mL/min (>60); Estimated Creatinine Clearance 44.63 ml/min; Glucose 63 mg/dL (74-106); Potassium 4.7 mmol/L (3.5-5.1); Sodium Level 141 mmol/L (136-145)
[2024-10-07] MEDS: APIXABAN 5 MG TABLET PO ×2 (07:39→21:34)
[2024-10-07] MEDS: Citalopram 10 MG Tablet 30 MG PO (07:40)
[2024-10-07] MEDS: dilTIAZem CD 120 MG Capsule PO (07:40)
[2024-10-07] MEDS: Atorvastatin Calcium 10 MG Tablet PO (07:42)
[2024-10-07] MEDS: Ascorbic Acid 500 MG Tablet PO (07:42)
[2024-10-07] MEDS: Cholecalciferol (VIT D3) 25 MCG TABLET (1,000 UNITS) 50 MCG PO (07:42)
[2024-10-07] MEDS: Pantoprazole Sodium 40 MG Tablet PO (07:44)
[2024-10-07] MEDS: Polyethylene Glycol 3350 17 GM PACKET PO (07:44)
[2024-10-07] MEDS: oxyCODONE 5 MG Tablet PO ×2 (09:15→20:24)
[2024-10-07] MEDS: Ceftriaxone 1 GM/50 ML BAG IV (09:24)
--- NOTE | 2024-10-07 12:18 | CHAPLAIN ---
Type of Pastoral Visit _x__ Initial Visit ___ Follow-up Visit ___ On-call Visit ___ General Patient Visit ___ Spiritual Assessment ___ Family Conference ___ Bereavement ___ Rapid Response ___ Code Blue ___ Other (describe below) Pastoral Care Referral From _x__ Patient ___ Family ___ Nurse ___ Physician ___ Phone Circuit Operator ___ Outside Dealer Sales Representative ___ Other (describe below) Sacrament/Intervention _x__ Active listening ___ Anointing ___ Anabaptist ___ Bereavement ___ Communion ___ Evelin exploration ___ ___ Life review _x__ Prayer ___ Reconciliation ___ Sacrament of Sick _x__ Supportive presence ___ Wedding ___ Other (describe below) Pastoral Comments patient and this bus and trolley dispatcher remember each other from previous admission; pt says that she is not doing well at all but had been able to stay at home after last admission; patient receives phone call from her daughter and this bus and trolley dispatcher had to help her answer the phone; pt asks her daughter to come to the hospital as I am not well at all; pt describes difficulty with her eyesight and asks for help locating things on her lap and at bedside; pt has concerns about getting the help and answers she wants; pt welcomes presence and prayer for support today
--- NOTE | 2024-10-07 14:21 | CASEMGMT ---
ROBERT was informed patient would like to go to a SNF at discharge. ROBERT met with patient and her daughter. Introduced self and role at [facility]. Patient said she wants to go to TCU. ROBERT let patient know that [facility] TCU is full. ROBERT provided patient with a list of halfway facility providers including quality and resource use data and consistent with patient?s preferred geographic region, medical needs, and insurance network were provided from the [employer] Guide.? Patient told ROBERT she can't see out of her left eye to read the list. Patient's family member took the list from ROBERT and said she would help patient. ROBERT told them there are several facilities that are full so they need to pick 3-4 preferences. ROBERT will take care of contacting facilities to check on bed availability.??? Plan: SNF pending choices and accepting facility. Priya HANEY
--- NOTE | 2024-10-07 14:33 | PCM.PN.HOSP ---
Reason for Visit Reason for Visit: Diagnoses Dehydration (10/06/24) Metabolic encephalopathy (10/06/24) Urinary tract infection, site not specified (10/06/24) Adult failure to thrive (10/06/24) Objective Data Objective Data Vital Signs: Vital Signs Temp Pulse Resp BP Pulse Ox O2 Del Method O2 Flow Rate 98.0 F 77 18 122/79 H 94 Nasal Cannula 1 10/07/24 14:10 10/07/24 14:10 10/07/24 14:10 10/07/24 14:10 10/07/24 14:10 10/07/24 14:10 10/07/24 10:55 Oxygen Flow Rate (L/min) 1 Oxygen Delivery Method Nasal Cannula Weight: 132 lb 0.91 oz Body Mass Index (BMI) 29.6 Intake & Output: Intake and Output for Last 24 Hours 10/05/24 10/06/24 10/07/24 23:59 23:59 23:59 Intake Total 1050 / 1050 250 / 250 Output Total 0 / 0 250 / 250 Balance 1050 / 1050 0 / 0 Lab / Micro Data 10/07/24 05:19 10/07/24 05:19 Labs: Laboratory Results - last 24 hr 10/07/24 05:19: WBC 4.2 L, RBC 3.61 L, Hgb 10.7 L, Hct 35.3 L, MCV 97.8, MCH 29.6, MCHC 30.3 L, RDW Std Deviation 48.5 H, RDW Coeff of Jus 13.5, Plt Count 135 L, MPV 12.0, Sodium 141, Potassium 4.7, Chloride 107, Carbon Dioxide 30.0, Anion Gap 5, BUN 27 H, Creatinine 0.77, Estim Creat Clear Calc 44.63, Est GFR (MDRD) Af Amer 93, Est GFR (MDRD) Non-Af 77, BUN/Creatinine Ratio 35.2 H, Glucose 63 L, Calcium 9.3 Micro: Microbiology 10/06/24 12:05 Mucosa - Nose SARS-CoV-2, Influenza & RSV (PCR) - Final Rhythm Strip Rhythm Strip: A-fib Rate: 70 Ectopy: None Physical Exam Narrative Seen and examined. Patient complain of generalized weakness, she has pain all over the body. Patient on methadone and oxycodone at home. His neurologist is Dr. Davis, [facility]. Patient denies any local symptoms of UTI including burning micturition, increased frequency or urgency or lower urinary tract symptoms. No fever Physical exam General: Alert, Oriented x3, Cooperative HEENT: Atraumatic, PERRLA, EOMI, Normocephalic Oral: No Gingival or Mucosal Lesions/ Ulcerations Neck: Supple, No JVD, Negative Carotid Bruits Chest wall/Lungs: Air entry diminished in bilateral lung bases. No crepitation/rhonchi Cardiovascular: Sinus rhythm rhythm, Normal S1, Normal S2, No M/G/R Abdomen: Bowel Sounds Present, Soft, Non Tender, Non-Distended : No dysuria. No renal angle tenderness. No suprapubic tenderness. Extremities: No edema, Capillary Refill Less than 3 Seconds Skin: No rashes, No breakdown Musculoskeletal: Mild weakness in lower extremities, no Tenderness to Palpation of Joints or Extremities Neurological: Cranial nerves II-XII grossly intact, DTR 2+/4. No acute focal neurological deficit. Psych/Mental Status: In pain. Anxious Assessment & Plan Assessment/Plan (1) Adult failure to thrive: (2) Acute metabolic encephalopathy: (3) Acute UTI: (4) Acute dehydration: PLAN: Plan Patient is an 83-year-old female who presented [facility] ED on 10/06/2024 with worsening weakness and confusion. 1. Acute on chronic debility with mild acute metabolic encephalopathy, chronic pain predominantly back pain with history of chronic transverse myelitis ? Admit under inpatient status to PCU. PT/OT/case management consulted. Appears to have slow chronic worsening of her functional status. CT head without contrast does not show acute intracranial abnormality. Patient lives at home. Patient is awake and alert. She is talking coherent. She states she has pain all over. I talked to her neurologist Dr. Davis, [facility]. 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 She has been doing well on methadone and oxycodone since then. Her home medications continued. 2. Abnormal UA: Patient denies burning micturition or new UTI symptoms. ? UA on admit showed positive nitrites, 500 leukocyte esterase, 3+ bacteria. Empirically with IV ceftriaxone for now. Urine culture was not ordered at the time of admission therefore ordered. 3. Mild hypotension with dehydration ? Hypotensive to the high 80s to 90s systolic in the ED. Suspect due to dehydration in setting of poor p.o. intake and home diuretics. Given 1 L of IV fluids in the ED 10/07: Hypotension resolved. Blood pressure 122/79. 4. Chronic pain syndrome ? Home regimen of methadone 5 mg every 8 hours as needed, oxycodone 5 mg every 4 hours as needed and gabapentin 600 mg 3 times daily. Checked OARRS report and this was confirmed. Suspect these medications could be contributing to her mild encephalopathy. Will continue these for now but can consider decreasing doses as able. Chronic medical conditions: ? Class I obesity: BMI 30 on admit. Complicates hospital course, care and prognosis. ? HFpEF, mitral valve insufficiency, hypertension, hyperlipidemia: Mildly hypotensive and dry appearing in the ED. Given 1 L of IV fluids. Will hold home Lasix, lisinopril and hydrochlorothiazide for now. Continue home statin. ? Chronic persistent A-fib: Rate controlled on admit. Continue home diltiazem and Eliquis. ? Anxiety/depression: Continue home citalopram and alprazolam at night. ? Mild chronic anemia: Hemoglobin 11.3 on admit, stable at baseline. ? COPD with chronic respiratory failure: Stable on home 2 L nasal cannula on admit. Chest x-ray unremarkable. Not in acute exacerbation. Continue home inhalers. DVT prophylaxis: Not indicated, on Eliquis CODE STATUS: DNR CCA, DNI I talked to the patient's neurologist Dr. Davis as mentioned above. I also called patient's POA Mrs. Mya Napoles and left a voice message to call back Charges/Coding Visit Charges Inpatient E&M: 50971 Subs Hosp L2
[2024-10-07] MEDS: Sodium Chloride 0.65% 1 SPRAY SPRAY.BTL NASAL (16:58)
[2024-10-07] MEDS: ALPRAZolam 0.25 MG Tablet PO (21:34)
[2024-10-08 03:25] VITALS: BP 102/61; PULSE 70; RESP 16; TEMP 36.6; O2SAT 96
[2024-10-08] MEDS: Gabapentin 300 MG Capsule 600 MG PO ×3 (05:27→21:02)
[2024-10-08] MEDS: 0.9% Saline Lock 10 ML Syringe IV (05:29)
[2024-10-08 07:39] LABS: Absolute Lymphocyte Count 1.09 X10^3/uL (0.83-4.51); Absolute Neutrophil Count 1.4 X10^3/uL (2.0-7.7); Basophil# 0.02 X10^3/uL; Basophil% 0.7 % (0-1); Eosinophil# 0.04 X10^3/uL; Eosinophils% 1.3 % (0-5); Hematocrit 33.2 % (37-47); Hemoglobin 10.8 g/dL (12.0-15.0); Lymphocyte # 1.09 X10^3/ul (0.83-4.51); Lymphocyte % 36.2 % (19-41); Mean Corp Hgb Conc 32.5 g/dL (32-36); Mean Corpuscular Hgb 30.6 pg (27.0-32.0); Mean Corpuscular Volume 94.1 fL (81-99); Mean Platelet Vol. 10.8 fl (6.2-12.0); Monocyte# 0.44 X10^3/uL; Monocyte% 14.6 % (0-10); NRBC Flagged by Analyzer 0 % (0-5); Neutrophil # 1.41 X10^3/uL (2.7-7.7); Neutrophil % 46.9 % (47-70); Platelet Count 121 K/mm3 (150-450); RBC Distribution Width CV 13.6 % (11.6-14.6); RBC Distribution Width SD 46.4 fl (35.1-43.9); Red Blood Count 3.53 M/mm3 (4.2-5.4)
[2024-10-08 08:01] LABS: Anion Gap 2 (5-15); BUN 22 mg/dL (7-18); BUN/Creat Ratio 30.3 RATIO (10-20); Calcium,Total 8.7 mg/dL (8.5-10.1); Chloride 106 mmol/L (98-107); Creatinine, Serum 0.72 mg/dL (0.55-1.02); EST Glomerular Filtration Rate 82 mL/min (>60); Est Glom Filt Rate - Afr Amer 99 mL/min (>60); Estimated Creatinine Clearance 44.63 ml/min; Glucose 85 mg/dL (74-106); Potassium 4.1 mmol/L (3.5-5.1); Sodium Level 138 mmol/L (136-145)
[2024-10-08 08:22] VITALS: O2SAT 92
[2024-10-08 09:30] VITALS: BP 125/69; PULSE 70; RESP 18; TEMP 36.9; O2SAT 100
[2024-10-08] MEDS: Acetaminophen 325 MG Tablet 650 MG PO ×2 (10:50→17:59)
[2024-10-08] MEDS: oxyCODONE 5 MG Tablet PO ×2 (10:51→17:59)
[2024-10-08] MEDS: Ceftriaxone 1 GM/50 ML BAG IV (10:51)
[2024-10-08] MEDS: APIXABAN 5 MG TABLET PO ×2 (10:52→21:03)
[2024-10-08] MEDS: Polyethylene Glycol 3350 17 GM PACKET PO (10:52)
[2024-10-08] MEDS: Citalopram 10 MG Tablet 30 MG PO (10:52)
[2024-10-08] MEDS: dilTIAZem CD 120 MG Capsule PO (10:52)
[2024-10-08] MEDS: Pantoprazole Sodium 40 MG Tablet PO (10:52)
[2024-10-08] MEDS: Ascorbic Acid 500 MG Tablet PO (10:53)
[2024-10-08] MEDS: Atorvastatin Calcium 10 MG Tablet PO (10:53)
[2024-10-08] MEDS: Cholecalciferol (VIT D3) 25 MCG TABLET (1,000 UNITS) 50 MCG PO (10:53)
--- NOTE | 2024-10-08 11:46 | CASEMGMT ---
SW went to patient's room to get SNF choices. Patient's sister Mya was present. Mya is patient's healthcare power of collections attorney. They will review the list. Mya also asked about a DNR. ROBERT let them know that a DNR is a doctor's order and ROBERT can pass along this message to the physician. ROBERT notified physician about DNR. Patient's sister Mya called SW with 3 choices 1. [facility] 2. [facility] 3. [facility]. ROBERT will ask Isabelle to send a referral to [facility]. Plan: SNF pending accepting facility and patient being medically ready. Priya Leyva ROOF TRUSS BUILDER [employer]NDON
--- NOTE | 2024-10-08 14:26 | CASEMGMT ---
Referral faxed to [facility], attn; Priya (ROBERT). (p) [phone] (f) [phone]. Isabelle Kolb DC Planning Asst.
[2024-10-08] MEDS: Sodium Chloride 0.65% 1 SPRAY SPRAY.BTL NASAL ×2 (14:40→21:02)
--- NOTE | 2024-10-08 14:58 | CASEMGMT ---
ROBERT received a call from patient's sister Mya. Mya asked ROBERT to remove [facility] as one of their choices as patient's ex is there. ROBERT explained [facility] is full so SW will need another choice. Mya reviewed the list and said [facility] would be the next choice after [facility]. ROBERT notified Isabelle. Isabelle then notified ROBERT that [facility] has declined patient. ROBERT asked Isabelle to send a referral to [facility]. Await their response. Plan: SNF pending accepting facility. Priya Leyva [employer]PER[employer] [place]
--- NOTE | 2024-10-08 15:00 | CASEMGMT ---
Referral sent to [facility] and they denied. Isabelle Kolb DC Planning Asst.
--- NOTE | 2024-10-08 15:03 | CASEMGMT ---
Referral sent to [facility]. Isabelle Kolb DC Planning Asst.
--- NOTE | 2024-10-08 16:43 | CASEMGMT ---
Patient was accepted at [facility]. SW attempted to call patient's sister Mya and let her know [facility] declined, but [facility] accepted. However, it was a voice mail with no identifying information. SW asked Friday SW to please follow up with Mya. Plan: d/c to [facility] under skilled level of care on a convalescent stay. Physicians will transport patient. Priya HANEY
--- NOTE | 2024-10-08 16:48 | PN.HOSP_ITS ---
Reason for Visit Reason for Visit: Diagnoses Dehydration (10/06/24) Metabolic encephalopathy (10/06/24) Urinary tract infection, site not specified (10/06/24) Adult failure to thrive (10/06/24) Objective Data Objective Data Vital Signs: Vital Signs Temp Pulse Resp BP Pulse Ox O2 Del Method O2 Flow Rate 98.5 F 70 18 125/69 H 100 Nasal Cannula 2 10/08/24 09:30 10/08/24 09:30 10/08/24 09:30 10/08/24 09:30 10/08/24 09:30 10/08/24 10:00 10/08/24 10:28 Oxygen Flow Rate (L/min) 2 Oxygen Delivery Method Nasal Cannula Weight: 132 lb 0.91 oz Body Mass Index (BMI) 29.6 Intake & Output: Intake and Output for Last 24 Hours 10/06/24 10/07/24 10/08/24 23:59 23:59 23:59 Intake Total 1050 / 1050 670 / 670 110 / 110 Output Total 0 / 0 550 / 550 100 / 100 Balance 1050 / 1050 120 / 120 10 / 10 Lab / Micro Data 10/08/24 07:12 10/08/24 07:12 Labs: Laboratory Results - last 24 hr 10/08/24 07:12: WBC 3.0 L, RBC 3.53 L, Hgb 10.8 L, Hct 33.2 L, MCV 94.1, MCH 30.6, MCHC 32.5 D, RDW Std Deviation 46.4 H, RDW Coeff of Jus 13.6, Plt Count 121 L, MPV 10.8, Immature Gran % (Auto) 0.300, Neut % (Auto) 46.9 L, Lymph % (Auto) 36.2, [place] % (Auto) 14.6 H, Eos % (Auto) 1.3, Baso % (Auto) 0.7, Absolute Neuts (auto) 1.4 L, Absolute Lymphs (auto) 1.09, Nucleated RBC % 0, Sodium 138, Potassium 4.1, Chloride 106, Carbon Dioxide 31.0, Anion Gap 2 L, BUN 22 H, Creatinine 0.72, Estim Creat Clear Calc 44.63, Est GFR (MDRD) Af Amer 99, Est GFR (MDRD) Non-Af 82, BUN/Creatinine Ratio 30.3 H, Glucose 85, Calcium 8.7 Micro: Microbiology 10/06/24 12:05 Mucosa - Nose SARS-CoV-2, Influenza & RSV (PCR) - Final Rhythm Strip Rhythm Strip: A-fib Rate: 70 Ectopy: None Physical Exam Narrative Seen and examined. Pain is better than yesterday. Patient's on the recliner. Patient denies any local symptoms of UTI including burning micturition, increased frequency or urgency or lower urinary tract symptoms. No fever Physical exam General: Alert, Oriented x3, Cooperative HEENT: Atraumatic, PERRLA, EOMI, Normocephalic Oral: No Gingival or Mucosal Lesions/ Ulcerations Neck: Supple, No JVD, Negative Carotid Bruits Chest wall/Lungs: Air entry diminished in bilateral lung bases. No crepitation/rhonchi Cardiovascular: Sinus rhythm , Normal S1, Normal S2, No M/G/R Abdomen: Bowel Sounds Present, Soft, Non Tender, Non-Distended : No dysuria. No renal angle tenderness. No suprapubic tenderness. Extremities: No edema, Capillary Refill Less than 3 Seconds Skin: No rashes, No breakdown Musculoskeletal: Mild weakness in lower extremities, 4/5. No Tenderness to Palpation of Joints or Extremities Neurological: Cranial nerves II-XII grossly intact, DTR 2+/4. Chronic decreased sensation in right leg more than left from transverse myelitis Psych/Mental Status: Looks more comfortable Assessment & Plan Assessment/Plan (1) Adult failure to thrive: (2) Acute metabolic encephalopathy: (3) Acute UTI: (4) Acute dehydration: PLAN: Plan Patient is an 83-year-old female who presented [facility] ED on 10/06/2024 with worsening weakness and confusion. 1. Acute on chronic debility with mild acute metabolic encephalopathy, chronic pain predominantly back pain with history of chronic transverse myelitis ? Admit under inpatient status to PCU. PT/OT/case management consulted. Appears to have slow chronic worsening of her functional status. CT head without contrast does not show acute intracranial abnormality. Patient lives at home. Patient is awake and alert. She is talking coherent. She states she has pain all over. I talked to her neurologist Dr. Davis, [facility]. 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 She has been doing well on methadone and oxycodone since then. Her home medications continued. 10/08: Pain is better. Patient out of bed to chair. Plan for skilled nursing. Continue PT 2. Abnormal UA: Patient denies burning micturition or new UTI symptoms. ? UA on admit showed positive nitrites, 500 leukocyte esterase, 3+ bacteria. Empirically with IV ceftriaxone for now. Urine culture was not ordered at the time of admission therefore ordered. 09/20: Blood culture and urine culture is still pending. 3. Mild hypotension with dehydration ? Hypotensive to the high 80s to 90s systolic in the ED. Suspect due to dehydration in setting of poor p.o. intake and home diuretics. Given 1 L of IV fluids in the ED 10/07: Hypotension resolved. Blood pressure 122/79. 4. Chronic pain syndrome ? Home regimen of methadone 5 mg every 8 hours as needed, oxycodone 5 mg every 4 hours as needed and gabapentin 600 mg 3 times daily. Checked OARRS report and this was confirmed. Suspect these medications could be contributing to her mild encephalopathy. Will continue these for now but can consider decreasing doses as able. Chronic medical conditions: ? Class I obesity: BMI 30 on admit. Complicates hospital course, care and prognosis. ? HFpEF, mitral valve insufficiency, hypertension, hyperlipidemia: Mildly hypotensive and dry appearing in the ED. Given 1 L of IV fluids. Will hold home Lasix, lisinopril and hydrochlorothiazide for now. Continue home statin. ? Chronic persistent A-fib: Rate controlled on admit. Continue home diltiazem and Eliquis. ? Anxiety/depression: Continue home citalopram and alprazolam at night. ? Mild chronic anemia: Hemoglobin 11.3 on admit, stable at baseline. ? COPD with chronic respiratory failure: Stable on home 2 L nasal cannula on admit. Chest x-ray unremarkable. Not in acute exacerbation. Continue home inhalers. DVT prophylaxis: Not indicated, on Eliquis CODE STATUS: DNR CCA, DNI I talked to the patient's POA, Mrs. Mya Napoles and she requested change of CODE STATUS to DNR CC. I explained the difference between DNR CCA and DNRCC and she understood it. There would not be BiPAP CPAP, shocking, Airvo or central line or vasopressors. She signed the DNR CC paper. CODE STATUS changed to DNR CC Living will/advanced directive/end of life care: Patient does have living will or advanced directive. After discussion of benefits/risks procedures involved with full code, DNR CC arrest and DNR CC, the patient and her POA opted for changing the CODE STATUS to DNR CC Patient doesn't want artificial life support including intubation, tube feed, ventilator and/chest compression, central venous catheter, vasopressor and DC shock if needed Total time spent in [id number]-[id number] encounter in discussion of advanced directive 17 minutes. Charges/Coding Visit Charges Inpatient E&M: 76796 Subs Hosp L2 Procedures Hospitalists Procedures: 43581 Advncd Care Plan 30 Min
--- NOTE | 2024-10-08 16:48 | CASEMGMT ---
ROBERT received a return call from Mya patient's sister. ROBERT let her know [facility] declined patient, but [facility] accepted. Priya Leyva MSW [place]
[2024-10-08 18:00] VITALS: BP 116/80; PULSE 76; RESP 18; TEMP 36.7; O2SAT 96
[2024-10-08] MEDS: ALPRAZolam 0.25 MG Tablet PO (21:03)
[2024-10-08] MEDS: Arthritis Pain Compound 60 CLICK TUBE TOPICAL (22:51)
[2024-10-09] MEDS: Acetaminophen 325 MG Tablet 650 MG PO ×2 (03:45→12:47)
[2024-10-09] MEDS: oxyCODONE 5 MG Tablet PO ×2 (03:45→12:47)
[2024-10-09 04:00] VITALS: BP 108/68; PULSE 66; RESP 16; TEMP 36.6; O2SAT 93
[2024-10-09] MEDS: Gabapentin 300 MG Capsule 600 MG PO ×2 (06:30→15:19)
[2024-10-09 06:36] LABS: Absolute Lymphocyte Count 1.06 X10^3/uL (0.83-4.51); Absolute Neutrophil Count 1.5 X10^3/uL (2.0-7.7); Basophil# 0.03 X10^3/uL; Eosinophil# 0.06 X10^3/uL; Eosinophils% 1.9 % (0-5); Hematocrit 32.6 % (37-47); Hemoglobin 10.4 g/dL (12.0-15.0); Lymphocyte # 1.06 X10^3/ul (0.83-4.51); Lymphocyte % 34.1 % (19-41); Mean Corp Hgb Conc 31.9 g/dL (32-36); Mean Corpuscular Hgb 30.1 pg (27.0-32.0); Mean Corpuscular Volume 94.5 fL (81-99); Mean Platelet Vol. 10.7 fl (6.2-12.0); Monocyte% 16.1 % (0-10); NRBC Flagged by Analyzer 0 % (0-5); Neutrophil # 1.45 X10^3/uL (2.7-7.7); Neutrophil % 46.6 % (47-70); Platelet Count 116 K/mm3 (150-450); RBC Distribution Width CV 13.2 % (11.6-14.6); RBC Distribution Width SD 45.9 fl (35.1-43.9); Red Blood Count 3.45 M/mm3 (4.2-5.4); White Blood Count 3.1 K/mm3 (4.4-11.0)
[2024-10-09] MEDS: Sodium Chloride 0.65% 1 SPRAY SPRAY.BTL NASAL ×2 (06:38→15:19)
[2024-10-09 07:06] LABS: Anion Gap 3 (5-15); BUN 18 mg/dL (7-18); BUN/Creat Ratio 25.6 RATIO (10-20); Calcium,Total 8.6 mg/dL (8.5-10.1); Chloride 104 mmol/L (98-107); EST Glomerular Filtration Rate 85 mL/min (>60); Est Glom Filt Rate - Afr Amer 103 mL/min (>60); Estimated Creatinine Clearance 44.63 ml/min; Glucose 88 mg/dL (74-106); Potassium 3.8 mmol/L (3.5-5.1); Sodium Level 138 mmol/L (136-145)
--- NOTE | 2024-10-09 08:05 | CASEMGMT ---
Social Work Pt's sister Mya called, she is concerned about sending pt to [facility]. She asked about the process of moving pt from one facility to another, as she really wanted [facility] for pt. She is under the understanding [facility] did not take pt due to it being the weekend. SW reviewed the SW notes, informed pt's sister it appears from the notes pt was just not accepted at [facility], it may have nothing to do with the weekend. Pt's sister stated again it is her understanding it was because it is the weekend. SW explained to pt's sister to get CC involved, call them and also work w/the SW at [facility] to get pt moved. Pt's sister asked if there is any way for pt to stay until Friday. SW offered to make additional referrals this weekend to see if we can find another facility. SW reviewed other options w/pt's sister, and she is okay w/pt going to [facility] and she will work on getting her moved next week. Plan will stay for pt to go to [facility] when medically ready, likely today. RIA Riley
[2024-10-09 09:16] VITALS: O2SAT 94
[2024-10-09] MEDS: Cholecalciferol (VIT D3) 25 MCG TABLET (1,000 UNITS) 50 MCG PO (09:32)
[2024-10-09] MEDS: Arthritis Pain Compound 60 CLICK TUBE TOPICAL (09:32)
[2024-10-09] MEDS: dilTIAZem CD 120 MG Capsule PO (09:32)
[2024-10-09] MEDS: APIXABAN 5 MG TABLET PO (09:32)
[2024-10-09] MEDS: Ascorbic Acid 500 MG Tablet PO (09:32)
[2024-10-09] MEDS: Atorvastatin Calcium 10 MG Tablet PO (09:33)
[2024-10-09] MEDS: Pantoprazole Sodium 40 MG Tablet PO (09:33)
[2024-10-09] MEDS: Polyethylene Glycol 3350 17 GM PACKET PO (09:33)
[2024-10-09] MEDS: Ceftriaxone 1 GM/50 ML BAG IV (09:33)
[2024-10-09] MEDS: Citalopram 10 MG Tablet 30 MG PO (09:33)
--- NOTE | 2024-10-09 09:40 | PCM.DC ---
Discharge Instructions DC O2, CPAP, BIPAP needs Home O2 Discharge instructions: No Follow Up Care Test Results: Test results from this visit will be discussed in further detail at your follow-up appointment, if applicable. Discharge Plan Admission Admit Date/Time: 10/06/24 14:40 Primary Reason for Your Visit: Bilateral sciatica pain. Chronic transverse myelitis Attending Provider: Salazar Logan Primary Care Provider: Ольга Riggins Consulting Providers: [place] Additional Instructions / Restrictions: If patient on Eliquis for paroxysmal A-fib, can decrease to 2.5 mg twice daily. But if patient on Eliquis for DVT, continue 5 mg. Discharge Orders/Prescriptions Prescriptions: Continued home oxygen 2 L See Rx Instructions NASAL QHS PRN (Reason: oxygen) Patient Comments: use at night time Rx Instructions: 2 LPM NASALLY at bedtime PRN; (DME) walker Misc See Rx Instructions .ROUTE .MEDSUPPLY Qty: 1 0RF Rx Instructions: As directed (DME) Wheel Chair See Rx Instructions .Route .MEDSUPPLY Qty: 1 0RF Rx Instructions: As directed cholecalciferol (vitamin D3) 50 mcg (2,000 unit) capsule 50 mcg PO DAILY ascorbate calcium (vitamin C) 500 mg tablet 500 mg PO DAILY (DME) Handicap Placard See Rx Instructions .ROUTE .MEDSUPPLY Qty: 1 0RF Rx Instructions: As directed, length of time 5 years gabapentin 300 mg capsule 600 mg PO TID bisacodyl [Dulcolax (bisacodyl)] 5 mg tablet,delayed release (DR/EC) 5 mg PO ONCE PRN (Reason: constipation) casanthranol-docusate sodium 30-100 mg capsule 1 cap PO DAILY PRN (Reason: constipation) nitroglycerin 0.4 mg tablet, sublingual 0.4 mg SUBLINGUAL Q5-15M PRN (Reason: chest pain) Qty: 25 3RF Rx Instructions: until response; do not exceed 3 doses per episode polyethylene glycol 3350 17 GM packet 17 gm PO DAILY methadone 5 mg Tablet 5 mg PO Q8H PRN (Reason: pain) Eliquis 5 mg tablet 5 mg PO BID Qty: 60 11RF Rx Instructions: Consider lowering the dose to 2.5 mg twice daily with PCP oxycodone 5 mg Tablet 5 mg PO Q4H PRN PRN (Reason: Severe Pain (6-10/10)) 2 Days Qty: 6 0RF alprazolam 0.25 mg Tablet 0.25 mg PO QHS Qty: 3 0RF oxycodone 5 mg Tablet 5 mg PO Q4H PRN PRN (Reason: Severe Pain (6-10/10)) 2 Days Qty: 6 0RF acetaminophen 500 mg Tablet 1,000 mg PO Q6H PRN PRN (Reason: Headache) Qty: 0 0RF citalopram 20 mg tablet 30 mg PO DAILY 90 Days Qty: 135 2RF Arthritis compound cream D3/L3/B2 1 unit topical BID Qty: 1 0RF Rx Instructions: Apply to affected area twice a day, wash hands after use. Do not apply to broken skin. atorvastatin 10 mg tablet 10 mg PO DAILY Qty: 90 3RF diltiazem HCl 120 mg capsule,extended release 24hr 120 mg PO DAILY Qty: 90 3RF potassium chloride 20 mEq tablet,ER particles/crystals 20 meq PO TID Qty: 270 2RF omeprazole 40 mg capsule,delayed release(DR/EC) 40 mg PO QDAY Qty: 90 1RF Rx Instructions: Take 30 minutes before breakfast Changed furosemide 20 mg tablet 40 mg PO DAILY 30 Days Qty: 0 0RF Held lisinopril 10 mg tablet 10 mg PO BID Hold Instructions: Hold it as her blood pressure is in 110s. Consider discontinuing it Discontinued hydrochlorothiazide 25 mg tablet 25 mg PO DAILY Qty: 90 3RF Referrals / Follow Up: Ольга Riggins MD [Primary Care Provider] - Disposition Discharge Orders: Discharge Patient (Routine); Ordered 10/09/24 Ordered By: Dr. Salazar Logan
--- NOTE | 2024-10-09 09:50 | TREXTCAR_ITS ---
Diet Diet Order/Speech Therapy: 10/06/24 17:07 Diet: Cardiac - Heart Healthy Food consistency:: Pureed Liquid Consistency:: Regular/Thin Diet Comments: Feeding assistance, crush large medications in Routine Orders/Code Status Suppository Type: Dulcolax 10mg Suppository Frequency: Daily PRN DC O2, CPAP, BIPAP needs Home O2 Discharge instructions: No Therapies Extremity Affected:: Bilateral Lower Physical Therapy: Eval and Treat Occupational Therapy: Eval and Treat Speech Therapy: Eval and Treat Problem/Diagnosis (1) Adult failure to thrive: Status: Acute Code(s): R62.7 - Adult failure to thrive (2) Acute metabolic encephalopathy: Status: Acute Code(s): G93.41 - Metabolic encephalopathy (3) Acute UTI: Status: Acute Code(s): N39.0 - Urinary tract infection, site not specified (4) Acute dehydration: Status: Acute Code(s): E86.0 - Dehydration Plan Patient is an 83-year-old female who presented [facility] ED on 10/06/2024 with worsening weakness and confusion. 1. Acute on chronic debility with mild acute metabolic encephalopathy, chronic pain predominantly back pain with history of chronic transverse myelitis ? Admit under inpatient status to PCU. PT/OT/case management consulted. Appears to have slow chronic worsening of her functional status. CT head without contrast does not show acute intracranial abnormality. Patient lives at home. Patient is awake and alert. She is talking coherent. She states she has pain all over. I talked to her neurologist Dr. Davis, [facility]. 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 She has been doing well on methadone and oxycodone since then. Her home medications continued. 10/08: Pain is better. Patient out of bed to chair. Plan for [facility]. Continue PT 2. Abnormal UA: Patient denies burning micturition or new UTI symptoms. ? UA on admit showed positive nitrites, 500 leukocyte esterase, 3+ bacteria. Empirically with IV ceftriaxone for now. Urine culture was not ordered at the time of admission therefore ordered. 09/20: Blood culture and urine culture is still pending. 3. Mild hypotension with dehydration ? Hypotensive to the high 80s to 90s systolic in the ED. Suspect due to dehydration in setting of poor p.o. intake and home diuretics. Given 1 L of IV fluids in the ED 10/07: Hypotension resolved. Blood pressure 122/79. 4. Chronic pain syndrome ? Home regimen of methadone 5 mg every 8 hours as needed, oxycodone 5 mg every 4 hours as needed and gabapentin 600 mg 3 times daily. Checked OARRS report and this was confirmed. Suspect these medications could be contributing to her mild encephalopathy. Will continue these for now but can consider decreasing doses as able. Chronic medical conditions: ? Class I obesity: BMI 30 on admit. Complicates hospital course, care and prognosis. ? HFpEF, mitral valve insufficiency, hypertension, hyperlipidemia: Mildly hypotensive and dry appearing in the ED. Given 1 L of IV fluids. Will hold home Lasix, lisinopril and hydrochlorothiazide for now. Continue home statin. ? Chronic persistent A-fib: Rate controlled on admit. Continue home diltiazem and Eliquis. ? Anxiety/depression: Continue home citalopram and alprazolam at night. ? Mild chronic anemia: Hemoglobin 11.3 on admit, stable at baseline. ? COPD with chronic respiratory failure: Stable on home 2 L nasal cannula on admit. Chest x-ray unremarkable. Not in acute exacerbation. Continue home inhalers. DVT prophylaxis: Not indicated, on Eliquis CODE STATUS: DNR CCA, DNI I talked to the patient's POA, Mrs. Mya Napoles and she requested change of CODE STATUS to DNR CC. I explained the difference between DNR CCA and DNRCC and she understood it. There would not be BiPAP CPAP, shocking, Airvo or central line or vasopressors. She signed the DNR CC paper. CODE STATUS changed to DNR CC Living will/advanced directive/end of life care: Patient does have living will or advanced directive. After discussion of benefits/risks procedures involved with full code, DNR CC arrest and DNR CC, the patient and her POA opted for changing the CODE STATUS to DNR CC Patient doesn't want artificial life support including intubation, tube feed, ventilator and/chest compression, central venous catheter, vasopressor and DC shock if needed Total time spent in pioi-ab-lozz encounter in discussion of advanced dir ective 17 minutes. Allergies/Procedures Done in Hospital Allergies morphine Allergy (Verified 10/06/24 11:17) Hives atorvastatin Adverse Reaction (Severe, Verified 10/06/24 11:17) elevated liver enzymes carbamazepine (From Tegretol) Adverse Reaction (Intermediate, Verified 10/06/24 11:17) HALLUCINATIONS procaine HCl (From Novocain) Adverse Reaction (Intermediate, Verified 10/06/24 11:17) HEART RACES,FEELS LIKE WILL PASS OUT Type of Care/Length of Stay Estimated LOS: Convalescent Care Less Than 30 days Type of Care Needed: Skilled Rehab Potential: Good Prognosis: Good Additional Orders/Day of Discharge Day of Discharge: 10/09/24 Dietary and Speech Recommendations Dietitian Recommendations/Changes: Will continue liberalized regular diet with consistency/texture as per MONORAIL HOOKER. Will continue 120mL ensure plus HP 4 times per day w/ medpass. Monitor blood glucose level and restrict dietary carbohydrate as needed. Trend weights closely and adjust ONS as needed to optimize nutrition and prevent energy/pro depletion. Discharge Plan Admission Admit Date/Time: 10/06/24 14:40 Primary Reason for Your Visit: Bilateral sciatica pain. Chronic transverse myelitis Attending Provider: Salazar Logan Primary Care Provider: Ольга Riggins Consulting Providers: [place] Additional Instructions / Restrictions: If patient on Eliquis for paroxysmal A-fib, can decrease to 2.5 mg twice daily. But if patient on Eliquis for DVT, continue 5 mg. Discharge Orders/Prescriptions Prescriptions: Continued home oxygen 2 L See Rx Instructions NASAL QHS PRN (Reason: oxygen) Patient Comments: use at night time Rx Instructions: 2 LPM NASALLY at bedtime PRN; (DME) walker Misc See Rx Instructions .ROUTE .MEDSUPPLY Qty: 1 0RF Rx Instructions: As directed (DME) Wheel Chair See Rx Instructions .Route .MEDSUPPLY Qty: 1 0RF Rx Instructions: As directed cholecalciferol (vitamin D3) 50 mcg (2,000 unit) capsule 50 mcg PO DAILY ascorbate calcium (vitamin C) 500 mg tablet 500 mg PO DAILY (DME) Handicap Placard See Rx Instructions .ROUTE .MEDSUPPLY Qty: 1 0RF Rx Instructions: As directed, length of time 5 years gabapentin 300 mg capsule 600 mg PO TID bisacodyl [Dulcolax (bisacodyl)] 5 mg tablet,delayed release (/EC) 5 mg PO ONCE PRN (Reason: constipation) casanthranol-docusate sodium 30-100 mg capsule 1 cap PO DAILY PRN (Reason: constipation) nitroglycerin 0.4 mg tablet, sublingual 0.4 mg SUBLINGUAL Q5-15M PRN (Reason: chest pain) Qty: 25 3RF Rx Instructions: until response; do not exceed 3 doses per episode polyethylene glycol 3350 17 GM packet 17 gm PO DAILY methadone 5 mg Tablet 5 mg PO Q8H PRN (Reason: pain) Eliquis 5 mg tablet 5 mg PO BID Qty: 60 11RF Rx Instructions: Consider lowering the dose to 2.5 mg twice daily with PCP oxycodone 5 mg Tablet 5 mg PO Q4H PRN PRN (Reason: Severe Pain ()) 2 Days Qty: 6 0RF alprazolam 0.25 mg Tablet 0.25 mg PO QHS Qty: 3 0RF oxycodone 5 mg Tablet 5 mg PO Q4H PRN PRN (Reason: Severe Pain (-06/17)) 2 Days Qty: 6 0RF acetaminophen 500 mg Tablet 1,000 mg PO Q6H PRN PRN (Reason: Headache) Qty: 0 0RF citalopram 20 mg tablet 30 mg PO DAILY 90 Days Qty: 135 2RF Arthritis compound cream D3/L3/B2 1 unit topical BID Qty: 1 0RF Rx Instructions: Apply to affected area twice a day, wash hands after use. Do not apply to broken skin. atorvastatin 10 mg tablet 10 mg PO DAILY Qty: 90 3RF diltiazem HCl 120 mg capsule,extended release 24hr 120 mg PO DAILY Qty: 90 3RF potassium chloride 20 mEq tablet,ER particles/crystals 20 meq PO TID Qty: 270 2RF omeprazole 40 mg capsule,delayed release(DR/EC) 40 mg PO QDAY Qty: 90 1RF Rx Instructions: Take 30 minutes before breakfast Changed furosemide 20 mg tablet 40 mg PO DAILY 30 Days Qty: 0 0RF Held lisinopril 10 mg tablet 10 mg PO BID Hold Instructions: Hold it as her blood pressure is in 110s. Consider discontinuing it Discontinued hydrochlorothiazide 25 mg tablet 25 mg PO DAILY Qty: 90 3RF Referrals / Follow Up: Ольга Riggins MD [Primary Care Provider] - Disposition Disposition (needs filled in before D/C Order can be placed): Snf Facility
[2024-10-09 10:00] VITALS: BP 137/84; PULSE 69; RESP 17; TEMP 36.9; O2SAT 96
--- NOTE | 2024-10-09 11:49 | PCM.DC.SUM ---
Providers Date of Admission: 10/06/24 Date of Discharge: 10/09/24 Primary Care Physician: Dr. Ольга Riggins MD Reason For Visit: UTI W/ WEAKNESS AND CONFUSION Diagnosis Discharge Diagnosis (1) Adult failure to thrive: Status: Acute Code(s): R62.7 - Adult failure to thrive (2) Acute metabolic encephalopathy: Status: Acute Code(s): G93.41 - Metabolic encephalopathy (3) Acute UTI: Status: Acute Code(s): N39.0 - Urinary tract infection, site not specified (4) Acute dehydration: Status: Acute Code(s): E86.0 - Dehydration Plan Patient is an 83-year-old female who presented [facility] ED on 10/06/2024 with worsening weakness and confusion. 1. Acute on chronic debility with mild acute metabolic encephalopathy, chronic pain predominantly back pain with history of chronic transverse myelitis ? Admit under inpatient status to PCU. PT/OT/case management consulted. Appears to have slow chronic worsening of her functional status. CT head without contrast does not show acute intracranial abnormality. Patient lives at home. Patient is awake and alert. She is talking coherent. She states she has pain all over. I talked to her neurologist Dr. Davis, [facility]. 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 She has been doing well on methadone and oxycodone since then. Her home medications continued. 10/08: Pain is better. Patient out of bed to chair. Plan for group home. Continue PT 10/09: Pain is better. Patient is getting discharged to [facility] group home. 2. Abnormal UA: Patient denies burning micturition or new UTI symptoms. ? UA on admit showed positive nitrites, 500 leukocyte esterase, 3+ bacteria. Empirically with IV ceftriaxone for now. Urine culture was not ordered at the time of admission therefore ordered. 10/09: Urine culture shows no growth. Blood culture x 2 pending for more than 48 hours 3. Mild hypotension with dehydration ? Hypotensive to the high 80s to 90s systolic in the ED. Suspect due to dehydration in setting of poor p.o. intake and home diuretics. Given 1 L of IV fluids in the ED 10/07: Hypotension resolved. Blood pressure 122/79. 4. Chronic pain syndrome ? Home regimen of methadone 5 mg every 8 hours as needed, oxycodone 5 mg every 4 hours as needed and gabapentin 600 mg 3 times daily. Checked OARRS report and this was confirmed. Suspect these medications could be contributing to her mild encephalopathy. Will continue these for now but can consider decreasing doses as able. Chronic medical conditions: ? Class I obesity: BMI 30 on admit. Complicates hospital course, care and prognosis. ? HFpEF, mitral valve insufficiency, hypertension, hyperlipidemia: Mildly hypotensive and dry appearing in the ED. Given 1 L of IV fluids. Will hold home Lasix, lisinopril and hydrochlorothiazide for now. Continue home statin. ? Chronic persistent A-fib: Rate controlled on admit. Continue home diltiazem and Eliquis. ? Anxiety/depression: Continue home citalopram and alprazolam at night. ? Mild chronic anemia: Hemoglobin 11.3 on admit, stable at baseline. ? COPD with chronic respiratory failure: Stable on home 2 L nasal cannula on admit. Chest x-ray unremarkable. Not in acute exacerbation. Continue home inhalers. DVT prophylaxis: Not indicated, on Eliquis CODE STATUS: DNR CCA, DNI I talked to the patient's POA, Mrs. Mya Napoles and she requested change of CODE STATUS to DNR CC. I explained the difference between DNR CCA and DNRCC and she understood it. There would not be BiPAP CPAP, shocking, Airvo or central line or vasopressors. She signed the DNR CC paper. CODE STATUS changed to DNR CC Discharge medication reconciliation done. Discharge follow-up instructions completed. Discharge process discussed with the patient and all questions were answered to patient's satisfaction. Follow with PCP in 1 to 2 weeks Total time spent, exact 35 minutes on discharge meds reconciliation, examination, coordination of care with nurses and ancillary staff, review of imaging and blood test and discussion with the patient on follow-up instructions. Living will/advanced directive/end of life care: Patient does have living will or advanced directive. After discussion of benefits/risks procedures involved with full code, DNR CC arrest and DNR CC, the patient and her POA opted for changing the CODE STATUS to DNR CC Patient doesn't want artificial life support including intubation, tube feed, ventilator and/chest compression, central venous catheter, vasopressor and DC shock if needed Medications at Discharge Home Medications polyethylene glycol 3350 17 gram oral powder packet 17 gm PO DAILY constipation 08/27/18 Wheel Chair #1 ea 10/10/20 walker #1 ea 10/10/20 home oxygen See Rx Instructions NASAL QHS PRN oxygen 11/30/20 ascorbate calcium (vitamin C) 500 mg tablet 500 mg PO DAILY supplement 04/28/23 cholecalciferol (vitamin D3) 50 mcg (2,000 unit) capsule 50 mcg PO DAILY supplement 04/28/23 Handicap Placard #1 ea 10/14/23 alprazolam 0.25 mg tablet 0.25 mg PO QHS Anxiety #3 tabs 05/05/24 oxycodone 5 mg tablet 5 mg PO Q4H PRN PRN Severe Pain (6-06/17) 2 days #6 tabs 05/05/24 acetaminophen 500 mg tablet 1,000 mg (2 x 500 mg) PO Q6H PRN PRN Headache #0 tabs 05/19/24 citalopram 20 mg tablet 30 mg (1.5 x 20 mg) PO DAILY depression 3 months #135 tabs 07/30/24 Arthritis compound cream D3/L3/B2 1 unit topical BID #1 BOTTLE 08/30/24 atorvastatin 10 mg tablet 10 mg PO DAILY cholestrol #90 tabs 09/06/24 diltiazem HCl 120 mg capsule,24 hr,extended release 120 mg PO DAILY BP #90 caps 09/06/24 potassium chloride 20 mEq tablet,extended release(part/cryst) 20 meq PO TID supplement #270 tabs 09/06/24 omeprazole 40 mg capsule,delayed release 40 mg PO QDAY #90 caps 09/14/24 bisacodyl 5 mg tablet,delayed release (Dulcolax (bisacodyl)) 5 mg PO ONCE PRN constipation 10/01/24 casanthranol-docusate sodium 30 mg-100 mg capsule 1 cap PO DAILY PRN constipation 10/01/24 gabapentin 300 mg capsule 600 mg PO TID 10/01/24 lisinopril 10 mg tablet 10 mg PO BID 10/01/24 Held on 10/09/24. Instructions: Hold it as her blood pressure is in 110s. Consider discontinuing it nitroglycerin 0.4 mg sublingual tablet 0.4 mg sublingual Q5-15M PRN chest pain #25 tabs 10/01/24 methadone 5 mg tablet 5 mg PO Q8H PRN pain 10/06/24 apixaban 5 mg tablet (Eliquis) 5 mg PO BID Blood thinner #60 TABLETS 10/09/24 furosemide 20 mg tablet 40 mg (2 x 20 mg) PO DAILY 30 days #0 tabs 10/09/24 oxycodone 5 mg tablet 5 mg PO Q4H PRN PRN Severe Pain (6-10/10) 2 days #6 tabs 10/09/24 Physical Exam Narrative Seen and examined. Patient is being discharged to SNF. Patient denies any local symptoms of UTI including burning micturition, increased frequency or urgency or lower urinary tract symptoms. No fever Physical exam General: Alert, Oriented x3, Cooperative HEENT: Atraumatic, PERRLA, EOMI, Normocephalic Oral: No Gingival or Mucosal Lesions/ Ulcerations Neck: Supple, No JVD, Negative Carotid Bruits Chest wall/Lungs: Air entry diminished in bilateral lung bases. No crepitation/rhonchi Cardiovascular: Sinus rhythm , Normal S1, Normal S2, No M/G/R Abdomen: Bowel Sounds Present, Soft, Non Tender, Non-Distended : No dysuria. No renal angle tenderness. No suprapubic tenderness. Extremities: No edema, Capillary Refill Less than 3 Seconds Skin: No rashes, No breakdown Musculoskeletal: Mild weakness in lower extremities, 4/5. No Tenderness to Palpation of Joints or Extremities Neurological: Cranial nerves II-XII grossly intact, DTR 2+/4. Chronic decreased sensation in right leg more than left from transverse myelitis Psych/Mental Status: Looks more comfortable Weight / BMI Weight Weight: 132 lb 0.91 oz Body Mass Index (BMI) 29.6 ABG / Lab / Microbiology Data 10/09/24 06:05 10/09/24 06:05 Laboratory: Laboratory Results - last 24 hr 10/09/24 06:05: WBC 3.1 L, RBC 3.45 L, Hgb 10.4 L, Hct 32.6 L, MCV 94.5, MCH 30.1, MCHC 31.9 L, RDW Std Deviation 45.9 H, RDW Coeff of Jus 13.2, Plt Count 116 L, MPV 10.7, Immature Gran % (Auto) 0.300, Neut % (Auto) 46.6 L, Lymph % (Auto) 34.1, [place] % (Auto) 16.1 H, Eos % (Auto) 1.9, Baso % (Auto) 1.0, Absolute Neuts (auto) 1.5 L, Absolute Lymphs (auto) 1.06, Nucleated RBC % 0, Sodium 138, Potassium 3.8, Chloride 104, Carbon Dioxide 31.0, Anion Gap 3 L, BUN 18, Creatinine 0.70, Estim Creat Clear Calc 44.63, Est GFR (MDRD) Af Amer 103, Est GFR (MDRD) Non-Af 85, BUN/Creatinine Ratio 25.6 H, Glucose 88, Calcium 8.6 Microbiology: Microbiology 10/07/24 17:05 Urine, Clean Catch Urine Culture - Preliminary Culture exhibits no growth. 10/06/24 12:05 Mucosa - Nose SARS-CoV-2, Influenza & RSV (PCR) - Final D/C Instructions DC O2, CPAP, BIPAP Needs Home O2 Discharge instructions: No Meaningful Use Info Meaningful Use Meaningful Use Diagnoses (Choose all that apply): None applicable Ischemic Stroke Statin Dosing Therapy Reference: STATIN DOSE THERAPY REFERENCE: * Patients > 75 years receive moderate or high dose statin therapy. * Patients 75 years or YOUNGER should receive HIGH intensity statin dose unless contraindicated. You will be required to document reason for non-treatment if statin daily dose does not meet guidelines. HIGH DOSE STATIN THERAPY DAILY Atorvastatin > than or = to 40 mg Rosuvastatin > than or = to 20 mg Amlodipine + Atorvastatin > than or = to 2.5/40 mg Ezetimibe + Simvastatin 10/80 mg Simvastatin 80mg Discharge Plan Admission Admit Date/Time: 10/06/24 14:40 Primary Reason for Your Visit: Bilateral sciatica pain. Chronic transverse myelitis Attending Provider: Salazar Logan Primary Care Provider: Ольга Riggins Consulting Providers: [place] Instructions Additional Instructions / Restrictions: If patient on Eliquis for paroxysmal A-fib, can decrease to 2.5 mg twice daily. But if patient on Eliquis for DVT, continue 5 mg. Discharge Orders/Prescriptions Prescriptions: Continued home oxygen 2 L See Rx Instructions NASAL QHS PRN (Reason: oxygen) Patient Comments: use at night time Rx Instructions: 2 LPM NASALLY at bedtime PRN; (DME) walker Misc See Rx Instructions .ROUTE .MEDSUPPLY Qty: 1 0RF Rx Instructions: As directed (DME) Wheel Chair See Rx Instructions .Route .MEDSUPPLY Qty: 1 0RF Rx Instructions: As directed cholecalciferol (vitamin D3) 50 mcg (2,000 unit) capsule 50 mcg PO DAILY ascorbate calcium (vitamin C) 500 mg tablet 500 mg PO DAILY (DME) Handicap Placard See Rx Instructions .ROUTE .MEDSUPPLY Qty: 1 0RF Rx Instructions: As directed, length of time 5 years gabapentin 300 mg capsule 600 mg PO TID bisacodyl [Dulcolax (bisacodyl)] 5 mg tablet,delayed release (DR/EC) 5 mg PO ONCE PRN (Reason: constipation) casanthranol-docusate sodium 30-100 mg capsule 1 cap PO DAILY PRN (Reason: constipation) nitroglycerin 0.4 mg tablet, sublingual 0.4 mg SUBLINGUAL Q5-15M PRN (Reason: chest pain) Qty: 25 3RF Rx Instructions: until response; do not exceed 3 doses per episode polyethylene glycol 3350 17 GM packet 17 gm PO DAILY methadone 5 mg Tablet 5 mg PO Q8H PRN (Reason: pain) Eliquis 5 mg tablet 5 mg PO BID Qty: 60 11RF Rx Instructions: Consider lowering the dose to 2.5 mg twice daily with PCP oxycodone 5 mg Tablet 5 mg PO Q4H PRN PRN (Reason: Severe Pain (6-10/10)) 2 Days Qty: 6 0RF alprazolam 0.25 mg Tablet 0.25 mg PO QHS Qty: 3 0RF oxycodone 5 mg Tablet 5 mg PO Q4H PRN PRN (Reason: Severe Pain (6-10/10)) 2 Days Qty: 6 0RF acetaminophen 500 mg Tablet 1,000 mg PO Q6H PRN PRN (Reason: Headache) Qty: 0 0RF citalopram 20 mg tablet 30 mg PO DAILY 90 Days Qty: 135 2RF Arthritis compound cream D3/L3/B2 1 unit topical BID Qty: 1 0RF Rx Instructions: Apply to affected area twice a day, wash hands after use. Do not apply to broken skin. atorvastatin 10 mg tablet 10 mg PO DAILY Qty: 90 3RF diltiazem HCl 120 mg capsule,extended release 24hr 120 mg PO DAILY Qty: 90 3RF potassium chloride 20 mEq tablet,ER particles/crystals 20 meq PO TID Qty: 270 2RF omeprazole 40 mg capsule,delayed release(DR/EC) 40 mg PO QDAY Qty: 90 1RF Rx Instructions: Take 30 minutes before breakfast Changed furosemide 20 mg tablet 40 mg PO DAILY 30 Days Qty: 0 0RF Held lisinopril 10 mg tablet 10 mg PO BID Hold Instructions: Hold it as her blood pressure is in 110s. Consider discontinuing it Discontinued hydrochlorothiazide 25 mg tablet 25 mg PO DAILY Qty: 90 3RF Referrals / Follow Up: Ольга iRggins MD [Primary Care Provider] - Disposition Disposition (needs filled in before D/C Order can be placed): Long-Term Facility Charges/Coding Visit Charges Inpatient E&M: 33218 Disch Hosp >30min
--- NOTE | 2024-10-09 14:02 | CASEMGMT ---
Social Work SW did complete the hospital exemption in the [facility] system. RIA Riley
--- NOTE | 2024-10-09 14:35 | NURSING ---
Report given to Kim Velasco with all questions answered
[2024-10-09 15:33] VITALS: BP 119/76; PULSE 64; RESP 16; TEMP 36.8; O2SAT 99
[2024-10-09 16:00] VITALS: BP 127/82; PULSE 69; RESP 15; TEMP 36.8; O2SAT 99
[2024-10-09 19:34] VITALS: BP 139/94; PULSE 89; RESP 16; TEMP 37; O2SAT 98
--- NOTE | 2024-10-09 19:45 | NURSING ---
ambulance here to get patient, clean attends put on, vitals obtained, and IV had previously been removed. Pt had all her stuff and cellphone in hand
== END 2024-10-09 19:45 | disposition skilled nursing facility (03) | DRG 640 ==
LOC: ED 14:21 → PCU 16:08
PROVIDERS: Admitting Provider Hospitalist; Emergency Provider Emergency Medicine; PCP Internal Medicine; Visit Provider Internal Medicine
DX: E86.0 Dehydration (principal); G93.41 Metabolic encephalopathy; J96.10 Chronic respiratory failure, unspecified whether with hypoxia or hypercapnia; I50.32 Chronic diastolic (congestive) heart failure; I48.19 Other persistent atrial fibrillation; N39.0 Urinary tract infection, site not specified; R62.7 Adult failure to thrive; I11.0 Hypertensive heart disease with heart failure; J44.9 Chronic obstructive pulmonary disease, unspecified; E66.811 Obesity, class 1; E78.5 Hyperlipidemia, unspecified; K21.9 Gastro-esophageal reflux disease without esophagitis; F41.8 Other specified anxiety disorders; I95.9 Hypotension, unspecified; Z68.30 Body mass index [BMI] 30.0-30.9, adult; Z87.891 Personal history of nicotine dependence; G89.4 Chronic pain syndrome; Z79.01 Long term (current) use of anticoagulants; Z90.710 Acquired absence of both cervix and uterus; Z86.73 Personal history of transient ischemic attack (TIA), and cerebral infarction without residual deficits; Z79.899 Other long term (current) drug therapy; Z79.891 Long term (current) use of opiate analgesic
CPT/HCPCS: 36415; 70450; 71045; 80048; 80053; 81001; 83605; 84484; 85025; 85027; 87040; 87086; 87631; 92526; 92610; 93005; 94668; 97162; 97166; 97535; 99285; A4216

== ENCOUNTER 2025-02-02 07:49 | Emergency (ER) | payer MEDICARE, OTHER, SELFPAY ==
[2025-02-02 07:50] VITALS: BP 108/81; PULSE 89; RESP 25; TEMP 36.8; O2SAT 82; BMI 31.4
[2025-02-02 08:02] VITALS: O2SAT 100
--- NOTE | 2025-02-02 08:06 | EDS_ITS ---
HPI History of Present Illness Chief Complaint: Shortness of Breath Narrative Narrative: 84-year-old female presents from the [facility] with shortness of breath and reported low pulse ox. According to EMS, patient usually wears 2 to 3 L of oxygen. senior living reports that patient was having pulse ox of 80% on her 2 L of nasal cannula oxygen which she usually wears. They also stated they could not get a blood pressure. Patient denies any recent fevers or chills, no cough, on nonrebreather stated that she was not having difficulty breathing. 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) Chronic diastolic (congestive) heart failure Anxiety and depression GERD (gastroesophageal reflux disease) Opioid dependence Neuropathic pain Chronic pain Hiatal hernia Acute anemia Hyperlipidemia Essential (primary) hypertension Paroxysmal atrial fibrillation Transverse myelitis History of DVT (deep vein thrombosis) Acute ischemic stroke Atrial flutter Home Medications ?Medication ?Instructions ?Recorded ?Last Taken ?Type Wheel Chair #1 ea 10/10/20 Unknown Rx walker #1 ea 10/10/20 Unknown Rx home oxygen See Rx Instructions NASAL QH S PRN 11/30/20 Unknown History oxygen cholecalciferol (vitamin D3) 50 50 mcg PO DAILY supple ment 04/28/23 05/05/24 History mcg (2,000 unit) capsule Handicap Placard #1 ea 10/14/23 Unknown Rx alprazolam 0.25 mg tablet 0.25 mg PO QHS Anxiety #3 ta bs 05/05/24 05/04/24 Rx atorvastatin 10 mg tablet 10 mg PO DAILY cholestrol #9 0 tabs 09/06/24 Unknown Rx omeprazole 40 mg capsule,delayed 40 mg PO QDAY #90 cap s 09/14/24 Unknown Rx release bisacodyl 5 mg tablet,delayed 5 mg PO ONCE PRN constip ation 10/01/24 Unknown History release (Dulcolax (bisacodyl)) casanthranol-docusate sodium 30 1 cap PO DAILY PRN con stipation 10/01/24 Unknown History mg-100 mg capsule gabapentin 300 mg capsule 600 mg PO TID 10/01/24 Unkno wn History nitroglycerin 0.4 mg sublingual 0.4 mg sublingual Q5-1 5M PRN chest 10/01/24 Unknown Rx tablet pain #25 tabs oxycodone 5 mg tablet 5 mg PO Q4H PRN PRN Severe P ain 10/09/24 Unknown Rx () 2 days #6 tabs ascorbate calcium (vitamin C) 500 500 mg PO DAILY supp lement #90 tabs 11/05/24 Unknown Rx mg tablet polyethylene glycol 3350 17 17 g PO QDAY PRN constipat ion #850 11/10/24 Unknown Rx gram/dose oral powder (Miralax) grams apixaban 5 mg tablet (Eliquis) 5 mg PO BID Blood thinn er #60 11/25/24 Unknown Rx TABLETS Hospital bed #1 ea 12/31/24 Unknown Rx Icy Hot menthol topical analgesic topical PRN 12/31/24 Unknown History LOPERIMIDE 2 mg PO .prn 12/31/24 Unknow n History acetaminophen 500 mg tablet 1,000 mg PO Q6H PRN PRN He adache 12/31/24 Unknown History artificial tears(hypromellose) 0.3 1 drp ophthalmic (e ye) Q4H PRN 12/31/24 Unknown History % eye gel (GenTeal Tears Severe) furosemide 40 mg tablet 40 mg PO QAM 12/31/24 Unknow n History lisinopril 10 mg tablet 10 mg PO QDAY 12/31/24 Unkno wn History magnesium hydroxide 400 mg/5 mL 30 ml PO QDAY PRN 12/08 01/30 Unknown History oral suspension (Milk of Magnesia) methadone 5 mg tablet 5 mg PO Q8H pain 12/31/24 Un known History potassium chloride 20 mEq 20 meq PO QDAY 12/31/24 Unkn own History tablet,extended release potassium chloride 20 mEq 40 meq PO QDAY supplement Unknown History tablet,extended release(part/cryst) sennosides 8.6 mg-docusate sodium 1 tab-cap PO BID PRN 12/31/24 Unknown History 50 mg capsule (Senna Plus) citalopram 20 mg tablet 30 mg (1.5 x 20 mg) PO DAILY 01/03/25 Unknown Rx depression 3 months #135 tabs benzonatate 100 mg capsule 100 mg PO BID-TID PRN cough #90 01/10/25 Unknown Rx caps Arthritis compound cream D3/L3/B2 1 unit topical BID # 1 BOTTLE 01/13/25 Unknown Rx sennosides 8.6 mg-docusate sodium See Rx Instructions PO .COMPLEX 01/27/25 Unknown Rx 50 mg tablet (Senna Plus) PRN constipation #90 tabs diltiazem HCl 120 mg capsule,24 120 mg PO DAILY BP #90 caps 02/01/25 Unknown Rx hr,extended release levofloxacin 750 mg tablet 750 mg PO DAILY #7 tabs Unknown Rx Allergy/AdvReac Type Severity Reaction Status Date / Time morphine Allergy Hives Verified 10/06/24 11:17 atorvastatin AdvReac Severe elevated Verified 10/06/24 11:17 liver enzymes carbamazepine (From Tegretol) AdvReac Intermediate HALLUCINATI Verified 10/06/24 11:17 ONS procaine HCl (From Novocain) AdvReac Intermediate HEART Verified 10/06/24 11:17 RACES,FEELS LIKE WILL PASS OUT Family History Mother Colon cancer Father Myocardial infarction Uncle Asthma Surgical History History of carpal tunnel surgery of right wrist H/O: hysterectomy Social History household members: family and children housing: house Smoking Status: Former smoker how long ago did patient quit smokin years ago alcohol intake: never substance use type: does not use caffeine: Yes Type: coffee Number of servings: 2 what type of physical activity do you participate in: none seatbelt use: always do you feel safe at home: Yes ROS ROS ED ROS Narrative Review of systems mildly limited secondary to patient hard of hearing. Reported shortness of breath and low pulse ox. Reported inability to obtain blood pressure. Patient denies symptoms. EXAM Physical Exam Narrative Exam Narrative: Afebrile. Vital signs noted. Nontoxic-appearing. Cardiovascular examination reveals a regular rate and rhythm. Lungs are clear to auscultation bilaterally. Mild tachypnea. Abdomen is soft and nontender without guarding or rebound. Awake, alert, interactive. Const Vital Signs: 02/02/25 07:50 02/02/25 08:02 02/02/25 08:58 Temperature 98.2 F Temperature Source Axillary Pulse Rate 89 Respiratory Rate 25 H Respiratory Effort Short of Breath Blood Pressure 108/81 H Blood Pressure Mean 90 Pulse Ox 82 100 Oxygen Delivery Method Non-Rebreather Nasal Cannula Oxygen Flow Rate (L/min) 12 2 02/02/25 09:00 02/02/25 10:00 Temperature Temperature Source Pulse Rate 81 78 Respiratory Rate 19 H 19 H Respiratory Effort Blood Pressure 102/73 Blood Pressure Mean 82 Pulse Ox 94 98 Oxygen Delivery Method Nasal Cannula Nasal Cannula Oxygen Flow Rate (L/min) 2 MDM MDM MDM Narrative Medical decision making narrative: Differential diagnosis includes but not limited to pneumonia versus pneumothorax versus anemia. I reviewed the patient's fdc records and prior inpatient stay. She does have a [facility] DO NOT RESUSCITATE comfort care only order. I reviewed the inpatient note by Dr. Tomlinson and when he had explained everything to the patient and the power of deputy commonwealth's attorney and they signed it back in September, changing her CODE STATUS to DO NOT RESUSCITATE comfort care only. I do not feel that she needs reversal. She was changed to nasal cannula oxygen, and has normal oxygenation and normal blood pressure here. In conjunction with the original desire for her to be DNR comfort care only, I will refrain from laboratory work currently. I attempted to call her power of deputy commonwealth's attorney, her Sister Mya, but the mailbox was full and I am unable to leave a voicemail message. While awaiting, she maintained her oxygen saturation levels. I did obtain a chest x-ray and interpreted it independently. She has a left lower lobe consolidation and blunting of the bilateral costophrenic angles. She is given her first dose of Levaquin here. Her sister is now at the bedside who states that they are trying to get in with hospice from [place]. [facility]. We discussed the prior DNR comfort care only, and it is still in [place]. I wrote her prescription for Levaquin for the presumed pneumonia. She has also been maintaining her oxygen saturation levels. They were told that she can use up to 5 L per nasal cannula per minute to maintain her oxygen saturation levels. She is comfortable with discharge back to the assisted living facility and will be in touch with the hospice service of her choice. Disposition is discharged in stable condition. History & Record Review Discussion w/independent historian: Patient and Family Radiography Chest X-Ray - ED: 1 View, Read by ED Physician, Read by Radiologist and Left Infiltrate Diagnostic Testing: Clinical Impression(s) from Imaging Studies Chest X-Ray 02/02/25 09:20 IMPRESSION: Consolidation in the left lower lobe with blunting of both costophrenic angles. Cardiomegaly. Reading Location: [facility] Discharge Plan Triage Chief Complaint: Shortness of Breath ED Provider: Baldev Lira Dx/Rx/DC Orders Clinical Impression: Pneumonia, Do not resuscitate status Instructions: Understanding DNR Orders, ED Pneumonia (Adult) Prescriptions: New levofloxacin 750 mg tablet 750 mg PO DAILY Qty: 7 0RF No Action home oxygen 2 L See Rx Instructions NASAL QHS PRN (Reason: oxygen) Patient Comments: use at night time Rx Instructions: 2 LPM NASALLY at bedtime PRN; (DME) walker Misc See Rx Instructions .ROUTE .MEDSUPPLY Qty: 1 0RF Rx Instructions: As directed (DME) Wheel Chair See Rx Instructions .Route .MEDSUPPLY Qty: 1 0RF Rx Instructions: As directed cholecalciferol (vitamin D3) 50 mcg (2,000 unit) capsule 50 mcg PO DAILY (DME) Handicap Placard See Rx Instructions .ROUTE .MEDSUPPLY Qty: 1 0RF Rx Instructions: As directed, length of time 5 years gabapentin 300 mg capsule 600 mg PO TID bisacodyl [Dulcolax (bisacodyl)] 5 mg tablet,delayed release (DR/EC) 5 mg PO ONCE PRN (Reason: constipation) casanthranol-docusate sodium 30-100 mg capsule 1 cap PO DAILY PRN (Reason: constipation) nitroglycerin 0.4 mg tablet, sublingual 0.4 mg SUBLINGUAL Q5-15M PRN (Reason: chest pain) Qty: 25 3RF Rx Instructions: until response; do not exceed 3 doses per episode furosemide 40 mg tablet 40 mg PO QAM GenTeal Tears Severe Gel 0.3 % gel 1 drp ophthalmic (eye) Q4H PRN Icy Hot menthol topical analgesic topical PRN Rx Instructions: to bilateral knees for pain lisinopril 10 mg tablet 10 mg PO QDAY Rx Instructions: GIVE ONE TABLET BY MOUTH IN THE MORNING FOR HTN IF SYSTOLIC B/P <110 LOPERIMIDE 2 mg PO .prn Rx Instructions: NOT TO EXCEED 8 IN 24 HR PERIOD magnesium hydroxide [Milk of Magnesia] 400 mg/5 mL suspension 30 ml PO QDAY PRN Rx Instructions: CONSTIPATION potassium chloride 20 mEq tablet,ER particles/crystals 40 meq PO QDAY Rx Instructions: in the am Senna Plus 8.6-50 mg capsule 1 tab-cap PO BID PRN acetaminophen 500 mg tablet 1,000 mg PO Q6H PRN PRN (Reason: Headache) potassium chloride 20 mEq tablet extended release 20 meq PO QDAY Rx Instructions: at bed time (DME) Hospital bed standard See Rx Instructions .Route .MEDSUPPLY Qty: 1 0RF Rx Instructions: As directed oxycodone 5 mg Tablet 5 mg PO Q4H PRN PRN (Reason: Severe Pain (6-1010)) 2 Days Qty: 6 0RF methadone 5 mg tablet 5 mg PO Q8H Rx Instructions: ROUTINE alprazolam 0.25 mg Tablet 0.25 mg PO QHS Qty: 3 0RF atorvastatin 10 mg tablet 10 mg PO DAILY Qty: 90 3RF omeprazole 40 mg capsule,delayed release(DR/EC) 40 mg PO QDAY Qty: 90 1RF Rx Instructions: Take 30 minutes before breakfast ascorbate calcium (vitamin C) 500 mg tablet 500 mg PO DAILY Qty: 90 3RF polyethylene glycol 3350 [Miralax] 17 gram/dose powder 17 g PO QDAY PRN (Reason: constipation) Qty: 850 1RF Eliquis 5 mg tablet 5 mg PO BID Qty: 60 11RF citalopram 20 mg tablet 30 mg PO DAILY 90 Days Qty: 135 2RF benzonatate 100 mg capsule 100 mg PO BID-TID PRN (Reason: cough) Qty: 90 0RF Arthritis compound cream D3/L3/B2 1 unit topical BID Qty: 1 4RF Rx Instructions: Apply to affected area twice a day, wash hands after use. Do not apply to broken skin. sennosides-docusate sodium [Senna Plus] 8.6-50 mg tablet See Rx Instructions PO .COMPLEX PRN (Reason: constipation) Qty: 90 1RF Rx Instructions: 1-2 tablets orally 1-2 times daily PRN; diltiazem HCl 120 mg capsule,extended release 24 hr 120 mg PO DAILY Qty: 90 3RF Primary Care Provider: Ольга Riggins Referrals: Ольга Riggins MD [Primary Care Provider] - Activity Restrictions/Additional Instructions: You may use up to 5 L of oxygen per minute per nasal cannula to maintain oxygen saturation at 90% or above. Antibiotics as directed. Follow-up with hospice as soon as possible. Print Language: Yi Disposition Disposition: Assisted Living Discharge Location: [facility]
[2025-02-02 09:00] VITALS: PULSE 81; RESP 19; O2SAT 94
--- NOTE | 2025-02-02 09:20 | RAD_ITS ---
PROCEDURE: CHEST 1 VIEW (PORTABLE) 02/02/2025 REASON FOR EXAM: SHORTNESS OF BREATH TECHNIQUE: Frontal view of the chest. COMPARISON: October 06, 2024. FINDINGS: Hardware: EKG electrodes are seen. Heart: Heart size is mildly enlarged. Lungs: There is evidence of consolidation in the left lower lobe with blunting of both costophrenic angles. Bones: Degenerative changes are identified within the thoracic spine. Degenerative changes of both shoulders. Multiple healed right rib fractures. Other: Atherosclerotic calcification of the aortic arch. RAD/Chest 1 View (Portable) IMPRESSION: Consolidation in the left lower lobe with blunting of both costophrenic angles. Cardiomegaly. Reading Location: [facility]
[2025-02-02 10:00] VITALS: BP 102/73; PULSE 78; RESP 19; O2SAT 98
[2025-02-02] MEDS: levoFLOXacin 750 MG Tablet PO (10:13)
[2025-02-02 12:00] VITALS: BP 142/78; PULSE 78; RESP 16; TEMP 37; O2SAT 98
[2025-02-02 12:42] VITALS: BP 148/127; PULSE 87; RESP 19; TEMP 36.4; O2SAT 92
== END 2025-02-02 12:57 | disposition home or self-care (01) ==
PROVIDERS: Emergency Provider Emergency Medicine; PCP Internal Medicine; Visit Provider Emergency Medicine
DX: J18.9 Pneumonia, unspecified organism (principal); I11.0 Hypertensive heart disease with heart failure; I50.32 Chronic diastolic (congestive) heart failure; I48.11 Longstanding persistent atrial fibrillation; Z66 Do not resuscitate; Z99.81 Dependence on supplemental oxygen; Z79.01 Long term (current) use of anticoagulants; Z79.899 Other long term (current) drug therapy; Z87.891 Personal history of nicotine dependence
CPT/HCPCS: 71045; 99284

== ENCOUNTER → 2025-04-07 | Outpatient (CLI) | payer MEDICARE, OTHER, SELFPAY ==
[2025-04-07 17:18] LABS: AST(SGOT) 27 U/L (<=31); Alanine Aminotransfer ALT/SGPT 27 U/L (<=34); Albumin, Serum 4.3 g/dL (3.4-4.8); Alkaline Phosphatase 106 U/L (35-104); Anion Gap 14 (5-15); BUN 14 mg/dL (4-19); BUN/Creat Ratio 15.2 RATIO (10-20); Calcium,Total 9.5 mg/dL (7.6-11.0); Carbon Dioxide 21.1 mmol/L (21.0-32.0); Chloride 98 mmol/L (98-108); Globulin 3.0 g/dL (2.2-4.2); Glucose 90 mg/dL (70-99); Potassium 4.4 mmol/L (3.3-5.1)
== END | disposition home or self-care (01) ==
LOC: LABSPEC 15:50
PROVIDERS: PCP Internal Medicine; Referring Provider Family Medicine; Visit Provider Family Medicine
DX: E87.6 Hypokalemia (principal)
CPT/HCPCS: 80053